=== PATIENT | female | born 1960 | race Caucasian/White ===

== ENCOUNTER 2019-08-05 08:55 | Inpatient (IN) ==
[2019-08-05] MEDS ORDERED: FAMOTIDINE 20MG IV PUSH 20 MG/5 ML SYR IV STA (09:14)
[2019-08-05] MEDS ORDERED: PIPERACILL/TAZOBAC CONSULT ACTIVE PRN (09:14)
[2019-08-05] MEDS ORDERED: PIPERACILLIN/TAZOBACTAM 4.5 GM/120 ML BAG IV ONE (09:14)
[2019-08-05] MEDS ORDERED: DiphenhydrAMINE HCL 50 MG/ML VIAL IV STA (09:14)
[2019-08-05] MEDS ORDERED: ONDANSETRON INJ 2 MG/ML 2 ML VIAL IV STA (09:14)
[2019-08-05] MEDS ORDERED: VANCOMYCIN CONSULT ACTIVE PRN (09:14)
[2019-08-05] MEDS ORDERED: methylPREDNISolone 125 MG/2 ML VIAL IV STA (09:14)
[2019-08-05] MEDS ORDERED: VANCOMYCIN HCL 2,000 MG in SODIUM CHLORIDE 0.9% 500 ML IV ONE (09:14)
[2019-08-05] MEDS ORDERED: SODIUM CHLORIDE 0.9% 1000ML 1,000 ML IV ONE ×2 (09:14→09:50)
[2019-08-05] MEDS: fentaNYL citrate 100 MCG/2 ML VIAL IV PRN ×2 (09:30→11:54)
[2019-08-05 09:54] LABS: Hematocrit (blood only) 31.5 % (37-47); Hemoglobin 10.6 g/dL (12.0-16.0); Mean Corpuscular Hemoglobin 31.5 pg (25-34); Mean Corpuscular Hgb Conc 33.7 g/dL (32-36); Mean Corpuscular Volume 93.5 fL (80-100); RDW Coefficient of Variation 15.5 % (11.5-14.5); RDW Standard Deviation 52.6 fL (36.4-46.3); Red Blood Count 3.37 M/uL (4.2-5.4); White Blood Count 59.69 K/uL (4.8-10.8)
--- NOTE | 2019-08-05 09:58 | Emergency Department Note ---
Impression & Plan Sepsis, Colitis, Abdominal pain, Metabolic acidosis, Ascending cholangitis ED Provider Note NAME: GLEN CRENSHAW AGE: 58 SEX: F : 1960 ARRIVES VIA: Ambulance INFORMANT: Patient, the patient's prehospital personnel, the patient's doc arely from [facility]. ED PROVIDER(S): Bradley Shah DO CHIEF COMPLAINT: Abdominal pain HPI: The patient is a 58-year-old female who presented to the emergency department for abdominal pain. The patient was at [facility] on July 26 for a left hip replacement. The patient has a history of peripheral vascular disease and continues to use tobacco products. She was transferred to [facility] on July 28 for sepsis. At that time it was unclear of the source but she was treated for diverticulitis. The patient did have radiographic studies which confirmed this. The patient was started on oral antibiotics after she was discharged from [facility]. She is currently taking Augmentin. She was admitted to [facility] last evening for inpatient rehab. She was sent to the emergency department this morning because of ongoing abdominal pain. She did have outpatient laboratory studies which did reveal a very high white blood cell count. The patient also complains of right- sided chest pain. She states her pain is moderate to severe and worsened with any movement. She has had nausea and vomiting. She denies any diarrhea or rectal bleeding. The patient has a history of multiple surgeries in the past. She states that she still has her gallbladder. She has had a history of venous thromboembolic disease and does take oral anticoagulation. The patient denies any recent fevers. She was tested for COVID-19 on July 30 which was reported as negative. This paperwork accompanied the patient. ROS: See above HPI for pertinent positives & negatives. A total of 10 systems reviewed and were otherwise negative. PAST MEDICAL HISTORY: See Below PAST SURGICAL HISTORY: See Below FAMILY HISTORY: See Below SOCIAL HISTORY: See Below HOME MEDICATIONS: See Below ALLERGIES: See Below VITALS: See Below PHYSICAL EXAMINATION: GENERAL: The patient is awake and alert. She is very anxious appearing and appears to be in significant pain. EYES: The conjunctivae are clear. The pupils are round and reactive. EARS, NOSE, MOUTH AND THROAT: The nose is without any evidence of any deformity. Mucous membranes are dry. NECK: The neck is nontender and supple. RESPIRATORY: Shallow respirations were noted. Diminished breath sounds are noted at both bases. There is no rales rhonchi or wheezing. There is no tachypnea but splinting respirations were noted. CARDIOVASCULAR: Tachycardic rate with regular rhythm was noted. There was no definite murmur. GASTROINTESTINAL: The abdomen was moderately distended and diffusely tender. There is right upper quadrant guarding to palpation. MUSCULOSKELETAL/EXTREMITIES: Postoperative site was noted on the lateral left hip. There was no dehiscence or erythema. There is no pain with range of motion testing. SKIN: Skin was warm and dry. Trace pedal edema was noted bilaterally. Pulses were symmetric in both feet. NEUROLOGIC: Patient is awake alert and oriented x3. MEDICAL DECISION MAKING: The patient is a 58-year-old female who is status post left hip surgery who initially was admitted to [facility] postoperatively. She has a history of tobacco use. She has a history of peripheral vascular disease. The patient was then transferred to [facility] for diverticulitis. At that time she was apparently very ill. She was recently transferred to [facility] for inpatient rehab. She started to decompensate over the last 24 hours and was sent to our emergency department with abdominal pain. The patient also complained of diarrhea and was found to have a very high white blood cell count. History and physical exam appear to be consistent with an abdominal process but given her overall appearance other laboratory and radiographic studies were obtained to ensure there was no signs of pulmonary embolism. The patient was treated with IV fluids and IV antibiotics. She was also reevaluated multiple times. The patient improved somewhat but appeared to still be very ill. I discussed her condition with the on-call general surgical group as well as the on-call hospitalist as well as the on-call dobie worker. They have agreed to evaluate the patient for further management disposition. The patient was reevaluated and feeling somewhat improved. She was agreeable to staying at our facility if it were possible. Triage Nursing notes reviewed. Prior medical records reviewed Vital Signs: reviewed and remarkable for hypotension and tachycardia Differential diagnosis: Etiologies such as appendicitis, diverticulitis, obstruction, inflammatory bowel disease, renal colic, PUD, biliary pathology, pancreatitis, mesenteric ischemia, aortic pathology, infections, genitourinary, UTI, perforated viscus, as well as others were entertained. ER treatment provided: See below Diagnostics interpreted by me: ECG: EKG was obtained in the emergency department. My interpretation is sinus tachycardia at 107 bpm. There is diffuse ST depressions noted. There was no ectopy. This was compared to a tracing from September 08, 2010. The ischemia as well as the tachycardia were both noted to be new. Cardiac Monitoring: An order was placed for continuous cardiac monitoring. The monitor shows a rate of 115 with sinus tachycardia rhythm. Laboratory studies: As stated above and show below. Imaging studies: See below Consultation(s): 1120: I discussed this case with Micheal Rodriguez. He was on-call for the surgical group. They will evaluate the patient for further management but likely medical management and resuscitation will be required first. 1125: I discussed this case with Dr. Kurtz who is on-call for the dobie worker group. 1140: I discussed this case with Dr. Fairchild. He was on-call for the [facility] hospitalist group. He is agreed to evaluate the patient in the emergency department for further management and disposition. ED COURSE: Procedures: none PDMP:reviewed and no issues Critical Care: I have personally spent greater than 65 minutes of critical care time in the direct management of this patient. This includes bedside care, interpretation of diagnostic studies, and testing, discussion with consultants, patient, and family members, and other required patient management activities. This 65 minutes is in excess of all separately billable procedures. 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 Beliefs That Will Affect Care: None marital status: Current Living Situation: Spouse current occupational status: unemployed and disabled Feels Safe at Home: Yes Smoking Status: Unknown if ever smoked Hx Alcohol Use: Yes Alcohol Intake Frequency: Weekly Alcohol Intake Frequency Comment: SOCIALLY;2-4PER WEEK Hx Substance Use: No Childhood Exposure to Second-Hand Smoke: Yes caffeine: Yes (coffee) during the past year weight has: remained stable Dental Care, Regularly: No Physical Activity Frequency Comment: LIMITED BY PHYSICAL CONDITION Seatbelt Use: sometimes Sunscreen Use: No Allergies Allergies Allergy/AdvReac Type Severity Reaction Status Date / Time Iodinated Contrast Media Allergy Unknown HIVES Verified 08/05/19 09:25 methocarbamol [From Robaxin] AdvReac Severe Verified 08/05/19 09:25 Contrast Media Ready-Box MISC Allergy Unknown Uncoded 08/05/19 09:25 Home Meds Home Medications Medication Instructions Recorded Confirmed cholecalciferol (vitamin D3) 25 1,000 units PO BID cap 09/22/18 08/05/19 mcg (1,000 unit) capsule oxycodone-acetaminophen 5 mg-325 1 tab PO .COMPLEX PRN 01/08/19 08/05/19 mg tablet buprenorphine 7.5 mcg TRANSDERMAL WK 08/05/19 08/05/19 trazodone 200 mg PO HS 08/05/19 08/05/19 Previous Rx's Medication Instructions Recorded fluticasone 250 mcg-salmeterol 50 1 puffs INH BID #60 ea 09/22/18 mcg/dose blistr powdr for inhalation fluoxetine 40 mg capsule 40 mg PO BID #180 cap 10/17/18 bupropion HCl 300 mg 24 hr tablet, 300 mg PO QAM #30 tab 11/19/18 extended release ferrous sulfate 325 mg (65 mg 325 mg PO BID #60 tab 01/08/19 iron) tablet diltiazem HCl 120 mg 120 mg PO DAILY #90 cap 05/20/19 capsule,extended release 24 hr gabapentin 300 mg capsule 300 mg PO TID #270 cap 05/20/19 atorvastatin 10 mg tablet 10 mg PO DAILY #90 tab 06/09/19 lisinopril 5 mg tablet 5 mg PO DAILY #90 tab 06/09/19 omeprazole 20 mg capsule,delayed 20 mg PO DAILY #90 cap 07/07/19 release Results & Data (ED) Vital Signs Vital Signs - 24 hr 08/05/19 09:05 08/05/19 09:12 08/05/19 09:42 Temperature 36.9 C Temperature Source Oral Pulse Rate 110 H 112 H 101 H Pulse Rate from SpO2 Sensor 110 H 101 H Respiratory Rate 28 H 26 H 25 H Blood Pressure 101/74 101/74 141/82 H Blood Pressure Mean 78 83 101 Blood Pressure Position Lying Pulse Oximetry 98 95 97 Oxygen Delivery Method Room Air Sepsis Recent Fever Within 48 Hours No Sepsis New/Unexplained Change in Mental Status No Sepsis Action Taken by Nursing Physician Notified 08/05/19 10:01 08/05/19 10:25 08/05/19 10:26 Temperature Temperature Source Pulse Rate 97 H 97 H Pulse Rate from SpO2 Sensor 101 H 98 H Respiratory Rate 20 23 Blood Pressure 147/78 H 107/67 Blood Pressure Mean 81 86 Blood Pressure Position Pulse Oximetry 99 98 95 Oxygen Delivery Method Room Air Sepsis Recent Fever Within 48 Hours Sepsis New/Unexplained Change in Mental Status Sepsis Action Taken by Nursing 08/05/19 11:00 08/05/19 11:22 08/05/19 11:31 Temperature Temperature Source Pulse Rate 96 H 98 H 96 H Pulse Rate from SpO2 Sensor 95 H 98 H Respiratory Rate 19 20 22 Blood Pressure 112/99 94/66 L 93/64 L Blood Pressure Mean 107 80 71 Blood Pressure Position Pulse Oximetry 100 100 Oxygen Delivery Method Sepsis Recent Fever Within 48 Hours Sepsis New/Unexplained Change in Mental Status Sepsis Action Taken by Nursing 08/05/19 11:53 08/05/19 12:00 08/05/19 12:31 Temperature Temperature Source Pulse Rate 102 H 95 H 94 H Pulse Rate from SpO2 Sensor 102 H 96 H 95 H Respiratory Rate 26 H 21 18 Blood Pressure 131/86 105/72 109/41 L Blood Pressure Mean 123 84 56 Blood Pressure Position Pulse Oximetry 99 96 98 Oxygen Delivery Method Sepsis Recent Fever Within 48 Hours Sepsis New/Unexplained Change in Mental Status Sepsis Action Taken by Care Home Medications Current Medication List: was personally reviewed by me Laboratory Data Attestation: I reviewed the patient's lab results. Result diagrams: 08/05/19 09:27 08/05/19 09:27 Lab Results 08/05/19 08/05/19 08/05/19 Range/Units 09:27 09:27 09:27 WBC (4.8-10.8) K/uL RBC (4.2-5.4) M/uL Hgb (12.0-16.0) g/dL POC Hgb (12.0-16.0) g/dl Hct (37-47) % POC Hct (37-47) % MCV (80-100) fL MCH (25-34) pg MCHC (32-36) g/dL RDW Std Deviation (36.4-46.3) fL RDW Coeff of Ashley (11.5-14.5) % Plt Count (130-400) K/uL MPV (7.4-10.4) fL Immature Gran % (Auto) % Neut % (Auto) % Lymph % (Auto) % [place] % (Auto) % Eos % (Auto) % Baso % (Auto) % Immature Gran # (Auto) (0.00-0.02) K/uL Neut # (Auto) (1.4-6.5) K/uL Lymph # (Auto) (1.2-3.4) K/uL [place] # (Auto) (0.11-0.59) K/uL Eos # (Auto) (0-0.5) K/uL Baso # (Auto) (0-0.2) K/uL Absolute Nucleated RBC (0-0) K/uL Nucleated RBC % (auto) % Platelet Estimate (Normal) ESR 79 H (0-21) mm/hr PT (9.0-12.0) Seconds INR (0.9-1.1) APTT (21.0-31.0) Seconds PTT Ratio VBG pH (7.36-7.41) VBG pCO2 (38-50) mmHg VBG pO2 mmHg VBG HCO3 mmol/L VBG O2 Saturation % VBG Base Excess mEq/L Barometric Pressure mm/Hg POC Sodium (135-144) mmol/L Sodium 132 L (136-145) mmol/L POC Potassium (3.3-5.0) mmol/L Potassium 4.1 (3.5-5.1) mmol/L POC Chloride (101-112) mmol/L Chloride 98 (98-107) mmol/L Carbon Dioxide 18 L (21-32) mmol/L POC Total CO2 (24-31) mmol/L Anion Gap 15.0 H (3-11) POC Anion Gap (16-25) mmol/L POC BUN (7-18) mg/dl BUN 23 H (7-18) mg/dl Creatinine 1.74 H (0.6-1.2) mg/dl POC Creatinine (0.6-1.3) mg/dl Est Cr Clr Drug Dosing 43.5 ml/min Est GFR ( Amer) 36.6 Est GFR (Non-Af Amer) 31.5 BUN/Creatinine Ratio 13.2 (10-20) Glucose 105 H (70-99) mg/dl POC Glucose (other) (70-99) mg/dl Lactate (0.4-2.0) mmol/L Calcium 7.9 L (8.5-10.1) mg/dl POC Ioniz Calcium Mariya (1.12-1.32) mmol/l Magnesium 1.8 (1.8-2.4) mg/dl Total Bilirubin 1.0 (0.2-1) mg/dl AST 21 (15-37) U/L ALT 16 (12-78) U/L Alkaline Phosphatase 138 H (45-117) U/L Troponin I < 0.015 (0-0.045) ng/ml C-Reactive Protein 27.50 H (0-0.29) mg/dl Total Protein 6.4 (6.4-8.2) gm/dl Albumin 1.6 L (3.4-5.0) gm/dl Globulin 4.8 H (2.5-4.0) gm/dl Albumin/Globulin Ratio 0.3 L (0.9-2) Procalcitonin 6.61 H (0-0.5) ng/ml 08/05/19 08/05/19 08/05/19 Range/Units 09:27 09:27 09:27 WBC 59.69 H* (4.8-10.8) K/uL RBC 3.37 L (4.2-5.4) M/uL Hgb 10.6 L (12.0-16.0) g/dL POC Hgb (12.0-16.0) g/dl Hct 31.5 L (37-47) % POC Hct (37-47) % MCV 93.5 (80-100) fL MCH 31.5 (25-34) pg MCHC 33.7 (32-36) g/dL RDW Std Deviation 52.6 H (36.4-46.3) fL RDW Coeff of Ashley 15.5 H (11.5-14.5) % Plt Count 453 H (130-400) K/uL MPV 10.6 H (7.4-10.4) fL Immature Gran % (Auto) 5.8 % Neut % (Auto) 86.5 % Lymph % (Auto) 3.7 % [place] % (Auto) 3.6 % Eos % (Auto) 0.0 % Baso % (Auto) 0.4 % Immature Gran # (Auto) 3.49 H (0.00-0.02) K/uL Neut # (Auto) 51.54 H (1.4-6.5) K/uL Lymph # (Auto) 2.23 (1.2-3.4) K/uL [place] # (Auto) 2.16 H (0.11-0.59) K/uL Eos # (Auto) 0.01 (0-0.5) K/uL Baso # (Auto) 0.26 H (0-0.2) K/uL Absolute Nucleated RBC 0.07 H (0-0) K/uL Nucleated RBC % (auto) 0.1 % Platelet Estimate Increased H (Normal) ESR (0-21) mm/hr PT 13.5 H (9.0-12.0) Seconds INR 1.3 H (0.9-1.1) APTT 28.0 (21.0-31.0) Seconds PTT Ratio 1.0 VBG pH (7.36-7.41) VBG pCO2 (38-50) mmHg VBG pO2 mmHg VBG HCO3 mmol/L VBG O2 Saturation % VBG Base Excess mEq/L Barometric Pressure mm/Hg POC Sodium (135-144) mmol/L Sodium (136-145) mmol/L POC Potassium (3.3-5.0) mmol/L Potassium (3.5-5.1) mmol/L POC Chloride (101-112) mmol/L Chloride (98-107) mmol/L Carbon Dioxide (21-32) mmol/L POC Total CO2 (24-31) mmol/L Anion Gap (3-11) POC Anion Gap (16-25) mmol/L POC BUN (7-18) mg/dl BUN (7-18) mg/dl Creatinine (0.6-1.2) mg/dl POC Creatinine (0.6-1.3) mg/dl Est Cr Clr Drug Dosing ml/min Est GFR ( Amer) Est GFR (Non-Af Amer) BUN/Creatinine Ratio (10-20) Glucose (70-99) mg/dl POC Glucose (other) (70-99) mg/dl Lactate 1.8 (0.4-2.0) mmol/L Calcium (8.5-10.1) mg/dl POC Ioniz Calcium Mariya (1.12-1.32) mmol/l Magnesium (1.8-2.4) mg/dl Total Bilirubin (0.2-1) mg/dl AST (15-37) U/L ALT (12-78) U/L Alkaline Phosphatase (45-117) U/L Troponin I (0-0.045) ng/ml C-Reactive Protein (0-0.29) mg/dl Total Protein (6.4-8.2) gm/dl Albumin (3.4-5.0) gm/dl Globulin (2.5-4.0) gm/dl Albumin/Globulin Ratio (0.9-2) Procalcitonin (0-0.5) ng/ml 08/05/19 08/05/19 Range/Units 09:39 11:19 WBC (4.8-10.8) K/uL RBC (4.2-5.4) M/uL Hgb (12.0-16.0) g/dL POC Hgb 13.9 (12.0-16.0) g/dl Hct (37-47) % POC Hct 41 (37-47) % MCV (80-100) fL MCH (25-34) pg MCHC (32-36) g/dL RDW Std Deviation (36.4-46.3) fL RDW Coeff of Ashley (11.5-14.5) % Plt Count (130-400) K/uL MPV (7.4-10.4) fL Immature Gran % (Auto) % Neut % (Auto) % Lymph % (Auto) % [place] % (Auto) % Eos % (Auto) % Baso % (Auto) % Immature Gran # (Auto) (0.00-0.02) K/uL Neut # (Auto) (1.4-6.5) K/uL Lymph # (Auto) (1.2-3.4) K/uL [place] # (Auto) (0.11-0.59) K/uL Eos # (Auto) (0-0.5) K/uL Baso # (Auto) (0-0.2) K/uL Absolute Nucleated RBC (0-0) K/uL Nucleated RBC % (auto) % Platelet Estimate (Normal) ESR (0-21) mm/hr PT (9.0-12.0) Seconds INR (0.9-1.1) APTT (21.0-31.0) Seconds PTT Ratio VBG pH 7.28 L (7.36-7.41) VBG pCO2 40 (38-50) mmHg VBG pO2 39 mmHg VBG HCO3 18 mmol/L VBG O2 Saturation 66.1 % VBG Base Excess -7.9 mEq/L Barometric Pressure 741.3 mm/Hg POC Sodium 131 L (135-144) mmol/L Sodium (136-145) mmol/L POC Potassium 4.0 (3.3-5.0) mmol/L Potassium (3.5-5.1) mmol/L POC Chloride 97 L (101-112) mmol/L Chloride (98-107) mmol/L Carbon Dioxide (21-32) mmol/L POC Total CO2 17 L (24-31) mmol/L Anion Gap (3-11) POC Anion Gap 22.0 (16-25) mmol/L POC BUN 21 H (7-18) mg/dl BUN (7-18) mg/dl Creatinine (0.6-1.2) mg/dl POC Creatinine 1.8 H (0.6-1.3) mg/dl Est Cr Clr Drug Dosing ml/min Est GFR ( Amer) Est GFR (Non-Af Amer) BUN/Creatinine Ratio (10-20) Glucose (70-99) mg/dl POC Glucose (other) 109 H (70-99) mg/dl Lactate (0.4-2.0) mmol/L Calcium (8.5-10.1) mg/dl POC Ioniz Calcium Mariya 1.00 L (1.12-1.32) mmol/l Magnesium (1.8-2.4) mg/dl Total Bilirubin (0.2-1) mg/dl AST (15-37) U/L ALT (12-78) U/L Alkaline Phosphatase (45-117) U/L Troponin I (0-0.045) ng/ml C-Reactive Protein (0-0.29) mg/dl Total Protein (6.4-8.2) gm/dl Albumin (3.4-5.0) gm/dl Globulin (2.5-4.0) gm/dl Albumin/Globulin Ratio (0.9-2) Procalcitonin (0-0.5) ng/ml Administered Medications Fentanyl Citrate (Fentanyl Citrate) 50 mcg IV Q15M PRN PRN Reason: Pain Stop: 08/19/19 09:13 Last Admin: 08/05/19 11:54 Dose: 50 mcg Documented by: [id number] Admin: 08/05/19 09:30 Dose: 50 mcg Documented by: [id number] Ioversol (Optiray 320 125ml) 119 ml IV ONCE PRN PRN Reason: Interaction Checking Stop: 08/09/19 10:20 Last Admin: 08/05/19 10:22 Dose: 119 ml Documented by: [id number] Discontinued Medications Diphenhydramine HCl (Benadryl) 25 mg IV NOW STA Stop: 08/05/19 09:15 Last Admin: 08/05/19 09:35 Dose: 25 mg Documented by: [id number] Piperacillin Sod/Tazobactam Sod (Zosyn) 4.5 gm in 120 mls @ 240 mls/hr IV NOW ONE Stop: 08/05/19 09:43 Last Infusion: 08/05/19 09:59 Dose: 0 mls/hr Documented by: [id number] Admin: 08/05/19 09:29 Dose: 240 mls/hr Documented by: [id number] Vancomycin HCl 2,000 mg/ (Sodium Chloride) 540 mls @ 200 mls/hr IV NOW ONE Stop: 08/05/19 11:43 Last Infusion: 08/05/19 12:30 Dose: 0 mls/hr Documented by: [id number] Admin: 08/05/19 09:48 Dose: 200 mls/hr Documented by: [id number] Sodium Chloride (Nss 1000ml) 1,000 mls @ 999 mls/hr IV .Q1H1M ONE Stop: 08/05/19 10:14 Last Infusion: 08/05/19 10:30 Dose: 0 mls/hr Documented by: [id number] Admin: 08/05/19 09:29 Dose: 999 mls/hr Documented by: [id number] Famotidine (Pepcid 20mg Iv Push) 20 mg in 5 mls @ 2.5 mls/min IV NOW STA Stop: 08/05/19 09:15 Last Admin: 08/05/19 09:34 Dose: 2.5 mls/min Documented by: [id number] Sodium Chloride (Nss 1000ml) 1,000 mls @ 999 mls/hr IV .Q1H1M ONE Stop: 08/05/19 10:50 Last Infusion: 08/05/19 11:27 Dose: 0 mls/hr Documented by: [id number] Admin: 08/05/19 10:25 Dose: 999 mls/hr Documented by: [id number] Methylprednisolone (Solumedrol) 125 mg IV NOW STA Stop: 08/05/19 09:15 Last Admin: 08/05/19 09:34 Dose: 125 mg Documented by: [id number] Ondansetron HCl (Zofran) 4 mg IV NOW STA Stop: 08/05/19 09:15 Last Admin: 08/05/19 09:30 Dose: 4 mg Documented by: [id number] Imaging Data Radiologist's Impression: XR chest 1V portable CLINICAL HISTORY: 58 years-old Female presenting with SEPSIS. TECHNIQUE: Portable upright AP view of the chest was obtained. COMPARISON: 11/30/2010. FINDINGS: Atherosclerosis of the aortic arch. Cardiac silhouette top normal in size. Mild pulmonary vascular and interstitial prominence. Reticular perihilar lung markings. Mildly low lung volumes. Bronchial wall thickening may be present. No large effusion or pneumothorax. Advanced degenerative changes of the right g lenohumeral joint. Reverse total left shoulder arthroplasty. Upper abdomen normal. IMPRESSION: 1. Bronchial wall thickening with perihilar added density and interstitial prominence could reflect congestive change, reactive airways disease, or bronchitis/bronchiolitis. No focal infiltrate to suggest pneumonia. ACT 112: Negative or not required by law. Electronically signed by: Michael Ace M.D. 08/05/2019 10:02 AM Dictated: 08/05/19 1001 Transcribed: 08/05/19 1001 CHEST CTA for PULMONARY ARTERIES CT DOSE: 1583.01 mGycm HISTORY: Shortness of breath. TECHNIQUE: Multiaxial CT images of the chest were performed following the intravenous administration of contrast to evaluate the pulmonary arteries. Maximal intensity projection images were also obtained. A dose lowering techn ique was utilized adhering to the principles of ALARA. COMPARISON STUDY: None. FINDINGS: Normal caliber thoracic aorta with no evidence for dissection. No pleural or pericardial effusions. The heart is normal in size. The main, lobar, and upper lobe pulmonary arteries are patent. The segmental and subsegmental pulmonary arteries of the bilateral lower lobes and right middle lobe are essentially nondiagnostic due to the poor opacification from the timing of contrast. Please refer to the same day abdomen and pelvis CT for further evaluation of the abdominal structures. Small amount of ascites is noted. Small hiatus hernia. No mediastinal or hilar lymphadenopathy. There is left shoulder arthroplasty. Advanced degenerative changes within the right glenohumeral joint. No suspicious lytic are blastic osseous lesions. No pneumothorax. The central airways are patent. Mild bronchial wall thickening is noted. There are scattered groundglass airspace opacities with mild interstitial thickening demonstrating an upper lobe predominance. No pneumothorax. Small fat-containing left-sided Bochdalek hernia. IMPRESSION: 1. No evidence for pulmonary embolus with limitations as described above. 2. Scattered groundglass airspace opacities and interstitial thickening demonstrating an upper lobe predominance. This is nonspecific but can be seen in the setting of an atypical pneumonitis (viral), chronic interstitial lung disease, sarcoidosis, or less likely pulmonary edema. Clinical correlation recommended. ACT 112: Negative or not required by law. Electronically signed by: Jona Vazquez M.D. 08/05/2019 10:43 AM Dictated: 08/05/19 1024 Transcribed: 08/05/[address] abd pelvis IV con only CLINICAL HISTORY: 58 years-old Female presenting with RUQ pain. TECHNIQUE: Multidetector CT of the abdomen and pelvis was performed after the administration of intravenous contrast. IV contrast: 119 mL of Optiray 320. One or more dose lowering techniques were used consistent with the principles of ALARA (as low as reasonably achievable), including automatic exposure control, mA or kV adjustment to individual patient size, and/or use of iterative reconstruction. COMPARISON: 02/02/2015. CT DOSE (mGy.cm): The estimated cumulative dose is 1583.01. FINDINGS: Cigar Head Stringer topogram: Orthopedic hardware. Lung bases: Normal heart size. Aortic valve calcification. No pericardial or pleural effusion. Patchy groundglass infiltrates in the right middle lobe and lingula. Liver: Normal morphology. No liver lesion. Patent hepatic vasculature. Biliary: No intrahepatic or extrahepatic biliary ductal dilatation. Trace biliary ductal wall thickening may be present. Normal gallbladder apart from mild mucosal hyperemia. Trace pericholecystic fluid. Pancreas: Mild parenchymal atrophy. Spleen: Vague hypodensity in the spleen, possibly hemangioma. Adrenal glands: Normal. Kidneys and ureters: Normal. No hydronephrosis. Bladder: Contains a focus of gas likely related to catheterization. Pelvic organs: Uterus surgically absent. Bowel: Wall thickening of the colon diffusely with mucosal hyperemia. Pericolonic edema diffusely though greatest along the ascending colon. Fluid noted throughout the colon consistent with a diarrheal illness. The appendix is normal. No bowel obstruction. Peritoneal cavity: Small volume fluid throughout the abdomen and pelvis. No free intraperitoneal air. Lymph nodes: No enlarged lymph nodes in the abdomen or pelvis. Vasculature: Atherosclerosis of the normal caliber abdominal aorta. IVC patent. Abdominal wall: Mild body wall edema. Musculoskeletal: Degenerative changes of the spine. Posterior lumbar fusion hardware and laminectomy defects. IMPRESSION: 1. Patchy infiltrates in the right middle lobe and lingula. Inflammatory or infectious infiltrates to be considered. 2. Small volume ascites may be reactive or related to volume overload. 3. Findings concerning for diffuse moderate colitis most severe in the ascending colon, likely infectious or inflammatory. Colonoscopy could be considered after treatment. 4. Trace biliary ductal wall thickening, pericholecystic fluid, and mild mucosal hyperemia of the gallbladder raises concern for ascending cholangitis. ACT 112: Negative or not required by law. Electronically signed by: Michael Ace M.D. 08/05/2019 10:57 AM Dictated: 08/05/19 1028 Transcribed: 08/05/19 1028 Blood Pressure Blood Pressure Findings: Low blood pressure Discharge Plan Visit Data Chief Complaint: Abdominal Pain Stated Complaint: abd pain / [facility] ED Provider: Bradley Shah Discharge Problem: Sepsis, Colitis, Abdominal pain, Metabolic acidosis, Ascending cholangitis Patient Disposition: Admitted As Inpatient Condition: Good Forms Stand Alone Forms: My [facility] Prescriptions Prescriptions: No Action fluoxetine 40 mg capsule 40 mg PO BID Qty: 180 RF: 3 bupropion HCl 300 mg tablet extended release 24 hr 300 mg PO QAM Qty: 30 RF: 2 diltiazem HCl 120 mg capsule,extended release 24hr 120 mg PO DAILY Qty: 90 RF: 3 atorvastatin 10 mg tablet 10 mg PO DAILY Qty: 90 RF: 3 lisinopril 5 mg tablet 5 mg PO DAILY Qty: 90 RF: 3 omeprazole 20 mg capsule,delayed release(DR/EC) 20 mg PO DAILY Qty: 90 RF: 3 fluticasone propion-salmeterol [Advair Diskus] 250-50 mcg/dose blister with device 1 puffs INH BID Qty: 60 RF: 3 cholecalciferol (vitamin D3) 1,000 unit capsule 1,000 units PO BID RF: 0 oxycodone-acetaminophen 5-325 mg tablet 1 tab PO .COMPLEX PRN (Reason: pain) RF: 0 ferrous sulfate [FeroSul] 325 mg (65 mg iron) tablet 325 mg PO BID Qty: 60 RF: 0 gabapentin 300 mg capsule 300 mg PO TID Qty: 270 RF: 3 buprenorphine 7.5 mcg/hour patch weekly 7.5 mcg transdermal WK RF: 0 trazodone 100 mg tablet 200 mg PO HS RF: 0 Referrals Referrals: [facility] [Primary Care Provider] -
[2019-08-05 10:01] LABS: iSTAT Creatinine 1.8 mg/dl (0.6-1.3); iSTAT Hemoglobin 13.9 g/dl (12.0-16.0)
[2019-08-05 10:01] LABS: Alanine Aminotransferase 16 U/L (12-78); Albumin Level 1.6 gm/dl (3.4-5.0); Aspartate Aminotransferase 21 U/L (15-37); BUN Creatinine Ratio 13.2 (10-20); Blood Urea Nitrogen 23 mg/dl (7-18); Calcium 7.9 mg/dl (8.5-10.1); Carbon Dioxide 18 mmol/L (21-32); Chloride 98 mmol/L (98-107); Creatinine Clr Calc Pharmacy 43.5 ml/min; Est GFR (African American) 36.6; Est GFR (Non-African American) 31.5; Glucose 105 mg/dl (70-99); Magnesium 1.8 mg/dl (1.8-2.4); Potassium 4.1 mmol/L (3.5-5.1); Sodium 132 mmol/L (136-145)
[2019-08-05 10:03] LABS: INR 1.3 (0.9-1.1); Prothrombin Time 13.5 Seconds (9.0-12.0)
--- NOTE | 2019-08-05 10:03 | XRay Report ---
XR chest 1V portable CLINICAL HISTORY: 58 years-old Female presenting with SEPSIS. TECHNIQUE: Portable upright AP view of the chest was obtained. COMPARISON: 11/30/2010. FINDINGS: Atherosclerosis of the aortic arch. Cardiac silhouette top normal in size. Mild pulmonary vascular an d interstitial prominence. Reticular perihilar lung markings. Mildly low lung volumes. Bronchial wall thickening may be present. No large effusion or pneumothorax. Advanced degenerative changes of the r ight glenohumeral joint. Reverse total left shoulder arthroplasty. Upper abdomen normal. IMPRESSION: 1. Bronchial wall thickening with perihilar added density and interstitial prominence could reflect congestive change, reactive airways disease, or bronchitis/bronchiolitis. No focal infiltrate to sugg est pneumonia. ACT 112: Negative or not required by law. Electronically signed by: Michael Ace M.D. 08/05/2019 10:02 AM
[2019-08-05 10:08] LABS: Albumin Globulin Ratio 0.3 (0.9-2); Alkaline Phosphatase 138 U/L (45-117); Globulin 4.8 gm/dl (2.5-4.0); Total Protein 6.4 gm/dl (6.4-8.2); Troponin I < 0.015 ng/ml (0-0.045)
[2019-08-05] MEDS ORDERED: OPTIRAY 320 125ml IV PRN (10:21)
[2019-08-05 10:24] LABS: Basophils # (auto) 0.26 K/uL (0-0.2); Basophils % (auto) 0.4 %; Eosinophils # (auto) 0.01 K/uL (0-0.5); Immature Granulocytes # (auto) 3.49 K/uL (0.00-0.02); Immature Granulocytes % (auto) 5.8 %; Lymphocytes # (auto) 2.23 K/uL (1.2-3.4); Lymphocytes % (auto) 3.7 %; Mean Platelet Volume 10.6 fL (7.4-10.4); Monocytes # (auto) 2.16 K/uL (0.11-0.59); Monocytes % (auto) 3.6 %; Neutrophils # (auto) 51.54 K/uL (1.4-6.5); Neutrophils % (auto) 86.5 %; Nucleated RBC # (auto) 0.07 K/uL (0-0); Nucleated RBC % (auto) 0.1 %; Platelet Count 453 K/uL (130-400); Platelet Estimate Increased (Normal)
--- NOTE | 2019-08-05 10:44 | CT Scan Report ---
CHEST CTA for PULMONARY ARTERIES CT DOSE: 1583.01 mGycm HISTORY: Shortness of breath. TECHNIQUE: Multiaxial CT images of the chest were performed following the intravenous administration of contrast to evaluate the pulmonary arteries. Maximal intensity projection images were also obtaine d. A dose lowering technique was utilized adhering to the principles of ALARA. COMPARISON STUDY: None. FINDINGS: Normal caliber thoracic aorta with no evidence for dissection. No pleural or pericardial ef fusions. The heart is normal in size. The main, lobar, and upper lobe pulmonary arteries are patent. The segmental and subsegmental pulmonary arteries of the bilateral lower lobes and right middle lobe are essentially nondiagnostic due to the poor opacification from the timing of contrast. Please refer to the same day abdomen and pelvis CT for further evaluation of the abdominal structures. Small amou nt of ascites is noted. Small hiatus hernia. No mediastinal or hilar lymphadenopathy. There is left s houlder arthroplasty. Advanced degenerative changes within the right glenohumeral joint. No suspiciou s lytic are blastic osseous lesions. No pneumothorax. The central airways are patent. Mild bronchial wall thickening is noted. There are scattered groundglass airspace opacities with mild interstitial t hickening demonstrating an upper lobe predominance. No pneumothorax. Small fat-containing left-sided Bochdalek hernia. IMPRESSION: 1. No evidence for pulmonary embolus with limitations as described above. 2. Scattered groundglass airspace opacities and interstitial thickening demonstrating an upper lobe p redominance. This is nonspecific but can be seen in the setting of an atypical pneumonitis (viral), c hronic interstitial lung disease, sarcoidosis, or less likely pulmonary edema. Clinical correlation r ecommended. ACT 112: Negative or not required by law. Electronically signed by: Jona Vazquez M.D. 08/05/2019 10:43 AM
--- NOTE | 2019-08-05 10:59 | CT Scan Report ---
CT abd pelvis IV con only CLINICAL HISTORY: 58 years-old Female presenting with RUQ pain. TECHNIQUE: Multidetector CT of the abdomen and pelvis was performed after the administration of intra venous contrast. IV contrast: 119 mL of Optiray 320. One or more dose lowering techniques were used c onsistent with the principles of ALARA (as low as reasonably achievable), including automatic exposur e control, mA or kV adjustment to individual patient size, and/or use of iterative reconstruction. COMPARISON: 02/02/2015. CT DOSE (mGy.cm): The estimated cumulative dose is 1583.01. FINDINGS: Tubing Tester topogram: Orthopedic hardware. Lung bases: Normal heart size. Aortic valve calcification. No pericardial or pleural effusion. Patchy groundglass infiltrates in the right middle lobe and lingula. Liver: Normal morphology. No liver lesion. Patent hepatic vasculature. Biliary: No intrahepatic or extrahepatic biliary ductal dilatation. Trace biliary ductal wall thicken ing may be present. Normal gallbladder apart from mild mucosal hyperemia. Trace pericholecystic fluid . Pancreas: Mild parenchymal atrophy. Spleen: Vague hypodensity in the spleen, possibly hemangioma. Adrenal glands: Normal. Kidneys and ureters: Normal. No hydronephrosis. Bladder: Contains a focus of gas likely related to catheterization. Pelvic organs: Uterus surgically absent. Bowel: Wall thickening of the colon diffusely with mucosal hyperemia. Pericolonic edema diffusely tho ugh greatest along the ascending colon. Fluid noted throughout the colon consistent with a diarrheal illness. The appendix is normal. No bowel obstruction. Peritoneal cavity: Small volume fluid throughout the abdomen and pelvis. No free intraperitoneal air. Lymph nodes: No enlarged lymph nodes in the abdomen or pelvis. Vasculature: Atherosclerosis of the normal caliber abdominal aorta. IVC patent. Abdominal wall: Mild body wall edema. Musculoskeletal: Degenerative changes of the spine. Posterior lumbar fusion hardware and laminectomy defects. IMPRESSION: 1. Patchy infiltrates in the right middle lobe and lingula. Inflammatory or infectious infiltrates t o be considered. 2. Small volume ascites may be reactive or related to volume overload. 3. Findings concerning for diffuse moderate colitis most severe in the ascending colon, likely infec tious or inflammatory. Colonoscopy could be considered after treatment. 4. Trace biliary ductal wall thickening, pericholecystic fluid, and mild mucosal hyperemia of the ga llbladder raises concern for ascending cholangitis. ACT 112: Negative or not required by law. Electronically signed by: Michael Ace M.D. 08/05/2019 10:57 AM
[2019-08-05 11:33] LABS: Base Excess VBG -7.9 mEq/L; Oxygen Saturation VBG 66.1 %; pH VBG 7.28 (7.36-7.41)
--- NOTE | 2019-08-05 12:38 | History & Physical Report ---
Date of Service August 05, 2019 Assessment & Plan (1) Colitis: Possible sepsis from gastrointestinal source continue Vancomycin and Zosyn blood cultures, C. difficile is sent General surgery consult initial lactate is not elevated, volume resuscitated, continue ivf and follow lactic acid (2) Arterial graft thrombosis: There is some discussion in the ER physician's note about chronic anticoagulation due to this history I do not see this on her home med rec at this time Will use heparin subcutaneous for DVT prevention (3) Benign essential hypertension: Patient typically takes diltiazem lisinopril for blood pressure control due to her low blood pressure with possible sepsis the patient will have these held (4) Diabetes mellitus: Patient has a history of diabetes in her chart we will check an A1c use insulin sliding scale she is currently n.p.o. but when resumes diet will be a carbohydrate sensitive diet (5) Status post aortobifemoral bypass surgery: (6) COPD (chronic obstructive pulmonary disease): Patient states she is got some mild breathlessness but her breathing has been stable for her she continues on Advair but will have PRN albuterol as needed if she becomes short of breath (7) Depression: Patient maintained on Wellbutrin and Prozac (8) Methicillin resistant Staphylococcus aureus infection: Due to this history patient is given vancomycin initially History of Present Illness Primary Care Provider: [facility] 58-year-old female who presented to the emergency department for abdominal pain. The patient was at [facility] on July 26 for a left hip replacement. She was transferred to [facility] on July 28 for sepsis. At that time radiographic studies suggested diverticulitis as the source of sepsis.. The patient was discharged on oral antibiotics, Augmentin, and sent to [facility] 08/04/2019 She was transferred to the emergency department in the morning of 08/05/2023 worsening abdominal pain. She did have outpatient laboratory studies which did reveal a very high white blood cell count. Patient states she has had profuse bowel movements which have been loose has had no cough or cold symptoms no chest pain pressure shortness of breath only because she feels deconditioned and she has had nausea and vomiting. Patient is a history of aortobifemoral by bypass and continues to smoke. She has had a history of venous thromboembolic disease and does take oral anticoagulation. She was tested for COVID-19 on July 30 which was reported as negative. This paperwork accompanied the patient. In the emergency department she is very tender in her abdomen she has guarding no specific rigidity or definite rebound tenderness but she is very uncomfortable to examination. She is a negative psoas sign also Allergies Allergy/AdvReac Type Severity Reaction Status Date / Time Iodinated Contrast Media Allergy Unknown HIVES Verified 08/05/19 09:25 methocarbamol [From Robaxin] AdvReac Severe Verified 08/05/19 09:25 Contrast Media Ready-Box MISC Allergy Unknown Uncoded 08/05/19 09:25 Home Medications Home Medications Medication Instructions Recorded Confirmed Type cholecalciferol (vitamin D3) 25 1,000 units PO BID cap 09/22/18 08/05/19 History mcg (1,000 unit) capsule fluticasone 250 mcg-salmeterol 50 1 puffs INH BID #60 ea 09/22/18 08/05/19 Rx mcg/dose blistr powdr for inhalation fluoxetine 40 mg capsule 40 mg PO BID #180 cap 10/17/18 08/05/19 Rx bupropion HCl 300 mg 24 hr tablet, 300 mg PO QAM #30 tab 11/19/18 08/05/19 Rx extended release ferrous sulfate 325 mg (65 mg 325 mg PO BID #60 tab 01/08/19 08/05/19 Rx iron) tablet oxycodone-acetaminophen 5 mg-325 1 tab PO .COMPLEX PRN 01/08/19 08/05/19 History mg tablet diltiazem HCl 120 mg 120 mg PO DAILY #90 cap 05/20/19 08/05/19 Rx capsule,extended release 24 hr gabapentin 300 mg capsule 300 mg PO TID #270 cap 05/20/19 08/05/19 Rx atorvastatin 10 mg tablet 10 mg PO DAILY #90 tab 06/09/19 08/05/19 Rx lisinopril 5 mg tablet 5 mg PO DAILY #90 tab 06/09/19 08/05/19 Rx omeprazole 20 mg capsule,delayed 20 mg PO DAILY #90 cap 07/07/19 08/05/19 Rx release buprenorphine 7.5 mcg TRANSDERMAL WK 08/05/19 08/05/19 History trazodone 200 mg PO HS 08/05/19 08/05/19 History Past Med/Surg History Family History Sister Alcohol abuse Anxiety Father Cardiac disorder Myocardial infarction 1983 Mother Depression Thyroid cancer Aunt Breast cancer Other Prostate cancer Denies family history of Ovarian cancer Colorectal cancer Social History Preferred Language: Qatari Communication Ability: Effective Visual Impairment: No Limitations Hearing Ability: Normal Motion Picture Set Worker Required: No Beliefs That Will Affect Care: None marital status: Current Living Situation: Spouse current occupational status: unemployed and disabled Feels Safe at Home: Yes Smoking Status: Unknown if ever smoked Hx Alcohol Use: Yes Alcohol Intake Frequency: Weekly Alcohol Intake Frequency Comment: SOCIALLY;2-4PER WEEK Hx Substance Use: No Childhood Exposure to Second-Hand Smoke: Yes caffeine: Yes (coffee) during the past year weight has: remained stable Dental Care, Regularly: No Physical Activity Frequency Comment: LIMITED BY PHYSICAL CONDITION Seatbelt Use: sometimes Sunscreen Use: No Review of Systems Review of Systems: Moderate distress and fatigue no headache, blurry or double vision no speech or swallowing issues no chest pain, pressure or palpitations Complains of mild feelings of shortness of breath, but no cough or wheezes Diffuse but mostly right-sided abdominal pain worse with movement and exam, complains of mild nausea or vomiting plus loose bowel movements/diarrhea no dysuria, hematuria or frequency Left hip focal joint pain or swelling Chronic low back pain likely relating to her morbid obesity, CVA tenderness or radicular pain no bruising, bleeding or rashes left hip wound site looks clean dry and intact no focal signs of weakness or numbness or altered sensation no complaints or anxiety or depression Physical Exam Physical Exam: The patient appeared well nourished and normally developed. She is morbidly obese Vital signs as documented. She has low blood pressure after crystalloid volume resuscitation in the ER Head exam is normocephalic atraumatic no scleral icterus Neck is without JVD, thyromegaly, or carotid bruits. Lungs are clear to auscultation, diminished at bases, no focal loss of breath sounds Cardiac exam, Rhythm is regular.. No murmurs, rubs or gallops. Abdominal exam reveals hypoactive bowel sounds, voluntary guarding diffusely tender more so on the right side negative psoas sign Extremities are nonedematous and both pedal pulses are normal. Left hip wound is clean dry and intact Neurologic exam is alert and oriented, no focal loss of strength or sensation Skin is without bruises or rashes with exception of the hip wound Psychologically is without concerns for anxiety or depression Results & Data Results & Data ([facility]) Vital Signs (Past 12 Hours) Vital Signs CT abd/pelvis 08/05/19 IMPRESSION: 1. Patchy infiltrates in the right middle lobe and lingula. Inflammatory or infectious infiltrates to be considered. 2. Small volume ascites may be reactive or related to volume overload. 3. Findings concerning for diffuse moderate colitis most severe in the ascending colon, likely infectious or inflammatory. Colonoscopy could be c onsidered after treatment. 4. Trace biliary ductal wall thickening, pericholecystic fluid, and mild mucosal hyperemia of the gallbladder raises concern for ascending cholangitis. CT Chest IMPRESSION: 1. No evidence for pulmonary embolus with limitations as described above. 2. Scattered groundglass airspace opacities and interstitial thickening demonstrating an upper lobe predominance. This is nonspecific but can be seen in the setting of an atypical pneumonitis (viral), chronic interstitial lung disease, sarcoidosis, or less likely pulmonary edema. Clinical correlation recommended. Temp Pulse Resp BP Pulse Ox 08/05/19 12:00 95 H 21 105/72 96 08/05/19 11:53 102 H 26 H 131/86 99 08/05/19 11:31 96 H 22 93/64 L 08/05/19 11:22 98 H 20 94/66 L 100 08/05/19 11:00 96 H 19 112/99 100 08/05/19 10:26 95 08/05/19 10:25 97 H 23 107/67 98 08/05/19 10:01 97 H 20 147/78 H 99 08/05/19 09:42 101 H 25 H 141/82 H 97 08/05/19 09:12 98.4 F 112 H 26 H 101/74 95 08/05/19 09:05 110 H 28 H 101/74 98 PG Care Time/CCT Total # of Minutes Spent Total Time Spent with Patient: Total time spent is greater than 50% in coordination of care (as documented) at patient's floor/unit and/or counseling patient: Coding Level of Care Code 23353 Initial Inpt Care Lvl 3 Diagnoses Colitis K52.9 Arterial graft thrombosis T82.868A Benign essential hypertension I10 Diabetes mellitus E11.9 Status post aortobifemoral bypass surgery Z95.828 COPD (chronic obstructive pulmonary disease) J44.9 Depression F32.9 Methicillin resistant Staphylococcus aureus infection A49.02
--- NOTE | 2019-08-05 13:54 | Surgery Consultation ---
Date of Consultation August 05, 2019 Assessment & Plan (1) Colitis: suspect C. diff no evidence of toxic megacolon at this point no emergent/urgent indication for surgical intervention ICU/resuscitate/antibiotics will follow along closely. stat repeat of CT scan if deteriorates clinically. History of Present Illness History of Present Illness 58 y/o with recent hip surgery in [place] ( july 26) and subsequently treated for sepsis/diverticulitis ( july 28) at [facility]...transferred to rehab and subsequently brought here for worsening abdominal pain. Pt having diffuse abdominal pain and watery diarrhea. wbc 59,[address] c/w colitis and possibly cholangitis. Allergies Allergy/AdvReac Type Severity Reaction Status Date / Time Iodinated Contrast Media Allergy Unknown HIVES Verified 08/05/19 09:25 methocarbamol [From Robaxin] AdvReac Severe Verified 08/05/19 09:25 Contrast Media Ready-Box MISC Allergy Unknown Uncoded 08/05/19 09:25 Home Medications Home Medications Medication Instructions Recorded Confirmed Type cholecalciferol (vitamin D3) 25 1,000 units PO BID cap 09/22/18 08/05/19 History mcg (1,000 unit) capsule fluticasone 250 mcg-salmeterol 50 1 puffs INH BID #60 ea 09/22/18 08/05/19 Rx mcg/dose blistr powdr for inhalation fluoxetine 40 mg capsule 40 mg PO BID #180 cap 10/17/18 08/05/19 Rx bupropion HCl 300 mg 24 hr tablet, 300 mg PO QAM #30 tab 11/19/18 08/05/19 Rx extended release ferrous sulfate 325 mg (65 mg 325 mg PO BID #60 tab 01/08/19 08/05/19 Rx iron) tablet oxycodone-acetaminophen 5 mg-325 1 tab PO .COMPLEX PRN 01/08/19 08/05/19 History mg tablet diltiazem HCl 120 mg 120 mg PO DAILY #90 cap 05/20/19 08/05/19 Rx capsule,extended release 24 hr gabapentin 300 mg capsule 300 mg PO TID #270 cap 05/20/19 08/05/19 Rx atorvastatin 10 mg tablet 10 mg PO DAILY #90 tab 06/09/19 08/05/19 Rx lisinopril 5 mg tablet 5 mg PO DAILY #90 tab 06/09/19 08/05/19 Rx omeprazole 20 mg capsule,delayed 20 mg PO DAILY #90 cap 07/07/19 08/05/19 Rx release buprenorphine 7.5 mcg TRANSDERMAL WK 08/05/19 08/05/19 History trazodone 200 mg PO HS 08/05/19 08/05/19 History Patient History Family History Sister Alcohol abuse Anxiety Father Cardiac disorder Myocardial infarction 1982 Mother Depression Thyroid cancer Aunt Breast cancer Other Prostate cancer Denies family history of Ovarian cancer Colorectal cancer Social History Preferred Language: Spanish Communication Ability: Effective Visual Impairment: No Limitations Hearing Ability: Normal Hitch Technician Required: No Beliefs That Will Affect Care: None marital status: Current Living Situation: Spouse current occupational status: unemployed and disabled Feels Safe at Home: Yes Smoking Status: Unknown if ever smoked Hx Alcohol Use: Yes Alcohol Intake Frequency: Weekly Alcohol Intake Frequency Comment: SOCIALLY;2-4PER WEEK Hx Substance Use: No Childhood Exposure to Second-Hand Smoke: Yes caffeine: Yes (coffee) during the past year weight has: remained stable Dental Care, Regularly: No Physical Activity Frequency Comment: LIMITED BY PHYSICAL CONDITION Seatbelt Use: sometimes Sunscreen Use: No Review of Systems Review of Systems: All systems reviewed & are unremarkable except as noted in HPI & below Physical Exam Physical Exam: alert. mild distress secondary to pain. oriented x 3. Heent: EOMI. PEARLA Heart: tachy/regular Lungs: clear abd: obese. soft. +diffuse tenderness. no guarding or peritoneal signs. ext: no edema. Results & Data Vital Signs (Past 12 Hours) Vital Signs Temp Pulse Resp BP Pulse Ox 08/05/19 12:31 94 H 18 109/41 L 98 08/05/19 12:00 95 H 21 105/72 96 08/05/19 11:53 102 H 26 H 131/86 99 08/05/19 11:31 96 H 22 93/64 L 08/05/19 11:22 98 H 20 94/66 L 100 08/05/19 11:00 96 H 19 112/99 100 08/05/19 10:26 95 08/05/19 10:25 97 H 23 107/67 98 08/05/19 10:01 97 H 20 147/78 H 99 08/05/19 09:42 101 H 25 H 141/82 H 97 08/05/19 09:12 36.9 C 112 H 26 H 101/74 95 08/05/19 09:05 110 H 28 H 101/74 98 PG Care Time/CCT Total # of Minutes Spent Total Time Spent with Patient: Total time spent is greater than 50% in coordination of care (as documented) at patient's floor/unit and/or counseling patient: Coding Level of Care Code 29684 Inpt Consult Level 4 Diagnoses Colitis K52.9
--- NOTE | 2019-08-05 14:32 | Critical Care Consultation ---
Date of Consultation August 05, 2019 History of Present Illness Allergies Allergy/AdvReac Type Severity Reaction Status Date / Time Iodinated Contrast Media Allergy Unknown HIVES Verified 08/05/19 09:25 methocarbamol [From Robaxin] AdvReac Severe Verified 08/05/19 09:25 Contrast Media Ready-Box MISC Allergy Unknown Uncoded 08/05/19 09:25 Home Medications Home Medications Medication Instructions Recorded Confirmed Type cholecalciferol (vitamin D3) 25 1,000 units PO BID cap 09/22/18 08/05/19 History mcg (1,000 unit) capsule fluticasone 250 mcg-salmeterol 50 1 puffs INH BID #60 ea 09/22/18 08/05/19 Rx mcg/dose blistr powdr for inhalation fluoxetine 40 mg capsule 40 mg PO BID #180 cap 10/17/18 08/05/19 Rx bupropion HCl 300 mg 24 hr tablet, 300 mg PO QAM #30 tab 11/19/18 08/05/19 Rx extended release ferrous sulfate 325 mg (65 mg 325 mg PO BID #60 tab 01/08/19 08/05/19 Rx iron) tablet oxycodone-acetaminophen 5 mg-325 1 tab PO .COMPLEX PRN 01/08/19 08/05/19 History mg tablet diltiazem HCl 120 mg 120 mg PO DAILY #90 cap 05/20/19 08/05/19 Rx capsule,extended release 24 hr gabapentin 300 mg capsule 300 mg PO TID #270 cap 05/20/19 08/05/19 Rx atorvastatin 10 mg tablet 10 mg PO DAILY #90 tab 06/09/19 08/05/19 Rx lisinopril 5 mg tablet 5 mg PO DAILY #90 tab 06/09/19 08/05/19 Rx omeprazole 20 mg capsule,delayed 20 mg PO DAILY #90 cap 07/07/19 08/05/19 Rx release buprenorphine 7.5 mcg TRANSDERMAL WK 08/05/19 08/05/19 History trazodone 200 mg PO HS 08/05/19 08/05/19 History Patient History Family History Sister Alcohol abuse Anxiety Father Cardiac disorder Myocardial infarction 1982 Mother Depression Thyroid cancer Aunt Breast cancer Other Prostate cancer Denies family history of Ovarian cancer Colorectal cancer Social History Preferred Language: Thai Communication Ability: Effective Visual Impairment: No Limitations Hearing Ability: Normal Private Client Advisor Required: No Beliefs That Will Affect Care: None marital status: Current Living Situation: Spouse current occupational status: unemployed and disabled Feels Safe at Home: Yes Smoking Status: Unknown if ever smoked Hx Alcohol Use: Yes Alcohol Intake Frequency: Weekly Alcohol Intake Frequency Comment: SOCIALLY;2-4PER WEEK Hx Substance Use: No Childhood Exposure to Second-Hand Smoke: Yes caffeine: Yes (coffee) during the past year weight has: remained stable Dental Care, Regularly: No Physical Activity Frequency Comment: LIMITED BY PHYSICAL CONDITION Seatbelt Use: sometimes Sunscreen Use: No Results & Data Results & Data ([facility]) Vital Signs (Past 12 Hours) Vital Signs Temp Pulse Resp BP Pulse Ox 08/05/19 12:31 94 H 18 109/41 L 98 08/05/19 12:00 95 H 21 105/72 96 08/05/19 11:53 102 H 26 H 131/86 99 08/05/19 11:31 96 H 22 93/64 L 08/05/19 11:22 98 H 20 94/66 L 100 08/05/19 11:00 96 H 19 112/99 100 08/05/19 10:26 95 08/05/19 10:25 97 H 23 107/67 98 08/05/19 10:01 97 H 20 147/78 H 99 08/05/19 09:42 101 H 25 H 141/82 H 97 08/05/19 09:12 36.9 C 112 H 26 H 101/74 95 08/05/19 09:05 110 H 28 H 101/74 98 Coding
--- NOTE | 2019-08-05 16:17 | Electrocardiogram Report ---
Test Reason : Blood Pressure : / mmHG Vent. Rate : 107 BPM Atrial Rate : 107 BPM P-R Int : 134 ms QRS Dur : 076 ms QT Int : 364 ms P-R-T Axes : 047 054 045 degrees QTc Int : 485 ms Sinus tachycardia Low voltage QRS Borderline ECG When compared with ECG of 08-SEP-2010 11:09, No significant change was found Confirmed by Celestino Mills ([id number]) on 08/05/2019 4:17:10 PM Referred By: [facility] Confirmed By:Erwin Mills
[2019-08-05] MEDS ORDERED: ACETAMINOPHEN 325 MG TAB PO PRN (16:55)
[2019-08-05] MEDS ORDERED: ONDANSETRON INJ 2 MG/ML 2 ML VIAL IV PRN (16:55)
[2019-08-05] MEDS ORDERED: LORazepam 0.5 MG/1 ML VIAL IV PRN (16:55)
[2019-08-05] MEDS ORDERED: HydrALAZINE HCL 20 MG/ML VIAL IV PRN (16:55)
[2019-08-05] MEDS ORDERED: MoRPHine SULFATE 4 MG/ML 1 ML CARP\\VIAL IV PRN (16:55)
[2019-08-05] MEDS ORDERED: ALUMINUM/MAGNESIUM SUSP 30 ML UDC PO PRN (16:55)
[2019-08-05] MEDS ORDERED: GLUCOSE 10 TABS/TUBE PO PRN (16:55)
[2019-08-05] MEDS ORDERED: GLUCAGON FOR INJ 1 MG VIAL SQ PRN (16:55)
[2019-08-05] MEDS ORDERED: GLUCOSE 40% GEL 15 GM TUBE PO PRN (16:55)
[2019-08-05] MEDS ORDERED: MoRPHine SULFATE 2 MG/ML CARP IV PRN (16:55)
[2019-08-05] MEDS ORDERED: CARBOHYDRATES FOR HYPOGLYCEMIA PO PRN (16:55)
[2019-08-05] MEDS ORDERED: NITROGLYCERIN SL 0.4 MG/TAB TAB SL PRN (16:55)
[2019-08-05] MEDS ORDERED: OXYCODONE/ACETAMINOPHEN 5mg/325mg TAB PO PRN (16:55)
[2019-08-05] MEDS ORDERED: DEXTROSE 50% 50 ML SYRINGE IV PRN (16:55)
[2019-08-05] MEDS ORDERED: PHARMACY GLYCEMIC MGMT CONSULT PRN (16:58)
[2019-08-05 17:54] LABS: BUN Creatinine Ratio 16.3 (10-20); Calcium 7.3 mg/dl (8.5-10.1); Creatinine Clr Calc Pharmacy 50.1 ml/min; Est GFR (African American) 43.4; Est GFR (Non-African American) 37.4; Potassium 4.8 mmol/L (3.5-5.1)
[2019-08-05] MEDS: SODIUM CHLORIDE 0.9% 1000ML 1,000 ML IV SCH (18:02)
[2019-08-05] MEDS: GABAPENTIN 300 MG CAP PO SCH ×2 (18:03→21:02)
[2019-08-05] MEDS: PIPERACILLIN/TAZOBACTAM 4.5 GM in DEXTROSE 5% 100 ML IV SCH (18:15)
[2019-08-05] MEDS: INSULIN ASPART 100 UNITS/ML 3 ML PEN SC SCH (18:21)
[2019-08-05 20:34] LABS: Cdiff Antigen Positive
[2019-08-05 20:35] LABS: Cdiff Toxin A+B Positive Cdiff Toxin (Negative)
[2019-08-05] MEDS ORDERED: TRAZODONE HCL 100 MG TAB PO SCH (21:00)
[2019-08-05] MEDS: HEPARIN SOD 5,000 UNIT/0.5 ML VIAL SQ SCH (21:03)
[2019-08-06] MEDS ORDERED: VANCOMYCIN HCL 1,250 MG in SODIUM CHLORIDE 0.9% 250 ML IV SCH
[2019-08-06] MEDS ORDERED: fentaNYL 50 MCG/HR TDSY TD ONE (00:55)
[2019-08-06] MEDS: INSULIN ASPART 100 UNITS/ML 3 ML PEN SC SCH ×5 (01:17→23:40)
[2019-08-06] MEDS ORDERED: fentaNYL 50 MCG/HR TDSY TD SCH (02:30)
[2019-08-06] MEDS: SODIUM CHLORIDE 0.9% 1000ML 1,000 ML IV SCH ×3 (03:33→20:37)
[2019-08-06] MEDS: PIPERACILLIN/TAZOBACTAM 4.5 GM in DEXTROSE 5% 100 ML IV SCH ×2 (03:33→10:13)
[2019-08-06] MEDS: HEPARIN SOD 5,000 UNIT/0.5 ML VIAL SQ SCH ×3 (05:56→20:59)
[2019-08-06 07:37] LABS: Hematocrit (blood only) 31.5 % (37-47); Hemoglobin 10.7 g/dL (12.0-16.0); Mean Corpuscular Volume 94.3 fL (80-100); Mean Platelet Volume 10.9 fL (7.4-10.4); Nucleated RBC # (auto) 0.09 K/uL (0-0); Nucleated RBC % (auto) 0.1 %; Platelet Count 354 K/uL (130-400); RDW Standard Deviation 55.2 fL (36.4-46.3); Red Blood Count 3.34 M/uL (4.2-5.4); White Blood Count 62.95 K/uL (4.8-10.8)
[2019-08-06 08:00] LABS: BUN Creatinine Ratio 16.8 (10-20); Calcium 7.4 mg/dl (8.5-10.1); Creatinine Clr Calc Pharmacy 34.1 ml/min; Est GFR (African American) 27.1; Est GFR (Non-African American) 23.4
--- NOTE | 2019-08-06 08:31 | Surgery Progress Note ---
Date of Service August 06, 2019 Assessment & Plan (1) Colitis: Patient here with colitis, cdiff returned + WBC 62 today Continues with abdominal pain, but somewhat improved since admission Diarrhea slowing down per patient Recommend keeping pt NPO with IVF and continue abx to treat c.diff Patient hypotensive this AM, will discuss with hospitalists about possible transfer to the ICU Will likely require repeat CT scan in near future, possibly tomorrow We will continue to follow closely Pt seen with Dr. Flowers as above. pt in no distress but appears tired. abd: distended with diffuse tenderness. about the same as yesterday. no peritoneal signs. states she is feeling better than yesterday with less pain and diarrhea. BP low and HR up some. Would consider transfer to ICU for more supportive care. will give fluid bolus now and increase IVF. If she deteriorates more will need to repeat CT scan. will continue to follow closely. Subjective Patient feels "wiped out". Patient continues with abdominal pain, but says it's improved since yesterday. She believes her diarrhea is improving. Physical Exam Physical Exam: awake/alert Gastrointestinal (Abdomen): Inspection/Auscultation: + abdomen distended Percussion/Palpation: + abdomen tender (diffuse ttp) Results & Data Vital Signs (Past 12 Hours) Vital Signs Temp Pulse Pulse Pulse Resp BP BP 08/06/19 07:49 36.5 C 103 H 20 84/60 L 08/06/19 04:39 36.7 C 102 H 18 84/57 L 08/06/19 02:31 90/61 L 08/06/19 01:33 107/62 08/06/19 01:10 96/53 L 08/06/19 00:09 36.7 C 65 20 83/57 L 08/05/19 23:59 106 H Pulse Ox 08/06/19 07:49 96 08/06/19 04:39 95 08/06/19 02:31 08/06/19 01:33 08/06/19 01:10 08/06/19 00:09 95 08/05/19 23:59 PG Care Time/CCT Total # of Minutes Spent Total Time Spent with Patient: Total time spent is greater than 50% in coordination of care (as documented) at patient's floor/unit and/or counseling patient: Coding Level of Care Code 71574 Subseq Hosp Care Lvl 3 Diagnoses Colitis K52.9
[2019-08-06] MEDS ORDERED: SODIUM CHLORIDE 0.9% 1000ML 1,000 ML IV ONE (08:39)
[2019-08-06] MEDS: FLUOXETINE HCL 20 MG CAP PO SCH ×2 (08:39→12:25)
[2019-08-06] MEDS: FLUTICASONE/VILANTEROL 100/25MCG 14 PUFFS/INHALER INH SCH (08:40)
[2019-08-06] MEDS: BuPROPion XL 300 MG TABCR PO SCH (08:40)
[2019-08-06] MEDS: GABAPENTIN 300 MG CAP PO SCH ×3 (08:40→20:59)
[2019-08-06] MEDS: PANTOprazole 40 MG TAB PO SCH (08:40)
[2019-08-06] MEDS: CHECK FENTANYL PATCH PLACEMENT SCH ×3 (08:53→23:37)
[2019-08-06] MEDS ORDERED: lisinopriL 5 MG TAB PO SCH (09:00)
[2019-08-06 09:11] LABS: Albumin Level 1.3 gm/dl (3.4-5.0); Bilirubin Direct 0.2 mg/dl (0-0.2); Bilirubin,Total 0.6 mg/dl (0.2-1); Total Protein 5.8 gm/dl (6.4-8.2)
[2019-08-06] MEDS ORDERED: SODIUM CHLORIDE 0.9% 1000ML 1,000 ML IV SCH (09:15)
[2019-08-06] MEDS ORDERED: VANCOMYCIN HCL 125 MG/2.5ML SOLN PO ONE (10:30)
[2019-08-06] MEDS ORDERED: RASPBERRY SYRUP 5 ML UDP PO ONE (10:30)
[2019-08-06 11:46] LABS: Estimated Average Glucose 117 mg/dl; Hemoglobin A1C 5.7 % (4.5-5.6)
--- NOTE | 2019-08-06 11:47 | Pharmacy Report ---
Glycemic Control Consultation - Date of Service August 06, 2019 - Scope Scope: Glycemic Pharmacist consulted for glycemic control and to write orders per [facility] inpatient glycemic control protocol. - Objective Weight: 109.9 kg Accuchecks BSG (last 24hrs): 08/05/19 08/05/19 08/05/19 17:27 18:20 23:53 Glucose 116 H POC Glucose 117 H 122 H 08/06/19 08/06/19 05:54 07:00 Glucose 110 H POC Glucose 107 H Laboratory Data (last 24hrs): 08/05/19 08/06/19 17:27 07:00 Potassium 4.8 D 5.0 Carbon Dioxide 20 L 11 L Anion Gap 9.0 18.0 H Creatinine 1.51 H 2.23 H D Est Cr Clr Drug Dosing 50.1 34.1 - Recent Pertinent Medications Outpatient Anti-diabetic Regimen: * n/a * A1c = 5.4 % 12/2018, updated A1c currently pending Inpatient Insulin Regimen and Causes of Insulin Resistance: - Assessment & Plan Assessment & Plan: ASSESSMENT: * 58 y/o female admitted from [facility] for abdominal pain, found to have C diff colitis. Noted to have pre-diabetes, current A1c is pending. Patient received a one time dose of Solu-medrol yesterday and BSGs have remained stable. Patient has also been NPO since admission so will need to follow closely once diet resumes. PLAN FOR INPATIENT GLYCEMIC CONTROL: * Basal insulin - none needed at this time * Bolus insulin - loosen CF/CR. If BSGs remain stable, patient may not even require carb ratio. * NovoLog per scale ACHS or Q6hrs while NPO * Goal Range: Low 110 mg/dL - High 140 mg/dL * Correction Factor: 40 mg/dL/unit * Nutritional / Prandial insulin per carb ratio of 1 unit per 13 grams CHO consumed * Please note that the plan above was derived based on current level of insulin resistance and hospital stress. These recommendations are appropriate for inpatient admission only. Plan of care upon discharge will need to be reassessed to avoid potential outpatient hypo/hyperglycemia. Thank you.
[2019-08-06] MEDS: VANCOMYCIN HCL 125 MG/2.5ML SOLN PO SCH ×3 (15:34→23:37)
[2019-08-06] MEDS: RASPBERRY SYRUP 5 ML UDP PO SCH ×3 (15:35→23:37)
[2019-08-06] MEDS ORDERED: STAT IV Infusion **Titration per Protocol STA ×2 (16:24→20:06)
[2019-08-06] MEDS: NOREPINEPHRINE BIT INJ 8 MG in DEXTROSE 5% 500 ML IV SCH (16:59)
--- NOTE | 2019-08-06 17:31 | Hospitalist Progress Note ---
Date of Service August 06, 2019 Assessment & Plan (1) Colitis: sepsis from gastrointestinal source Pt not with anion gap and septic shock, will transfer to icu for pressors, ICU notified and will oversee transitioned to cipro and flagyl iv since was previously on zosyn pre admission blood cultures, C. difficile is positive, on po vancomycin General surgery consult is following initial volume resuscitated, continue ivf (2) Benign essential hypertension: Patient typically takes diltiazem lisinopril for blood pressure control due to her low blood pressure with possible sepsis the patient will have these held (3) Diabetes mellitus: Patient has a history of diabetes in her chart we will check an A1c use insulin sliding scale she is currently n.p.o. (4) Status post aortobifemoral bypass surgery: (5) COPD (chronic obstructive pulmonary disease): Patient typically takes Advair but will transition to duo nebs (6) Depression: Patient maintained on Wellbutrin and Prozac (7) Methicillin resistant Staphylococcus aureus infection: Due to this history patient is given vancomycin initially Admission and Anticipated Discharge Date Admission Date: August 05, 2019 Subjective pt has had progressive poor response to crystaloid volume, declined with increased sob, low blood pressure, will move to ICU for iv levaphed Review of Systems Review of Systems: moderate distress and fatigue no chest pain, pressure or palpitations no shortness of breath, cough or wheezes diffuse abdominal pain, mild nausea no vomiting, loose bowel movements no dysuria, hematuria or frequency left hip pain no back pain, CVA tenderness or radicular pain left hip post op wound no focal signs of weakness or numbness or altered sensation no complaints or anxiety or depression Physical Exam Physical Exam: The patient appeared significantly ill in mild distress tachypneic Vital signs as documented. Lower blood pressure increased respiration rate Head exam is normocephalic atraumatic no scleral icterus Neck is without JVD, thyromegaly, or carotid bruits. Lungs are diminished at the bases with tachypnea Cardiac exam, Rhythm is regular.. No murmurs, rubs or gallops. Abdominal exam reveals hypoactive bowel sounds slightly distended markedly tender no defined rebound Extremities are nonedematous left leg hip incision looks to be clean dry and intact Neurologic exam is alert and oriented, no focal loss of strength or sensation globally weak and decreased movement of her left leg due to some pain Skin is without bruises or rashes with exception of her leg wound from her surgery Results & Data Results & Data ([facility]) Vital Signs (Past 12 Hours) Vital Signs Temp Pulse Pulse Resp BP BP Pulse Ox 08/06/19 17:05 96 H 20 101/68 97 08/06/19 16:45 96 H 20 68/45 L 95 08/06/19 15:48 98.2 F 102 H 24 77/46 L 95 08/06/19 11:44 93.2 F L 103 H 20 122/95 95 08/06/19 10:20 24 107/75 94 08/06/19 08:00 111 H 08/06/19 07:49 97.7 F 103 H 20 84/60 L 96 PG Care Time/CCT Total # of Minutes Spent Total Time Spent with Patient: Total time spent is greater than 50% in coordination of care (as documented) at patient's floor/unit and/or counseling patient: Coding Level of Care Code 43772 Subseq Hosp Care Lvl 3 Diagnoses Colitis K52.9 Benign essential hypertension I10 Diabetes mellitus E11.9 Status post aortobifemoral bypass surgery Z95.828 COPD (chronic obstructive pulmonary disease) J44.9 Depression F32.9 Methicillin resistant Staphylococcus aureus infection A49.02
[2019-08-06] MEDS ORDERED: ICU PROTOCOL FOR HYPERGLYCEMIA PRN (17:43)
--- NOTE | 2019-08-06 18:13 | XRay Report ---
XR chest 1V portable HISTORY: 58 years-old Female shortness of breath acute shortness of breath COMPARISON: Chest radiograph and CTA chest 08/05/2019 TECHNIQUE: Portable AP view of the chest FINDINGS: Cardiac silhouette is normal in size. Mild bilateral interstitial coarsening. No pneumothorax, large pleural effusion, or overt pulmonary edema. No lobar airspace consolidation. Degenerative changes of the spine and right shoulder. Healed remote fracture of the posterior right fifth rib. Reverse left s houlder total joint arthroplasty. IMPRESSION: Unchanged bilateral reticular opacities are suggestive of a nonspecific infectious or inf lammatory pneumonitis. Pulmonary edema considered less likely. ACT 112: Negative or not required by law. The above report was generated using voice recognition software. It may contain grammatical, syntax o r spelling errors. Electronically signed by: Olman Neumann M.D. 08/06/2019 6:11 PM
[2019-08-06 18:27] LABS: Base Excess ABG -12.7 mEq/L (-9-1.8); HCO3 ABG 13 mmol/L (19-24); Oxygen Saturation ABG 97.1 % (90-95); PCO2 ABG 28 mmHg (35-46); PO2 ABG 97 mmHg (80-95); pH ABG 7.28 (7.35-7.45)
[2019-08-06 18:28] LABS: Allen Test POS (Pos)
[2019-08-06] MEDS: metroNIDAZOLE 500 MG/100 ML BAG IV SCH (18:41)
[2019-08-06] MEDS: CIPROFLOXACIN / D5W 400 MG/200 ML BAG IV SCH (18:45)
[2019-08-06 18:53] LABS: Appearance Urine Cloudy (Clear); Bacteria Urine Automated Negative (Negative); Blood Urine Negative (Negative); Color Urine Dark Yellow; Glucose Urine UA Negative (Negative); Ketones Urine Negative (Negative); Leukocyte Esterase Urine Trace (Negative); Nitrite Urine Negative (Negative); Protein Urine Negative (Negative); Specific Gravity Urine 1.027 (1.000-1.030); Urobilinogen Urine Negative (Negative)
[2019-08-06 19:06] LABS: Bilirubin Urine Negative (Negative); Ictotest Urine Negative (Negative)
[2019-08-06 19:08] LABS: RBC Urine Automated 0-4 /hpf (0-4)
--- NOTE | 2019-08-06 19:19 | Critical Care Consultation ---
Date of Consultation August 06, 2019 Assessment & Plan (1) Shock, septic: Reason Critically Ill: 58-year-old female being treated for C. difficile colitis and transferred to ICU for worsening of septic shock now requiring vasopressors Neuro - CAM ICU: Negative Cardiac - Shocklikely septic from GI source of C. difficile colitis, see management below -Echo from 07/29/2019 showed EF 55 to 60% -Random cortisol pending -Maintaining maps greater than 65 with levo drip, CVC and A-line inserted -Was unresponsive to IV fluid resuscitation on floor, will monitor CVP and bolus if indicated -Continuous monitoring on telemetry Respiratory - History of COPDcontinue fluticasone salmeterol Tachypneacompensatory for metabolic acidosis. Currently mild with rate in the 20s. Patient would be low threshold candidate for intubation if tachypnea and metabolic acidosis worsens as she would likely fail to compensate given comorbidities GI - C. difficile colitisCT abdomen showed moderate colitis, patient with severe diarrhea and C. difficile test positive - surgery following and currently no indication for surgical intervention/signs for toxic megacolon -Currently treating with oral Vanco and Flagyl -We will likely repeat CT abdomen tomorrow per surgery recommendations Ascending cholangitis?Questionable on CT imaging, however likely non-culprit as LFTs are unremarkable, will continue to trend and monitor RENAL/LYTES - AKIcreatinine 2.3 with baseline 0.9, likely ATN due to hypotensive -We will continue to maintain maps greater than 65 with vasopressor support -Continue IV fluid resuscitation -Avoid nephrotoxins -Monitor creatinine and electrolytes with BMP Anion gap metabolic acidosismild with pH 7.23 partially respiratory compensated, gap 18 -We will place on bicarb drip for those patient is high risk film respiratory compensation which would then require intubation -Unsure of source at this time as lactate is 1.7, mild uremia?, Patient was taking iron for anemia? denies substance ingestion - Foleystrict I's and O's ENDO - Last hemoglobin A1c 5.7, continue ICU hyperglycemic protocol TSH with a.m. labs HEME - Anemiawe will hold iron sulfate for metabolic acidosis -Monitor H&H, consented for transfusion if indicated ID - Sepsislikely secondary to C. difficile colitis, initial W BC 60 and pro Alli of 6 -Blood cultures negative to date, UA unremarkable -Vancomycin switched to oral, continuing Flagyl, Cipro LINES/IV ACCESS - CVC, A-line, PIV's, NGT DVT PROPHYLAXIS - Subcu heparin, SCDs I have personally spent 40 minutes of critical care time in the direct management of this patient. This is a life/limb threatening event. This includes time spent evaluating patient, direct bedside care, chart review, placing orders, interpretation of diagnostic studies, discussion with consultants, patient, and family members, as well as other required patient management activities. This time is exclusive of all separately billable procedures, and teaching time and separate from and in addition to any other critical care service time. Thank you for allowing us to participate in the care of this patient. Please refer to my attending physician's documentation for any further recommendations. (2) Ascending cholangitis: (3) Metabolic acidosis: (4) Colitis: (5) Benign essential hypertension: (6) Diabetes mellitus: Supervising Physician Co-Signing Physician Notes I saw the patient initially at 1815 until 1900. I had previously seen the patient yesterday after discussion with the emergency medicine provider. Patient is transferred to the ICU for worsening blood pressure. She unfortunately has significant C. difficile colitis after presumptive antibiotic administration for orthopedic surgeries. I have consented the patient for central venous access, arterial line, blood product administration, intubation and mechanical ventilation, and arterial line. She was very clear describing her wishes she desires to remain a full code but does not want any life prolonging measures should she be in an end-stage terminal condition or permanent vegetative state, she only wants one attempt at resuscitation should she suffer cardiac arrest. She states she would want her to be a medical decision maker if she is unable to make decisions for herself. I also discussed the care of the patient with Dr. Morales of general surgery who was covering this evening. Our hope is to continue aggressive resuscitative measures, monitoring her lactate and administer oral vancomycin. The patient has significant obesity with a BMI of 49 and operative management will certainly prolonged her recovery especially as she is still continuing recover from her orthopedic injuries. If she has increasing vasoactive medication requirement and/or lactic acidosis I will proceed with intubation mechanical ventilation to support her cardiopulmonary function. I have personally spent 45 minutes of critical care time in the direct management of this patient. This is a life/limb threatening event. This includes time spent evaluating patient, direct bedside care, chart review, placing orders, interpretation of diagnostic studies, discussion with consultants, patient, and/or family members regarding treatment decisions, as well as other required patient management activities. This time is exclusive of all separately billable procedures, and teaching time and separate from and in addition to any other critical care service time. History of Present Illness Attending Physician: Neil Fairchild MD History of Present Illness Ms. Younger is a 58-year-old female who initially presented to the emergency department for abdominal pain and with recent history of left hip replacement and sepsis with presumed diverticulitis of source. WBC was 60,[address] abdomen showed moderate colitis, C. difficile sample was positive. She has been treated with antibiotics, currently being followed with surgery but not candidate at this time. She was transferred to the ICU this afternoon for development of septic shock and need for vasopressors despite fluid resuscitation. Central line and A-line were inserted and she is currently on Levophed drip. Currently patient is alert and oriented and is mildly tachypneic. She complains of generalized abdominal pain which is more pronounced in the left lower quadrant, and abdomen is tender to palpation all over and mildly distended. Patient states that she is still having frequent ep isodes of diarrhea, but has improved some since prior to admission. Patient denies headache, syncope, sore throat, productive cough, fevers, chest pain, palpitations. She does report mild shortness of breath. Patient to remain in ICU for further treatment at this time and use of vasopressors. Allergies Allergy/AdvReac Type Severity Reaction Status Date / Time Iodinated Contrast Media Allergy Unknown HIVES Verified 08/05/19 09:25 methocarbamol [From Robaxin] AdvReac Severe Verified 08/05/19 09:25 Contrast Media Ready-Box MISC Allergy Unknown Uncoded 08/05/19 09:25 Home Medications Home Medications Medication Instructions Recorded Confirmed Type cholecalciferol (vitamin D3) 25 1,000 units PO BID cap 09/22/18 08/05/19 History mcg (1,000 unit) capsule fluticasone 250 mcg-salmeterol 50 1 puffs INH BID #60 ea 09/22/18 08/05/19 Rx mcg/dose blistr powdr for inhalation fluoxetine 40 mg capsule 40 mg PO BID #180 cap 10/17/18 08/05/19 Rx bupropion HCl 300 mg 24 hr tablet, 300 mg PO QAM #30 tab 11/19/18 08/05/19 Rx extended release ferrous sulfate 325 mg (65 mg 325 mg PO BID #60 tab 01/08/19 08/05/19 Rx iron) tablet oxycodone-acetaminophen 5 mg-325 1 tab PO .COMPLEX PRN 01/08/19 08/05/19 History mg tablet diltiazem HCl 120 mg 120 mg PO DAILY #90 cap 05/20/19 08/05/19 Rx capsule,extended release 24 hr gabapentin 300 mg capsule 300 mg PO TID #270 cap 05/20/19 08/05/19 Rx atorvastatin 10 mg tablet 10 mg PO DAILY #90 tab 06/09/19 08/05/19 Rx lisinopril 5 mg tablet 5 mg PO DAILY #90 tab 06/09/19 08/05/19 Rx omeprazole 20 mg capsule,delayed 20 mg PO DAILY #90 cap 07/07/19 08/05/19 Rx release buprenorphine 7.5 mcg TRANSDERMAL WK 08/05/19 08/05/19 History trazodone 200 mg PO HS 08/05/19 08/05/19 History Patient History Family History Sister Alcohol abuse Anxiety Father Cardiac disorder Myocardial infarction 1982 Mother Depression Thyroid cancer Aunt Breast cancer Other Prostate cancer Denies family history of Ovarian cancer Colorectal cancer Social History Preferred Language: [place] Communication Ability: Effective Visual Impairment: No Limitations Hearing Ability: Normal Machine Baster Required: No Beliefs That Will Affect Care: None marital status: Current Living Situation: Spouse current occupational status: unemployed and disabled Feels Safe at Home: Yes Smoking Status: Former smoker Age Started Using Tobacco: 12 ; packs per day: 1 ; Hx Alcohol Use: Yes Alcohol type: beer Alcohol Intake Frequency: Weekly Alcohol Intake Frequency Comment: SOCIALLY;2-4PER WEEK Hx Substance Use: No Childhood Exposure to Second-Hand Smoke: Yes caffeine: Yes (coffee) during the past year weight has: remained stable Dental Care, Regularly: No Physical Activity Frequency Comment: LIMITED BY PHYSICAL CONDITION Seatbelt Use: sometimes Sunscreen Use: No Review of Systems Review of Systems: All systems reviewed & are unremarkable except as noted in HPI & below Physical Exam Constitutional: Obese, mild distress, ill-appearing Eyes: PERRL, conjunctivae normal, anicteric sclerae ENMT: external ear and nose normal, oropharynx normal Neck: trachea midline, no thyromegaly Respiratory: normal respiratory effort, lungs clear to auscultation able to speak in complete sentences, + tachypneic and symmetric chest movement Cardiovascular: RRR, no murmur, no edema Heart Sounds: normal S1 and normal S2 Vessels: no JVD Extremities: no edema Gastrointestinal (Abdomen): Abdomen obese, tender in all quadrants, mildly distended nonrigid, bowel sounds hyperactive Skin: no rashes, warm and dry Neurologic: PERRL, EOMI, accommodation nl, no face palsy, no dysarthria Psychiatric: A+Ox3, euthymic affect Results & Data Results & Data ([facility]) Vital Signs (Past 12 Hours) Vital Signs Temp Pulse Pulse Resp BP BP Pulse Ox 08/06/19 17:05 96 H 20 101/68 97 08/06/19 16:45 96 H 20 68/45 L 95 08/06/19 16:00 96 H 08/06/19 15:48 36.8 C 102 H 24 77/46 L 95 08/06/19 11:44 34.0 C L 103 H 20 122/95 95 08/06/19 10:20 24 107/75 94 08/06/19 08:00 111 H 08/06/19 07:49 36.5 C 103 H 20 84/60 L 96 Coding Level of Care Code Critical Care 1st 30-74 mins Diagnoses Shock, septic A41.9; R65.21 Ascending cholangitis K83.09 Metabolic acidosis E87.2 Colitis K52.9 Benign essential hypertension I10 Diabetes mellitus E11.9 Comment Initial critical care time by Dr. Kurtz: 45 minutes
--- NOTE | 2019-08-06 20:09 | Procedure Note ---
Procedure Note Date of Service August 06, 2019 Note ARTERIAL LINE PROCEDURE NOTE: Procedure: Arterial Line Placement Attending: Dr. Carlos Kurtz Provider: JENNY Mobley Indication: Monitoring on Pressors Anesthesia: Lidocaine 1% Consent was signed and placed on the chart prior to procedure. Indication, risks, and benefits were explained at length. A time-out was completed verifying correct patient, procedure, site, positioning, and implant(s) or special equipment if applicable. Allens test was performed to ensure adequate perfusion. Patients right wrist was prepped and draped in the usual sterile fashion. Ultrasound guidance was used to aid needle placement. A 20g Arrow arterial line was introduced into the right radial artery. Catheter was threaded, and the needle was removed with appropriate blood return. Good waveform was observed. The patient tolerated the procedure well. Confirmation of placement with ultrasound. Blood Loss: Minimal Complications: None Procedural Ultrasound Guidance: Procedure Date: 08/06/2019 Indication: Arterial line insertion Attending: Dr. Carlos Kurtz Provider: JENNY Mobley Artery Identified: YES Line confirmed in Artery with ultrasound: Yes Complications: NONE Patient tolerated procedure: WELL Coding CPT Codes Tubes, Drains, and Vasc Access - Tubes, Drains, and Vasc Access: [id number] Place Catheter In Artery ([id number]) Tubes, Drains, and Vasc Access - Tubes, Drains, and Vasc Access: [id number] Ultrasound Guidance For Vascular ([id number]) [facility] Procedure Codes (Charges) Tubes, Drains, and Vasc Access Procedure 1: Tubes, Drains, and Vasc Access: [id number] Place Catheter In Artery Procedure 2: Tubes, Drains, and Vasc Access: [id number] Ultrasound Guidance For Vascular
[2019-08-06] MEDS ORDERED: STAT IV STA (20:14)
[2019-08-06 20:26] LABS: iSTAT Arterial Blood Gas HCO3 12 meg/L (19-24); iSTAT Arterial Blood Gas pCO2 28 mmHg (35-46); iSTAT Arterial Blood Gas pH 7.23 (7.35-7.45); iSTAT Arterial Blood Gas pO2 79 mmHg (80-95); iSTAT Carbon Dioxide 13 mmol/L (24-31); iSTAT Site Art Line
[2019-08-06] MEDS ORDERED: Nursing to Pharmacy Communication ONE (20:33)
[2019-08-06] MEDS ORDERED: fentaNYL citrate 100 MCG/2 ML VIAL ONE (20:40)
[2019-08-06] MEDS ORDERED: fentaNYL citrate 100 MCG/2 ML VIAL IV ONE (20:54)
--- NOTE | 2019-08-06 20:54 | Procedure Note ---
Procedure Note Date of Service August 06, 2019 Note INTERNAL JUGULAR CENTRAL LINE PROCEDURE NOTE: Procedure: Internal Jugular Central Line Placement Attending: Dr. Carlos Kurtz Provider: JENNY Mobley Indication: Central Drug Administration Anesthesia: Lidocaine 1% Consent was signed and placed on the chart prior to procedure. Indication, risks, and benefits were explained at length. A time-out was completed verifying correct patient, procedure, site, positioning, and implants(s) or special equipment if applicable. Patients right neck was cleansed and draped in the typical sterile fashion using Chloraprep. The Internal Jugular Vein and Carotid Artery were identified using ultrasound. The superficial tissue was anesthetized using 5 mL of 1% lidocaine without epinephrine under direct visualization with the ultrasound. After adequate anesthetization was achieved, the Internal Jugular vein was cannulated under direct ultrasound guidance using an introducer needle on a syringe. Good venous blood return was maintained prior to removal of syringe from introducer needle. Using Seldinger Technique, a guide wire was advanced through the introducer needle without resistance. The introducer needle was removed and ultrasound images were obtained of the guide wire within the Internal Jugular Vein and saved to the patients medical record. A small incision was made in penetrating fashion at the guide wire insertion site utilizing an 11 blade scalpel. The dilator was advanced to the vessel without resistance. The dilator was exchanged for the triple lumen catheter which was advanced into the vessel without resistance. The guide wire was removed intact from the catheter without issue. Claves were placed on each catheter tip with confirmation of good blood flow from each lumen. Each port was easily flushed with sterile saline. The catheter was placed at 16 cm and sutured in place. BioPatch was applied to the catheter and a sterile Tegaderm dressing was applied over the catheter with careful attention to sterility. Patient tolerated procedure well. No immediate complications were met. Post procedure x-ray was completed, placement was appropriate and no pneumothorax was noted. Images obtained are saved for permanent record Procedural Ultrasound Guidance: Procedure Date: 08/06/2019 Indication: Central line insertion Attending: Dr. Carlos Kurtz Provider: JENNY Mobley Artery AND Vein visualized: Yes Compressible Vein: Yes Guidewire or Short Catheter seen in vein prior to dilation: Yes Line confirmed in Vein with ultrasound: Yes Images obtained are saved for permanent record. Coding CPT Codes Tubes, Drains, and Vasc Access - Tubes, Drains, and Vasc Access: [id number] Place catheter in vein superior or inferior vena cava ([id number]) Tubes, Drains, and Vasc Access - Tubes, Drains, and Vasc Access: [id number] Ultrasound Guidance For Vascular ([id number]) [facility] Procedure Codes (Charges) Tubes, Drains, and Vasc Access Procedure 1: Tubes, Drains, and Vasc Access: [id number] Place catheter in vein superior or inferior vena cava Procedure 2: Tubes, Drains, and Vasc Access: [id number] Ultrasound Guidance For Vascular
[2019-08-06] MEDS: SODIUM BICARBONATE 8.4% 150 MEQ in DEXTROSE 5% 1,000 ML IV SCH (20:58)
[2019-08-06] MEDS: VASOPRESSIN 20 UNITS in 0.9 % SODIUM CHLORIDE 100 ML IV SCH (20:59)
--- NOTE | 2019-08-06 21:19 | XRay Report ---
XR chest 1V portable HISTORY: 58 years-old Female CVC insertion status post placement of a right IJ central venous cathet er COMPARISON: Chest radiograph 08/06/2019 5:51 PM TECHNIQUE: Portable AP view of the chest FINDINGS: Cardiomediastinal and hilar silhouettes are within normal limits. Unchanged reticular opacities. No p ostprocedural pneumothorax. No pleural effusion or new airspace consolidation. Status post placement of a right IJ central venous catheter, distal tip terminating in the expected location of the superio r right atrium. Severe right glenohumeral osteoarthritis. 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 Status post placement of an enteric tube, distal tip terminating in the expected location of the gastric fundus. IMPRESSION: 1. Status post placement of a right IJ central venous catheter, distal tip terminating in the expecte d location of the superior right atrium. No postprocedural pneumothorax. 2. Status post placement of an enteric tube, distal tip projected over the expected location of the g astric fundus. ACT 112: Negative or not required by law. The above report was generated using voice recognition software. It may contain grammatical, syntax o r spelling errors. Electronically signed by: Olman Neumann M.D. 08/06/2019 9:17 PM
[2019-08-07] MEDS ORDERED: NORMOSOL-R 1,000 ML IV ONE ×2 (00:07→02:58)
[2019-08-07] MEDS: metroNIDAZOLE 500 MG/100 ML BAG IV SCH ×3 (00:22→18:00)
[2019-08-07] MEDS: SODIUM BICARBONATE 8.4% 150 MEQ in DEXTROSE 5% 1,000 ML IV SCH ×2 (02:00→10:27)
[2019-08-07 03:25] LABS: Hematocrit (blood only) 26.3 % (37-47); Hemoglobin 8.9 g/dL (12.0-16.0); Mean Corpuscular Hemoglobin 31.8 pg (25-34); Mean Corpuscular Hgb Conc 33.8 g/dL (32-36); Mean Corpuscular Volume 93.9 fL (80-100); Mean Platelet Volume 11.6 fL (7.4-10.4); Nucleated RBC # (auto) 0.43 K/uL (0-0); Nucleated RBC % (auto) 0.6 %; Platelet Count 199 K/uL (130-400); RDW Coefficient of Variation 16.3 % (11.5-14.5); RDW Standard Deviation 56.4 fL (36.4-46.3)
[2019-08-07 03:34] LABS: Base Excess ABG -13.2 mEq/L (-9-1.8); HCO3 ABG 13 mmol/L (19-24); Oxygen Saturation ABG 95.3 % (90-95); PCO2 ABG 29 mmHg (35-46); PO2 ABG 85 mmHg (80-95); pH ABG 7.26 (7.35-7.45)
[2019-08-07 03:36] LABS: Allen Test POS (Pos)
[2019-08-07 04:13] LABS: Albumin Level 0.8 gm/dl (3.4-5.0); BUN Creatinine Ratio 17.7 (10-20); Bilirubin,Total 0.4 mg/dl (0.2-1); Calcium 5.1 mg/dl (8.5-10.1); Creatinine Clr Calc Pharmacy 35.5 ml/min; Est GFR (African American) 28.5; Est GFR (Non-African American) 24.6; Phosphorus 5.6 mg/dl (2.5-4.9); Thyroid Stimulating Hormone 2.14 uIu/ml (0.300-4.500); Total Protein 4.1 gm/dl (6.4-8.2)
[2019-08-07] MEDS: VANCOMYCIN HCL 125 MG/2.5ML SOLN PO SCH (04:36)
[2019-08-07] MEDS: CIPROFLOXACIN / D5W 400 MG/200 ML BAG IV SCH (04:36)
[2019-08-07] MEDS: RASPBERRY SYRUP 5 ML UDP PO SCH ×4 (04:36→23:18)
[2019-08-07] MEDS: HEPARIN SOD 5,000 UNIT/0.5 ML VIAL SQ SCH ×3 (04:37→23:50)
[2019-08-07] MEDS: VASOPRESSIN 20 UNITS in 0.9 % SODIUM CHLORIDE 100 ML IV SCH ×3 (04:47→21:06)
[2019-08-07] MEDS: INSULIN ASPART 100 UNITS/ML 3 ML PEN SC SCH (05:00)
[2019-08-07 05:07] LABS: Potassium 5.2 mmol/L (3.5-5.1)
[2019-08-07] MEDS: NOREPINEPHRINE BIT INJ 8 MG in DEXTROSE 5% 500 ML IV SCH ×3 (05:07→15:48)
[2019-08-07 05:12] LABS: Bilirubin Direct 0.2 mg/dl (0-0.2)
[2019-08-07] MEDS ORDERED: CALCIUM CHLORIDE 10% 1,000 MG in SODIUM CHLORIDE 0.9% 50 ML IV STA (05:28)
[2019-08-07] MEDS ORDERED: fentaNYL citrate 100 MCG/2 ML VIAL IV STA (06:04)
--- NOTE | 2019-08-07 06:06 | Critical Care Progress Note ---
Date of Service August 07, 2019 Assessment & Plan Admission and Anticipated Discharge Date Admission Date: August 05, 2019 Results & Data Results & Data ([facility]) Vital Signs (Past 12 Hours) Vital Signs Temp Pulse Pulse Pulse Resp BP BP 08/07/19 05:00 97 H 25 H 08/07/19 04:30 95 H 24 08/07/19 04:00 36.7 C 91 H 24 123/60 08/07/19 03:34 101 H 20 102/71 08/07/19 03:31 96 H 17 08/07/19 03:13 101 H 19 84/56 L 08/07/19 03:00 116 H 28 H 08/07/19 02:01 99 H 17 113/82 08/07/19 02:00 100 H 18 08/07/19 01:31 99 H 17 131/52 L 08/07/19 01:00 98 H 20 08/07/19 00:30 95 H 18 08/07/19 00:00 36.6 C 99 H 94 H 94 H 26 H 113/62 113/62 08/06/19 23:55 97 H 25 H 158/97 H 08/06/19 23:30 92 H 20 08/06/19 23:00 93 H 22 08/06/19 22:16 101 H 26 H 158/97 H 08/06/19 22:00 94 H 17 123/82 08/06/19 21:46 97 H 21 127/82 08/06/19 21:31 97 H 23 78/59 L 08/06/19 21:30 98 H 20 08/06/19 21:16 101 H 18 97/60 L 08/06/19 21:01 102 H 22 102/73 08/06/19 21:00 103 H 22 08/06/19 20:46 103 H 23 69/31 L 08/06/19 20:32 101 H 19 71/61 L 08/06/19 20:30 102 H 25 H 08/06/19 20:16 98 H 18 56/36 L 08/06/19 20:02 100 H 19 106/56 L 08/06/19 20:00 101 H 20 08/06/19 19:47 99 H 21 142/70 H 08/06/19 19:31 95 H 20 88/54 L 08/06/19 19:30 93 H 20 08/06/19 19:15 102 H 23 101/73 08/06/19 19:00 100 H 25 H 81/63 L 08/06/19 18:45 100 H 26 H 96/52 L 08/06/19 18:40 106 H 28 H 99/57 L 08/06/19 18:30 112 H 28 H 08/06/19 18:25 105 H 34 H 96/62 L Pulse Ox Pulse Ox 08/07/19 05:00 96 08/07/19 04:30 98 08/07/19 04:00 98 08/07/19 03:34 99 08/07/19 03:31 100 08/07/19 03:13 100 08/07/19 03:00 84 L 08/07/19 02:01 94 08/07/19 02:00 93 08/07/19 01:31 94 08/07/19 01:00 96 08/07/19 00:30 94 08/07/19 00:00 95 98 08/06/19 23:55 95 08/06/19 23:30 94 08/06/19 23:00 94 08/06/19 22:16 89 L 08/06/19 22:00 94 08/06/19 21:46 94 08/06/19 21:31 94 08/06/19 21:30 94 08/06/19 21:16 94 08/06/19 21:01 96 08/06/19 21:00 93 08/06/19 20:46 98 08/06/19 20:32 95 08/06/19 20:30 96 08/06/19 20:16 88 L 08/06/19 20:02 94 08/06/19 20:00 93 08/06/19 19:47 94 08/06/19 19:31 99 08/06/19 19:30 97 08/06/19 19:15 94 08/06/19 19:00 96 08/06/19 18:45 95 08/06/19 18:40 94 08/06/19 18:30 87 L 08/06/19 18:25 94 Coding
--- NOTE | 2019-08-07 06:11 | Communication Note ---
Date of Service: August 07, 2019 Due to the patient's continued elevated WBC and ongoing metabolic acidosis a repeat CT abdomen with oral contrast was ordered and scheduled for 615 this mor vipin. Lactate remains negative and patient remains afebrile. However at approximately 5 AM I was contacted by the bedside nurse regarding the patient's condition. Patient is now developed significantly worsened abdominal pain with guarding and abdomen is significantly more distended. CT abdomen ordered stat and general surgery was immediately paged. I spoke with the PA for general surgery regarding the patient's condition and concern for surgical abdomen. Dr. Morales presented to the bedside and evaluated the patient. There is concern for megacolon on CT abdomen and patient now scheduled for emergent colectomy this a.m. I have personally spent 45 minutes of critical care time in the direct management of this patient. This is a life/limb threatening event. This includes time spent evaluating patient, direct bedside care, chart review, placing orders, interpretation of diagnostic studies, discussion with consultants, patient, and family members, as well as other required patient management activities. This time is exclusive of all separately billable procedures, and teaching time and separate from and in addition to any other critical care service time. Thank you for allowing us to participate in the care of this patient. Please refer to my attending physician's documentation for any further recommendations. Coding Level of Care Code Critical Care elle coxt'l 30 min
--- NOTE | 2019-08-07 06:52 | Surgery Progress Note ---
Date of Service August 07, 2019 Assessment & Plan (1) Colitis: Patient with C. difficile colitis Appears she is developing toxic megacolon at the present time I am also concerned she could have an element of compartment syndrome increased abdominal pressure I do feel she requires an emergent operation likely subtotal colectomy with end ileostomy She may require abdomen to be left open however we may be able to close the fascia and place a wound VAC postoperatively Have discussed this with her and he is in agreement We will proceed as soon as possible Subjective Patient with worsening abdominal pain this morning and more distention Her CAT scan shows creased ascites and dilated colon, no evidence of free air Her white blood cell count has increased Physical Exam Physical Exam: Her abdomen is significantly more distended tender to palpation diffusely Results & Data Vital Signs (Past 12 Hours) Vital Signs Temp Pulse Pulse Pulse Resp BP BP 08/07/19 06:00 101 H 28 H 08/07/19 05:53 102 H 25 H 144/121 H 08/07/19 05:00 97 H 25 H 08/07/19 04:30 95 H 24 08/07/19 04:00 36.7 C 91 H 24 123/60 08/07/19 03:34 101 H 20 102/71 08/07/19 03:31 96 H 17 08/07/19 03:13 101 H 19 84/56 L 08/07/19 03:00 116 H 28 H 08/07/19 02:01 99 H 17 113/82 08/07/19 02:00 100 H 18 08/07/19 01:31 99 H 17 131/52 L 08/07/19 01:00 98 H 20 08/07/19 00:30 95 H 18 08/07/19 00:00 36.6 C 99 H 94 H 94 H 26 H 113/62 113/62 08/06/19 23:55 97 H 25 H 158/97 H 08/06/19 23:30 92 H 20 08/06/19 23:00 93 H 22 08/06/19 22:16 101 H 26 H 158/97 H 08/06/19 22:00 94 H 17 123/82 08/06/19 21:46 97 H 21 127/82 08/06/19 21:31 97 H 23 78/59 L 08/06/19 21:30 98 H 20 08/06/19 21:16 101 H 18 97/60 L 08/06/19 21:01 102 H 22 102/73 08/06/19 21:00 103 H 22 08/06/19 20:46 103 H 23 69/31 L 08/06/19 20:32 101 H 19 71/61 L 08/06/19 20:30 102 H 25 H 08/06/19 20:16 98 H 18 56/36 L 08/06/19 20:02 100 H 19 106/56 L 08/06/19 20:00 101 H 20 08/06/19 19:47 99 H 21 142/70 H 08/06/19 19:31 95 H 20 88/54 L 08/06/19 19:30 93 H 20 08/06/19 19:15 102 H 23 101/73 08/06/19 19:00 100 H 25 H 81/63 L Pulse Ox Pulse Ox 08/07/19 06:00 94 08/07/19 05:53 97 08/07/19 05:00 96 08/07/19 04:30 98 08/07/19 04:00 98 08/07/19 03:34 99 08/07/19 03:31 100 08/07/19 03:13 100 08/07/19 03:00 84 L 08/07/19 02:01 94 08/07/19 02:00 93 08/07/19 01:31 94 08/07/19 01:00 96 08/07/19 00:30 94 08/07/19 00:00 95 98 08/06/19 23:55 95 08/06/19 23:30 94 08/06/19 23:00 94 08/06/19 22:16 89 L 08/06/19 22:00 94 08/06/19 21:46 94 08/06/19 21:31 94 08/06/19 21:30 94 08/06/19 21:16 94 08/06/19 21:01 96 08/06/19 21:00 93 08/06/19 20:46 98 08/06/19 20:32 95 08/06/19 20:30 96 08/06/19 20:16 88 L 08/06/19 20:02 94 08/06/19 20:00 93 08/06/19 19:47 94 05/21/20 19:31 99 08/06/19 19:30 97 08/06/19 19:15 94 08/06/19 19:00 96 PG Care Time/CCT Total # of Minutes Spent Total Time Spent with Patient: Total time spent is greater than 50% in coordination of care (as documented) at patient's floor/unit and/or counseling patient: Coding Level of Care Code 63494 Subseq Hosp Care Lvl 3 Diagnoses Colitis K52.9
[2019-08-07] MEDS ORDERED: ATROPINE SULFATE 0.1 MG/ML 10ML SYR IV PRN (07:01)
[2019-08-07] MEDS ORDERED: ePHEDrine sulfate 50 MG/ML AMP IV PRN (07:01)
[2019-08-07] MEDS ORDERED: HYDROmorphone INJ 2 MG/ML SYR/VIAL IV PRN (07:01)
--- NOTE | 2019-08-07 07:01 | Anesthesiology Consultation ---
Date of Service August 07, 2019 Assessment & Plan ASA [id number] Proposed Anesthesia Anesthesia Type: General Risk / Benefits Reviewed With: PT / POA / Parent / Guardian, Accepts Plan and Informed Consent Obtained History Surgery Operation Date: 08/07/19 11:30 Proposed Procedures p Open Bowel Resection - Noel Morales MD, FACS Height/Weight Height: 5 ft 6 in Weight: 117.4 kg Allergies Allergy/AdvReac Type Severity Reaction Status Date / Time Iodinated Contrast Media Allergy Unknown HIVES Verified 08/05/19 09:25 methocarbamol [From Robaxin] AdvReac Severe Verified 08/05/19 09:25 Contrast Media Ready-Box MISC Allergy Unknown Uncoded 08/05/19 09:25 Medications Home Medications Medication Instructions Recorded Confirmed Last Taken cholecalciferol (vitamin D3) 25 1,000 units PO BID cap 09/22/18 08/05/19 Unk nown mcg (1,000 unit) capsule fluticasone 250 mcg-salmeterol 50 1 puffs INH BID #60 ea 09/22/18 08/05/19 Unknown mcg/dose blistr powdr for inhalation fluoxetine 40 mg capsule 40 mg PO BID #180 cap 10/17/18 08/05/19 Unknown bupropion HCl 300 mg 24 hr tablet, 300 mg PO QAM #30 tab 11/19/18 08/05/19 Unknown extended release ferrous sulfate 325 mg (65 mg 325 mg PO BID #60 tab 01/08/19 08/05/19 Unknown iron) tablet oxycodone-acetaminophen 5 mg-325 1 tab PO .COMPLEX PRN 01/08/19 08/05/19 Unknown mg tablet diltiazem HCl 120 mg 120 mg PO DAILY #90 cap 05/20/19 08/05/19 Unknown capsule,extended release 24 hr gabapentin 300 mg capsule 300 mg PO TID #270 cap 05/20/19 08/05/19 Unknown atorvastatin 10 mg tablet 10 mg PO DAILY #90 tab 06/09/19 08/05/19 Unknown lisinopril 5 mg tablet 5 mg PO DAILY #90 tab 06/09/19 08/05/19 Unknown omeprazole 20 mg capsule,delayed 20 mg PO DAILY #90 cap 07/07/19 08/05/19 Unknown release buprenorphine 7.5 mcg TRANSDERMAL WK 08/05/19 08/05/19 Unknown trazodone 200 mg PO HS 08/05/19 08/05/19 Unknown Active Medications Generic Name Dose Route Start Last Admin Trade Name Freq PRN Reason Stop Dose Admin Bupropion HCl 300 mg 08/06/19 09:00 08/06/19 08:40 Wellbutrin-Xl PO 09/05/19 08:59 300 mg QAM VARSHA Administration Fentanyl 50 mcg 08/06/19 02:30 08/06/19 03:21 Duragesic TD 08/20/19 02:29 Not Given Q72H VARSHA Fluoxetine HCl 40 mg 08/06/19 08:00 08/06/19 12:25 Prozac PO 09/05/19 07:59 40 mg BID@0800,1200 VARSHA Administration Fluticasone/Vilanterol 1 puffs 08/06/19 09:00 08/06/19 08:40 Breo Ellipta 100/25 Mcg Inh INH 09/05/19 08:59 Not Given DAILY VARSHA Gabapentin 300 mg 08/05/19 16:55 08/06/19 20:59 Neurontin PO 09/04/19 16:54 Not Given TID VARSHA Heparin Sodium (Porcine) 5,000 units 08/05/19 19:00 08/07/19 04:37 Heparin Sodium (Porcine) SQ 09/04/19 18:59 5,000 units Q8 VARSHA Administration Ciprofloxacin 400 mg in 200 mls @ 100 mls/hr 08/06/19 18:00 08/07/19 06:08 Cipro IV 08/16/19 17:59 Infused Q12H VARSHA Infusion Metronidazole 500 mg in 100 mls @ 100 mls/hr 08/06/19 18:00 08/07/19 01:13 Flagyl IV 08/16/19 17:59 Infused Q8H VARSHA Infusion Norepinephrine Bitartrate 8 mg 508 mls @ 41.872 mls/hr 08/06/19 16:30 08/07/19 05:07 / Dextrose IV 09/05/19 16:29 0.1 mcg/kg/min .Q12H8M VARSHA 41.9 mls/hr Administration Protocol 0.1 MCG/KG/MIN Vasopressin 20 units/ Sodium 101 mls @ 12.12 mls/hr 08/06/19 20:15 08/07/19 04:47 Chloride IV 09/05/19 20:14 0.04 unit/min .Q8H20M VARSHA 12.1 mls/hr Administration 0.04 UNIT/MIN Sodium Bicarbonate 150 meq/ 1,150 mls @ 200 mls/hr 08/06/19 20:30 08/07/19 02:00 Dextrose IV 09/05/19 20:29 200 mls/hr .Q5H45M VARSHA Administration Insulin Aspart 0 units 08/05/19 18:00 08/07/19 05:00 Novolog Flexpen SC 09/04/19 17:59 1 units Q6 VARSHA Administration Protocol Miscellaneous 1 ea 08/06/19 08:00 08/06/19 23:37 Fentanyl Patch Check Placement N/A 09/05/19 07:59 1 ea QS VARSHA Administration Morphine Sulfate 4 mg 08/05/19 16:55 08/05/19 20:58 Morphine Sulfate IV 08/19/19 16:54 4 mg Q4 PRN Administration Pain 6-10 Oxycodone/Acetaminophen 1 tab 08/05/19 16:55 08/06/19 10:13 Percocet 5mg/325mg PO 08/19/19 16:54 1 tab QID PRN Administration pain Pantoprazole Sodium 40 mg 08/06/19 09:00 08/06/19 08:40 Protonix PO 09/05/19 08:59 40 mg DAILY VARSHA Administration Raspberry 5 ml 08/06/19 12:00 08/07/19 04:36 Raspberry PO 08/20/19 11:59 5 ml Q6 VARSHA Administration Vancomycin HCl 125 mg 08/06/19 12:00 08/07/19 04:36 Vancomycin Hcl PO 08/16/19 11:59 125 mg Q6 VARSHA Administration Past Medical History Medical History Anemia (Chronic) Arthritis (Chronic) Atherosclerosis (Chronic) Benign essential hypertension (Chronic) Bronchopneumonia Right lower lobe diagnosed 12/13/2018 COPD (chronic obstructive pulmonary disease) (Chronic) Depression (Chronic) GERD (gastroesophageal reflux disease) (Chronic) History of benign essential tremor (Chronic) History of glaucoma (Chronic) History of pneumonia (Resolved) Hypercholesterolemia (Chronic) Hypertension (Chronic) Incontinence in female (Chronic) Lumbar disc disease (Chronic) Lumbar stenosis with neurogenic claudication (Chronic) Methicillin resistant Staphylococcus aureus infection (Resolved) Negative swab 01/07/2019 Migraine headache (Chronic) Prediabetes (Chronic) Thrombotic disorder (Chronic) TIA (transient ischemic attack) (~07/2019) Vitamin D deficiency (Chronic) Exercise / Class Metabolic Activity II 4-5 Yardwork/Stairs/Walk up hill Past Family History Family History Sister Alcohol abuse Anxiety Father Cardiac disorder Myocardial infarction 1983 Mother Depression Thyroid cancer Aunt Breast cancer Other Prostate cancer Denies family history of Ovarian cancer Colorectal cancer Past Surgical History Surgical History History of back surgery History of knee replacement History of shoulder surgery Past Anesthesia History No Hx of Anesthesia Complications and No Family Hx of Anesthesia Complications History of PONV No Hx of PONV and No Hx of Motion Sickness Social History Smoking Status: Former smoker Smoking End Date: Recent Hx Alcohol Use: Yes Alcohol type: beer alcohol intake frequency: a few times a month Hx Substance Use: No substance use type: opiates Last Used Substance: Just Prior to Arrival Review of Systems unabl e to assess Physical Exam Vital Signs Last Vital Signs Temp 36.7 C 08/07/19 04:00 Pulse 101 H 08/07/19 06:00 Resp 28 H 08/07/19 06:00 BP 144/121 H 08/07/19 05:53 Pulse Ox 94 08/07/19 06:00 Constitutional + acute distress ENMT Mouth: no TMJ abnormality and no dentition abnormality Thyromental Distance: > or= 3.5 Finger Breadths Mallampati Class: II Neck neck extension not limited Respiratory normal respiratory effort; no respiratory distress Auscultation: lungs clear to auscultation bilaterally Cardiovascular Rate/Rhythm: regular rhythm and + tachycardic Neurologic moves all extremities Psychiatric Orientation: alert and oriented x 3 Testing Laboratory Results 08/07/19 03:09 08/07/19 04:38 PT 13.5 Seconds (9.0-12.0) H 08/05/19 09:27 INR 1.3 (0.9-1.1) H 08/05/19 09:27 APTT 28.0 Seconds (21.0-31.0) 08/05/19 09:27 Hemoglobin A1c 5.7 % (4.5-5.6) H 08/06/19 07:00 Urine Color Dark Yellow 08/06/19 18:35 Urine Appearance Cloudy (Clear) A 08/06/19 18:35 Urine pH 5.0 (4.5-7.5) 08/06/19 18:35 Ur Specific [place] 1.027 (1.000-1.030) 08/06/19 18:35 Urine Protein Negative (Negative) 08/06/19 18:35 Urine Glucose (UA) Negative (Negative) 08/06/19 18:35 Urine Ketones Negative (Negative) 08/06/19 18:35 Urine Nitrite Negative (Negative) 08/06/19 18:35 Ur Leukocyte Esterase Trace (Negative) H 08/06/19 18:35 Urine WBC (Auto) 1-5 /hpf (0-5) 08/06/19 18:35 Urine RBC (Auto) 0-4 /hpf (0-4) 08/06/19 18:35 U Hyaline Cast (Auto) 1-5 /lpf (0-5) 08/06/19 18:35 U Epithel Cells (Auto) 5-10 /lpf (0-5) H 08/06/19 18:35 Urine Bacteria (Auto) Negative (Negative) 08/06/19 18:35 08/05/19 09:27 Aerobic Blood Culture - Preliminary Blood No growth in Aerobic bottle after 24 hours. Anaerobic Blood Culture - Preliminary No growth in Anaerobic bottle after 24 hours. 08/05/19 09:27 Aerobic Blood Culture - Preliminary Blood No growth in Aerobic bottle after 24 hours. Anaerobic Blood Culture - Preliminary No growth in Anaerobic bottle after 24 hours. 08/07/19 08/07/19 08/06/19 04:56 04:47 23:39 POC Glucose 210 H POC Glucose (other) 176 H 44 L*
--- NOTE | 2019-08-07 07:28 | CT Scan Report ---
CT OF THE ABDOMEN AND PELVIS WITH ORAL CONTRAST CLINICAL HISTORY: Colitis. Septic shock. COMPARISON STUDY: CT of the abdomen and pelvis August 05, 2019. TECHNIQUE: Axial images of the abdomen and pelvis were obtained without IV contrast. Oral contrast wa s administered. Automated exposure control was utilized for the study. A dose lowering technique was utilized adhering to the principles of ALARA. FINDINGS: Imaged portions of the lower chest demonstrate a small left pleural effusion. Moderate grou ndglass opacities within the lungs increased since exam of August 05, 2019. Tip of nasogastric tube is w ithin the distal body of the stomach. Evaluation of the abdomen and pelvis is suboptimal on this unen hanced examination. No pneumatosis, free air or portal venous gas is present. Mild gallbladder disten tion is unchanged. Moderate ascites has increased since exam of August 05, 2019. The fluid measures grea ter than water attenuation. Excreted contrast within the collecting systems and bladder is noted from recent contrast-enhanced CT. There is no hydronephrosis. The spleen is diminutive. The adrenal gland s and pancreas are unremarkable. There is no biliary or pancreatic ductal dilatation. Anasarca is not ed. Note is made of moderate diffuse colonic wall thickening. This is similar to exam of August 05, 2019 . Moderate colonic dilatation has slightly increased since prior exam. Transverse colon and cecum adalgisa sure up to approximately 8.5 cm in caliber. No lymphadenopathy is present. A Archer balloon is present within the bladder. Left hip arthroplasty is noted. No suspicious osseous lesions are noted. Severe osteoarthritis of the right hip. IMPRESSION: 1. Diffuse colonic wall thickening with slight interval increase in moderate colonic dilatation since exam of August 05, 2019. The findings suggest severe colitis. Developing toxic megacolon cannot be excl uded. No pneumatosis, free air or portal venous gas. 2. Increase in moderate abdominal and pelvic ascites. Increased attenuation of the fluid could be due to blood products or vicarious excretion of contrast from prior CT. 3. Increase in groundglass opacities within the lower lungs which favors an infectious process. 4. Mild gallbladder distention, unchanged. ACT 112: Negative or not required by law. Electronically signed by: Chris Abbott M.D. 08/07/2019 7:27 AM
[2019-08-07] MEDS ORDERED: PROPOFOL IV EMULSION 10 MG/ML 20 ML VIAL IV ONE (07:44)
[2019-08-07] MEDS ORDERED: ROCURONIUM BROMIDE 10 MG/ML 5 ML VIAL ONE (07:44)
[2019-08-07] MEDS ORDERED: ePHEDrine sulfate 50 MG/ML AMP ONE (07:44)
[2019-08-07] MEDS ORDERED: ONDANSETRON INJ 2 MG/ML 2 ML VIAL ONE (07:44)
[2019-08-07] MEDS ORDERED: SUCCINYLCHOLINE CHLORIDE 20 MG/ML 10 ML VIAL ONE (07:44)
[2019-08-07] MEDS ORDERED: VASOPRESSIN 20 UNIT/ML VIAL ONE (07:44)
[2019-08-07] MEDS ORDERED: fentaNYL citrate 100 MCG/2 ML VIAL ONE (07:45)
[2019-08-07] MEDS ORDERED: MIDAZOLAM HCL 1 MG/ML 2ML VIAL ONE ×2 (07:46)
--- NOTE | 2019-08-07 09:43 | Post Operative Brief Note ---
PG Immediate Post Op with CF Date of Surgery August 07, 2019 Pre & Post Diagnosis Operation Date: 08/07/19 11:30 Pre-Op Diagnosis: C. difficile colitis with toxic megacolon Post-Op Diagnosis: C. difficile colitis with toxic megacolon I identified the patient and participated in the time-out.: Yes Procedure Operation Date: 08/07/19 11:30 Actual Procedures p Open Subtotal Colectomy with End Ileostomy; abdominal washout - Akash Flowers DO Surgeon DO Dr. Noel Cervantes ( co-surgeons) Speech Language Pathologist Assistant namrata Sarmiento Estimated Blood Loss 50 Findings Consistent with Post-Op Diagnosis Specimens Specimen Description: Culture: 1. Abdominal Fluid for routine culture for C&S, Anaerobic and Gram Stain Permnant: A. Subtotal Colectomy Drains Archer Catheter (Archer catheter in place prior to entering OR room and draining cloudy yellow urine) and Luis-Rosario Drain (19fr x2)
[2019-08-07] MEDS ORDERED: CALCIUM GLUCONATE 10% 1,000 MG in SODIUM CHLORIDE 0.9% 50 ML IV STA ×2 (10:02→23:44)
[2019-08-07 10:20] LABS: Allen Test Pos (Pos); Base Excess ABG -10.4 mEq/L (-9-1.8); HCO3 ABG 17 mmol/L (19-24); Oxygen Saturation ABG 95.1 % (90-95); PCO2 ABG 45 mmHg (35-46); PO2 ABG 84 mmHg (80-95)
[2019-08-07 10:21] LABS: Hematocrit (blood only) 31.5 % (37-47); Hemoglobin 10.4 g/dL (12.0-16.0); Mean Corpuscular Hemoglobin 31.3 pg (25-34); Mean Corpuscular Volume 94.9 fL (80-100); Mean Platelet Volume 10.6 fL (7.4-10.4); Nucleated RBC # (auto) 1.09 K/uL (0-0); Nucleated RBC % (auto) 1.5 %; Platelet Count 139 K/uL (130-400); RDW Coefficient of Variation 16.2 % (11.5-14.5); Red Blood Count 3.32 M/uL (4.2-5.4); White Blood Count 72.07 K/uL (4.8-10.8)
[2019-08-07] MEDS: FLUOXETINE HCL 20 MG CAP PO SCH (10:26)
[2019-08-07] MEDS: BuPROPion XL 300 MG TABCR PO SCH (10:27)
[2019-08-07] MEDS: FLUTICASONE/VILANTEROL 100/25MCG 14 PUFFS/INHALER INH SCH (10:27)
[2019-08-07] MEDS: PANTOprazole 40 MG TAB PO SCH (10:27)
[2019-08-07] MEDS: GABAPENTIN 300 MG CAP PO SCH (10:27)
--- NOTE | 2019-08-07 10:28 | Anesthesiology Progress Note ---
Date of Service August 07, 2019 Anesthesia Post Procedure Vital Signs Vital Signs: Temp Pulse Pulse Pulse Resp BP BP 08/07/19 10:03 85 16 08/07/19 06:50 37 C 94 H 100 H 28 H 08/07/19 06:00 101 H 28 H 08/07/19 05:53 102 H 25 H 144/121 H 08/07/19 05:00 97 H 25 H 08/07/19 04:30 95 H 24 08/07/19 04:00 36.7 C 91 H 24 123/60 08/07/19 03:34 101 H 20 102/71 08/07/19 03:31 96 H 17 08/07/19 03:13 101 H 19 84/56 L 08/07/19 03:00 116 H 28 H 08/07/19 02:01 99 H 17 113/82 08/07/19 02:00 100 H 18 08/07/19 01:31 99 H 17 131/52 L 08/07/19 01:00 98 H 20 08/07/19 00:30 95 H 18 08/07/19 00:00 36.6 C 99 H 94 H 94 H 26 H 113/62 08/06/19 23:55 97 H 25 H 158/97 H 08/06/19 23:30 92 H 20 08/06/19 23:00 93 H 22 08/06/19 22:16 101 H 26 H 158/97 H 08/06/19 22:00 94 H 17 123/82 08/06/19 21:46 97 H 21 127/82 08/06/19 21:31 97 H 23 78/59 L 08/06/19 21:30 98 H 20 08/06/19 21:16 101 H 18 97/60 L 08/06/19 21:01 102 H 22 102/73 08/06/19 21:00 103 H 22 08/06/19 20:46 103 H 23 69/31 L 08/06/19 20:32 101 H 19 71/61 L 08/06/19 20:30 102 H 25 H 08/06/19 20:16 98 H 18 56/36 L 08/06/19 20:02 100 H 19 106/56 L 08/06/19 20:00 101 H 20 08/06/19 19:47 99 H 21 142/70 H 08/06/19 19:31 95 H 20 88/54 L 08/06/19 19:30 93 H 20 08/06/19 19:15 102 H 23 101/73 08/06/19 19:00 100 H 25 H 81/63 L 08/06/19 18:45 100 H 26 H 96/52 L 08/06/19 18:40 106 H 28 H 99/57 L 08/06/19 18:30 112 H 28 H 08/06/19 18:25 105 H 34 H 96/62 L 08/06/19 18:00 97 H 22 08/06/19 17:40 36.3 C L 99 H 23 08/06/19 17:05 96 H 20 101/68 08/06/19 16:45 96 H 20 68/45 L 08/06/19 16:00 96 H 08/06/19 15:48 36.8 C 102 H 24 77/46 L 08/06/19 11:44 34.0 C L 103 H 20 BP Pulse Ox Pulse Ox 08/07/19 10:03 100 08/07/19 06:50 135/82 94 08/07/19 06:00 94 08/07/19 05:53 97 08/07/19 05:00 96 08/07/19 04:30 98 08/07/19 04:00 98 08/07/19 03:34 99 08/07/19 03:31 100 08/07/19 03:13 100 08/07/19 03:00 84 L 08/07/19 02:01 94 08/07/19 02:00 93 08/07/19 01:31 94 08/07/19 01:00 96 08/07/19 00:30 94 08/07/19 00:00 113/62 95 98 08/06/19 23:55 95 08/06/19 23:30 94 08/06/19 23:00 94 08/06/19 22:16 89 L 08/06/19 22:00 94 08/06/19 21:46 94 08/06/19 21:31 94 08/06/19 21:30 94 08/06/19 21:16 94 08/06/19 21:01 96 08/06/19 21:00 93 08/06/19 20:46 98 08/06/19 20:32 95 08/06/19 20:30 96 08/06/19 20:16 88 L 08/06/19 20:02 94 08/06/19 20:00 93 08/06/19 19:47 94 08/06/19 19:31 99 08/06/19 19:30 97 08/06/19 19:15 94 08/06/19 19:00 96 08/06/19 18:45 95 08/06/19 18:40 94 08/06/19 18:30 87 L 08/06/19 18:25 94 08/06/19 18:00 96 08/06/19 17:40 94 08/06/19 17:05 97 08/06/19 16:45 95 08/06/19 16:00 08/06/19 15:48 95 08/06/19 11:44 122/95 95 Pain Intensity Abdomen: Pain Intensity: 8 Left Hip: Pain Intensity: 5 Transfer of Care Handoff Completed per policy Notes Mental Status: alert / awake / arousable and participated in evaluation Patient Amnestic to Procedure: Yes Nausea / Vomiting: adequately controlled Pain: adequately controlled Airway Patency, RR, SpO2: stable & adequate BP & HR: stable & adequate Hydration State: stable & adequate Anesthetic Complications: no major complications apparent and Pt Satisfied with anesthetic care
[2019-08-07 10:42] LABS: BUN Creatinine Ratio 16.5 (10-20); Bilirubin Direct 0.2 mg/dl (0-0.2); Bilirubin,Total 0.4 mg/dl (0.2-1); Calcium 5.8 mg/dl (8.5-10.1); Est GFR (African American) 21.3; Est GFR (Non-African American) 18.4; Phosphorus 8.2 mg/dl (2.5-4.9); Potassium 5.6 mmol/L (3.5-5.1); Total Protein 3.9 gm/dl (6.4-8.2)
[2019-08-07 10:50] LABS: Fibrinogen 506 mg/dl (184-400); INR 1.5 (0.9-1.1); Partial Thromboplastin Ratio 1.6; Partial Thromboplastin Time 44.6 Seconds (21.0-31.0); Prothrombin Time 15.1 Seconds (9.0-12.0)
[2019-08-07] MEDS: PANTOprazole 40 MG in SYRINGE 0 ML IV SCH (10:52)
[2019-08-07 11:12] LABS: ALC (manual) 3.75 K/uL (1.2-3.4); ANC (manual) 55.13 K/uL (1.4-6.5); Basophils # (manual) 0.65 K/uL (0-0.2); Basophils % (manual) 0.9 %; Lymphocytes # (manual) 3.75 K/uL (1.2-3.4); Lymphocytes % (manual) 5.2 %; Metamyelocytes # (manual) 6.27 K/uL (0-0); Metamyelocytes % (manual) 8.7 %; Monocytes # (manual) 0.65 K/uL (0.11-0.59); Monocytes % (manual) 0.9 %; Myelocytes # (manual) 5.62 K/uL (0-0); Myelocytes % (manual) 7.8 %; Neutrophils # (manual) 55.13 K/uL (1.4-6.5); Neutrophils % (manual) 76.5 %; RBC Morphology Unremarkable
[2019-08-07] MEDS: MIDAZOLAM HCL 1 MG/ML 2ML VIAL IV PRN ×3 (11:27→19:34)
--- NOTE | 2019-08-07 11:40 | Operative Report ---
PG Post Operative Report Pre & Post Diagnosis Operation Date: 08/07/19 11:30 Pre-Op Diagnosis: C. difficile colitis with toxic megacolon Post-Op Diagnosis: C. difficile colitis with toxic megacolon I identified the patient and participated in the time-out.: Yes Procedure Operation Date: 08/07/19 11:30 Actual Procedures p Open Subtotal Colectomy with End Ileostomy - Akash Flowers DO Surgeon Akash Flowers DO Glass Melt Operator namrata Sarmiento Estimated Blood Loss 50 Findings Consistent with Post-Op Diagnosis Specimens terminal ileum, cecum, right, transverse , left and sigmoid colon abdominal fluid for culture Drains 19 SHRUTI times 2 Description of Procedure I was notified by my partner Dr. Morales early this morning about the patient's deterioration overnight. He had already spoken to the patient's family had the OR team ready and consent signed. He and I performed this procedure together. After informed consent was obtained the patient was taken to the operating room placed in supine position and intubated by anesthesia. The abdomen was sterilely prepped and draped in usual fashion. We made a large midline incision from below the xiphoid process down around the umbilicus to the suprapubic region. Cautery was used to carry this down through the soft tissue. Anterior fascia was opened using cautery as well. We extended this to both poles of the incision using cautery. Blunt finger penetration was used to enter the peritoneal cavity which was also opened to both poles using cautery. We immediately encountered a large amount of thin ascites. We did take a sample for culture and sensitivity. There was a general foul smell but no fecal material initially. After we suctioned out the ascites we then began examining the entire abdomen. The entire colon was severely inflamed however there were 2 areas one on the transverse colon and one in the left colon with a very thin, infarcted appearing serosa with impending rupture. In fact the minute we manipulated the bowel there were 2 areas of perforation. We suctioned these out and then closed them using 0 chromic sutures so that there would not be continued spillage throughout the procedure. We began by mobilizing the rectosigmoid colon and the left colon along the white line of Toldt. We did this using blunt finger fractionation as well as small amounts of cautery. We continued this up and around the splenic flexure. Because of this shear size of the colon as well as the generalized edema we took the colon out in 2 pieces. We are able to create a small window in the rectosigmoid mesentery and then used a 90 mm green TA stapling device to transect the rectum from the sigmoid colon. We did oversew the rectal stump first with 2-0 chromic catgut followed by 3-0 Prolene. We left long Prolene tails so that the stump could be found in the future if need be. We then used a LigaSure device to come up the mesentery of the sigmoid and left colon. We continued to use blunt finger dissection small amounts of cautery and the LigaSure device to continue to do this. Once we got to the splenic flexure we then found a spot on the transverse colon and again made a small window in the mesentery. A KIMMIE purple cartridge stapler was used to transect the transverse colon. Again we used primarily the LigaSure to take down the mesentery towards the spleen. Eventually we were able to come around the splenic flexure to our previous point of dissection. Were then able to handle off the distal transverse colon, splenic flexure, left colon and sigmoid colon as a specimen. Next we mobilized the right colon in a similar fashion by taking down the white line of Toldt with finger fractionation blunt dissection and small amounts of cautery. We were able to identify the duodenum during this process to prevent injury. We picked a point proximal to the ileocecal valve and transect the small bowel using a KIMMIE purple cartridge stapler. We continued to take down the mesentery until we were up to our previous dissection on the transverse colon. This allowed us to pass off the terminal ileum, cecum, right colon and proximal transverse colon. We performed an irrigation of the entire abdomen and then changed our gloves. Other than the large bowel/toxic megacolon there did not appear to be any other intra-abdominal pathology. We made a circular skin incision in the right midabdomen for ostomy placement. We used cautery to open the fascia and used a Quinn clamp to easily deliver the terminal ileum out through this opening. This was able to be done without any tension on the mesentery. The small bowel itself was nice and pink with no evidence of injury or ischemia. About 6 L of warm irrigant were then used to thoroughly irrigate all the surfaces of the abdomen. After removing all the debris there did not appear to be an issue regarding closing her fascia with r egards to tension or pressure. We placed 2 #19 [place]ic SHRUTI drains one in the right upper quadrant one in the left upper quadrant. They were ran down both paracolic gutters and into the pelvis. They were both secured to the skin using 2-0 nylon. After a final irrigation we closed the fascia using #1 looped PDS starting at either pole and running them and securing them in the midline. Soft tissue was irrigated. Betadine soaked Kerlix gauze was used to pack the wound covered by sterile gauze dressings and tape. I then matured the ileostomy in Sonal fashion using 3-0 Monocryl. An ostomy appliance was placed. The patient remained intubated and was transferred to the intensive care unit in critical condition. I will reiterate that Dr. Morales and I were co-surgeons on the case and Micheal Sarmiento, our PA was present throughout the entire case to assist us as well. I attest to the content of the Intraoperative Record and any orders documented therein. Any exceptions are noted below.
[2019-08-07] MEDS ORDERED: INSULIN ASPART 100 UNITS/ML 3 ML PEN SC SCH (12:00)
[2019-08-07] MEDS ORDERED: INSULIN GLARGINE SOLOSTAR 100 UNITS/ML 3 ML PEN SC STA (12:49)
[2019-08-07] MEDS: VANCOMYCIN HCL 500 MG/10 ML SOLN PO SCH ×3 (13:09→23:18)
[2019-08-07] MEDS ORDERED: NovoLIN-R BOLUS FROM BAG IV ONE (13:15)
[2019-08-07] MEDS: INSULIN REGULAR 250 UNITS in SODIUM CHLORIDE 0.9% 247.5 ML IV SCH (13:40)
--- NOTE | 2019-08-07 13:54 | Pharmacy Report ---
Pharmacy Glycemic Short Note 2 - Date of Service August 07, 2019 - Glycemic Short BSG Results (Last 24 hours): 08/06/19 08/06/19 08/07/19 17:42 23:39 03:09 Glucose 184 H POC Glucose 129 H 210 H POC Glucose (other) 08/07/19 08/07/19 08/07/19 04:47 04:56 10:03 Glucose 247 H POC Glucose POC Glucose (other) 44 L* 176 H 08/07/19 12:36 Glucose POC Glucose POC Glucose (other) 242 H Outpatient Anti-diabetic Regimen: * n/a * A1c = 5.7% on 08/05 ASSESSMENT: * 58 y/o female admitted from [facility] on 08/04 for abdominal pain, found to have C diff colitis. * Noted to have pre-diabetes, which is consistent with HbA1c. * Significant changes to stressors - admitted to ICU, requiring vasoactive support x2 agents, POD 0 s/p subtotal colectomy 2nd toxic megacolon, initially on D5W containing bicarb drip which has now stopped * BSG >220 mg/dL x1 - initiated insulin drip per ICU hyperglycemic policy. This is reasonable at this time given significant stressors (above). Discussed w Dr. Kurtz who is aware of initiation of drip, and also agrees with the following transition criteria at this time: BSG < 180 mg/dL x2 checks, drip < 1 unit/hr. OK with initiating Lantus simultaneously to hopefully have the drip be short-term until better control can be achieved with basal/bolus PLAN FOR INPATIENT GLYCEMIC CONTROL: * Basal insulin - Lantus 18 units SC x1. Additional 0-18 units tonight based on BSG (see MAR for details) * Insulin drip, severe stress, goal 120-180 mg/dL
--- NOTE | 2019-08-07 14:08 | Critical Care Progress Note ---
Date of Service August 07, 2019 Assessment & Plan (1) Shock, septic: Reason Critically Ill: 58-year-old female being treated for C. difficile colitis and transferred to ICU for worsening of septic shock now requiring vasopressors Neuro - [facility] ICU: Negative Cardiac - Shocklikely septic from GI source of C. difficile colitis -Echo from 07/29/2019 showed EF 55 to 60% -Random cortisol: Adequate -Maintaining maps greater than 65 with levo drip, CVC and A-line inserted -Was unresponsive to IV fluid resuscitation on floor, will monitor CVP and bolus if indicated -Anticipate significant third spacing given required colectomy for source control Respiratory - Respiratory failure -Continue current ventilator management contraindication to extubation is vasoactive medication requirements and systemic inflammatory response syndrome/sepsis GI - C. difficile colitisfulminant -Status post total colectomy for source control -Currently treating with oral Vanco: Ileostomy okay to give -IV Flagyl -Blind pouch of rectum no CO vancomycin Transaminitis -Secondary to septic shock RENAL/LYTES - Acute renal failure with increasing creatinine and potassium -Nephrology consult -Insulin infusion for hyperglycemia will help manage increasing potassium -Avoid nephrotoxins -Rechecking frequent BMPs Anion gap metabolic acidosismild with pH 7.23 partially respiratory compensated, gap 18 -We will place on bicarb drip for those patient is high risk film respiratory compensation which would then require intubation -Unsure of source at this time as lactate is 1.7, mild uremia?, Patient was taking iron for anemia? denies substance ingestion - Foleystrict I's and O's ENDO - Last hemoglobin A1c 5.7, continue ICU hyperglycemic protocol TSH with a.m. labs HEME - Anemiawe will hold iron sulfate for metabolic acidosis Elevated INR -IV vitamin K 2.5 mg Leukemoid reaction secondary to sepsis DVT prophylaxis: Heparin 5000 3 times daily ID - Septic shock with multisystem organ dysfunction -Vitamin C and thiamine for additional volume repletion given significant ongoing losses LINES/IV ACCESS - CVC, A-line, PIV's, NGT DVT PROPHYLAXIS - Subcu heparin, SCDs (2) Ascending cholangitis: (3) Metabolic acidosis: (4) Colitis: (5) Benign essential hypertension: (6) Diabetes mellitus: Admission and Anticipated Discharge Date Admission Date: August 05, 2019 Supervising Physician Co-Signing Physician Notes I have attempted to contact the patient's twice I have left messages on the answering machine for him to contact the ICU. Patient has worsening vasoactive medication requirement, I am concerned she is going to need some form of renal replacement therapy. I discussed this with Dr. Kirk, we can attempt to do low clearance here at this facility, other considerations include transfer to tertiary care center for formal continuous hemofiltration. Subjective Overnight the patient had worsening distention and clinical picture prompting operative management and total colectomy. Review of Systems Review of Systems: Unobtainable due to endotracheal tube and Unobtainable due to reduced consciousness Results & Data Results & Data ([facility]) Vital Signs (Past 12 Hours) Vital Signs Temp Pulse Pulse Pulse Resp BP BP 08/07/19 11:42 36.2 C L 89 08/07/19 11:30 91 H 08/07/19 11:20 85 16 08/07/19 11:00 92 H 08/07/19 10:30 90 08/07/19 10:03 85 16 08/07/19 10:00 34.9 C L 87 08/07/19 06:50 37 C 94 H 100 H 28 H 135/82 08/07/19 06:31 99 H 16 135/82 08/07/19 06:30 99 H 16 08/07/19 06:01 101 H 24 122/91 08/07/19 06:00 101 H 28 H 08/07/19 05:53 102 H 25 H 144/121 H 08/07/19 05:00 97 H 25 H 08/07/19 04:30 95 H 24 08/07/19 04:00 36.7 C 91 H 24 123/60 08/07/19 03:34 101 H 20 102/71 08/07/19 03:31 96 H 17 08/07/19 03:13 101 H 19 84/56 L 08/07/19 03:00 116 H 28 H Pulse Ox 08/07/19 11:42 100 08/07/19 11:30 100 08/07/19 11:20 99 08/07/19 11:00 99 08/07/19 10:30 100 08/07/19 10:03 100 08/07/19 10:00 99 08/07/19 06:50 94 08/07/19 06:31 08/07/19 06:30 05/22/20 06:01 92 08/07/19 06:00 94 08/07/19 05:53 97 08/07/19 05:00 96 08/07/19 04:30 98 08/07/19 04:00 98 08/07/19 03:34 99 08/07/19 03:31 100 08/07/19 03:13 100 08/07/19 03:00 84 L Coding Level of Care Code Critical Care ea addt'l 30 min Diagnoses Shock, septic A41.9; R65.21 Ascending cholangitis K83.09 Metabolic acidosis E87.2 Colitis K52.9 Benign essential hypertension I10 Diabetes mellitus E11.9 Time Spent (min) 130 Comment I have personally spent 130 minutes of critical care time in the direct management of this patient. This is a life/limb threatening event. This includes time spent evaluating patient, direct bedside care, chart review, placing orders, interpretation of diagnostic studies, discussion with consultants, patient, and/or family members regarding treatment decisions, as we ll as other required patient management activities. This time is exclusive of all separately billable procedures, and teaching time and separate from and in addition to any other critical care service time.
[2019-08-07] MEDS ORDERED: PHYTONADIONE 2.5 MG in SODIUM CHLORIDE 0.9% 50 ML IV ONE (14:30)
[2019-08-07] MEDS ORDERED: NOREPINEPHRINE BIT INJ 16 MG in DEXTROSE 5% 500 ML IV SCH (15:00)
[2019-08-07] MEDS: ASCORBIC ACID 1,500 MG, THIAMINE HCL 100 MG in 0.9 % SODIUM CHLORIDE 100 ML IV SCH ×2 (15:03→21:00)
[2019-08-07 15:22] LABS: BUN Creatinine Ratio 14.7 (10-20); Creatinine Clr Calc Pharmacy 25.6 ml/min; Est GFR (African American) 18.3; Est GFR (Non-African American) 15.8; Phosphorus 8.2 mg/dl (2.5-4.9); Potassium 5.7 mmol/L (3.5-5.1)
[2019-08-07] MEDS: CHECK FENTANYL PATCH PLACEMENT SCH (15:48)
--- NOTE | 2019-08-07 15:54 | Hospitalist Progress Note ---
Date of Service August 07, 2019 Assessment & Plan (1) Colitis: sepsis from gastrointestinal source progression of disease required surgery to perform an urgent subtotal colectomy on 08/06 transitioned to cipro and flagyl iv since was previously on zosyn pre admission blood cultures, C. difficile is positive, on po vancomycin General surgery consult performed open subtotal colectomy with end ileostomy 08/06 Pt was on levaphed for low blood pressure (2) Benign essential hypertension: Patient typically takes diltiazem lisinopril for blood pressure control due to her low blood pressure with possible sepsis the patient will have these held (3) Diabetes mellitus: Patient has a history of diabetes in use insulin sliding scale she is currently n.p.o. (4) Status post aortobifemoral bypass surgery: (5) COPD (chronic obstructive pulmonary disease): Patient typically takes Advair but will transition to duo nebs (6) Depression: Patient maintained on Wellbutrin and Prozac, but as with npo status these are held (7) Methicillin resistant Staphylococcus aureus infection: Due to this history patient is given vancomycin initially Admission and Anticipated Discharge Date Admission Date: August 05, 2019 Subjective Patient is sedated on the ventilator she appears to be comfortable she is a large bandage on her abdomen and ostomy in her right abdomen and SHRUTI drains draining serosanguineous liquids Review of Systems Review of Systems: Unobtainable due to cognitive status Physical Exam Physical Exam: The patient appeared in mild to moderate distress she is sedated and ventilated Vital signs as documented. Lungs are clear but diminished Cardiac exam, Rhythm is regular.. No murmurs, rubs or gallops. Abdominal exam reveals hypoactive bowel sounds ostomy in the right quadrant large bandage in the mid abdomen Extremities are nonedematous and both pedal pulses are normal. Neurologic exam is sedated and ventilated Results & Data Results & Data ([facility]) Vital Signs (Past 12 Hours) Vital Signs Temp Pulse Pulse Pulse Resp BP BP 08/07/19 11:42 97.1 F L 89 08/07/19 11:30 91 H 08/07/19 11:20 85 16 08/07/19 11:00 92 H 08/07/19 10:30 90 08/07/19 10:03 85 16 08/07/19 10:00 94.8 F L 87 08/07/19 06:50 98.6 F 94 H 100 H 28 H 135/82 08/07/19 06:31 99 H 16 135/82 08/07/19 06:30 99 H 16 08/07/19 06:01 101 H 24 122/91 08/07/19 06:00 101 H 28 H 08/07/19 05:53 102 H 25 H 144/121 H 08/07/19 05:00 97 H 25 H 08/07/19 04:30 95 H 24 08/07/19 04:00 98.1 F 91 H 24 123/60 Pulse Ox 08/07/19 11:42 100 08/07/19 11:30 100 08/07/19 11:20 99 08/07/19 11:00 99 08/07/19 10:30 100 08/07/19 10:03 100 08/07/19 10:00 99 08/07/19 06:50 94 08/07/19 06:31 08/07/19 06:30 08/07/19 06:01 92 08/07/19 06:00 94 08/07/19 05:53 97 08/07/19 05:00 96 08/07/19 04:30 98 08/07/19 04:00 98 PG Care Time/CCT Total # of Minutes Spent Total Time Spent with Patient: Total time spent is greater than 50% in coordination of care (as documented) at patient's floor/unit and/or counseling patient: Coding Level of Care Code 50789 Subseq Hosp Care Lvl 3 Diagnoses Colitis K52.9 Benign essential hypertension I10 Diabetes mellitus E11.9 Status post aortobifemoral bypass surgery Z95.828 COPD (chronic obstructive pulmonary disease) J44.9 Depression F32.9 Methicillin resistant Staphylococcus aureus infection A49.02
[2019-08-07] MEDS ORDERED: CALCIUM CHLORIDE 10% 1,000 MG in SODIUM CHLORIDE 0.9% 50 ML IV ONE (17:05)
[2019-08-07] MEDS ORDERED: STAT IV Infusion **Titration per Protocol STA (17:07)
--- NOTE | 2019-08-07 17:10 | Nephrology Consultation ---
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 CT abdomen demonstrated possible cholecystitis. There was no hydronephrosis. Overall, kidneys normal in appearance. Baseline creatinine is normal, <1 mg/dL. Oligoanuric. Associated metabolic acidosis and hyperkalemia noted. Overall, clinical condition guarded. Patient's has been contacted. Unfortunately, I was not able to reach him. For electrolyte abnormalities and oliguria, emergent dialysis will be necessary. Unfortunately, hemodynamics are tenuous. Patient is unstable. Transfer to a tertiary care facility under consideration. I discussed the plan of care with the math instructor and HD nurse. Dr. Kurtz is agreeable to place dialysis catheter. Orders for urgent HD at a low blood flow have been entered into the EMR. Approximately 40 minutes of critical care time were provided today in coordinating emergent hemodialysis. History of Present Illness Attending Physician: Neil Fairchild MD Allergies Allergy/AdvReac Type Severity Reaction Status Date / Time Iodinated Contrast Media Allergy Unknown HIVES Verified 08/05/19 09:25 methocarbamol [From Robaxin] AdvReac Severe Verified 08/05/19 09:25 Contrast Media Ready-Box MISC Allergy Unknown Uncoded 08/05/19 09:25 Home Medications Home Medications Medication Instructions Recorded Confirmed Type cholecalciferol (vitamin D3) 25 1,000 units PO BID cap 09/22/18 08/05/19 History mcg (1,000 unit) capsule fluticasone 250 mcg-salmeterol 50 1 puffs INH BID #60 ea 09/22/18 08/05/19 Rx mcg/dose blistr powdr for inhalation fluoxetine 40 mg capsule 40 mg PO BID #180 cap 10/17/18 08/05/19 Rx bupropion HCl 300 mg 24 hr tablet, 300 mg PO QAM #30 tab 11/19/18 08/05/19 Rx extended release ferrous sulfate 325 mg (65 mg 325 mg PO BID #60 tab 01/08/19 08/05/19 Rx iron) tablet oxycodone-acetaminophen 5 mg-325 1 tab PO .COMPLEX PRN 01/08/19 08/05/19 History mg tablet diltiazem HCl 120 mg 120 mg PO DAILY #90 cap 05/20/19 08/05/19 Rx capsule,extended release 24 hr gabapentin 300 mg capsule 300 mg PO TID #270 cap 05/20/19 08/05/19 Rx atorvastatin 10 mg tablet 10 mg PO DAILY #90 tab 06/09/19 08/05/19 Rx lisinopril 5 mg tablet 5 mg PO DAILY #90 tab 06/09/19 08/05/19 Rx omeprazole 20 mg capsule,delayed 20 mg PO DAILY #90 cap 07/07/19 08/05/19 Rx release buprenorphine 7.5 mcg TRANSDERMAL WK 08/05/19 08/05/19 History trazodone 200 mg PO HS 08/05/19 08/05/19 History Patient History Medical History Anemia (Chronic) Arthritis (Chronic) Atherosclerosis (Chronic) Benign essential hypertension (Chronic) Bronchopneumonia Right lower lobe diagnosed 12/13/2018 COPD (chronic obstructive pulmonary disease) (Chronic) Depression (Chronic) GERD (gastroesophageal reflux disease) (Chronic) History of benign essential tremor (Chronic) History of glaucoma (Chronic) History of pneumonia (Resolved) Hypercholesterolemia (Chronic) Hypertension (Chronic) Incontinence in female (Chronic) Lumbar disc disease (Chronic) Lumbar stenosis with neurogenic claudication (Chronic) Methicillin resistant Staphylococcus aureus infection (Resolved) Negative swab 01/07/2019 Migraine headache (Chronic) Prediabetes (Chronic) Thrombotic disorder (Chronic) TIA (transient ischemic attack) (~07/2019) Vitamin D deficiency (Chronic) Surgical History H/O ileostomy (08/07/19) Open Subtotal Colectomy with End Ileostomy - Akash Flowers DO History of back surgery History of knee replacement History of shoulder surgery S/P colectomy (08/07/19) Open Subtotal Colectomy with End Ileostomy - Akash Flowers DO Family History Sister Alcohol abuse Anxiety Father Cardiac disorder Myocardial infarction 1983 Mother Depression Thyroid cancer Aunt Breast cancer Other Prostate cancer Denies family history of Ovarian cancer Colorectal cancer Social History Preferred Language: Setswana Communication Ability: Effective Visual Impairment: No Limitations Hearing Ability: Normal Application Packaging Specialist Required: No Beliefs That Will Affect Care: None marital status: Current Living Situation: Spouse current occupational status: unemployed and disabled Feels Safe at Home: Yes Smoking Status: Former smoker Age Started Using Tobacco: 12 ; packs per day: 1 ; Hx Alcohol Use: Yes Alcohol type: beer Alcohol Intake Frequency: Weekly Alcohol Intake Frequency Comment: SOCIALLY;2-4PER WEEK Hx Substance Use: No Childhood Exposure to Second-Hand Smoke: Yes caffeine: Yes (coffee) during the past year weight has: remained stable Dental Care, Regularly: No Physical Activity Frequency Comment: LIMITED BY PHYSICAL CONDITION Seatbelt Use: sometimes Sunscreen Use: No Review of Systems Review of Systems: Unobtainable due to endotracheal tube and Unobtainable due to reduced consciousness Physical Exam Physical Exam: Exam limited due to COVID 19 pandemic Constitutional: + ill appearing and + altered mental status Eyes: + anicteric sclerae ENMT: ETT Neck: normal visual inspection and trachea midline Gastrointestinal (Abdomen): Inspection/Auscultation: + abdomen distended Percussion/Palpation: + abdomen firm post operative with ileostomy; abdominal incision packed with overlying clean dressing; 2 x SHRUTI drains intact Musculoskeletal: Extremities: + cyanosis Genitourinary: Archer draining scant concentrated urine Results & Data Vital Signs (Past 12 Hours) Vital Signs Temp Pulse Pulse Pulse Resp BP BP 08/07/19 14:12 107 H 21 08/07/19 11:42 36.2 C L 89 08/07/19 11:30 91 H 08/07/19 11:20 85 16 08/07/19 11:00 92 H 08/07/19 10:30 90 08/07/19 10:03 85 16 08/07/19 10:00 34.9 C L 87 08/07/19 06:50 37 C 94 H 100 H 28 H 135/82 08/07/19 06:31 99 H 16 135/82 08/07/19 06:30 99 H 16 08/07/19 06:01 101 H 24 122/91 08/07/19 06:00 101 H 28 H 08/07/19 05:53 102 H 25 H 144/121 H Pulse Ox 08/07/19 14:12 98 08/07/19 11:42 100 08/07/19 11:30 100 08/07/19 11:20 99 08/07/19 11:00 99 08/07/19 10:30 100 08/07/19 10:03 100 08/07/19 10:00 99 08/07/19 06:50 94 08/07/19 06:31 08/07/19 06:30 08/07/19 06:01 92 08/07/19 06:00 94 08/07/19 05:53 97 Laboratory Results Laboratory Results - last 24 hr 08/06/19 08/06/19 08/06/19 17:42 18:17 18:35 WBC RBC Hgb Hct MCV MCH MCHC RDW Std Deviation RDW Coeff of Ashley Plt Count MPV Absolute Nucleated RBC Nucleated RBC % (auto) Neutrophils % (Manual) Lymphocytes % (Manual) Monocytes % (Manual) Basophils % (Manual) Metamyelocytes % (Man) Myelocytes % (Man) Neutrophils # (Manual) Total Absolute Neuts Lymphocytes # (Manual) Total Abs Lymphocytes Monocytes # (Manual) Basophils # (Manual) Metamyelocytes # (Man) Myelocytes # (Manual) RBC Morphology PT INR APTT PTT Ratio Fibrinogen Sample Site POC pH POC pCO2 POC pO2 POC HCO3 POC Total CO2 POC Base Excess ABG pH 7.28 L ABG pCO2 28 L ABG pO2 97 H ABG HCO3 13 L POC ABG O2 Sat ABG O2 Saturation 97.1 H ABG Base Excess -12.7 L Pj Test POS Barometric Pressure 737.5 Oxygen Given 4L O2 O2 Delivery Device Sodium Potassium Chloride Carbon Dioxide Anion Gap BUN Creatinine Est Cr Clr Drug Dosing Est GFR ( Amer) Est GFR (Non-Af Amer) BUN/Creatinine Ratio Glucose POC Glucose 129 H POC Glucose (other) Lactate Calcium Ionized Calcium Phosphorus Magnesium Total Bilirubin Direct Bilirubin AST ALT Alkaline Phosphatase Total Protein Albumin Lipase TSH Random Cortisol Urine Color Dark Yellow Urine Appearance Cloudy A Urine pH 5.0 Ur Specific [place] 1.027 Urine Protein Negative Urine Glucose (UA) Negative Urine Ketones Negative Urine Blood Negative Urine Nitrite Negative Urine Bilirubin Negative Urine Urobilinogen Negative Ur Leukocyte Esterase Trace H Urine WBC (Auto) 1-5 Urine RBC (Auto) 0-4 U Hyaline Cast (Auto) 1-5 U Epithel Cells (Auto) 5-10 H Urine Bacteria (Auto) Negative Urine Yeast Budding A Blood Type Antibody Screen 05/08/06/19 08/06/19 20:11 20:13 23:19 WBC RBC Hgb Hct MCV MCH MCHC RDW Std Deviation RDW Coeff of Ashley Plt Count MPV Absolute Nucleated RBC Nucleated RBC % (auto) Neutrophils % (Manual) Lymphocytes % (Manual) Monocytes % (Manual) Basophils % (Manual) Metamyelocytes % (Man) Myelocytes % (Man) Neutrophils # (Manual) Total Absolute Neuts Lymphocytes # (Manual) Total Abs Lymphocytes Monocytes # (Manual) Basophils # (Manual) Metamyelocytes # (Man) Myelocytes # (Manual) RBC Morphology PT INR APTT PTT Ratio Fibrinogen Sample Site Art Line POC pH 7.23 L POC pCO2 28 L POC pO2 79 L POC HCO3 12 L POC Total CO2 13 L POC Base Excess -16.0 L ABG pH ABG pCO2 ABG pO2 ABG HCO3 POC ABG O2 Sat 93.0 ABG O2 Saturation ABG Base Excess Pj Test NA Barometric Pressure Oxygen Given O2 Delivery Device SimpleMask Sodium Potassium Chloride Carbon Dioxide Anion Gap BUN Creatinine Est Cr Clr Drug Dosing Est GFR ( Amer) Est GFR (Non-Af Amer) BUN/Creatinine Ratio Glucose POC Glucose POC Glucose (other) Lactate 1.7 Calcium Ionized Calcium Phosphorus Magnesium Total Bilirubin Direct Bilirubin AST ALT Alkaline Phosphatase Total Protein Albumin Lipase TSH Random Cortisol 42.51 Urine Color Urine Appearance Urine pH Ur Specific [place] Urine Protein Urine Glucose (UA) Urine Ketones Urine Blood Urine Nitrite Urine Bilirubin Urine Urobilinogen Ur Leukocyte Esterase Urine WBC (Auto) Urine RBC (Auto) U Hyaline Cast (Auto) U Epithel Cells (Auto) Urine Bacteria (Auto) Urine Yeast Blood Type Antibody Screen 08/06/19 08/07/19 08/07/19 23:39 03:09 03:09 WBC 70.70 H* RBC 2.80 L Hgb 8.9 L Hct 26.3 L MCV 93.9 MCH 31.8 MCHC 33.8 RDW Std Deviation 56.4 H RDW Coeff of Ashley 16.3 H Plt Count 199 MPV 11.6 H Absolute Nucleated RBC 0.43 H Nucleated RBC % (auto) 0.6 Neutrophils % (Manual) Lymphocytes % (Manual) Monocytes % (Manual) Basophils % (Manual) Metamyelocytes % (Man) Myelocytes % (Man) Neutrophils # (Manual) Total Absolute Neuts Lymphocytes # (Manual) Total Abs Lymphocytes Monocytes # (Manual) Basophils # (Manual) Metamyelocytes # (Man) Myelocytes # (Manual) RBC Morphology PT INR APTT PTT Ratio Fibrinogen Sample Site POC pH POC pCO2 POC pO2 POC HCO3 POC Total CO2 POC Base Excess ABG pH ABG pCO2 ABG pO2 ABG HCO3 POC ABG O2 Sat ABG O2 Saturation ABG Base Excess Pj Test Barometric Pressure Oxygen Given O2 Delivery Device Sodium 135 L Potassium Chloride 110 H Carbon Dioxide 13 L Anion Gap 12.0 H BUN 38 H Creatinine 2.14 H Est Cr Clr Drug Dosing 35.5 Est GFR ( Amer) 28.5 Est GFR (Non-Af Amer) 24.6 BUN/Creatinine Ratio 17.7 Glucose 184 H POC Glucose 210 H POC Glucose (other) Lactate Calcium 5.1 L* D Ionized Calcium Phosphorus 5.6 H Magnesium Total Bilirubin 0.4 Direct Bilirubin AST ALT 29 Alkaline Phosphatase 137 H Total Protein 4.1 L D Albumin 0.8 L Lipase 52 L TSH 2.140 Random Cortisol Urine Color Urine Appearance Urine pH Ur Specific [place] Urine Protein Urine Glucose (UA) Urine Ketones Urine Blood Urine Nitrite Urine Bilirubin Urine Urobilinogen Ur Leukocyte Esterase Urine WBC (Auto) Urine RBC (Auto) U Hyaline Cast (Auto) U Epithel Cells (Auto) Urine Bacteria (Auto) Urine Yeast Blood Type Antibody Screen 08/07/19 08/07/19 08/07/19 03:09 03:16 04:38 WBC RBC Hgb Hct MCV MCH MCHC RDW Std Deviation RDW Coeff of Ashley Plt Count MPV Absolute Nucleated RBC Nucleated RBC % (auto) Neutrophils % (Manual) Lymphocytes % (Manual) Monocytes % (Manual) Basophils % (Manual) Metamyelocytes % (Man) Myelocytes % (Man) Neutrophils # (Manual) Total Absolute Neuts Lymphocytes # (Manual) Total Abs Lymphocytes Monocytes # (Manual) Basophils # (Manual) Metamyelocytes # (Man) Myelocytes # (Manual) RBC Morphology PT INR APTT PTT Ratio Fibrinogen Sample Site POC pH POC pCO2 POC pO2 POC HCO3 POC Total CO2 POC Base Excess ABG pH 7.26 L ABG pCO2 29 L ABG pO2 85 ABG HCO3 13 L POC ABG O2 Sat ABG O2 Saturation 95.3 H ABG Base Excess -13.2 L Pj Test POS Barometric Pressure 736.5 Oxygen Given 4L O2 O2 Delivery Device Sodium Potassium 5.2 H Chloride Carbon Dioxide Anion Gap BUN Creatinine Est Cr Clr Drug Dosing Est GFR ( Amer) Est GFR (Non-Af Amer) BUN/Creatinine Ratio Glucose POC Glucose POC Glucose (other) Lactate 1.7 Calcium Ionized Calcium Phosphorus Magnesium 2.0 Total Bilirubin Direct Bilirubin 0.2 AST 109 H ALT Alkaline Phosphatase Total Protein Albumin Lipase TSH Random Cortisol Urine Color Urine Appearance Urine pH Ur Specific [place] Urine Protein Urine Glucose (UA) Urine Ketones Urine Blood Urine Nitrite Urine Bilirubin Urine Urobilinogen Ur Leukocyte Esterase Urine WBC (Auto) Urine RBC (Auto) U Hyaline Cast (Auto) U Epithel Cells (Auto) Urine Bacteria (Auto) Urine Yeast Blood Type Antibody Screen 08/07/19 08/07/19 08/07/19 04:38 04:47 04:56 WBC RBC Hgb Hct MCV MCH MCHC RDW Std Deviation RDW Coeff of Ashley Plt Count MPV Absolute Nucleated RBC Nucleated RBC % (auto) Neutrophils % (Manual) Lymphocytes % (Manual) Monocytes % (Manual) Basophils % (Manual) Metamyelocytes % (Man) Myelocytes % (Man) Neutrophils # (Manual) Total Absolute Neuts Lymphocytes # (Manual) Total Abs Lymphocytes Monocytes # (Manual) Basophils # (Manual) Metamyelocytes # (Man) Myelocytes # (Manual) RBC Morphology PT INR APTT PTT Ratio Fibrinogen Sample Site POC pH POC pCO2 POC pO2 POC HCO3 POC Total CO2 POC Base Excess ABG pH ABG pCO2 ABG pO2 ABG HCO3 POC ABG O2 Sat ABG O2 Saturation ABG Base Excess Pj Test Barometric Pressure Oxygen Given O2 Delivery Device Sodium Potassium Chloride Carbon Dioxide Anion Gap BUN Creatinine Est Cr Clr Drug Dosing Est GFR ( Amer) Est GFR (Non-Af Amer) BUN/Creatinine Ratio Glucose POC Glucose POC Glucose (other) 44 L* 176 H Lactate Calcium Ionized Calcium 0.76 L* Phosphorus Magnesium Total Bilirubin Direct Bilirubin AST ALT Alkaline Phosphatase Total Protein Albumin Lipase TSH Random Cortisol Urine Color Urine Appearance Urine pH Ur Specific [place] Urine Protein Urine Glucose (UA) Urine Ketones Urine Blood Urine Nitrite Urine Bilirubin Urine Urobilinogen Ur Leukocyte Esterase Urine WBC (Auto) Urine RBC (Auto) U Hyaline Cast (Auto) U Epithel Cells (Auto) Urine Bacteria (Auto) Urine Yeast Blood Type Antibody Screen 08/07/19 08/07/19 08/07/19 09:59 10:03 10:03 WBC 72.07 H* RBC 3.32 L Hgb 10.4 L Hct 31.5 L MCV 94.9 MCH 31.3 MCHC 33.0 RDW Std Deviation 56.0 H RDW Coeff of Ashley 16.2 H Plt Count 139 MPV 10.6 H Absolute Nucleated RBC 1.09 H Nucleated RBC % (auto) 1.5 Neutrophils % (Manual) 76.5 Lymphocytes % (Manual) 5.2 Monocytes % (Manual) 0.9 Basophils % (Manual) 0.9 Metamyelocytes % (Man) 8.7 Myelocytes % (Man) 7.8 Neutrophils # (Manual) 55.13 H Total Absolute Neuts 55.13 H Lymphocytes # (Manual) 3.75 H Total Abs Lymphocytes 3.75 H Monocytes # (Manual) 0.65 H Basophils # (Manual) 0.65 H Metamyelocytes # (Man) 6.27 H Myelocytes # (Manual) 5.62 H RBC Morphology Unremarkable PT 15.1 H INR 1.5 H APTT 44.6 H PTT Ratio 1.6 Fibrinogen 506 H Sample Site POC pH POC pCO2 POC pO2 POC HCO3 POC Total CO2 POC Base Excess ABG pH ABG pCO2 ABG pO2 ABG HCO3 POC ABG O2 Sat ABG O2 Saturation ABG Base Excess Pj Test Barometric Pressure Oxygen Given O2 Delivery Device Sodium Potassium Chloride Carbon Dioxide Anion Gap BUN Creatinine Est Cr Clr Drug Dosing Est GFR ( Amer) Est GFR (Non-Af Amer) BUN/Creatinine Ratio Glucose POC Glucose POC Glucose (other) Lactate Calcium Ionized Calcium Phosphorus Magnesium Total Bilirubin Direct Bilirubin AST ALT Alkaline Phosphatase Total Protein Albumin Lipase TSH Random Cortisol Urine Color Urine Appearance Urine pH Ur Specific [place] Urine Protein Urine Glucose (UA) Urine Ketones Urine Blood Urine Nitrite Urine Bilirubin Urine Urobilinogen Ur Leukocyte Esterase Urine WBC (Auto) Urine RBC (Auto) U Hyaline Cast (Auto) U Epithel Cells (Auto) Urine Bacteria (Auto) Urine Yeast Blood Type A Positive Antibody Screen NEGATIVE 08/07/19 08/07/19 08/07/19 10:03 10:03 10:03 WBC RBC Hgb Hct MCV MCH MCHC RDW Std Deviation RDW Coeff of Ashley Plt Count MPV Absolute Nucleated RBC Nucleated RBC % (auto) Neutrophils % (Manual) Lymphocytes % (Manual) Monocytes % (Manual) Basophils % (Manual) Metamyelocytes % (Man) Myelocytes % (Man) Neutrophils # (Manual) Total Absolute Neuts Lymphocytes # (Manual) Total Abs Lymphocytes Monocytes # (Manual) Basophils # (Manual) Metamyelocytes # (Man) Myelocytes # (Manual) RBC Morphology PT INR APTT PTT Ratio Fibrinogen Sample Site POC pH POC pCO2 POC pO2 POC HCO3 POC Total CO2 POC Base Excess ABG pH 7.20 L ABG pCO2 45 ABG pO2 84 ABG HCO3 17 L POC ABG O2 Sat ABG O2 Saturation 95.1 H ABG Base Excess -10.4 L Pj Test Pos Barometric Pressure 734.9 Oxygen Given 4 L O2 Delivery Device Sodium 129 L Potassium 5.6 H Chloride 97 L Carbon Dioxide 16 L Anion Gap 16.0 H BUN 45 H Creatinine 2.72 H D Est Cr Clr Drug Dosing 29.0 Est GFR ( Amer) 21.3 Est GFR (Non-Af Amer) 18.4 BUN/Creatinine Ratio 16.5 Glucose 247 H POC Glucose POC Glucose (other) Lactate 2.0 Calcium 5.8 L* Ionized Calcium Phosphorus 8.2 H D Magnesium 2.0 Total Bilirubin 0.4 Direct Bilirubin 0.2 AST 104 H ALT 33 Alkaline Phosphatase 180 H Total Protein 3.9 L Albumin 1.0 L Lipase TSH Random Cortisol Urine Color Urine Appearance Urine pH Ur Specific [place] Urine Protein Urine Glucose (UA) Urine Ketones Urine Blood Urine Nitrite Urine Bilirubin Urine Urobilinogen Ur Leukocyte Esterase Urine WBC (Auto) Urine RBC (Auto) U Hyaline Cast (Auto) U Epithel Cells (Auto) Urine Bacteria (Auto) Urine Yeast Blood Type Antibody Screen 08/07/19 08/07/19 08/07/19 10:03 12:36 14:42 WBC RBC Hgb Hct MCV MCH MCHC RDW Std Deviation RDW Coeff of Ashley Plt Count MPV Absolute Nucleated RBC Nucleated RBC % (auto) Neutrophils % (Manual) Lymphocytes % (Manual) Monocytes % (Manual) Basophils % (Manual) Metamyelocytes % (Man) Myelocytes % (Man) Neutrophils # (Manual) Total Absolute Neuts Lymphocytes # (Manual) Total Abs Lymphocytes Monocytes # (Manual) Basophils # (Manual) Metamyelocytes # (Man) Myelocytes # (Manual) RBC Morphology PT INR APTT PTT Ratio Fibrinogen Sample Site POC pH POC pCO2 POC pO2 POC HCO3 POC Total CO2 POC Base Excess ABG pH ABG pCO2 ABG pO2 ABG HCO3 POC ABG O2 Sat ABG O2 Saturation ABG Base Excess Pj Test Barometric Pressure Oxygen Given O2 Delivery Device Sodium Potassium Chloride Carbon Dioxide Anion Gap BUN Creatinine Est Cr Clr Drug Dosing Est GFR ( Amer) Est GFR (Non-Af Amer) BUN/Creatinine Ratio Glucose POC Glucose POC Glucose (other) 242 H 225 H Lactate Calcium Ionized Calcium 0.83 L Phosphorus Magnesium Total Bilirubin Direct Bilirubin AST ALT Alkaline Phosphatase Total Protein Albumin Lipase TSH Random Cortisol Urine Color Urine Appearance Urine pH Ur Specific [place] Urine Protein Urine Glucose (UA) Urine Ketones Urine Blood Urine Nitrite Urine Bilirubin Urine Urobilinogen Ur Leukocyte Esterase Urine WBC (Auto) Urine RBC (Auto) U Hyaline Cast (Auto) U Epithel Cells (Auto) Urine Bacteria (Auto) Urine Yeast Blood Type Antibody Screen 08/07/19 08/07/19 08/07/19 14:49 14:49 14:49 WBC RBC Hgb Hct MCV MCH MCHC RDW Std Deviation RDW Coeff of Ashley Plt Count MPV Absolute Nucleated RBC Nucleated RBC % (auto) Neutrophils % (Manual) Lymphocytes % (Manual) Monocytes % (Manual) Basophils % (Manual) Metamyelocytes % (Man) Myelocytes % (Man) Neutrophils # (Manual) Total Absolute Neuts Lymphocytes # (Manual) Total Abs Lymphocytes Monocytes # (Manual) Basophils # (Manual) Metamyelocytes # (Man) Myelocytes # (Manual) RBC Morphology PT INR APTT PTT Ratio Fibrinogen Sample Site POC pH POC pCO2 POC pO2 POC HCO3 POC Total CO2 POC Base Excess ABG pH ABG pCO2 ABG pO2 ABG HCO3 POC ABG O2 Sat ABG O2 Saturation ABG Base Excess Pj Test Barometric Pressure Oxygen Given O2 Delivery Device Sodium 127 L Potassium 5.7 H Chloride 97 L Carbon Dioxide 16 L Anion Gap 14.0 H BUN 45 H Creatinine 3.08 H D Est Cr Clr Drug Dosing 25.6 Est GFR ( Amer) 18.3 Est GFR (Non-Af Amer) 15.8 BUN/Creatinine Ratio 14.7 Glucose 241 H POC Glucose POC Glucose (other) Lactate 3.5 H* Calcium 6.0 L Ionized Calcium 0.81 L Phosphorus 8.2 H Magnesium 2.0 Total Bilirubin Direct Bilirubin AST ALT Alkaline Phosphatase Total Protein Albumin Lipase TSH Random Cortisol Urine Color Urine Appearance Urine pH Ur Specific [place] Urine Protein Urine Glucose (UA) Urine Ketones Urine Blood Urine Nitrite Urine Bilirubin Urine Urobilinogen Ur Leukocyte Esterase Urine WBC (Auto) Urine RBC (Auto) U Hyaline Cast (Auto) U Epithel Cells (Auto) Urine Bacteria (Auto) Urine Yeast Blood Type Antibody Screen 08/07/19 16:17 WBC RBC Hgb Hct MCV MCH MCHC RDW Std Deviation RDW Coeff of Ashley Plt Count MPV Absolute Nucleated RBC Nucleated RBC % (auto) Neutrophils % (Manual) Lymphocytes % (Manual) Monocytes % (Manual) Basophils % (Manual) Metamyelocytes % (Man) Myelocytes % (Man) Neutrophils # (Manual) Total Absolute Neuts Lymphocytes # (Manual) Total Abs Lymphocytes Monocytes # (Manual) Basophils # (Manual) Metamyelocytes # (Man) Myelocytes # (Manual) RBC Morphology PT INR APTT PTT Ratio Fibrinogen Sample Site POC pH POC pCO2 POC pO2 POC HCO3 POC Total CO2 POC Base Excess ABG pH ABG pCO2 ABG pO2 ABG HCO3 POC ABG O2 Sat ABG O2 Saturation ABG Base Excess Pj Test Barometric Pressure Oxygen Given O2 Delivery Device Sodium Potassium Chloride Carbon Dioxide Anion Gap BUN Creatinine Est Cr Clr Drug Dosing Est GFR ( Amer) Est GFR (Non-Af Amer) BUN/Creatinine Ratio Glucose POC Glucose POC Glucose (other) 211 H Lactate Calcium Ionized Calcium Phosphorus Magnesium Total Bilirubin Direct Bilirubin AST ALT Alkaline Phosphatase Total Protein Albumin Lipase TSH Random Cortisol Urine Color Urine Appearance Urine pH Ur Specific [place] Urine Protein Urine Glucose (UA) Urine Ketones Urine Blood Urine Nitrite Urine Bilirubin Urine Urobilinogen Ur Leukocyte Esterase Urine WBC (Auto) Urine RBC (Auto) U Hyaline Cast (Auto) U Epithel Cells (Auto) Urine Bacteria (Auto) Urine Yeast Blood Type Antibody Screen PG Care Time/CCT Total # of Minutes Spent Total Time Spent with Patient: Total time spent is greater than 50% in coordination of care (as documented) at patient's floor/unit and/or counseling patient: Coding Level of Care Code 47496 Inpt Consult Level 5 Diagnoses Acute kidney injury N17.9
[2019-08-07] MEDS: NOREPINEPHRINE BIT INJ 32 MG in DEXTROSE 5% 500 ML IV SCH ×2 (17:11→20:09)
[2019-08-07] MEDS ORDERED: PHENYLEPHRINE HCL 20 MG in DEXTROSE 5% 500 ML IV SCH (17:15)
--- NOTE | 2019-08-07 18:55 | Procedure Note ---
Procedure Note Date of Service August 07, 2019 Procedure date: Noted above Procedure: Temporary hemodialysis catheter Pre-procedure indication: Need for temporary hemodialysis Post-procedure Diagnosis: same as above Prior to Procedure: Informed Consent: The risks, benefits, indications, potential complications, and alternatives were explained to the patient's and informed consent obtained. Attending Staff: Beata Kurtz DO Resident/APC: Not applicable Skin Prep: Chlorhexidine Anesthesia: 4 mL 1% lidocaine without epinephrine The identity of the patient was confirmed and a bedside time out was performed. Description of Procedure: After sterile prep and sterile drape utilizing standard sterile technique the superficial skin of the left internal jugular area was anesthetized. The target vessel was identified and entered with an 18- gauge needle. Dark venous blood return was noted. A guidewire was inserted through the needle and into the vessel. The needle was withdrawn and a skin jayce was made. A tissue dilator was advanced via Seldinger technique and removed. A double lumen catheter was inserted via Seldinger technique and the guidewire removed. All ports kunal and flushed easily. A Biopatch was placed, and the catheter was secured via nylon suture. A sterile dressing was then applied. Complications: None Estimated blood loss: Trace Patient tolerated the procedure well. Procedure Date: Noted Above Procedure: Procedural Ultrasound Indication: Temporary hemodialysis catheter placement Attending: Beata Kurtz DO Resident/Physician Electrical Line Mechanic: Not applicable Artery visualized: Yes Vein visualized: Yes Compressible Vein: Yes Vein patent: Yes Guidewire or Short Catheter seen in vein prior to dilation: Yes Line confirmed in Vein with ultrasound: Yes Lung Sliding on side of attempt (if applicable): NA If no lung sliding or not obtained has CXR been ordered: Yes Impression: Successful central venous access placement Images obtained are saved for permanent record Coding
--- NOTE | 2019-08-07 19:00 | Communication Note ---
Date of Service: August 07, 2019 I was able to contact patient's , given additional number of [phone]. We discussed risks benefits of transfer for CVVH versus attempting dialysis here versus no dialysis. He emphasized she has been through a lot in the last several weeks and she was shying way towards highly heroic efforts. It was felt she would desire treatment at this facility and not transfer to tertiary care. I discussed both ineffectiveness of treatment here as well as effectiveness and ineffectiveness of treatment at a tertiary care facility given her vasoactive m edication requirements. He will be coming to the bedside today as she continues to decompensate I feel this is a possible mortality and would allow visitation despite COVID-19 pandemic additional screening. Coding Level of Care Code None
[2019-08-07 19:05] LABS: Hepatitis B Surface Ab Quant < 3.10 mIU/mL (>or=10mIU/mL Immune); Hepatitis B Surface Antibody Non-Immune
[2019-08-07 19:16] LABS: Hepatitis B Surface Antigen Neg (Neg)
--- NOTE | 2019-08-07 19:17 | XRay Report ---
SINGLE VIEW CHEST CLINICAL HISTORY: Central venous catheter placement. FINDINGS: An AP, portable, upright chest radiograph is compared to study dated 08/06/2019. The examina tion is degraded by portable technique and patient rotation. A right internal jugular central venou s catheter and an enteric tube are unchanged in position. A left internal jugular central venous cath eter has been placed. The tip projects over the confluence of the innominate veins. An endotracheal t ube has been placed. The tip projects approximate 6 cm above the gerber. Heart is enlarged. There is pulmonary vascular congestion with evidence of interstitial edema. This appears modestly worsened fro m yesterday. Trace pleural effusions are suspected. No pneumothorax is seen. The skeletal structures are osteopenic. There are healed right-sided rib fractures. A left shoulder arthroplasty is in place. Advanced arthritic change is seen in the right shoulder. Fusion hardware is partially imaged in the lumbar spine. IMPRESSION: 1. A left internal jugular central venous catheter and an tracheal tube have been placed as above. 2. Additional lines and tubes are unchanged. 3. Cardiomegaly with evidence of congestive failure and interstitial edema. This appears modestly wor sened from yesterday. Correlate clinically for evidence of a superimposed infectious/inflammatory pne umonitis. 4. Suspect small pleural effusions. ACT 112: Negative or not required by law. Electronically signed by: Cleveland Peralta M.D. 08/07/2019 7:15 PM
[2019-08-07] MEDS ORDERED: SODIUM BICARB 8.4% INJ 50 MEQ/50 ML SYR ONE (19:48)
[2019-08-07] MEDS ORDERED: PHENYLEPHRINE HCL 40 MG in DEXTROSE 5% 500 ML IV SCH (20:00)
[2019-08-07] MEDS: HYDROCORTISONE SOD 100 MG in SYRINGE 0 ML IV SCH (20:00)
[2019-08-07 20:05] LABS: iSTAT Allen Test Pass; iSTAT Arterial Blood Gas HCO3 18 meg/L (19-24); iSTAT Arterial Blood Gas pCO2 44 mmHg (35-46); iSTAT Arterial Blood Gas pH 7.21 (7.35-7.45); iSTAT Arterial Blood Gas pO2 55 mmHg (80-95); iSTAT Carbon Dioxide 19 mmol/L (24-31); iSTAT FiO2 50 %; iSTAT Site R Radial
[2019-08-07] MEDS ORDERED: SODIUM BICARB 8.4% INJ 50 MEQ/50 ML SYR IV STA (20:14)
[2019-08-07] MEDS: fentaNYL citrate 100 MCG/2 ML VIAL IV PRN (20:45)
[2019-08-07] MEDS: SODIUM BICARBONATE 8.4% 150 MEQ in WATER, STERILE 1,000 ML IV SCH (20:52)
[2019-08-07] MEDS ORDERED: INSULIN GLARGINE SOLOSTAR 100 UNITS/ML 3 ML PEN SC ONE (21:00)
[2019-08-07 21:33] LABS: iSTAT Allen Test Pass; iSTAT Arterial Blood Gas HCO3 22 meg/L (19-24); iSTAT Arterial Blood Gas pCO2 39 mmHg (35-46); iSTAT Arterial Blood Gas pH 7.35 (7.35-7.45); iSTAT Arterial Blood Gas pO2 64 mmHg (80-95); iSTAT Carbon Dioxide 23 mmol/L (24-31); iSTAT FiO2 40 %; iSTAT Site Art Line
[2019-08-07 23:14] LABS: BUN Creatinine Ratio 13.1 (10-20); Blood Urea Nitrogen 30 mg/dl (7-18); Calcium 5.9 mg/dl (8.5-10.1); Carbon Dioxide 19 mmol/L (21-32); Chloride 95 mmol/L (98-107); Creatinine Clr Calc Pharmacy 35.1 ml/min; Est GFR (African American) 26.8; Est GFR (Non-African American) 23.1; Glucose 216 mg/dl (70-99); Phosphorus 5.3 mg/dl (2.5-4.9); Sodium 127 mmol/L (136-145)
[2019-08-08] MEDS: SODIUM BICARBONATE 8.4% 150 MEQ in WATER, STERILE 1,000 ML IV SCH (01:15)
[2019-08-08] MEDS: metroNIDAZOLE 500 MG/100 ML BAG IV SCH ×4 (01:24→17:32)
[2019-08-08] MEDS: fentaNYL citrate 100 MCG/2 ML VIAL IV PRN ×5 (01:37→10:47)
[2019-08-08] MEDS: HYDROCORTISONE SOD 100 MG in SYRINGE 0 ML IV SCH ×3 (01:44→19:08)
[2019-08-08] MEDS ORDERED: SODIUM CHLORIDE 0.9% 1000ML 1,000 ML IV ONE (01:55)
[2019-08-08] MEDS: ASCORBIC ACID 1,500 MG, THIAMINE HCL 100 MG in 0.9 % SODIUM CHLORIDE 100 ML IV SCH ×4 (02:29→20:39)
[2019-08-08] MEDS: MIDAZOLAM HCL 1 MG/ML 2ML VIAL IV PRN ×4 (03:40→17:31)
[2019-08-08] MEDS: VANCOMYCIN HCL 500 MG/10 ML SOLN PO SCH ×4 (04:58→23:41)
[2019-08-08] MEDS: RASPBERRY SYRUP 5 ML UDP PO SCH ×4 (04:58→23:41)
[2019-08-08 05:29] LABS: BUN Creatinine Ratio 12.5 (10-20); Calcium 5.7 mg/dl (8.5-10.1); Creatinine Clr Calc Pharmacy 31.7 ml/min; Est GFR (African American) 23.7; Est GFR (Non-African American) 20.5; Phosphorus 5.7 mg/dl (2.5-4.9)
[2019-08-08] MEDS: HEPARIN SOD 5,000 UNIT/0.5 ML VIAL SQ SCH ×3 (05:44→20:39)
[2019-08-08] MEDS: VASOPRESSIN 20 UNITS in 0.9 % SODIUM CHLORIDE 100 ML IV SCH ×3 (05:44→22:14)
[2019-08-08 05:54] LABS: Hematocrit (blood only) 29.4 % (37-47); Hemoglobin 10.1 g/dL (12.0-16.0); Mean Corpuscular Hemoglobin 31.8 pg (25-34); Mean Corpuscular Hgb Conc 34.4 g/dL (32-36); Mean Corpuscular Volume 92.5 fL (80-100); Mean Platelet Volume 12.2 fL (7.4-10.4); Nucleated RBC # (auto) 5.82 K/uL (0-0); Platelet Count 97 K/uL (130-400); Platelet Estimate Decreased (Normal); RDW Coefficient of Variation 16.2 % (11.5-14.5); RDW Standard Deviation 54.6 fL (36.4-46.3); Red Blood Count 3.18 M/uL (4.2-5.4); White Blood Count 64.82 K/uL (4.8-10.8)
[2019-08-08 06:11] LABS: Magnesium 1.9 mg/dl (1.8-2.4)
[2019-08-08] MEDS ORDERED: NORMOSOL-R 1,000 ML IV ONE (06:13)
[2019-08-08] MEDS ORDERED: NORMOSOL-R 500 ML IV ONE (06:17)
[2019-08-08 06:29] LABS: iSTAT Arterial Blood Gas HCO3 20 meg/L (19-24); iSTAT Arterial Blood Gas pCO2 31 mmHg (35-46); iSTAT Arterial Blood Gas pH 7.43 (7.35-7.45); iSTAT Arterial Blood Gas pO2 59 mmHg (80-95); iSTAT Carbon Dioxide 21 mmol/L (24-31); iSTAT FiO2 30 %; iSTAT Site Art Line
[2019-08-08] MEDS: NORMOSOL-R 1,000 ML IV SCH ×2 (06:51→08:46)
[2019-08-08] MEDS: NOREPINEPHRINE BIT INJ 32 MG in DEXTROSE 5% 500 ML IV SCH (07:08)
[2019-08-08] MEDS ORDERED: INSULIN GLARGINE SOLOSTAR 100 UNITS/ML 3 ML PEN SC ONE (07:45)
[2019-08-08] MEDS ORDERED: SODIUM CHLORIDE 0.9% 1000ML 1,000 ML IV PRN (08:58)
--- NOTE | 2019-08-08 09:34 | Pharmacy Report ---
Pharmacy Glycemic Short Note 2 - Date of Service August 08, 2019 - Glycemic Short BSG Results (Last 24 hours): 08/07/19 08/07/19 08/07/19 10:03 12:36 14:42 Glucose 247 H POC Glucose (other) 242 H 225 H 08/07/19 08/07/19 08/07/19 14:49 16:17 21:25 Glucose 241 H POC Glucose (other) 211 H 220 H 08/07/19 08/07/19 08/07/19 22:33 22:38 23:47 Glucose 216 H POC Glucose (other) 229 H 206 H 08/08/19 08/08/19 08/08/19 01:37 03:32 04:36 Glucose 128 H POC Glucose (other) 185 H 139 H 08/08/19 08/08/19 08/08/19 04:45 05:51 07:10 Glucose POC Glucose (other) 128 H 110 H 83 08/08/19 08:00 Glucose POC Glucose (other) 91 Outpatient Anti-diabetic Regimen: * n/a * A1c = 5.7% on 08/05 ASSESSMENT: 08/08/19: * Patient with septic shock secondary to C. difficile colitis, POD #1 s/p urgent subtotal colectomy * Glycemic control significantly improved with use of IV insulin infusion overlapped with SQ basal insulin (she received 36 units of Lantus yesterday) * Patient remains on mechanical ventilation, pressor support, and IV steroids. Also on flagyl IV and oral vancomycin for CDI. * Patient dialyzed yesterday and plan for HD session today Scr 2.49 mg/dL this am * IV Insulin infusion rate was around 1.3-1.6 units/hr overnight, infusion held this morning for BSG of 83 and 91 mg/dL. * Will continue to titrate SQ insulin doses and discontinue IV insulin infusion if BSG remains < 140 mg/dL at 1200 BSG check. 08/07/19: * 58 y/o female admitted from [facility] on 08/04 for abdominal pain, found to have C diff colitis. * Noted to have pre-diabetes, which is consistent with HbA1c. * Significant changes to stressors - admitted to ICU, requiring vasoactive support x2 agents, POD 0 s/p subtotal colectomy 2nd toxic megacolon, initially on D5W containing bicarb drip which has now stopped * BSG >220 mg/dL x1 - initiated insulin drip per ICU hyperglycemic policy. This is reasonable at this time given significant stressors (above). Discussed w Dr. Kurtz who is aware of initiation of drip, and also agrees with the following transition criteria at this time: BSG < 180 mg/dL x2 checks, drip < 1 unit/hr. OK with initiating Lantus simultaneously to hopefully have the drip be short-term until better control can be achieved with basal/bolus PLAN FOR INPATIENT GLYCEMIC CONTROL: * Discontinue IV insulin infusion * Basal insulin * Lantus 18 units SQ this morning, then Lantus per scale BID: * 0 units for BSG < 110 * 8 units for BSG 110-180 * 15 units for BSG > 180 * Bolus insulin * Novolog q4h * Goal range: 120 -150 mg/dL * Correction factor: 20 mg/dL/unit * Carb ratio: 1 unit for every 8 grams CHO
[2019-08-08] MEDS: PANTOprazole 40 MG in SYRINGE 0 ML IV SCH (10:02)
--- NOTE | 2019-08-08 10:16 | Nephrology Progress Note ---
Date of Service August 08, 2019 Assessment & Plan (1) Acute kidney injury: -- Oliguric GIA due to septic shock from C. Difficile/toxic megacolon -- Baseline Cr ~ 1.0. No renal obstruction on imaging -- Dialyzed yesterday without complication. Will schedule HD today for correction of metabolic acidosis and mild hyponatremia -- HD RN notified and orders entered into EMR -- Will stop IVF once current liter of IV LR has completed infusing -- Monitor serial PRP Admission and Anticipated Discharge Date Admission Date: August 05, 2019 Subjective Mrs. Younger was seen & examined in the ICU this morning. She remains sedated, mechanically ventilated and requires pressor support. FiO2 is 40%. UO only 200 cc last 24 hours. IJ THC is in place. Plan of care discussed w/ ICU and staff writer. Review of Systems Review of Systems: Unobtainable due to endotracheal tube Physical Exam Eyes: PERRL Respiratory: coarse BS bilaterally Cardiovascular: Rate/Rhythm: regular rhythm and + tachycardic Extremities: no edema Gastrointestinal (Abdomen): surgical dressing in place. No BS Results & Data ([facility]) Vital Signs (Past 12 Hours) Vital Signs Temp Pulse Pulse Resp BP BP Pulse Ox 08/08/19 07:31 104 H 24 92 08/08/19 06:00 104 H 92 08/08/19 05:30 108 H 92 08/08/19 05:00 110 H 25 H 92 08/08/19 04:30 92 H 94 08/08/19 04:02 37.1 C 88 90/74 L 96 08/08/19 03:30 90 91 08/08/19 03:01 84 100/78 93 08/08/19 02:37 86 111/58 L 96 08/08/19 02:33 89 22 100 08/08/19 02:00 97 H 22 102/77 99 08/08/19 01:00 97 H 97 08/08/19 00:30 98 H 96 08/08/19 00:02 37.4 C 98 H 123/64 99 08/07/19 23:30 109 H 93 08/07/19 23:11 114 H 105/63 92 08/07/19 22:31 103 H 126/81 95 08/07/19 22:17 102 H 144/71 H 94 Pulse Ox 08/08/19 07:31 08/08/19 06:00 05/23/20 05:30 08/08/19 05:00 08/08/19 04:30 08/08/19 04:02 08/08/19 03:30 08/08/19 03:01 08/08/19 02:37 08/08/19 02:33 08/08/19 02:00 99 08/08/19 01:00 08/08/19 00:30 08/08/19 00:02 08/07/19 23:30 08/07/19 23:11 08/07/19 22:31 08/07/19 22:17 Laboratory Results Laboratory Tests 08/08/19 08/08/19 08/08/19 04:36 04:36 05:40 WBC 64.82 H* Hgb 10.1 L Hct 29.4 L Plt Count 97 L Sodium 128 L Potassium 5.0 Chloride 97 L Carbon Dioxide 19 L BUN 31 H Creatinine 2.49 H PG Care Time/CCT Total # of Minutes Spent Total Time Spent with Patient: Total time spent is greater than 50% in coordination of care (as documented) at patient's floor/unit and/or counseling patient: 30 min critical care time provided Coding Level of Care Code 91223 Subseq Hosp Care Lvl 3 Diagnoses Acute kidney injury N17.9 Time Spent (min) 30 Comment 30 min critical care time
--- NOTE | 2019-08-08 10:53 | Anesthesiology Progress Note ---
Date of Service August 08, 2019 Anesthesia Post Procedure Vital Signs Vital Signs: Temp Pulse Pulse Resp BP BP Pulse Ox 08/08/19 07:31 104 H 24 92 08/08/19 06:00 104 H 92 08/08/19 05:30 108 H 92 08/08/19 05:00 110 H 25 H 92 08/08/19 04:30 92 H 94 08/08/19 04:02 37.1 C 88 90/74 L 96 08/08/19 03:30 90 91 08/08/19 03:01 84 100/78 93 08/08/19 02:37 86 111/58 L 96 08/08/19 02:33 89 22 100 08/08/19 02:00 97 H 22 102/77 99 08/08/19 01:00 97 H 97 08/08/19 00:30 98 H 96 08/08/19 00:02 37.4 C 98 H 123/64 99 08/07/19 23:30 109 H 93 08/07/19 23:11 114 H 105/63 92 08/07/19 22:31 103 H 126/81 95 08/07/19 22:17 102 H 144/71 H 94 08/07/19 22:03 104 H 23 94 08/07/19 22:00 105 H 103/86 97 08/07/19 21:30 107 H 100 08/07/19 21:25 106 H 154/77 H 08/07/19 21:00 110 H 117/66 08/07/19 20:45 110 H 119/67 08/07/19 20:30 110 H 130/57 L 08/07/19 20:20 108 H 94 08/07/19 20:16 108 H 141/86 H 97 08/07/19 20:15 107 H 160/78 H 95 08/07/19 20:10 105 H 22 96 08/07/19 20:05 108 H 96 08/07/19 20:01 108 H 189/37 H 96 08/07/19 20:00 109 H 167/78 H 97 08/07/19 19:55 102 H 95 08/07/19 19:50 109 H 95 08/07/19 19:46 113 H 180/60 H 93 08/07/19 19:45 114 H 156/77 H 93 08/07/19 19:40 119 H 91 08/07/19 19:35 129 H 91 08/07/19 19:30 129 H 90/57 L 88 L 08/07/19 19:25 122 H 97 08/07/19 19:20 121 H 99 08/07/19 19:16 119 H 99 08/07/19 19:15 118 H 100 08/07/19 19:12 118 H 20 98 08/07/19 19:10 118 H 131/73 98 08/07/19 19:05 123 H 100 08/07/19 19:03 125 H 08/07/19 19:00 126 H 94 08/07/19 18:55 116 H 97 08/07/19 18:51 118 H 158/66 H 98 08/07/19 18:50 118 H 98 08/07/19 18:45 119 H 98 08/07/19 18:41 119 H 97 08/07/19 18:40 120 H 97 08/07/19 18:35 121 H 97 08/07/19 18:30 124 H 98 08/07/19 18:25 123 H 99 08/07/19 18:20 124 H 98 08/07/19 18:16 125 H 98 08/07/19 18:15 126 H 98 08/07/19 18:10 126 H 98 08/07/19 18:05 125 H 98 08/07/19 18:00 124 H 121/103 H 98 08/07/19 17:55 123 H 97 08/07/19 17:51 123 H 97 08/07/19 17:50 123 H 17 97 08/07/19 17:45 123 H 97 08/07/19 17:41 123 H 59/38 L 98 08/07/19 17:40 123 H 98 08/07/19 17:35 123 H 98 08/07/19 17:32 123 H 121/52 L 98 08/07/19 17:30 122 H 95 08/07/19 17:25 123 H 94 08/07/19 17:22 126 H 66/36 L 91 08/07/19 17:20 36.6 C 127 H 92 08/07/19 17:15 126 H 93 08/07/19 17:12 126 H 99/77 L 93 08/07/19 14:12 107 H 21 98 08/07/19 11:42 36.2 C L 89 100 05/22/20 11:30 91 H 100 08/07/19 11:20 85 16 99 08/07/19 11:00 92 H 99 Pulse Ox 08/08/19 07:31 08/08/19 06:00 08/08/19 05:30 08/08/19 05:00 08/08/19 04:30 08/08/19 04:02 08/08/19 03:30 08/08/19 03:01 08/08/19 02:37 08/08/19 02:33 08/08/19 02:00 99 08/08/19 01:00 08/08/19 00:30 08/08/19 00:02 08/07/19 23:30 08/07/19 23:11 08/07/19 22:31 08/07/19 22:17 08/07/19 22:03 08/07/19 22:00 08/07/19 21:30 08/07/19 21:25 08/07/19 21:00 08/07/19 20:45 08/07/19 20:30 08/07/19 20:20 08/07/19 20:16 08/07/19 20:15 08/07/19 20:10 08/07/19 20:05 08/07/19 20:01 08/07/19 20:00 08/07/19 19:55 08/07/19 19:50 08/07/19 19:46 08/07/19 19:45 08/07/19 19:40 08/07/19 19:35 08/07/19 19:30 08/07/19 19:25 08/07/19 19:20 08/07/19 19:16 08/07/19 19:15 08/07/19 19:12 08/07/19 19:10 08/07/19 19:05 08/07/19 19:03 08/07/19 19:00 08/07/19 18:55 08/07/19 18:51 08/07/19 18:50 08/07/19 18:45 08/07/19 18:41 08/07/19 18:40 08/07/19 18:35 08/07/19 18:30 08/07/19 18:25 08/07/19 18:20 08/07/19 18:16 08/07/19 18:15 08/07/19 18:10 08/07/19 18:05 08/07/19 18:00 08/07/19 17:55 08/07/19 17:51 08/07/19 17:50 08/07/19 17:45 08/07/19 17:41 08/07/19 17:40 08/07/19 17:35 08/07/19 17:32 08/07/19 17:30 08/07/19 17:25 08/07/19 17:22 08/07/19 17:20 08/07/19 17:15 08/07/19 17:12 08/07/19 14:12 08/07/19 11:42 08/07/19 11:30 08/07/19 11:20 08/07/19 11:00 Pain Intensity Abdomen: Pain Intensity: 8 Left Hip: Pain Intensity: 5 Notes Mental Status: see notes below (sedated on a venilator) Nausea / Vomiting: adequately controlled Pain: adequately controlled Airway Patency, RR, SpO2: see Notes below (intubated) BP & HR: see Notes below (on pressors) Hydration State: stable & adequate Anesthetic Complications: no major complications apparent
--- NOTE | 2019-08-08 11:10 | Critical Care Progress Note ---
Date of Service August 08, 2019 Assessment & Plan (1) Shock, septic: Reason Critically Ill: 58-year-old female being treated for C. difficile colitis status post colectomy for toxic megacolon Neuro - [facility] ICU: Negative Cardiac - Shocklikely septic from GI source of C. difficile colitis -Echo from 07/29/2019 showed EF 55 to 60% -Random cortisol: Adequate -Maintaining maps greater than 65 with levo drip, CVC and A-line inserted -Able to tolerate dialysis yesterday Respiratory - Respiratory failure -Continue current ventilator management contraindication to extubation is vasoactive medication requirements and systemic inflammatory response syndrome/sepsis GI - C. difficile colitisfulminant -Status post total colectomy for source control -Currently treating with oral Vanco: Ileostomy okay to give -IV Flagyl -Blind pouch of rectum no CA vancomycin Transaminitis -Secondary to septic shock RENAL/LYTES - Acute renal failure with increasing creatinine and potassium -Nephrology consult -Anticipate hemofiltration today -Avoid nephrotoxins - Foleyminimal urine production ENDO - Last hemoglobin A1c 5.7, continue ICU hyperglycemic protocol HEME - Anemiawe will hold iron sulfate for metabolic acidosis Leukemoid reaction: Improving DVT prophylaxis: Heparin 5000 3 times daily ID - Septic shock with multisystem organ dysfunction -Vitamin C and thiamine for additional volume repletion given si gnificant ongoing losses -Vancomycin p.o., IV Flagyl LINES/IV ACCESS - CVC, A-line, PIV's, NGT DVT PROPHYLAXIS - Subcu heparin, SCDs (2) Ascending cholangitis: (3) Metabolic acidosis: (4) Colitis: (5) Benign essential hypertension: (6) Diabetes mellitus: Admission and Anticipated Discharge Date Admission Date: August 05, 2019 Subjective Overnight patient was able to tolerate dialysis/ultrafiltration. She has decreasing pressor requirements. More fluid responsiveness. This morning she is able to follow commands. I have updated the patient's Review of Systems Review of Systems: Unobtainable due to endotracheal tube Physical Exam Physical Exam: General: Alert. Follows simple commands. Skin: Warm, edematous Head: Atraumatic Ears, nose, mouth and throat: Obscured by endotracheal tube Cardiovascular: Sluggish capillary refill mildly increased Respiratory: Breathes over ventilator Gastrointestinal: Wound clean dry intact Musculoskeletal: No deformity, diffuse anasarca Results & Data Results & Data ([facility]) Vital Signs (Past 12 Hours) Vital Signs Temp Pulse Pulse Resp BP BP Pulse Ox 08/08/19 07:31 104 H 24 92 08/08/19 06:00 104 H 92 08/08/19 05:30 108 H 92 08/08/19 05:00 110 H 25 H 92 08/08/19 04:30 92 H 94 08/08/19 04:02 37.1 C 88 90/74 L 96 08/08/19 03:30 90 91 08/08/19 03:01 84 100/78 93 08/08/19 02:37 86 111/58 L 96 08/08/19 02:33 89 22 100 08/08/19 02:00 97 H 22 102/77 99 08/08/19 01:00 97 H 97 08/08/19 00:30 98 H 96 08/08/19 00:02 37.4 C 98 H 123/64 99 08/07/19 23:30 109 H 93 08/07/19 23:11 114 H 105/63 92 Pulse Ox 08/08/19 07:31 08/08/19 06:00 08/08/19 05:30 08/08/19 05:00 08/08/19 04:30 08/08/19 04:02 08/08/19 03:30 08/08/19 03:01 08/08/19 02:37 08/08/19 02:33 08/08/19 02:00 99 08/08/19 01:00 08/08/19 00:30 08/08/19 00:02 08/07/19 23:30 08/07/19 23:11 Coding Level of Care Code Critical Care 1st 30-74 mins Diagnoses Shock, septic A41.9; R65.21 Ascending cholangitis K83.09 Metabolic acidosis E87.2 Colitis K52.9 Benign essential hypertension I10 Diabetes mellitus E11.9 Time Spent (min) 50 Comment I have personally spent 50 minutes of critical care time in the direct management of this patient. This is a life/limb threatening event. This inc ludes time spent evaluating patient, direct bedside care, chart review, placing orders, interpretation of diagnostic studies, discussion with consultants, patient, and/or family members regarding treatment decisions, as well as other required patient management activities. This time is exclusive of all separately billable procedures, and teaching time and separate from and in addition to any other critical care service time.
--- NOTE | 2019-08-08 12:04 | Surgery Progress Note ---
Date of Service August 08, 2019 Assessment & Plan (1) Sepsis: Overall slight improvement with decreasing pressor requirements. (2) Colitis: s/p subtotal colectomy. POD#1, continue npo/ bowel rest, SHRUTI drainage, wound vac. No new recommendations. Subjective Intubated, decreasing pressor requirements. On dialysis currently. POD#1 subtotal colectomy/ end ileostomy for severe C. dificile colitis. Review of Systems Review of Systems: Unobtainable due to endotracheal tube Physical Exam Gastrointestinal (Abdomen): Inspection/Auscultation: + abdomen distended wound vac in place, SHRUTI's with serosanguinous drainage, hypoactive bowel tones Results & Data Vital Signs (Past 12 Hours) Vital Signs Temp Pulse Pulse Resp BP BP Pulse Ox 08/08/19 11:23 92 H 22 92 08/08/19 11:00 96 H 86 L 08/08/19 10:30 82 97 08/08/19 10:00 85 94 08/08/19 09:30 86 94 08/08/19 09:00 82 94 08/08/19 08:30 82 97 08/08/19 08:00 36.6 C 83 98 08/08/19 07:31 104 H 24 92 08/08/19 07:30 91 H 96 08/08/19 07:00 93 H 97 08/08/19 06:30 100 H 92 08/08/19 06:00 104 H 92 08/08/19 05:30 108 H 92 08/08/19 05:00 110 H 25 H 92 08/08/19 04:30 92 H 94 08/08/19 04:02 37.1 C 88 90/74 L 96 08/08/19 03:30 90 91 08/08/19 03:01 84 100/78 93 08/08/19 02:37 86 111/58 L 96 08/08/19 02:33 89 22 100 08/08/19 02:00 97 H 22 102/77 99 08/08/19 01:00 97 H 97 08/08/19 00:30 98 H 96 08/08/19 00:02 37.4 C 98 H 123/64 99 Pulse Ox 08/08/19 11:23 08/08/19 11:00 08/08/19 10:30 08/08/19 10:00 08/08/19 09:30 08/08/19 09:00 08/08/19 08:30 08/08/19 08:00 08/08/19 07:31 08/08/19 07:30 08/08/19 07:00 08/08/19 06:30 08/08/19 06:00 08/08/19 05:30 08/08/19 05:00 08/08/19 04:30 08/08/19 04:02 08/08/19 03:30 08/08/19 03:01 08/08/19 02:37 08/08/19 02:33 08/08/19 02:00 99 08/08/19 01:00 08/08/19 00:30 08/08/19 00:02 Laboratory Results Abnormal lab results 08/07/19 08/07/19 08/07/19 Range/Units 12:36 14:42 14:49 WBC (4.8-10.8) K/uL RBC (4.2-5.4) M/uL Hgb (12.0-16.0) g/dL Hct (37-47) % RDW Std Deviation (36.4-46.3) fL RDW Coeff of Ashley (11.5-14.5) % Plt Count (130-400) K/uL MPV (7.4-10.4) fL Absolute Nucleated RBC (0-0) K/uL Platelet Estimate (Normal) POC pH (7.35-7.45) POC pCO2 (35-46) mmHg POC pO2 (80-95) mmHg POC HCO3 (19-24) terrie/L POC Total CO2 (24-31) mmol/L POC Base Excess (-9-1.8) terrie/L POC ABG O2 Sat (90-95) % Sodium 127 L (136-145) mmol/L Potassium 5.7 H (3.5-5.1) mmol/L Chloride 97 L (98-107) mmol/L Carbon Dioxide 16 L (21-32) mmol/L Anion Gap 14.0 H (3-11) BUN 45 H (7-18) mg/dl Creatinine 3.08 H D (0.6-1.2) mg/dl Glucose 241 H (70-99) mg/dl POC Glucose (other) 242 H 225 H (70-99) mg/dl Lactate (0.4-2.0) mmol/L Calcium 6.0 L (8.5-10.1) mg/dl Ionized Calcium (1.12-1.32) mmol/L Phosphorus 8.2 H (2.5-4.9) mg/dl Hep Bs Antibody, Quant (>or=10mIU/mL Immune) mIU/mL 08/07/19 08/07/19 08/07/19 Range/Units 14:49 14:49 16:17 WBC (4.8-10.8) K/uL RBC (4.2-5.4) M/uL Hgb (12.0-16.0) g/dL Hct (37-47) % RDW Std Deviation (36.4-46.3) fL RDW Coeff of Ashley (11.5-14.5) % Plt Count (130-400) K/uL MPV (7.4-10.4) fL Absolute Nucleated RBC (0-0) K/uL Platelet Estimate (Normal) POC pH (7.35-7.45) POC pCO2 (35-46) mmHg POC pO2 (80-95) mmHg POC HCO3 (19-24) terrie/L POC Total CO2 (24-31) mmol/L POC Base Excess (-9-1.8) terrie/L POC ABG O2 Sat (90-95) % Sodium (136-145) mmol/L Potassium (3.5-5.1) mmol/L Chloride (98-107) mmol/L Carbon Dioxide (21-32) mmol/L Anion Gap (3-11) BUN (7-18) mg/dl Creatinine (0.6-1.2) mg/dl Glucose (70-99) mg/dl POC Glucose (other) 211 H (70-99) mg/dl Lactate 3.5 H* (0.4-2.0) mmol/L Calcium (8.5-10.1) mg/dl Ionized Calcium 0.81 L (1.12-1.32) mmol/L Phosphorus (2.5-4.9) mg/dl Hep Bs Antibody, Quant (>or=10mIU/mL Immune) mIU/mL 08/07/19 08/07/19 08/07/19 Range/Units 18:19 19:45 21:19 WBC (4.8-10.8) K/uL RBC (4.2-5.4) M/uL Hgb (12.0-16.0) g/dL Hct (37-47) % RDW Std Deviation (36.4-46.3) fL RDW Coeff of Ashley (11.5-14.5) % Plt Count (130-400) K/uL MPV (7.4-10.4) fL Absolute Nucleated RBC (0-0) K/uL Platelet Estimate (Normal) POC pH 7.21 L (7.35-7.45) POC pCO2 (35-46) mmHg POC pO2 55 L 64 L (80-95) mmHg POC HCO3 18 L (19-24) terrei/L POC Total CO2 19 L 23 L (24-31) mmol/L POC Base Excess -10.0 L (-9-1.8) terrie/L POC ABG O2 Sat 81.0 L (90-95) % Sodium (136-145) mmol/L Potassium (3.5-5.1) mmol/L Chloride (98-107) mmol/L Carbon Dioxide (21-32) mmol/L Anion Gap (3-11) BUN (7-18) mg/dl Creatinine (0.6-1.2) mg/dl Glucose (70-99) mg/dl POC Glucose (other) (70-99) mg/dl Lactate (0.4-2.0) mmol/L Calcium (8.5-10.1) mg/dl Ionized Calcium (1.12-1.32) mmol/L Phosphorus (2.5-4.9) mg/dl Hep Bs Antibody, Quant < 3.10 L (>or=10mIU/mL Immune) mIU/mL 08/07/19 08/07/19 08/07/19 Range/Units 21:25 22:33 22:38 WBC (4.8-10.8) K/uL RBC (4.2-5.4) M/uL Hgb (12.0-16.0) g/dL Hct (37-47) % RDW Std Deviation (36.4-46.3) fL RDW Coeff of Ashley (11.5-14.5) % Plt Count (130-400) K/uL MPV (7.4-10.4) fL Absolute Nucleated RBC (0-0) K/uL Platelet Estimate (Normal) POC pH (7.35-7.45) POC pCO2 (35-46) mmHg POC pO2 (80-95) mmHg POC HCO3 (19-24) terrie/L POC Total CO2 (24-31) mmol/L POC Base Excess (-9-1.8) terrie/L POC ABG O2 Sat (90-95) % Sodium 127 L (136-145) mmol/L Potassium (3.5-5.1) mmol/L Chloride 95 L (98-107) mmol/L Carbon Dioxide 19 L (21-32) mmol/L Anion Gap 13.0 H (3-11) BUN 30 H (7-18) mg/dl Creatinine 2.25 H D (0.6-1.2) mg/dl Glucose 216 H (70-99) mg/dl POC Glucose (other) 220 H 229 H (70-99) mg/dl Lactate (0.4-2.0) mmol/L Calcium 5.9 L* (8.5-10.1) mg/dl Ionized Calcium (1.12-1.32) mmol/L Phosphorus 5.3 H D (2.5-4.9) mg/dl Hep Bs Antibody, Quant (>or=10mIU/mL Immune) mIU/mL 08/07/19 08/08/19 08/08/19 Range/Units 23:47 01:37 03:32 WBC (4.8-10.8) K/uL RBC (4.2-5.4) M/uL Hgb (12.0-16.0) g/dL Hct (37-47) % RDW Std Deviation (36.4-46.3) fL RDW Coeff of Ashley (11.5-14.5) % Plt Count (130-400) K/uL MPV (7.4-10.4) fL Absolute Nucleated RBC (0-0) K/uL Platelet Estimate (Normal) POC pH (7.35-7.45) POC pCO2 (35-46) mmHg POC pO2 (80-95) mmHg POC HCO3 (19-24) terrie/L POC Total CO2 (24-31) mmol/L POC Base Excess (-9-1.8) terrie/L POC ABG O2 Sat (90-95) % Sodium (136-145) mmol/L Potassium (3.5-5.1) mmol/L Chloride (98-107) mmol/L Carbon Dioxide (21-32) mmol/L Anion Gap (3-11) BUN (7-18) mg/dl Creatinine (0.6-1.2) mg/dl Glucose (70-99) mg/dl POC Glucose (other) 206 H 185 H 139 H (70-99) mg/dl Lactate (0.4-2.0) mmol/L Calcium (8.5-10.1) mg/dl Ionized Calcium (1.12-1.32) mmol/L Phosphorus (2.5-4.9) mg/dl Hep Bs Antibody, Quant (>or=10mIU/mL Immune) mIU/mL 08/08/19 08/08/19 08/08/19 Range/Units 04:36 04:36 04:45 WBC 64.82 H* (4.8-10.8) K/uL RBC 3.18 L (4.2-5.4) M/uL Hgb 10.1 L (12.0-16.0) g/dL Hct 29.4 L (37-47) % RDW Std Deviation 54.6 H (36.4-46.3) fL RDW Coeff of Ashley 16.2 H (11.5-14.5) % Plt Count 97 L (130-400) K/uL MPV 12.2 H (7.4-10.4) fL Absolute Nucleated RBC 5.82 H (0-0) K/uL Platelet Estimate Decreased L (Normal) POC pH (7.35-7.45) POC pCO2 (35-46) mmHg POC pO2 (80-95) mmHg POC HCO3 (19-24) terrie/L POC Total CO2 (24-31) mmol/L POC Base Excess (-9-1.8) terrie/L POC ABG O2 Sat (90-95) % Sodium 128 L (136-145) mmol/L Potassium (3.5-5.1) mmol/L Chloride 97 L (98-107) mmol/L Carbon Dioxide 19 L (21-32) mmol/L Anion Gap 12.0 H (3-11) BUN 31 H (7-18) mg/dl Creatinine 2.49 H (0.6-1.2) mg/dl Glucose 128 H (70-99) mg/dl POC Glucose (other) 128 H (70-99) mg/dl Lactate (0.4-2.0) mmol/L Calcium 5.7 L* (8.5-10.1) mg/dl Ionized Calcium (1.12-1.32) mmol/L Phosphorus 5.7 H (2.5-4.9) mg/dl Hep Bs Antibody, Quant (>or=10mIU/mL Immune) mIU/mL 08/08/19 08/08/19 08/08/19 Range/Units 05:51 06:16 06:29 WBC (4.8-10.8) K/uL RBC (4.2-5.4) M/uL Hgb (12.0-16.0) g/dL Hct (37-47) % RDW Std Deviation (36.4-46.3) fL RDW Coeff of Ashley (11.5-14.5) % Plt Count (130-400) K/uL MPV (7.4-10.4) fL Absolute Nucleated RBC (0-0) K/uL Platelet Estimate (Normal) POC pH (7.35-7.45) POC pCO2 31 L (35-46) mmHg POC pO2 59 L (80-95) mmHg POC HCO3 (19-24) terrie/L POC Total CO2 21 L (24-31) mmol/L POC Base Excess (-9-1.8) terrie/L POC ABG O2 Sat (90-95) % Sodium (136-145) mmol/L Potassium (3.5-5.1) mmol/L Chloride (98-107) mmol/L Carbon Dioxide (21-32) mmol/L Anion Gap (3-11) BUN (7-18) mg/dl Creatinine (0.6-1.2) mg/dl Glucose (70-99) mg/dl POC Glucose (other) 110 H (70-99) mg/dl Lactate (0.4-2.0) mmol/L Calcium (8.5-10.1) mg/dl Ionized Calcium 0.78 L (1.12-1.32) mmol/L Phosphorus (2.5-4.9) mg/dl Hep Bs Antibody, Quant (>or=10mIU/mL Immune) mIU/mL (1) Sepsis Sepsis acute organ dysfunction status: unspecified Sepsis type: sepsis due to unspecified organism Qualified Code(s): A41.9 - Sepsis, unspecified organism
[2019-08-08] MEDS ORDERED: FENTANYL BOLUS FROM BAG IV PRN (12:06)
[2019-08-08] MEDS ORDERED: STAT IV Infusion **Titration per Protocol STA (12:06)
[2019-08-08] MEDS ORDERED: MIDAZOLAM HCL 1 MG/ML 2ML VIAL IV STA (12:06)
[2019-08-08] MEDS: fentaNYL DRIP 1,250 MCG/250 ML BAG IV SCH (12:15)
[2019-08-08] MEDS: INSULIN ASPART 100 UNITS/ML 3 ML PEN SC SCH ×4 (14:07→23:42)
--- NOTE | 2019-08-08 16:57 | Hospitalist Progress Note ---
Date of Service August 08, 2019 Assessment & Plan (1) Colitis: sepsis from gastrointestinal source progression of disease required surgery to perform an urgent subtotal colectomy on 08/06 possible toxic storm colon plus ischemic colitis, C. difficile is positive, on po vancomycin iv flagyl General surgery consult performed open subtotal colectomy with end ileostomy 08/06 Pt was on levaphed for low blood pressure (2) Benign essential hypertension: Patient typically takes diltiazem lisinopril for blood pressure control due to her low blood pressure and pressor support for sepsis these continue to be held (3) Diabetes mellitus: Patient has a history of diabetes in use insulin sliding scale she is currently n.p.o. (4) Status post aortobifemoral bypass surgery: likely arterial vascular disease may have had an influence in her colons chanllenge to perfuse with the low blood pressures of sepsis (5) COPD (chronic obstructive pulmonary disease): Patient typically takes Advair but will transition to medication via ventilator (6) Depression: Patient maintained on Wellbutrin and Prozac, but as with npo status these are held, will discuss with icu if we can give via og (7) Methicillin resistant Staphylococcus aureus infection: Due to this history patient is given vancomycin initially (8) Acute kidney injury: pt had oliguric renal failure and hyperkalemia, with ultrafiltration 08/06 and additional LEGAL ADMINISTRATIVE ASSISTANT on 08/07, appreciate nephrology following Admission and Anticipated Discharge Date Admission Date: August 05, 2019 Subjective Mrs. Younger was seen & examined in the ICU this morning. She remains sedated, mechanically ventilated and requires pressor support. Pt is with renal replacement therapy, for electrolytes and oliguria, treatment 08/06 and 08/07 Review of Systems Review of Systems: Unobtainable due to endotracheal tube Physical Exam Physical Exam: The patient appeared critically ill Vital signs as documented. still requiring pressor support Lungs are clear but diminished Cardiac exam, Rhythm is regular.. No murmurs, rubs or gallops. Abdominal exam hypoactive bowel sounds Extremities are edematous Neurologic exam is sedated and non responsive Results & Data Results & Data ([facility]) Vital Signs (Past 12 Hours) Vital Signs Temp Pulse Pulse Resp BP BP Pulse Ox 08/08/19 16:30 85 97 08/08/19 16:00 98.4 F 86 98 08/08/19 15:30 86 97 08/08/19 15:00 85 99 08/08/19 14:30 89 98 08/08/19 14:00 92 H 96 08/08/19 13:48 98.4 F 93 H 155/77 H 08/08/19 13:30 98 H 97 08/08/19 13:24 99 H 22 97 08/08/19 13:15 99 H 129/74 08/08/19 13:00 95 H 139/74 94 08/08/19 12:45 96 H 132/70 08/08/19 12:30 94 H 134/68 98 08/08/19 12:15 95 H 133/68 08/08/19 12:00 99.0 F 87 148/69 H 98 08/08/19 11:45 93 H 142/72 H 08/08/19 11:30 97 H 137/7 L 96 08/08/19 11:23 92 H 22 92 08/08/19 11:15 99 H 124/67 08/08/19 11:00 97 H 107/60 86 L 08/08/19 10:45 96 H 100/58 L 08/08/19 10:30 82 97 08/08/19 10:21 98.4 F 85 08/08/19 10:00 85 94 08/08/19 09:30 86 94 08/08/19 09:00 82 94 08/08/19 08:30 82 97 08/08/19 08:00 98 F 83 98 08/08/19 07:31 104 H 24 92 08/08/19 07:30 91 H 96 08/08/19 07:00 93 H 97 08/08/19 06:30 100 H 92 08/08/19 06:00 104 H 92 08/08/19 05:30 108 H 92 08/08/19 05:00 110 H 25 H 92 PG Care Time/CCT Total # of Minutes Spent Total Time Spent with Patient: Total time spent is greater than 50% in coordination of care (as documented) at patient's floor/unit and/or counseling patient: Coding Level of Care Code 89823 Subseq Hosp Care Lvl 3 Diagnoses Colitis K52.9 Benign essential hypertension I10 Diabetes mellitus E11.9 Status post aortobifemoral bypass surgery Z95.828 COPD (chronic obstructive pulmonary disease) J44.9 Depression F32.9 Methicillin resistant Staphylococcus aureus infection A49.02 Acute kidney injury N17.9
[2019-08-08] MEDS: INSULIN GLARGINE SOLOSTAR 100 UNITS/ML 3 ML PEN SC SCH (20:38)
[2019-08-09] MEDS: fentaNYL DRIP 1,250 MCG/250 ML BAG IV SCH ×2 (01:21→14:59)
[2019-08-09] MEDS: NOREPINEPHRINE BIT INJ 32 MG in DEXTROSE 5% 500 ML IV SCH (01:21)
[2019-08-09] MEDS: metroNIDAZOLE 500 MG/100 ML BAG IV SCH ×3 (01:41→17:19)
[2019-08-09] MEDS: HYDROCORTISONE SOD 100 MG in SYRINGE 0 ML IV SCH ×2 (01:42→11:46)
[2019-08-09] MEDS: ASCORBIC ACID 1,500 MG, THIAMINE HCL 100 MG in 0.9 % SODIUM CHLORIDE 100 ML IV SCH ×4 (02:38→20:35)
[2019-08-09 04:50] LABS: Creatinine Clr Calc Pharmacy 36.8 ml/min; Est GFR (African American) 27.8; Magnesium 1.9 mg/dl (1.8-2.4); Potassium 4.7 mmol/L (3.5-5.1)
[2019-08-09 04:55] LABS: Phosphorus 4.9 mg/dl (2.5-4.9)
[2019-08-09 04:59] LABS: Hematocrit (blood only) 22.2 % (37-47); Hemoglobin 7.6 g/dL (12.0-16.0); Mean Corpuscular Hemoglobin 31.3 pg (25-34); Mean Corpuscular Hgb Conc 34.2 g/dL (32-36); Mean Corpuscular Volume 91.4 fL (80-100); Mean Platelet Volume 10.6 fL (7.4-10.4); Nucleated RBC # (auto) 3.92 K/uL (0-0); Nucleated RBC % (auto) 11.8 %; Platelet Count 20 K/uL (130-400); Platelet Estimate SIGNIFIC DECREASED (Normal); RDW Coefficient of Variation 15.8 % (11.5-14.5); RDW Standard Deviation 52.5 fL (36.4-46.3); Red Blood Count 2.43 M/uL (4.2-5.4); White Blood Count 33.25 K/uL (4.8-10.8)
[2019-08-09] MEDS ORDERED: MAGNESIUM SULFATE / D5W 1 GM/100 ML BAG IV ONE (05:01)
[2019-08-09 05:07] LABS: iSTAT Arterial Blood Gas HCO3 24 meg/L (19-24); iSTAT Arterial Blood Gas pCO2 32 mmHg (35-46); iSTAT Arterial Blood Gas pH 7.48 (7.35-7.45); iSTAT Arterial Blood Gas pO2 69 mmHg (80-95); iSTAT Carbon Dioxide 25 mmol/L (24-31); iSTAT FiO2 45 %; iSTAT Site Art Line
[2019-08-09] MEDS ORDERED: CALCIUM GLUCONATE 10% 1,000 MG in SODIUM CHLORIDE 0.9% 50 ML IV STA (05:12)
[2019-08-09] MEDS: VANCOMYCIN HCL 500 MG/10 ML SOLN PO SCH ×4 (05:25→23:26)
[2019-08-09] MEDS: INSULIN ASPART 100 UNITS/ML 3 ML PEN SC SCH ×4 (05:25→23:43)
[2019-08-09] MEDS: RASPBERRY SYRUP 5 ML UDP PO SCH ×4 (05:25→23:26)
[2019-08-09] MEDS: HEPARIN SOD 5,000 UNIT/0.5 ML VIAL SQ SCH (05:25)
[2019-08-09] MEDS: VASOPRESSIN 20 UNITS in 0.9 % SODIUM CHLORIDE 100 ML IV SCH (06:19)
[2019-08-09 06:33] LABS: Fibrinogen 463 mg/dl (184-400); INR 1.1 (0.9-1.1); Partial Thromboplastin Ratio 2.2; Prothrombin Time 11.3 Seconds (9.0-12.0)
[2019-08-09 06:34] LABS: Partial Thromboplastin Time 61.2 Seconds (21.0-31.0)
[2019-08-09] MEDS: MIDAZOLAM HCL 1 MG/ML 2ML VIAL IV PRN ×4 (06:59→13:01)
--- NOTE | 2019-08-09 07:31 | XRay Report ---
XR chest 1V portable CLINICAL HISTORY: Respiratory failure. COMPARISON STUDY: Chest CT August 05, 2019. Chest radiograph August 07, 2019. FINDINGS: Tip of endotracheal tube is 5.7 cm above the gerber. Tip of left internal jugular introduce r projects over the distal left brachiocephalic vein. Right internal jugular central line is in place . Left shoulder arthroplasty is noted. There is no pneumothorax. Cardiomediastinal silhouette is stab le. Bibasilar opacities have slightly increased. Interstitial thickening has slightly improved. IMPRESSION: 1. Tip of endotracheal tube 5.7 cm above the gerber. 2. No pneumothorax. 3. Increase in extensive bibasilar opacities which may reflect pneumonia or atelectasis. 4. Pulmonary edema, slightly improved since prior exam. ACT 112: Negative or not required by law. Electronically signed by: Chris Abbott M.D. 08/09/2019 7:29 AM
[2019-08-09] MEDS ORDERED: SODIUM CHLORIDE 0.9% 1000ML 1,000 ML IV PRN (09:39)
[2019-08-09] MEDS ORDERED: SODIUM CHLORIDE 0.9% 250 ML IV PRN (10:28)
[2019-08-09 10:58] LABS: Hematocrit (blood only) 20.9 % (37-47); Hemoglobin 7.2 g/dL (12.0-16.0); Mean Corpuscular Hemoglobin 31.9 pg (25-34); Mean Corpuscular Hgb Conc 34.4 g/dL (32-36); Mean Corpuscular Volume 92.5 fL (80-100); Mean Platelet Volume 10.1 fL (7.4-10.4); Nucleated RBC # (auto) 3.21 K/uL (0-0); Nucleated RBC % (auto) 10.3 %; Platelet Count 39 K/uL (130-400); RDW Coefficient of Variation 15.8 % (11.5-14.5); RDW Standard Deviation 51.8 fL (36.4-46.3); Red Blood Count 2.26 M/uL (4.2-5.4); White Blood Count 31.23 K/uL (4.8-10.8)
[2019-08-09] MEDS: INSULIN GLARGINE SOLOSTAR 100 UNITS/ML 3 ML PEN SC SCH ×2 (11:07→20:37)
--- NOTE | 2019-08-09 11:07 | Nephrology Progress Note ---
Date of Service August 09, 2019 Assessment & Plan (1) Acute kidney injury: -- Oliguric GIA due to septic shock from C. Difficile/toxic megacolon -- Baseline Cr ~ 1.0. No renal obstruction on imaging -- Dialyzed yesterday without complication -- Remains oliguric. Will dialyze today and attempt 2 L UF. No heparin due to thrombocytopenia -- HD RN notified and orders entered into EMR -- Monitor serial PRP (2) Anemia: -- Progressive anemia and thrombocytopenia -- Plan of care discussed w/ ICU team. They will provide blood and platelet transfusion -- HD today without heparin due to low platelet count Admission and Anticipated Discharge Date Admission Date: August 05, 2019 Subjective Mrs. Younger was seen & examined in the ICU this morning. She remains sedated, mechanically ventilated and requires pressor support. FiO2 is 45%. CXR film shows mild pulmonary edema. UO only 320 cc last 24 hours. IJ THC is in place. Plan of care discussed w/ ICU and staffing branch manager. Review of Systems Review of Systems: Unobtainable due to endotracheal tube Physical Exam Eyes: PERRL Cardiovascular: Rate/Rhythm: regular rhythm and + tachycardic Extremities: no edema Results & Data ([facility]) Vital Signs (Past 12 Hours) Vital Signs Temp Pulse Pulse Resp BP BP BP 08/09/19 07:48 95 H 18 08/09/19 06:58 37.2 C 74 18 112/55 L 08/09/19 06:49 68 18 134/58 L 08/09/19 06:34 37.2 C 69 18 114/52 L 08/09/19 06:13 36.7 C 72 22 125/54 L 08/09/19 06:00 69 114/47 L 08/09/19 05:31 72 100/45 L 08/09/19 05:30 74 100/45 L 08/09/19 05:05 74 19 08/09/19 05:00 74 119/46 L 08/09/19 04:02 37.2 C 75 96/36 L 08/09/19 03:45 69 23 08/09/19 03:30 68 99/47 L 08/09/19 03:01 71 106/47 L 08/09/19 02:30 71 101/73 08/09/19 02:00 72 22 106/58 L 118/54 L 08/09/19 01:02 78 23 08/09/19 01:00 74 104/45 L 08/09/19 00:31 80 85/44 L 08/09/19 00:00 36.7 C 82 118/39 L 08/08/19 23:30 76 Pulse Ox Pulse Ox 08/09/19 07:48 94 08/09/19 06:58 96 08/09/19 06:49 97 08/09/19 06:34 96 08/09/19 06:13 96 08/09/19 06:00 96 08/09/19 05:31 95 08/09/19 05:30 96 08/09/19 05:05 95 08/09/19 05:00 94 08/09/19 04:02 97 08/09/19 03:45 97 08/09/19 03:30 97 08/09/19 03:01 97 08/09/19 02:30 96 08/09/19 02:00 97 97 08/09/19 01:02 96 08/09/19 01:00 97 08/09/19 00:31 96 08/09/19 00:00 95 08/08/19 23:30 96 Laboratory Results Laboratory Tests 08/09/19 08/09/19 04:05 04:05 WBC 33.25 H* D Hgb 7.6 L Hct 22.2 L Plt Count 20 L* D Sodium 136 D Potassium 4.7 Chloride 101 Carbon Dioxide 26 BUN 24 H Creatinine 2.18 H D Calcium 6.0 L PG Care Time/CCT Total # of Minutes Spent Total Time Spent with Patient: Total time spent is greater than 50% in coordination of care (as documented) at patient's floor/unit and/or counseling patient: Coding Level of Care Code 36425 Subseq Hosp Care Lvl 3 Diagnoses Acute kidney injury N17.9 Anemia D64.9
[2019-08-09 11:14] LABS: Fibrinogen 444 mg/dl (184-400); Partial Thromboplastin Ratio 1.8; Prothrombin Time 10.8 Seconds (9.0-12.0)
[2019-08-09 11:28] LABS: Partial Thromboplastin Time 50.5 Seconds (21.0-31.0)
[2019-08-09 11:30] LABS: iSTAT Allen Test Pass; iSTAT Arterial Blood Gas HCO3 26 meg/L (19-24); iSTAT Arterial Blood Gas pCO2 36 mmHg (35-46); iSTAT Arterial Blood Gas pH 7.46 (7.35-7.45); iSTAT Arterial Blood Gas pO2 51 mmHg (80-95); iSTAT Carbon Dioxide 27 mmol/L (24-31); iSTAT FiO2 45 %; iSTAT Site Art Line
--- NOTE | 2019-08-09 11:39 | Critical Care Progress Note ---
Date of Service August 09, 2019 Assessment & Plan (1) Shock, septic: Reason Critically Ill: 58-year-old female being treated for C. difficile colitis status post colectomy for toxic megacolon Neuro - [facility] ICU: Negative Cardiac - Shockimproving -Down to single agent Levophed -Able to tolerate dialysis yesterday Respiratory - Respiratory failure with hypoxemia -Increasing oxygen requirement likely secondary to third space/total lung water -Decrease ventilation, PRVC respiratory rate 12 GI - C. difficile colitisfulminant -Status post total colectomy for source control -Currently treating with oral Vanco: Ileostomy okay to give -IV Flagyl -Blind pouch of rectum no KS vancomycin Transaminitis -Secondary to septic shock RENAL/LYTES - Acute renal failure with increasing creatinine and potassium -Nephrology consult -Anticipate hemofiltration today -Avoid nephrotoxins Dialysis today with possible removal of fluid - Foleyminimal urine production ENDO - TSH adequate -Steroids given for lack of responsiveness after surgery -Decrease hydrocortisone to 50 today then consider discontinuation HEME - Anemia1 unit packed red blood cells to be given during dialysis Leukemoid reaction: Improving Thrombocytopenia: Given 1 unit of platelets overnight -Obvious source of bleeding DVT prophylaxis: Heparin 5000 3 times daily -On hold secondary for anemia ID - Septic shock with multisystem organ dysfunction -Vitamin C and thiamine for additional volume repletion given significant ongoing losses -Vancomycin p.o., IV Flagyl, IV Diflucan secondary to spillage -Treatment duration: Few studies indicate 7 days treatment: I would continue this while the patient is hemodynamically unstable if this extend beyond 7 days LINES/IV ACCESS - CVC, A-line, PIV's, NGT DVT PROPHYLAXIS - Subcu heparin, SCDs (2) Ascending cholangitis: (3) Metabolic acidosis: (4) Colitis: (5) Benign essential hypertension: (6) Diabetes mellitus: Admission and Anticipated Discharge Date Admission Date: August 05, 2019 Subjective Tolerated dialysis yesterday. No overnight events. Able to follow commands. Review of Systems Review of Systems: Unobtainable due to endotracheal tube Physical Exam Physical Exam: General: Alert. Follows simple commands. Skin: Warm, edematous Head: Atraumatic Ears, nose, mouth and throat: Obscured by endotracheal tube Cardiovascular: Sluggish capillary refill mildly increased Respiratory: Breathes over ventilator Gastrointestinal: Wound clean dry intact Musculoskeletal: No deformity, diffuse anasarca Results & Data Results & Data ([facility]) Vital Signs (Past 12 Hours) Vital Signs Temp Pulse Pulse Resp BP BP BP 08/09/19 11:28 96 H 19 08/09/19 11:20 98 H 101/40 L 08/09/19 10:57 36.6 C 81 81 175/70 H 08/09/19 07:48 95 H 18 08/09/19 06:58 37.2 C 74 18 112/55 L 08/09/19 06:49 68 18 134/58 L 08/09/19 06:34 37.2 C 69 18 114/52 L 08/09/19 06:13 36.7 C 72 22 125/54 L 08/09/19 06:00 69 114/47 L 08/09/19 05:31 72 100/45 L 08/09/19 05:30 74 100/45 L 08/09/19 05:05 74 19 08/09/19 05:00 74 119/46 L 08/09/19 04:02 37.2 C 75 96/36 L 08/09/19 03:45 69 23 08/09/19 03:30 68 99/47 L 08/09/19 03:01 71 106/47 L 08/09/19 02:30 71 101/73 08/09/19 02:00 72 22 106/58 L 118/54 L 08/09/19 01:02 78 23 08/09/19 01:00 74 104/45 L 08/09/19 00:31 80 85/44 L 08/09/19 00:00 36.7 C 82 118/39 L Pulse Ox Pulse Ox 08/09/19 11:28 89 L 08/09/19 11:20 08/09/19 10:57 08/09/19 07:48 94 08/09/19 06:58 96 08/09/19 06:49 97 08/09/19 06:34 96 08/09/19 06:13 96 08/09/19 06:00 96 08/09/19 05:31 95 08/09/19 05:30 96 08/09/19 05:05 95 08/09/19 05:00 94 08/09/19 04:02 97 08/09/19 03:45 97 08/09/19 03:30 97 08/09/19 03:01 97 05/24/20 02:30 96 08/09/19 02:00 97 97 08/09/19 01:02 96 08/09/19 01:00 97 08/09/19 00:31 96 08/09/19 00:00 95 Laboratory Results 08/09/19 08/09/19 08/09/19 Range/Units 11:15 10:42 10:42 WBC (4.8-10.8) K/uL RBC (4.2-5.4) M/uL Hgb Cancelled (12.0-16.0) g/dL Hct Cancelled (37-47) % MCV (80-100) fL MCH (25-34) pg MCHC (32-36) g/dL RDW Std Deviation (36.4-46.3) fL RDW Coeff of Ashley (11.5-14.5) % Plt Count (130-400) K/uL MPV (7.4-10.4) fL Absolute Nucleated RBC (0-0) K/uL Nucleated RBC % (auto) % Platelet Estimate (Normal) PT 10.8 (9.0-12.0) Seconds INR 1.0 (0.9-1.1) APTT 50.5 H* (21.0-31.0) Seconds PTT Ratio 1.8 Fibrinogen 444 H (184-400) mg/dl Sample Site Art Line POC pH 7.46 H (7.35-7.45) POC pCO2 36 (35-46) mmHg POC pO2 51 L (80-95) mmHg POC HCO3 26 H (19-24) terrie/L POC Total CO2 27 (24-31) mmol/L POC Base Excess 2.0 H (-9-1.8) terrie/L POC ABG O2 Sat 88.0 L (90-95) % Pj Test Pass O2 Delivery Device Ventilator POC O2 Rate Minute Ventilation POC FiO2 45 % Tidal Volume PEEP 5 Sodium (136-145) mmol/L Potassium (3.5-5.1) mmol/L Chloride (98-107) mmol/L Carbon Dioxide (21-32) mmol/L Anion Gap (3-11) BUN (7-18) mg/dl Creatinine (0.6-1.2) mg/dl Est Cr Clr Drug Dosing ml/min Est GFR ( Amer) Est GFR (Non-Af Amer) BUN/Creatinine Ratio (10-20) Glucose (70-99) mg/dl POC Glucose (other) (70-99) mg/dl Calcium (8.5-10.1) mg/dl Ionized Calcium (1.12-1.32) mmol/L Phosphorus (2.5-4.9) mg/dl Magnesium (1.8-2.4) mg/dl Hep B Core IgM Ab (NON-REACTIVE) Blood Type Antibody Screen Crossmatch 08/09/19 08/09/19 08/09/19 Range/Units 10:42 09:05 05:21 WBC 31.23 H* (4.8-10.8) K/uL RBC 2.26 L (4.2-5.4) M/uL Hgb 7.2 L (12.0-16.0) g/dL Hct 20.9 L* (37-47) % MCV 92.5 (80-100) fL MCH 31.9 (25-34) pg MCHC 34.4 (32-36) g/dL RDW Std Deviation 51.8 H (36.4-46.3) fL RDW Coeff of Ashley 15.8 H (11.5-14.5) % Plt Count 39 L D (130-400) K/uL MPV 10.1 (7.4-10.4) fL Absolute Nucleated RBC 3.21 H (0-0) K/uL Nucleated RBC % (auto) 10.3 % Platelet Estimate (Normal) PT 11.3 (9.0-12.0) Seconds INR 1.1 (0.9-1.1) APTT 61.2 H* (21.0-31.0) Seconds PTT Ratio 2.2 Fibrinogen 463 H (184-400) mg/dl Sample Site POC pH (7.35-7.45) POC pCO2 (35-46) mmHg POC pO2 (80-95) mmHg POC HCO3 (19-24) terrie/L POC Total CO2 (24-31) mmol/L POC Base Excess (-9-1.8) terrie/L POC ABG O2 Sat (90-95) % Pj Test O2 Delivery Device POC O2 Rate Minute Ventilation POC FiO2 % Tidal Volume PEEP Sodium (136-145) mmol/L Potassium (3.5-5.1) mmol/L Chloride (98-107) mmol/L Carbon Dioxide (21-32) mmol/L Anion Gap (3-11) BUN (7-18) mg/dl Creatinine (0.6-1.2) mg/dl Est Cr Clr Drug Dosing ml/min Est GFR ( Amer) Est GFR (Non-Af Amer) BUN/Creatinine Ratio (10-20) Glucose (70-99) mg/dl POC Glucose (other) 101 H (70-99) mg/dl Calcium (8.5-10.1) mg/dl Ionized Calcium (1.12-1.32) mmol/L Phosphorus (2.5-4.9) mg/dl Magnesium (1.8-2.4) mg/dl Hep B Core IgM Ab (NON-REACTIVE) Blood Type Antibody Screen Crossmatch 08/09/19 08/09/19 08/09/19 Range/Units 04:53 04:10 04:05 WBC (4.8-10.8) K/uL RBC (4.2-5.4) M/uL Hgb (12.0-16.0) g/dL Hct (37-47) % MCV (80-100) fL MCH (25-34) pg MCHC (32-36) g/dL RDW Std Deviation (36.4-46.3) fL RDW Coeff of Ashley (11.5-14.5) % Plt Count (130-400) K/uL MPV (7.4-10.4) fL Absolute Nucleated RBC (0-0) K/uL Nucleated RBC % (auto) % Platelet Estimate (Normal) PT (9.0-12.0) Seconds INR (0.9-1.1) APTT (21.0-31.0) Seconds PTT Ratio Fibrinogen (184-400) mg/dl Sample Site Art Line POC pH 7.48 H (7.35-7.45) POC pCO2 32 L (35-46) mmHg POC pO2 69 L (80-95) mmHg POC HCO3 24 (19-24) terrie/L POC Total CO2 25 (24-31) mmol/L POC Base Excess 0.0 (-9-1.8) terrie/L POC ABG O2 Sat 95.0 (90-95) % Pj Test NA O2 Delivery Device Ventilator POC O2 Rate 22 Minute Ventilation 10 POC FiO2 45 % Tidal Volume 450 PEEP 5 Sodium (136-145) mmol/L Potassium (3.5-5.1) mmol/L Chloride (98-107) mmol/L Carbon Dioxide (21-32) mmol/L Anion Gap (3-11) BUN (7-18) mg/dl Creatinine (0.6-1.2) mg/dl Est Cr Clr Drug Dosing ml/min Est GFR ( Amer) Est GFR (Non-Af Amer) BUN/Creatinine Ratio (10-20) Glucose (70-99) mg/dl POC Glucose (other) 91 (70-99) mg/dl Calcium (8.5-10.1) mg/dl Ionized Calcium 0.83 L (1.12-1.32) mmol/L Phosphorus (2.5-4.9) mg/dl Magnesium (1.8-2.4) mg/dl Hep B Core IgM Ab (NON-REACTIVE) Blood Type Antibody Screen Crossmatch 08/09/19 08/09/19 08/08/19 Range/Units 04:05 04:05 23:39 WBC 33.25 H* D (4.8-10.8) K/uL RBC 2.43 L (4.2-5.4) M/uL Hgb 7.6 L (12.0-16.0) g/dL Hct 22.2 L (37-47) % MCV 91.4 (80-100) fL MCH 31.3 (25-34) pg MCHC 34.2 (32-36) g/dL RDW Std Deviation 52.5 H (36.4-46.3) fL RDW Coeff of Ashley 15.8 H (11.5-14.5) % Plt Count 20 L* D (130-400) K/uL MPV 10.6 H (7.4-10.4) fL Absolute Nucleated RBC 3.92 H (0-0) K/uL Nucleated RBC % (auto) 11.8 % Platelet Estimate SIGNIFIC DECREASED (Normal) PT (9.0-12.0) Seconds INR (0.9-1.1) APTT (21.0-31.0) Seconds PTT Ratio Fibrinogen (184-400) mg/dl Sample Site POC pH (7.35-7.45) POC pCO2 (35-46) mmHg POC pO2 (80-95) mmHg POC HCO3 (19-24) terrie/L POC Total CO2 (24-31) mmol/L POC Base Excess (-9-1.8) terrie/L POC ABG O2 Sat (90-95) % Pj Test O2 Delivery Device POC O2 Rate Minute Ventilation POC FiO2 % Tidal Volume PEEP Sodium 136 D (136-145) mmol/L Potassium 4.7 (3.5-5.1) mmol/L Chloride 101 (98-107) mmol/L Carbon Dioxide 26 (21-32) mmol/L Anion Gap 9.0 (3-11) BUN 24 H (7-18) mg/dl Creatinine 2.18 H D (0.6-1.2) mg/dl Est Cr Clr Drug Dosing 36.8 ml/min Est GFR ( Amer) 27.8 Est GFR (Non-Af Amer) 24.0 BUN/Creatinine Ratio 11.0 (10-20) Glucose 92 (70-99) mg/dl POC Glucose (other) 95 (70-99) mg/dl Calcium 6.0 L (8.5-10.1) mg/dl Ionized Calcium (1.12-1.32) mmol/L Phosphorus 4.9 (2.5-4.9) mg/dl Magnesium 1.9 (1.8-2.4) mg/dl Hep B Core IgM Ab (NON-REACTIVE) Blood Type Antibody Screen Crossmatch 08/08/19 08/08/19 08/07/19 Range/Units 20:29 16:19 18:19 WBC (4.8-10.8) K/uL RBC (4.2-5.4) M/uL Hgb (12.0-16.0) g/dL Hct (37-47) % MCV (80-100) fL MCH (25-34) pg MCHC (32-36) g/dL RDW Std Deviation (36.4-46.3) fL RDW Coeff of Ashley (11.5-14.5) % Plt Count (130-400) K/uL MPV (7.4-10.4) fL Absolute Nucleated RBC (0-0) K/uL Nucleated RBC % (auto) % Platelet Estimate (Normal) PT (9.0-12.0) Seconds INR (0.9-1.1) APTT (21.0-31.0) Seconds PTT Ratio Fibrinogen (184-400) mg/dl Sample Site POC pH (7.35-7.45) POC pCO2 (35-46) mmHg POC pO2 (80-95) mmHg POC HCO3 (19-24) terrie/L POC Total CO2 (24-31) mmol/L POC Base Excess (-9-1.8) terrie/L POC ABG O2 Sat (90-95) % Pj Test O2 Delivery Device POC O2 Rate Minute Ventilation POC FiO2 % Tidal Volume PEEP Sodium (136-145) mmol/L Potassium (3.5-5.1) mmol/L Chloride (98-107) mmol/L Carbon Dioxide (21-32) mmol/L Anion Gap (3-11) BUN (7-18) mg/dl Creatinine (0.6-1.2) mg/dl Est Cr Clr Drug Dosing ml/min Est GFR ( Amer) Est GFR (Non-Af Amer) BUN/Creatinine Ratio (10-20) Glucose (70-99) mg/dl POC Glucose (other) 92 101 H (70-99) mg/dl Calcium (8.5-10.1) mg/dl Ionized Calcium (1.12-1.32) mmol/L Phosphorus (2.5-4.9) mg/dl Magnesium (1.8-2.4) mg/dl Hep B Core IgM Ab NON-REACTIVE (NON-REACTIVE) Blood Type Antibody Screen Crossmatch 08/07/19 Range/Units 09:59 WBC (4.8-10.8) K/uL RBC (4.2-5.4) M/uL Hgb (12.0-16.0) g/dL Hct (37-47) % MCV (80-100) fL MCH (25-34) pg MCHC (32-36) g/dL RDW Std Deviation (36.4-46.3) fL RDW Coeff of Ashley (11.5-14.5) % Plt Count (130-400) K/uL MPV (7.4-10.4) fL Absolute Nucleated RBC (0-0) K/uL Nucleated RBC % (auto) % Platelet Estimate (Normal) PT (9.0-12.0) Seconds INR (0.9-1.1) APTT (21.0-31.0) Seconds PTT Ratio Fibrinogen (184-400) mg/dl Sample Site POC pH (7.35-7.45) POC pCO2 (35-46) mmHg POC pO2 (80-95) mmHg POC HCO3 (19-24) terrie/L POC Total CO2 (24-31) mmol/L POC Base Excess (-9-1.8) terrie/L POC ABG O2 Sat (90-95) % Pj Test O2 Delivery Device POC O2 Rate Minute Ventilation POC FiO2 % Tidal Volume PEEP Sodium (136-145) mmol/L Potassium (3.5-5.1) mmol/L Chloride (98-107) mmol/L Carbon Dioxide (21-32) mmol/L Anion Gap (3-11) BUN (7-18) mg/dl Creatinine (0.6-1.2) mg/dl Est Cr Clr Drug Dosing ml/min Est GFR ( Amer) Est GFR (Non-Af Amer) BUN/Creatinine Ratio (10-20) Glucose (70-99) mg/dl POC Glucose (other) (70-99) mg/dl Calcium (8.5-10.1) mg/dl Ionized Calcium (1.12-1.32) mmol/L Phosphorus (2.5-4.9) mg/dl Magnesium (1.8-2.4) mg/dl Hep B Core IgM Ab (NON-REACTIVE) Blood Type A Positive Antibody Screen NEGATIVE Crossmatch See Detail Coding Level of Care Code Critical Care 1st 30-74 mins Diagnoses Shock, septic A41.9; R65.21 Ascending cholangitis K83.09 Metabolic acidosis E87.2 Colitis K52.9 Benign essential hypertension I10 Diabetes mellitus E11.9 Time Spent (min) 60 Comment I have personally spent 60 minutes of critical care time in the direct management of this patient. This is a life/limb threatening event. This includes time spent evaluating patient, direct bedside care, chart review, placing orders, interpretation of diagnostic studies, discussion with consultants, patient, and/or family members regarding treatment decisions, as well as other required patient management activities. This time is exclusive of all separately billable procedures, and teaching time and separate from and in addition to any other critical care service time.
[2019-08-09] MEDS: PANTOprazole 40 MG in SYRINGE 0 ML IV SCH (11:46)
[2019-08-09] MEDS ORDERED: STAT IV Infusion **Titration per Protocol STA (11:51)
[2019-08-09] MEDS ORDERED: FLUCONAZOLE 100 MG/50 ML BAG IV SCH (12:00)
--- NOTE | 2019-08-09 12:32 | Surgery Progress Note ---
Date of Service August 09, 2019 Assessment & Plan (1) Sepsis: Overall slight improvement with decreasing pressor requirements. On dialysis, getting blood transfusion today (2) Colitis: s/p subtotal colectomy. POD#2, continue npo/ bowel rest, SHRUTI drainage, wound vac. No new recommendations. Subjective Getting blood on dialysis today. Was able to wean off vasopressin, less levophed requirement. Still intubated/ on mech vent. Review of Systems Review of Systems: Unobtainable due to endotracheal tube Physical Exam Constitutional: + ill appearing; no acute distress Gastrointestinal (Abdomen): Inspection/Auscultation: + abdomen distended and + hypoactive bowel sounds Percussion/Palpation: abdomen soft wound vac in place, SHRUTI's serosanguinous - left 1585, right 720 175 cc ng Musculoskeletal: gross edema Results & Data Vital Signs (Past 12 Hours) Vital Signs Temp Pulse Pulse Resp BP BP BP 08/09/19 12:20 94 H 156/65 H 08/09/19 12:00 96 H 139/61 08/09/19 11:56 36.6 C 101 H 22 147/62 H 08/09/19 11:40 92 H 120/55 L 08/09/19 11:28 96 H 19 08/09/19 11:20 98 H 101/40 L 08/09/19 10:57 36.6 C 81 81 175/70 H 08/09/19 07:48 95 H 18 08/09/19 06:58 37.2 C 74 18 112/55 L 08/09/19 06:49 68 18 134/58 L 08/09/19 06:34 37.2 C 69 18 114/52 L 08/09/19 06:13 36.7 C 72 22 125/54 L 08/09/19 06:00 69 114/47 L 08/09/19 05:31 72 100/45 L 08/09/19 05:30 74 100/45 L 08/09/19 05:05 74 19 08/09/19 05:00 74 119/46 L 08/09/19 04:02 37.2 C 75 96/36 L 08/09/19 03:45 69 23 08/09/19 03:30 68 99/47 L 08/09/19 03:01 71 106/47 L 05/24/20 02:30 71 101/73 05/24/20 02:00 72 22 106/58 L 118/54 L 08/09/19 01:02 78 23 08/09/19 01:00 74 104/45 L 08/09/19 00:31 80 85/44 L Pulse Ox Pulse Ox 08/09/19 12:20 08/09/19 12:00 08/09/19 11:56 94 08/09/19 11:40 08/09/19 11:28 89 L 08/09/19 11:20 08/09/19 10:57 08/09/19 07:48 94 08/09/19 06:58 96 08/09/19 06:49 97 08/09/19 06:34 96 08/09/19 06:13 96 08/09/19 06:00 96 08/09/19 05:31 95 08/09/19 05:30 96 08/09/19 05:05 95 08/09/19 05:00 94 08/09/19 04:02 97 08/09/19 03:45 97 08/09/19 03:30 97 08/09/19 03:01 97 08/09/19 02:30 96 08/09/19 02:00 97 97 08/09/19 01:02 96 08/09/19 01:00 97 08/09/19 00:31 96 (1) Sepsis Sepsis acute organ dysfunction status: unspecified Sepsis type: sepsis due to unspecified organism Qualified Code(s): A41.9 - Sepsis, unspecified organism
[2019-08-09] MEDS: DEXMEDETOMIDINE HCL 200 MCG in SODIUM CHLORIDE 0.9% 48 ML IV SCH ×3 (13:01→21:34)
--- NOTE | 2019-08-09 13:16 | Pharmacy Report ---
Pharmacy Glycemic Short Note 2 - Date of Service August 09, 2019 - Glycemic Short BSG Results (Last 24 hours): 08/08/19 08/08/19 08/08/19 16:19 20:29 23:39 Glucose POC Glucose (other) 101 H 92 95 08/09/19 08/09/19 08/09/19 04:05 04:10 09:05 Glucose 92 POC Glucose (other) 91 101 H Outpatient Anti-diabetic Regimen: * n/a * A1c = 5.7% on 08/05 ASSESSMENT: 08/09/19: * POD #2 s/p urgent colectomy. Pt remains NPO on mechanical ventilation. Pressor requirements are decreasing. * Excellent glycemic control over the past 24 hours: 18 units of Lantus yesterday and 1 unit of Novolog * BSGs are below goal. Will hold further Lantus administration until BSG is > 140 mg/dL. * Pt scheduled for HD today 08/08/19: * Patient with septic shock secondary to C. difficile colitis, POD #1 s/p urgent subtotal colectomy * Glycemic control significantly improved with use of IV insulin infusion overlapped with SQ basal insulin (she received 36 units of Lantus yesterday) * Patient remains on mechanical ventilation, pressor support, and IV steroids. Also on flagyl IV and oral vancomycin for CDI. * Patient dialyzed yesterday and plan for HD session today Scr 2.49 mg/dL this am * IV Insulin infusion rate was around 1.3-1.6 units/hr overnight, infusion held this morning for BSG of 83 and 91 mg/dL. * Will continue to titrate SQ insulin doses and discontinue IV insulin infusion if BSG remains < 140 mg/dL at 1200 BSG check. 08/07/19: * 58 y/o female admitted from [facility] on 08/04 for abdominal pain, found to have C diff colitis. * Noted to have pre-diabetes, which is consistent with HbA1c. * Significant changes to stressors - admitted to ICU, requiring vasoactive support x2 agents, POD 0 s/p subtotal colectomy 2nd toxic megacolon, initially on D5W containing bicarb drip which has now stopped * BSG >220 mg/dL x1 - initiated insulin drip per ICU hyperglycemic policy. This is reasonable at this time given significant stressors (above). Discussed w Dr. Kurtz who is aware of initiation of drip, and also agrees with the following transition criteria at this time: BSG < 180 mg/dL x2 checks, drip < 1 unit/hr. OK with initiating Lantus simultaneously to hopefully have the drip be short-term until better control can be achieved with basal/bolus PLAN FOR INPATIENT GLYCEMIC CONTROL: * Basal insulin - decrease * Lantus per scale BID: * 0 units for BSG 140 mg/dL or less * 8 units for BSG > 140 mg/dL * Bolus insulin - loosen carb ratio * Novolog q6h * Goal range: 120 -150 mg/dL * Correction factor: 20 mg/dL/unit * Carb ratio: 1 unit for every 10 grams CHO
[2019-08-09] MEDS: INSULIN REGULAR 250 UNITS in SODIUM CHLORIDE 0.9% 247.5 ML IV SCH (13:19)
--- NOTE | 2019-08-09 14:00 | Hospitalist Progress Note ---
Date of Service August 09, 2019 Assessment & Plan (1) Colitis: sepsis from gastrointestinal source progression of disease required surgery to perform an urgent subtotal colectomy on 08/06 possible toxic storm colon plus ischemic colitis, C. difficile is positive, on po vancomycin iv flagyl General surgery consult performed open subtotal colectomy with end ileostomy 08/06 discussion on duration of treatment now that colon is removed, icu team feels reasonalbe to complete typical course as reports of terminal ileum infetions Pt was on levaphed for low blood pressure (2) Benign essential hypertension: Patient typically takes diltiazem lisinopril for blood pressure control due to her low blood pressure and pressor support for sepsis these continue to be held (3) Diabetes mellitus: Patient has a history of diabetes in use insulin sliding scale she is currently n.p.o. (4) Status post aortobifemoral bypass surgery: likely arterial vascular disease may have had an influence in her colons challenge to perfuse with the low blood pressures of sepsis (5) COPD (chronic obstructive pulmonary disease): Patient typically takes Advair but will transition to medication via ventilator (6) Depression: Patient maintained on Wellbutrin and Prozac, but as with npo status these are held, will discuss with icu if we can give via og (7) Methicillin resistant Staphylococcus aureus infection: Due to this history patient is given vancomycin initially iv but changed to po ( via og) (8) Acute kidney injury: pt had oliguric renal failure and hyperkalemia, with ultrafiltration 08/06 and additional [employer]IE[employer] THERAPIST on 08/07,08/08, appreciate nephrology following (9) Thrombocytopenia: Pt to recieve platelets 08/08, initially concern for DIC with low platelets and elevated PTT but not low fibrinogen, follow likley consumption at this point (10) Acute blood loss anemia: secondary to surgical loss, transfused 1 unit prbc Admission and Anticipated Discharge Date Admission Date: August 05, 2019 Subjective Getting plasma on dialysis now 3rd treatment (f,sa,colon). Was able to wean off vasopressin, less levophed requirement. Still intubated/ on mech vent. weaning trial today Review of Systems Review of Systems: Unobtainable due to endotracheal tube Physical Exam Physical Exam: The patient appeared critically ill Vital signs as documented. Head exam is normocephalic atraumatic no scleral icterus OG tube and Ett in place Neck is without JVD, thyromegaly, or carotid bruits. Lungs are clear coarse and diminished Cardiac exam, Rhythm is regular.. No murmurs, rubs or gallops. Abdominal exam reveals occasional bowel sounds, wound vac in place Extremities are mildly edematous and left hip wound is in place Neurologic exam sedate and ventilated Results & Data Results & Data ([facility]) Vital Signs (Past 12 Hours) Vital Signs Temp Pulse Pulse Resp BP BP BP 08/09/19 13:00 101 H 158/71 H 08/09/19 12:40 98 H 144/69 H 08/09/19 12:20 94 H 156/65 H 08/09/19 12:00 96 H 139/61 08/09/19 11:56 97.9 F 101 H 22 147/62 H 08/09/19 11:40 92 H 120/55 L 08/09/19 11:28 96 H 19 08/09/19 11:20 98 H 101/40 L 08/09/19 10:57 97.9 F 81 81 175/70 H 08/09/19 07:48 95 H 18 08/09/19 06:58 99.0 F 74 18 112/55 L 08/09/19 06:49 68 18 134/58 L 08/09/19 06:34 99.0 F 69 18 114/52 L 08/09/19 06:13 98.1 F 72 22 125/54 L 08/09/19 06:00 69 114/47 L 08/09/19 05:31 72 100/45 L 08/09/19 05:30 74 100/45 L 08/09/19 05:05 74 19 08/09/19 05:00 74 119/46 L 08/09/19 04:02 99.0 F 75 96/36 L 08/09/19 03:45 69 23 08/09/19 03:30 68 99/47 L 08/09/19 03:01 71 106/47 L 08/09/19 02:30 71 101/73 08/09/19 02:00 72 22 106/58 L 118/54 L Pulse Ox Pulse Ox 08/09/19 13:00 08/09/19 12:40 08/09/19 12:20 08/09/19 12:00 08/09/19 11:56 94 08/09/19 11:40 08/09/19 11:28 89 L 08/09/19 11:20 08/09/19 10:57 08/09/19 07:48 94 08/09/19 06:58 96 08/09/19 06:49 97 08/09/19 06:34 96 08/09/19 06:13 96 08/09/19 06:00 96 08/09/19 05:31 95 08/09/19 05:30 96 08/09/19 05:05 95 08/09/19 05:00 94 08/09/19 04:02 97 08/09/19 03:45 97 08/09/19 03:30 97 08/09/19 03:01 97 08/09/19 02:30 96 08/09/19 02:00 97 97 PG Care Time/CCT Total # of Minutes Spent Total Time Spent with Patient: Total time spent is greater than 50% in coordination of care (as documented) at patient's floor/unit and/or counseling patient: Coding Level of Care Code 53923 Subseq Hosp Care Lvl 3 Diagnoses Colitis K52.9 Benign essential hypertension I10 Diabetes mellitus E11.9 Status post aortobifemoral bypass surgery Z95.828 COPD (chronic obstructive pulmonary disease) J44.9 Depression F32.9 Methicillin resistant Staphylococcus aureus infection A49.02 Acute kidney injury N17.9 Thrombocytopenia D69.6 Acute blood loss anemia D62
[2019-08-09 19:40] LABS: Hematocrit (blood only) 23.9 % (37-47); Hemoglobin 8.4 g/dL (12.0-16.0)
[2019-08-09] MEDS: HYDROCORTISONE SOD 50 MG in SYRINGE 0 ML IV SCH (20:35)
[2019-08-10] MEDS: metroNIDAZOLE 500 MG/100 ML BAG IV SCH ×3 (01:26→18:04)
[2019-08-10] MEDS: ASCORBIC ACID 1,500 MG, THIAMINE HCL 100 MG in 0.9 % SODIUM CHLORIDE 100 ML IV SCH ×4 (02:35→20:07)
[2019-08-10] MEDS: DEXMEDETOMIDINE HCL 200 MCG in SODIUM CHLORIDE 0.9% 48 ML IV SCH ×2 (03:12→11:20)
[2019-08-10] MEDS: HYDROCORTISONE SOD 50 MG in SYRINGE 0 ML IV SCH ×3 (04:14→20:07)
[2019-08-10 05:17] LABS: Albumin Level 0.9 gm/dl (3.4-5.0); BUN Creatinine Ratio 12.4 (10-20); Bilirubin Direct 0.2 mg/dl (0-0.2); Calcium 6.6 mg/dl (8.5-10.1); Creatinine Clr Calc Pharmacy 37.6 ml/min; Est GFR (African American) 28.5; Est GFR (Non-African American) 24.6; Magnesium 2.2 mg/dl (1.8-2.4); Potassium 4.5 mmol/L (3.5-5.1)
[2019-08-10 05:20] LABS: Bilirubin,Total 0.3 mg/dl (0.2-1); Phosphorus 5.7 mg/dl (2.5-4.9); Total Protein 4.3 gm/dl (6.4-8.2)
[2019-08-10] MEDS: RASPBERRY SYRUP 5 ML UDP PO SCH ×3 (05:24→18:04)
[2019-08-10] MEDS: VANCOMYCIN HCL 500 MG/10 ML SOLN PO SCH ×3 (05:24→18:04)
[2019-08-10 05:26] LABS: Partial Thromboplastin Ratio 1.7; Prothrombin Time 10.7 Seconds (9.0-12.0)
[2019-08-10 05:41] LABS: Partial Thromboplastin Time 47.6 Seconds (21.0-31.0)
[2019-08-10 05:43] LABS: Hematocrit (blood only) 21.6 % (37-47); Hemoglobin 7.3 g/dL (12.0-16.0); Mean Corpuscular Hemoglobin 30.9 pg (25-34); Mean Corpuscular Hgb Conc 33.8 g/dL (32-36); Mean Corpuscular Volume 91.5 fL (80-100); Nucleated RBC % (auto) 11.5 %; Platelet Count 20 K/uL (130-400); Platelet Estimate SIGNIFIC DECREASED (Normal); RDW Coefficient of Variation 15.8 % (11.5-14.5); RDW Standard Deviation 51.4 fL (36.4-46.3); Red Blood Count 2.36 M/uL (4.2-5.4); White Blood Count 18.29 K/uL (4.8-10.8)
[2019-08-10] MEDS ORDERED: SODIUM CHLORIDE 0.9% 250 ML IV PRN (05:47)
[2019-08-10] MEDS ORDERED: CALCIUM GLUCONATE 10% 1,000 MG in SODIUM CHLORIDE 0.9% 50 ML IV STA (05:49)
[2019-08-10] MEDS: INSULIN ASPART 100 UNITS/ML 3 ML PEN SC SCH ×3 (05:58→18:11)
[2019-08-10 06:01] LABS: iSTAT FiO2 30 %; iSTAT Site R Radial; iSTAT Venous Carbon Dioxide 24 mmol/L (24-31)
--- NOTE | 2019-08-10 07:01 | XRay Report ---
XR chest 1V portable CLINICAL HISTORY: 58 years-old Female presenting with respiratory failure. TECHNIQUE: Portable semiupright AP view of the chest was obtained. COMPARISON: 08/09/2019. FINDINGS: Endotracheal tube terminates in the midthoracic trachea approximately 4 cm from the gerber. Large bor e left internal jugular central venous catheter terminates in the left brachiocephalic vein. The righ t internal jugular central venous catheter terminates at the superior cavoatrial junction. Nasogastri c tube descends below the diaphragm with sidehole within the gastric lumen, terminus not visualized. Numerous overlying external leads and support devices degraded image quality. Cardiac silhouette mildly enlarged. Pulmonary vascular and interstitial prominence suspected. Bronchi al wall thickening. Extensive patchy bilateral opacities, left greater than right. These appear stabl e to slightly increased in density on the left though there is improved aeration at the right lung ba se. No large pleural effusion or pneumothorax. Degenerative changes of the thoracic spine. Reverse to freda left shoulder arthroplasty. Advanced degenerative changes of the right glenohumeral joint. Mild g aseous distention of the stomach. IMPRESSION: 1. Extensive patchy bilateral infiltrates overall fairly similar to prior though there may be increa sed aeration at the right lung base. Suggest multifocal pneumonia. 2. Some degree of volume overload and congestive change may be present. 3. Lines and tubes appropriately positioned. ACT 112: Negative or not required by law. Electronically signed by: Michael Ace M.D. 08/10/2019 7:00 AM
--- NOTE | 2019-08-10 09:45 | Critical Care Progress Note ---
Date of Service August 10, 2019 Assessment & Plan (1) Status post admission to intensive care unit: 58-year-old female with a past medical history of morbid obesity, atherosclerosis, peripheral vascular disease, GERD, depression, hypertension, reported COPD who is currently admitted in the ICU with acute hypoxic respiratory failure, septic shock secondary to GI source, C. difficile colitis who recently underwent a colectomy. Patient's respiratory failure appears to be improving. We currently have her on 3/5 with spontaneous breathing. And evaluations have been in the range of 5-6. Saturations have been reasonable. If she continues to do well and remains off pressors, we will extubate her. Continue oral vancomycin for her C. difficile colitis. Flagyl for colitis as well. Surgery is following. Maintain NGT to intermittent suction. SHRUTI drains in place. She is receiving stress dose steroids. Will likely start to wean those starting tomorrow. She does have a relatively new onset bicytopenia (anemia and thrombocytopenia) since yesterday. I asked for hematology to see the patient and ordered for hemolysis labs including LDH and haptoglobin. I also ordered for a HIT panel and the heparin is currently on hold. Fibrinogen from yesterday appears within normal range so this is less likely DIC. Trend CBC every 6 hours. We will continue to minimize sedation and try to only use Precedex for the time being. She does have some bradycardia related to the Precedex. She is currently off the fentanyl. She is profoundly volume overloaded and appears to be 21 L positive. She will need aggressive hemodialysis with fluid removal. Will defer to our nephrology danilo soriano. Unfortunately, unable to do this today since it is . She continues to be critically ill. CRITICAL CARE TIME - I have personally spent 40 minutes of critical care time in the direct management of this patient. This is a life/limb threatening event. This includes time spent evaluating patient, direct bedside care, chart review, placing orders, interpretation of diagnostic studies, discussion with consultants, patient, and family members, as well as other required patient management activities. This time is exclusive of all separately billable procedures, and teaching time and separate from and in addition to any other critical care service time. (2) Acute blood loss anemia: (3) Acute kidney injury: (4) Shock, septic: (5) Colitis: (6) Bronchopneumonia: Admission and Anticipated Discharge Date Admission Date: August 05, 2019 Subjective Patient is lying in bed. Endotracheal tube in place. She does follow commands intermittently. Currently on Precedex and fentanyl at 50 mcg. She is also on Levophed drip. Saturating 95% on 30% FiO2 and a PEEP of 5 with a ventilation mode of PRVC. No overnight concerns by nursing. Continues to be very edematous. Review of Systems Review of Systems: Unobtainable due to endotracheal tube Physical Exam Constitutional: Intubated and sedated. No apparent distress. Appears obese. Eyes: PERRL, conjunctivae normal, anicteric sclerae ENMT: Endotracheal tube is in place. Neck: trachea midline, no thyromegaly Right sided dialysis catheter in place. Respiratory: Coarse breath sounds on the ventilator. Cardiovascular: RRR, no murmur, no edema Heart Sounds: normal S1 and normal S2 Vessels: + JVD Extremities: + edema Significant pedal edema in the lower extremities. Gastrointestinal (Abdomen): SHRUTI drain in place. Minimal bowel sounds present. Musculoskeletal: Moving her extremities spontaneously. No cyanosis. Skin: no rashes, warm and dry Some drainage noted from the left hip site. SHRUTI drains in place. Appear clean and dry. Neurologic: Difficult to assess given that she is intubated and sedated. She does move limbs spontaneously. Psychiatric: A+Ox3, euthymic affect Unable to assess Results & Data Results & Data ([facility]) Vital Signs (Past 12 Hours) Vital Signs Temp Pulse Pulse Resp BP BP Pulse Ox 08/10/19 09:00 93.6 F L 55 L 18 131/60 95 08/10/19 08:45 93.6 F L 52 L 14 98/46 L 100 08/10/19 08:27 92.8 F L 52 L 14 98/46 L 100 08/10/19 07:48 93.4 F L 52 L 14 129/54 L 100 08/10/19 07:46 94.1 F L 53 L 15 81/35 L 100 08/10/19 07:34 94 F L 52 L 25 H 88/39 L 97 08/10/19 07:16 93.9 F L 55 L 12 102/41 L 95 08/10/19 07:10 54 L 12 99 08/10/19 06:01 54 L 110/45 L 98 08/10/19 05:53 59 L 15 94 08/10/19 05:30 55 L 08/10/19 05:00 70 112/53 L 98 08/10/19 04:30 56 L 110/51 L 99 08/10/19 04:00 98.2 F 55 L 99/47 L 100 08/10/19 03:30 45 L 155/54 H 95 08/10/19 03:00 52 L 129/60 98 08/10/19 02:30 52 L 115/53 L 99 08/10/19 02:10 52 L 12 100 08/10/19 02:00 53 L 12 119/58 L 100 08/10/19 01:30 54 L 110/54 L 100 08/10/19 01:00 52 L 110/56 L 100 08/10/19 00:30 54 L 108/56 L 100 08/10/19 00:00 98.2 F 54 L 130/60 99 08/09/19 23:30 42 L 98 08/09/19 23:00 57 L 140/63 99 08/09/19 22:57 54 L 12 100 08/09/19 22:30 55 L 144/61 H 99 08/09/19 22:00 59 L 137/63 100 I did review her prior laboratory data, chest imaging and previous notes Coding Level of Care Code Critical Care 1st 30-74 mins Diagnoses Status post admission to intensive care unit Acute blood loss anemia D62 Acute kidney injury N17.9 Shock, septic A41.9; R65.21 Colitis K52.9 Bronchopneumonia J18.0 Time Spent (min) 40
--- NOTE | 2019-08-10 09:48 | Nephrology Progress Note ---
Date of Service August 10, 2019 Assessment & Plan (1) Acute kidney injury: -- Oliguric GIA due to septic shock from C. Difficile/toxic megacolon -- Baseline Cr ~ 1.0. No renal obstruction on imaging -- Dialyzed yesterday. No acute indication for HD today. Will order PRP and reassess in am (2) Anemia: -- Progressive anemia and thrombocytopenia -- Plan of care discussed w/ ICU team. They will provide platelet transfusion Admission and Anticipated Discharge Date Admission Date: August 05, 2019 Subjective Mrs. Younger was seen & examined in the ICU this morning. She remains sedated, mechanically ventilated and requires low dose pressor support. FiO2 is 35%. HD performed yesterday. Only 2 hours completed due to patient movement and frequent alarms due to catheter malfunction. No UF obtained. Review of Systems Review of Systems: Unobtainable due to endotracheal tube Physical Exam Eyes: PERRL Neck: L IJ HD catheter w/ clean, dry dressing Cardiovascular: Rate/Rhythm: regular rhythm and + tachycardic Extremities: no edema Results & Data ([facility]) Vital Signs (Past 12 Hours) Vital Signs Temp Pulse Pulse Resp BP BP Pulse Ox 08/10/19 09:36 7 L 08/10/19 09:00 34.2 C L 55 L 18 131/60 95 08/10/19 08:45 34.2 C L 52 L 14 98/46 L 100 08/10/19 08:27 33.8 C L 52 L 14 98/46 L 100 08/10/19 07:48 34.1 C L 52 L 14 129/54 L 100 08/10/19 07:46 34.5 C L 53 L 15 81/35 L 100 08/10/19 07:34 34.4 C L 52 L 25 H 88/39 L 97 08/10/19 07:16 34.4 C L 55 L 12 102/41 L 95 08/10/19 07:10 54 L 12 99 08/10/19 06:01 54 L 110/45 L 98 08/10/19 05:53 59 L 15 94 08/10/19 05:30 55 L 08/10/19 05:00 70 112/53 L 98 08/10/19 04:30 56 L 110/51 L 99 08/10/19 04:00 36.8 C 55 L 99/47 L 100 08/10/19 03:30 45 L 155/54 H 95 08/10/19 03:00 52 L 129/60 98 08/10/19 02:30 52 L 115/53 L 99 08/10/19 02:10 52 L 12 100 08/10/19 02:00 53 L 12 119/58 L 100 08/10/19 01:30 54 L 110/54 L 100 08/10/19 01:00 52 L 110/56 L 100 08/10/19 00:30 54 L 108/56 L 100 08/10/19 00:00 36.8 C 54 L 130/60 99 08/09/19 23:30 42 L 98 08/09/19 23:00 57 L 140/63 99 08/09/19 22:57 54 L 12 100 08/09/19 22:30 55 L 144/61 H 99 08/09/19 22:00 59 L 137/63 100 Laboratory Results Laboratory Tests 08/10/19 08/10/19 08/10/19 04:40 04:40 04:40 WBC 18.29 H D Hgb 7.3 L Hct 21.6 L Plt Count 20 L* Sodium 136 Potassium 4.5 Chloride 104 Carbon Dioxide 24 BUN 26 H Creatinine 2.14 H Calcium 6.6 L Albumin 0.9 L PTH Intact 732.6 H PG Care Time/CCT Total # of Minutes Spent Total Time Spent with Patient: Total time spent is greater than 50% in coordination of care (as documented) at patient's floor/unit and/or counseling patient: Coding Level of Care Code 50816 Subseq Hosp Care Lvl 3 Diagnoses Acute kidney injury N17.9 Anemia D64.9
[2019-08-10 11:14] LABS: Hematocrit (blood only) 25.8 % (37-47); Hemoglobin 8.9 g/dL (12.0-16.0); Mean Corpuscular Hemoglobin 31.7 pg (25-34); Mean Corpuscular Hgb Conc 34.5 g/dL (32-36); Mean Corpuscular Volume 91.8 fL (80-100); Mean Platelet Volume 9.6 fL (7.4-10.4); Nucleated RBC # (auto) 2.09 K/uL (0-0); Nucleated RBC % (auto) 11.4 %; Platelet Count 26 K/uL (130-400); RDW Coefficient of Variation 15.6 % (11.5-14.5); RDW Standard Deviation 51.6 fL (36.4-46.3); Red Blood Count 2.81 M/uL (4.2-5.4); White Blood Count 18.39 K/uL (4.8-10.8)
--- NOTE | 2019-08-10 11:17 | Surgery Progress Note ---
Date of Service pt is stable, still on vent, per-nurse , pt is doing better, ileostomy started working, WBC down to 18,000 from 31,000 August 10, 2019 Assessment & Plan (1) Sepsis: Overall slight improvement with decreasing pressor requirements. On dialysis, getting blood transfusion today (2) Colitis: s/p subtotal colectomy. POD#3, continue npo/ bowel rest, SHRUTI drainage, wound vac. No new recommendations. continue IV antibiotic treatment, repeat labs in morning, will F/U Supervising Physician Co-Signing Physician Notes I have attempted to contact the patient's twice I have left messages on the answering machine for him to contact the ICU. Patient has worsening vasoactive medication requirement, I am concerned she is going to need some form of renal replacement therapy. I discussed this with Dr. Kirk, we can attempt to do low clearance here at this facility, other considerations include transfer to tertiary care center for formal continuous hemofiltration. Subjective Mrs. Younger was seen & examined in the ICU this morning. She remains sedated, mechanically ventilated and requires low dose pressor support. FiO2 is 35%. HD performed yesterday. Only 2 hours completed due to patient movement and frequent alarms due to catheter malfunction. No UF obtained. Physical Exam Constitutional: on vent Gastrointestinal (Abdomen): soft, wound vac intact, ileostomy working, some stool in bag, Results & Data Vital Signs (Past 12 Hours) Vital Signs Temp Pulse Pulse Resp BP BP Pulse Ox 08/10/19 10:48 59 L 14 94 08/10/19 09:36 7 L 08/10/19 09:00 34.2 C L 55 L 18 131/60 95 08/10/19 08:45 34.2 C L 52 L 14 98/46 L 100 08/10/19 08:27 33.8 C L 52 L 14 98/46 L 100 08/10/19 07:48 34.1 C L 52 L 14 129/54 L 100 08/10/19 07:46 34.5 C L 53 L 15 81/35 L 100 08/10/19 07:34 34.4 C L 52 L 25 H 88/39 L 97 08/10/19 07:16 34.4 C L 55 L 12 102/41 L 95 08/10/19 07:10 54 L 12 99 08/10/19 06:01 54 L 110/45 L 98 08/10/19 05:53 59 L 15 94 08/10/19 05:30 55 L 08/10/19 05:00 70 112/53 L 98 08/10/19 04:30 56 L 110/51 L 99 08/10/19 04:00 36.8 C 55 L 99/47 L 100 08/10/19 03:30 45 L 155/54 H 95 08/10/19 03:00 52 L 129/60 98 08/10/19 02:30 52 L 115/53 L 99 08/10/19 02:10 52 L 12 100 08/10/19 02:00 53 L 12 119/58 L 100 08/10/19 01:30 54 L 110/54 L 100 08/10/19 01:00 52 L 110/56 L 100 08/10/19 00:30 54 L 108/56 L 100 08/10/19 00:00 36.8 C 54 L 130/60 99 08/09/19 23:30 42 L 98 Laboratory Results Abnormal lab results 08/07/19 08/09/19 08/09/19 Range/Units 09:59 10:42 11:15 WBC (4.8-10.8) K/uL RBC (4.2-5.4) M/uL Hgb (12.0-16.0) g/dL Hct (37-47) % RDW Std Deviation (36.4-46.3) fL RDW Coeff of Ashley (11.5-14.5) % Plt Count (130-400) K/uL Absolute Nucleated RBC (0-0) K/uL APTT 50.5 H* (21.0-31.0) Seconds Fibrinogen 444 H (184-400) mg/dl POC pH 7.46 H (7.35-7.45) POC pO2 51 L (80-95) mmHg POC HCO3 26 H (19-24) terrie/L POC Base Excess 2.0 H (-9-1.8) terrie/L POC ABG O2 Sat 88.0 L (90-95) % POC Venous O2 Sat (70-80) % BUN (7-18) mg/dl Creatinine (0.6-1.2) mg/dl Glucose (70-99) mg/dl POC Glucose (other) (70-99) mg/dl Calcium (8.5-10.1) mg/dl Ionized Calcium (1.12-1.32) mmol/L Phosphorus (2.5-4.9) mg/dl AST (15-37) U/L Alkaline Phosphatase (45-117) U/L Total Protein (6.4-8.2) gm/dl Albumin (3.4-5.0) gm/dl PTH Intact (18.4-80.1) pg/ml Crossmatch See Detail 08/09/19 08/09/19 08/09/19 Range/Units 11:55 16:03 19:32 WBC (4.8-10.8) K/uL RBC (4.2-5.4) M/uL Hgb 8.4 L (12.0-16.0) g/dL Hct 23.9 L (37-47) % RDW Std Deviation (36.4-46.3) fL RDW Coeff of Ashley (11.5-14.5) % Plt Count (130-400) K/uL Absolute Nucleated RBC (0-0) K/uL APTT (21.0-31.0) Seconds Fibrinogen (184-400) mg/dl POC pH (7.35-7.45) POC pO2 (80-95) mmHg POC HCO3 (19-24) terrie/L POC Base Excess (-9-1.8) terrie/L POC ABG O2 Sat (90-95) % POC Venous O2 Sat (70-80) % BUN (7-18) mg/dl Creatinine (0.6-1.2) mg/dl Glucose (70-99) mg/dl POC Glucose (other) 101 H 103 H (70-99) mg/dl Calcium (8.5-10.1) mg/dl Ionized Calcium (1.12-1.32) mmol/L Phosphorus (2.5-4.9) mg/dl AST (15-37) U/L Alkaline Phosphatase (45-117) U/L Total Protein (6.4-8.2) gm/dl Albumin (3.4-5.0) gm/dl PTH Intact (18.4-80.1) pg/ml Crossmatch 08/09/19 08/09/19 08/10/19 Range/Units 19:36 23:33 04:40 WBC 18.29 H D (4.8-10.8) K/uL RBC 2.36 L (4.2-5.4) M/uL Hgb 7.3 L (12.0-16.0) g/dL Hct 21.6 L (37-47) % RDW Std Deviation 51.4 H (36.4-46.3) fL RDW Coeff of Ashley 15.8 H (11.5-14.5) % Plt Count 20 L* (130-400) K/uL Absolute Nucleated RBC 2.10 H (0-0) K/uL APTT (21.0-31.0) Seconds Fibrinogen (184-400) mg/dl POC pH (7.35-7.45) POC pO2 (80-95) mmHg POC HCO3 (19-24) terrie/L POC Base Excess (-9-1.8) terrie/L POC ABG O2 Sat (90-95) % POC Venous O2 Sat (70-80) % BUN (7-18) mg/dl Creatinine (0.6-1.2) mg/dl Glucose (70-99) mg/dl POC Glucose (other) 103 H 115 H (70-99) mg/dl Calcium (8.5-10.1) mg/dl Ionized Calcium (1.12-1.32) mmol/L Phosphorus (2.5-4.9) mg/dl AST (15-37) U/L Alkaline Phosphatase (45-117) U/L Total Protein (6.4-8.2) gm/dl Albumin (3.4-5.0) gm/dl PTH Intact (18.4-80.1) pg/ml Crossmatch 08/10/19 08/10/19 08/10/19 Range/Units 04:40 04:40 04:40 WBC (4.8-10.8) K/uL RBC (4.2-5.4) M/uL Hgb (12.0-16.0) g/dL Hct (37-47) % RDW Std Deviation (36.4-46.3) fL RDW Coeff of Ashley (11.5-14.5) % Plt Count (130-400) K/uL Absolute Nucleated RBC (0-0) K/uL APTT 47.6 H* (21.0-31.0) Seconds Fibrinogen (184-400) mg/dl POC pH (7.35-7.45) POC pO2 (80-95) mmHg POC HCO3 (19-24) terrie/L POC Base Excess (-9-1.8) terrie/L POC ABG O2 Sat (90-95) % POC Venous O2 Sat (70-80) % BUN 26 H (7-18) mg/dl Creatinine 2.14 H (0.6-1.2) mg/dl Glucose 116 H (70-99) mg/dl POC Glucose (other) (70-99) mg/dl Calcium 6.6 L (8.5-10.1) mg/dl Ionized Calcium (1.12-1.32) mmol/L Phosphorus 5.7 H (2.5-4.9) mg/dl AST 143 H (15-37) U/L Alkaline Phosphatase 127 H (45-117) U/L Total Protein 4.3 L (6.4-8.2) gm/dl Albumin 0.9 L (3.4-5.0) gm/dl PTH Intact 732.6 H (18.4-80.1) pg/ml Crossmatch 08/10/19 08/10/19 08/10/19 Range/Units 04:40 05:44 06:00 WBC (4.8-10.8) K/uL RBC (4.2-5.4) M/uL Hgb (12.0-16.0) g/dL Hct (37-47) % RDW Std Deviation (36.4-46.3) fL RDW Coeff of Ashley (11.5-14.5) % Plt Count (130-400) K/uL Absolute Nucleated RBC (0-0) K/uL APTT (21.0-31.0) Seconds Fibrinogen (184-400) mg/dl POC pH (7.35-7.45) POC pO2 (80-95) mmHg POC HCO3 (19-24) terrie/L POC Base Excess (-9-1.8) terrie/L POC ABG O2 Sat (90-95) % POC Venous O2 Sat 62.0 L (70-80) % BUN (7-18) mg/dl Creatinine (0.6-1.2) mg/dl Glucose (70-99) mg/dl POC Glucose (other) (70-99) mg/dl Calcium (8.5-10.1) mg/dl Ionized Calcium 0.92 L (1.12-1.32) mmol/L Phosphorus (2.5-4.9) mg/dl AST (15-37) U/L Alkaline Phosphatase (45-117) U/L Total Protein (6.4-8.2) gm/dl Albumin (3.4-5.0) gm/dl PTH Intact (18.4-80.1) pg/ml Crossmatch See Detail 08/10/19 08/10/19 Range/Units 10:40 10:47 WBC 18.39 H (4.8-10.8) K/uL RBC 2.81 L (4.2-5.4) M/uL Hgb 8.9 L (12.0-16.0) g/dL Hct 25.8 L (37-47) % RDW Std Deviation 51.6 H (36.4-46.3) fL RDW Coeff of Ashley 15.6 H (11.5-14.5) % Plt Count 26 L* (130-400) K/uL Absolute Nucleated RBC 2.09 H (0-0) K/uL APTT (21.0-31.0) Seconds Fibrinogen (184-400) mg/dl POC pH (7.35-7.45) POC pO2 (80-95) mmHg POC HCO3 (19-24) terrie/L POC Base Excess (-9-1.8) terrie/L POC ABG O2 Sat (90-95) % POC Venous O2 Sat (70-80) % BUN (7-18) mg/dl Creatinine (0.6-1.2) mg/dl Glucose (70-99) mg/dl POC Glucose (other) 103 H (70-99) mg/dl Calcium (8.5-10.1) mg/dl Ionized Calcium (1.12-1.32) mmol/L Phosphorus (2.5-4.9) mg/dl AST (15-37) U/L Alkaline Phosphatase (45-117) U/L Total Protein (6.4-8.2) gm/dl Albumin (3.4-5.0) gm/dl PTH Intact (18.4-80.1) pg/ml Crossmatch (1) Sepsis Sepsis acute organ dysfunction status: unspecified Sepsis type: sepsis due to unspecified organism Qualified Code(s): A41.9 - Sepsis, unspecified organism
[2019-08-10] MEDS: INSULIN GLARGINE SOLOSTAR 100 UNITS/ML 3 ML PEN SC SCH ×2 (11:21→21:02)
--- NOTE | 2019-08-10 11:35 | Consultation Report ---
DATE OF CONSULTATION: 08/10/2019 REASON FOR CONSULT: Increasing thrombocytopenia and anemia in a patient requiring pressor support for hypotension. HISTORY OF PRESENT ILLNESS: This unfortunate patient has multiple medical problems. She has developed thrombosis of an aortofemoral bypass. She has hypotension that has been attributed to sepsis. She has required treatment with both vancomycin and Flagyl for a C. difficile colitis. She has developed respiratory insufficiency and required a ventilator. She has renal insufficiency and has required dialysis. On 06/08/2019, she had a hemoglobin of 10.1 and a platelet count of 97,000. Today, she has a hemoglobin of 7.3, a white blood cell count of 18,290 and a platelet count of 20,000. She has recently been treated with heparin. Coagulation studies have been done. The prothrombin time has not been prolonged and the fibrinogen is elevated at 444. Examination of the peripheral blood smear has shown the presence of nucleated erythrocytes and immature white blood cells. PAST MEDICAL HISTORY: She has required treatment for diabetes and essential hypertension. She has chronic obstructive pulmonary disease that has been attributed to cigarette smoking. She has extensive peripheral vascular disease. FAMILY HISTORY: Her father has had a myocardial infarction. Her mother has required treatment for thyroid cancer and she has an aunt who has had breast cancer. There is no additional family history of neoplastic disorders or hematologic derangements. SOCIAL HISTORY: She is and unemployed. There is no history of substance abuse. REVIEW OF SYSTEMS: Only limited information is available since the patient is intubated. She is sedated, but appears comfortable. There is no evidence of chest or cardiac discomfort. Her abdomen is diffusely tender. PHYSICAL EXAMINATION: GENERAL: Well-developed thin female, unable to speak because of presence of endotracheal tube. HEAD: No evidence of trauma. EYES: No scleral icterus. Extraocular movements intact. NOSE: No mucosal inflammation, no unusual discharge. MOUTH: Mucous membranes moist. No gingival ulceration. NECK: Neck veins not distended. Thyroid not palpably enlarged. CHEST: Resonant to percussion. Expiration is slightly prolonged on auscultation. Scattered rhonchi and rales. HEART: PMI fifth intercostal space midclavicular line. Rhythm regular. No murmur, gallop or friction rub. ABDOMEN: Soft, but diffusely tender. No palpable masses. No palpable organomegaly. MUSCULOSKELETAL: Bilateral lower extremity edema. No joint effusions. No calf tenderness. NEUROLOGICAL: Cranial nerves intact. Deep tendon reflexes, no pathologic reflexes. SKIN: No dermatitis, no subcutaneous nodules PSYCHIATRIC: Appears appropriately sedated, intubated and unable to talk IMPRESSION AND PLAN: The patient's thrombocytopenia is becoming increasingly more severe and an adverse drug reaction is a possibility. Fluconazole has been discontinued. Heparin has been held. Testing for HIT will be initiated. The normal prothrombin time is against a diagnosis of DIC. A DIC panel will be obtained and has been ordered. There are no findings that suggest the presence of TTP. Additional testing for this is warranted and will be initiated. It would be reasonable to transfuse the patient with platelets if her platelet count should fall to less than 10,000 or if she should develop bleeding in association with a platelet count of less than 50,000. It would be inappropriate to resume anticoagulation until the platelet count is 50,000 or greater. The patient's anemia may be in part dilutional. There is no evidence of active bleeding, but occult bleeding is a possibility. It is most unlikely that she has hemolysis, but testing for this will be initiated. Careful followup will be planned. It is likely that her, anemia and thrombocytopenia are secondary to her underlying disease processes.. MTDD
[2019-08-10 11:48] LABS: ALC (manual) 0.55 K/uL (1.2-3.4); ANC (manual) 16.18 K/uL (1.4-6.5); Lymphocytes # (manual) 0.55 K/uL (1.2-3.4); Metamyelocytes # (manual) 0.92 K/uL (0-0); Monocytes # (manual) 0.18 K/uL (0.11-0.59); Myelocytes # (manual) 0.55 K/uL (0-0); Neutrophils # (manual) 16.18 K/uL (1.4-6.5)
[2019-08-10 11:55] LABS: Reticulocyte % 1.9 % (0.5-2.0); Reticulocytes # 0.05 10^6/uL (0.02-0.10)
--- NOTE | 2019-08-10 14:23 | Pharmacy Report ---
Pharmacy Glycemic Short Note 2 - Date of Service August 10, 2019 - Glycemic Short BSG Results (Last 24 hours): 08/09/19 08/09/19 08/09/19 16:03 19:36 23:33 Glucose POC Glucose (other) 103 H 103 H 115 H 08/10/19 08/10/19 04:40 10:40 Glucose 116 H POC Glucose (other) 103 H Outpatient Anti-diabetic Regimen: * n/a * A1c = 5.7% on 08/05 ASSESSMENT: 08/10/19: * Patient with septic shock secondary to C. difficile colitis, POD #3 s/p urgent subtotal colectomy * Mechanically vented on precedex and fentanyl drip. * Patient required zero units of insulin yesterday. * Last HD session was 08/08. No HD planned for today. * Will further loosen Novolog parameters (pt may not require carb coverage based on A1c). PLAN FOR INPATIENT GLYCEMIC CONTROL: * Basal insulin * Lantus per scale BID: * 0 units for BSG 140 mg/dL or less * 8 units for BSG > 140 mg/dL * Bolus insulin - loosen CF and CR * Novolog q6h * Goal range: 120 -150 mg/dL * Correction factor: 25 mg/dL/unit * Carb ratio: 1 unit for every 9 grams CHO
[2019-08-10] MEDS ORDERED: PEPTAMEN 1.5 CAL 1,000 ML BAG PO SCH (15:31)
[2019-08-10 16:32] LABS: Hematocrit (blood only) 24.3 % (37-47); Hemoglobin 8.4 g/dL (12.0-16.0); Mean Corpuscular Hemoglobin 31.5 pg (25-34); Mean Corpuscular Hgb Conc 34.6 g/dL (32-36); Nucleated RBC # (auto) 1.86 K/uL (0-0); Nucleated RBC % (auto) 13.2 %; Platelet Count 21 K/uL (130-400); RDW Coefficient of Variation 16.1 % (11.5-14.5); Red Blood Count 2.67 M/uL (4.2-5.4); White Blood Count 14.01 K/uL (4.8-10.8)
[2019-08-10 16:33] LABS: ALC (manual) 0.38 K/uL (1.2-3.4); ANC (manual) 12.64 K/uL (1.4-6.5); Echinocytes 1+; Howell-Jolly Bodies 1+; Lymphocytes # (manual) 0.38 K/uL (1.2-3.4); Lymphocytes % (manual) 2.7 %; Metamyelocytes # (manual) 0.62 K/uL (0-0); Metamyelocytes % (manual) 4.4 %; Monocytes # (manual) 0.25 K/uL (0.11-0.59); Monocytes % (manual) 1.8 %; Myelocytes # (manual) 0.13 K/uL (0-0); Myelocytes % (manual) 0.9 %; Neutrophils # (manual) 12.64 K/uL (1.4-6.5); Neutrophils % (manual) 90.2 %; Platelet Estimate SIGNIFIC DECREASED (Normal)
--- NOTE | 2019-08-10 17:29 | Hospitalist Progress Note ---
Date of Service August 10, 2019 Assessment & Plan (1) Colitis: sepsis from C diff colitis progression of disease required surgery to perform an urgent subtotal colectomy on 08/06 possible toxic storm colon plus ischemic colitis, C. difficile is positive, on po vancomycin iv flagyl no fever, WBC down to 14k today stop Fluconazole as there is no clear fungal infection off of pressors (2) Benign essential hypertension: Patient typically takes diltiazem lisinopril for blood pressure control due to her low blood pressure and pressor support for sepsis these continue to be held resume once she is hypertensive (3) Diabetes mellitus: Patient has a history of diabetes in use insulin sliding scale she is currently n.p.o. monitor for hypoglycemia (4) Status post aortobifemoral bypass surgery: likely arterial vascular disease may have had an influence in her colons challenge to perfuse with the low blood pressures of sepsis (5) COPD (chronic obstructive pulmonary disease): Patient typically takes Advair but will transition to medication via ventilator (6) Depression: Patient maintained on Wellbutrin and Prozac, but as with npo status these are held, will discuss with icu if we can give via og (7) Methicillin resistant Staphylococcus aureus infection: Due to this history patient is given vancomycin initially iv but changed to po ( via og) (8) Acute kidney injury: pt had oliguric renal failure and hyperkalemia, with ultrafiltration 08/06 and additional [employer] SURFACE on 08/07,08/08, appreciate nephrology following plan for HD tomorrow, no services today due to holiday remains volume overloaded overall (9) Thrombocytopenia: Pt to recieve platelets 08/08, initially concern for DIC with low platelets and elevated PTT but not low fibrinogen DIC now ruled out could be due to Fluconazole, stop this today (10) Acute blood loss anemia: secondary to surgical loss, transfused 1 unit prbc Hb stable today at 8.4 Admission and Anticipated Discharge Date Admission Date: August 05, 2019 Subjective reviewed chart discussed with ICU reviewed labs today patient is intubated, no ROS possible no acute events over night per staff remains volume overloaded, unable to get HD due to holiday today Review of Systems Review of Systems: Unobtainable due to endotracheal tube Physical Exam Constitutional: well developed, + mechanically ventilated and + edematous; no acute distress Eyes: PERRL, conjunctivae normal, anicteric sclerae ENMT: external ear and nose normal, oropharynx normal Neck: trachea midline, no thyromegaly Respiratory: normal respiratory effort, lungs clear to auscultation Cardiovascular: Rate/Rhythm: regular rhythm and + bradycardic Heart Sounds: normal S1 and normal S2; no murmur Vessels: no JVD Extremities: normal capillary refill and + edema Gastrointestinal (Abdomen): Inspection/Auscultation: normal bowel sounds, + abdominal surgical incision and + abdominal surgical drain present; + abdomen abnormal to inspection (ostomy) and abdomen not distended Percussion/Palpation: abdomen nontender Musculoskeletal: Head/Neck/Chest: normocephalic and head atraumatic Extremities: extremities normal to inspection; no cyanosis and no clubbing Skin: no rashes, warm and dry Neurologic: CN's II-XI intact bilaterally and + obtunded (sedated on Precedex); no focal motor deficits Lymphatic: no cervical or axillary lymphadenopathy Results & Data Results & Data ([facility]) Vital Signs (Past 12 Hours) Vital Signs Temp Pulse Resp BP Pulse Ox 08/10/19 16:16 56 L 12 96 08/10/19 13:24 56 L 13 96 08/10/19 12:46 55 L 135/74 96 08/10/19 12:41 54 L 129/70 96 08/10/19 12:40 54 L 08/10/19 12:36 57 L 133/71 96 08/10/19 12:31 55 L 132/68 95 08/10/19 12:30 54 L 08/10/19 12:26 56 L 132/66 96 08/10/19 12:21 56 L 127/67 94 08/10/19 12:20 56 L 08/10/19 12:16 55 L 131/72 96 08/10/19 12:11 58 L 128/73 95 08/10/19 12:10 56 L 95 08/10/19 12:06 57 L 124/70 94 08/10/19 12:01 56 L 123/69 94 08/10/19 12:00 57 L 08/10/19 11:56 56 L 127/71 94 08/10/19 11:51 56 L 127/71 93 08/10/19 11:50 56 L 93 08/10/19 11:46 56 L 122/67 92 08/10/19 11:41 57 L 121/70 92 08/10/19 11:40 56 L 08/10/19 11:35 55 L 144/121 H 93 08/10/19 11:31 56 L 124/62 95 08/10/19 11:30 56 L 08/10/19 11:26 52 L 169/79 H 93 08/10/19 11:21 54 L 154/71 H 94 08/10/19 11:20 54 L 08/10/19 11:16 55 L 145/77 H 94 08/10/19 11:11 54 L 151/80 H 93 08/10/19 11:10 53 L 93 08/10/19 11:06 51 L 158/73 H 93 08/10/19 11:01 52 L 164/76 H 94 08/10/19 11:00 50 L 94 08/10/19 10:56 52 L 164/76 H 93 08/10/19 10:50 54 L 153/82 H 95 08/10/19 10:48 59 L 14 94 08/10/19 10:46 55 L 121/59 L 95 08/10/19 10:41 55 L 166/74 H 93 08/10/19 10:40 54 L 08/10/19 10:36 54 L 163/70 H 94 08/10/19 10:32 55 L 157/75 H 93 08/10/19 10:30 60 08/10/19 10:26 56 L 160/74 H 93 08/10/19 10:21 56 L 169/70 H 95 08/10/19 10:20 53 L 90 08/10/19 10:16 51 L 164/75 H 96 08/10/19 10:10 56 L 148/75 H 95 08/10/19 10:06 57 L 117/66 96 08/10/19 10:02 54 L 96/54 L 97 08/10/19 10:00 60 78/40 L 98 08/10/19 09:55 54 L 80/44 L 96 08/10/19 09:36 7 L 08/10/19 09:00 34.2 C L 55 L 18 131/60 95 08/10/19 08:45 34.2 C L 52 L 14 98/46 L 100 08/10/19 08:27 33.8 C L 52 L 14 98/46 L 100 08/10/19 07:48 34.1 C L 52 L 14 129/54 L 100 08/10/19 07:46 34.5 C L 53 L 15 81/35 L 100 08/10/19 07:34 34.4 C L 52 L 25 H 88/39 L 97 08/10/19 07:16 34.4 C L 55 L 12 102/41 L 95 08/10/19 07:10 54 L 12 99 08/10/19 06:01 54 L 110/45 L 98 08/10/19 05:53 59 L 15 94 08/10/19 05:30 55 L Laboratory Results Laboratory Results - last 24 hr 08/07/19 08/09/19 08/09/19 09:59 19:32 19:36 WBC RBC Hgb 8.4 L Hct 23.9 L MCV MCH MCHC RDW Std Deviation RDW Coeff of Ashley Plt Count MPV Reticulocyte % (Auto) Reticulocyte # Absolute Nucleated RBC Nucleated RBC % (auto) Neutrophils % (Manual) Lymphocytes % (Manual) Monocytes % (Manual) Metamyelocytes % (Man) Myelocytes % (Man) Neutrophils # (Manual) Total Absolute Neuts Lymphocytes # (Manual) Total Abs Lymphocytes Monocytes # (Manual) Metamyelocytes # (Man) Myelocytes # (Manual) Platelet Estimate [place] Bodies Echinocytes Peripher Smr Path Cons Haptoglobin PT INR APTT PTT Ratio vWF Cleav Pro [id number] Sample Site Pj Test POC VBG pH POC VBG pCO2 POC VBG pO2 POC VBG HCO3 POC VBG Total CO2 POC Venous O2 Sat POC VBG Base Excess O2 Delivery Device POC O2 Rate Minute Ventilation POC FiO2 Tidal Volume PEEP Sodium Potassium Chloride Carbon Dioxide Anion Gap BUN Creatinine Est Cr Clr Drug Dosing Est GFR ( Amer) Est GFR (Non-Af Amer) BUN/Creatinine Ratio Glucose POC Glucose (other) 103 H Calcium Ionized Calcium Phosphorus Magnesium Total Bilirubin Direct Bilirubin AST ALT Alkaline Phosphatase Lactate Dehydrogenase Total Protein Albumin PTH Intact Heparin-PF4 Ab Screen Blood Type Antibody Screen Crossmatch See Detail 08/09/19 08/10/19 08/10/19 23:33 04:40 04:40 WBC 18.29 H D RBC 2.36 L Hgb 7.3 L Hct 21.6 L MCV 91.5 MCH 30.9 MCHC 33.8 RDW Std Deviation 51.4 H RDW Coeff of Ashley 15.8 H Plt Count 20 L* MPV 10.0 Reticulocyte % (Auto) Reticulocyte # Absolute Nucleated RBC 2.10 H Nucleated RBC % (auto) 11.5 Neutrophils % (Manual) Lymphocytes % (Manual) Monocytes % (Manual) Metamyelocytes % (Man) Myelocytes % (Man) Neutrophils # (Manual) Total Absolute Neuts Lymphocytes # (Manual) Total Abs Lymphocytes Monocytes # (Manual) Metamyelocytes # (Man) Myelocytes # (Manual) Platelet Estimate SIGNIFIC DECREASED [place] Bodies Echinocytes Peripher Smr Path Cons Haptoglobin PT INR APTT PTT Ratio vWF Cleav Pro [id number] Sample Site Pj Test POC VBG pH POC VBG pCO2 POC VBG pO2 POC VBG HCO3 POC VBG Total CO2 POC Venous O2 Sat POC VBG Base Excess O2 Delivery Device POC O2 Rate Minute Ventilation POC FiO2 Tidal Volume PEEP Sodium 136 Potassium 4.5 Chloride 104 Carbon Dioxide 24 Anion Gap 8.0 BUN 26 H Creatinine 2.14 H Est Cr Clr Drug Dosing 37.6 Est GFR ( Amer) 28.5 Est GFR (Non-Af Amer) 24.6 BUN/Creatinine Ratio 12.4 Glucose 116 H POC Glucose (other) 115 H Calcium 6.6 L Ionized Calcium Phosphorus 5.7 H Magnesium 2.2 Total Bilirubin 0.3 Direct Bilirubin 0.2 AST 143 H ALT 36 Alkaline Phosphatase 127 H Lactate Dehydrogenase Total Protein 4.3 L Albumin 0.9 L PTH Intact Heparin-PF4 Ab Screen Blood Type Antibody Screen Crossmatch 08/10/19 08/10/19 08/10/19 04:40 04:40 04:40 WBC RBC Hgb Hct MCV MCH MCHC RDW Std Deviation RDW Coeff of Ashley Plt Count MPV Reticulocyte % (Auto) Reticulocyte # Absolute Nucleated RBC Nucleated RBC % (auto) Neutrophils % (Manual) Lymphocytes % (Manual) Monocytes % (Manual) Metamyelocytes % (Man) Myelocytes % (Man) Neutrophils # (Manual) Total Absolute Neuts Lymphocytes # (Manual) Total Abs Lymphocytes Monocytes # (Manual) Metamyelocytes # (Man) Myelocytes # (Manual) Platelet Estimate [place] Bodies Echinocytes Peripher Smr Path Cons Haptoglobin PT 10.7 INR 1.0 APTT 47.6 H* PTT Ratio 1.7 vWF Cleav Pro [id number] Sample Site Pj Test POC VBG pH POC VBG pCO2 POC VBG pO2 POC VBG HCO3 POC VBG Total CO2 POC Venous O2 Sat POC VBG Base Excess O2 Delivery Device POC O2 Rate Minute Ventilation POC FiO2 Tidal Volume PEEP Sodium Potassium Chloride Carbon Dioxide Anion Gap BUN Creatinine Est Cr Clr Drug Dosing Est GFR ( Amer) Est GFR (Non-Af Amer) BUN/Creatinine Ratio Glucose POC Glucose (other) Calcium Ionized Calcium 0.92 L Phosphorus Magnesium Total Bilirubin Direct Bilirubin AST ALT Alkaline Phosphatase Lactate Dehydrogenase Total Protein Albumin PTH Intact 732.6 H Heparin-PF4 Ab Screen Blood Type Antibody Screen Crossmatch 08/10/19 08/10/19 08/10/19 05:44 06:00 10:40 WBC RBC Hgb Hct MCV MCH MCHC RDW Std Deviation RDW Coeff of Ashley Plt Count MPV Reticulocyte % (Auto) Reticulocyte # Absolute Nucleated RBC Nucleated RBC % (auto) Neutrophils % (Manual) Lymphocytes % (Manual) Monocytes % (Manual) Metamyelocytes % (Man) Myelocytes % (Man) Neutrophils # (Manual) Total Absolute Neuts Lymphocytes # (Manual) Total Abs Lymphocytes Monocytes # (Manual) Metamyelocytes # (Man) Myelocytes # (Manual) Platelet Estimate [place] Bodies Echinocytes Peripher Smr Path Cons Haptoglobin PT INR APTT PTT Ratio vWF Cleav Pro [id number] Sample Site R Radial Pj Test NA POC VBG pH 7.36 POC VBG pCO2 41 POC VBG pO2 34 POC VBG HCO3 23 POC VBG Total CO2 24 POC Venous O2 Sat 62.0 L POC VBG Base Excess -2.0 O2 Delivery Device Ventilator POC O2 Rate 12 Minute Ventilation 5.5 POC FiO2 30 Tidal Volume 450 PEEP 5 Sodium Potassium Chloride Carbon Dioxide Anion Gap BUN Creatinine Est Cr Clr Drug Dosing Est GFR ( Amer) Est GFR (Non-Af Amer) BUN/Creatinine Ratio Glucose POC Glucose (other) 103 H Calcium Ionized Calcium Phosphorus Magnesium Total Bilirubin Direct Bilirubin AST ALT Alkaline Phosphatase Lactate Dehydrogenase Total Protein Albumin PTH Intact Heparin-PF4 Ab Screen Blood Type A Positive Antibody Screen NEGATIVE Crossmatch See Detail 08/10/19 08/10/19 08/10/19 10:47 10:47 10:47 WBC 18.39 H RBC 2.81 L Hgb 8.9 L Hct 25.8 L MCV 91.8 MCH 31.7 MCHC 34.5 RDW Std Deviation 51.6 H RDW Coeff of Ashley 15.6 H Plt Count 26 L* MPV 9.6 Reticulocyte % (Auto) 1.9 Reticulocyte # 0.05 Absolute Nucleated RBC 2.09 H Nucleated RBC % (auto) 11.4 Neutrophils % (Manual) 88.0 Lymphocytes % (Manual) 3.0 Monocytes % (Manual) 1.0 Metamyelocytes % (Man) 5.0 Myelocytes % (Man) 3.0 Neutrophils # (Manual) 16.18 H Total Absolute Neuts 16.18 H Lymphocytes # (Manual) 0.55 L Total Abs Lymphocytes 0.55 L Monocytes # (Manual) 0.18 Metamyelocytes # (Man) 0.92 H Myelocytes # (Manual) 0.55 H Platelet Estimate [place] Bodies Echinocytes Peripher Smr Path Cons Pending Cancelled Haptoglobin PT INR APTT PTT Ratio vWF Cleav Pro [id number] Sample Site Jp Test POC VBG pH POC VBG pCO2 POC VBG pO2 POC VBG HCO3 POC VBG Total CO2 POC Venous O2 Sat POC VBG Base Excess O2 Delivery Device POC O2 Rate Minute Ventilation POC FiO2 Tidal Volume PEEP Sodium Potassium Chloride Carbon Dioxide Anion Gap BUN Creatinine Est Cr Clr Drug Dosing Est GFR ( Amer) Est GFR (Non-Af Amer) BUN/Creatinine Ratio Glucose POC Glucose (other) Calcium Ionized Calcium Phosphorus Magnesium Total Bilirubin Direct Bilirubin AST ALT Alkaline Phosphatase Lactate Dehydrogenase 648 H Total Protein Albumin PTH Intact Heparin-PF4 Ab Screen Blood Type Antibody Screen Crossmatch 08/10/19 08/10/19 08/10/19 10:48 10:48 11:15 WBC RBC Hgb Hct MCV MCH MCHC RDW Std Deviation RDW Coeff of [place] Plt Count MPV Reticulocyte % (Auto) Reticulocyte # Absolute Nucleated RBC Nucleated RBC % (auto) Neutrophils % (Manual) Lymphocytes % (Manual) Monocytes % (Manual) Metamyelocytes % (Man) Myelocytes % (Man) Neutrophils # (Manual) Total Absolute Neuts Lymphocytes # (Manual) Total Abs Lymphocytes Monocytes # (Manual) Metamyelocytes # (Man) Myelocytes # (Manual) Platelet Estimate [place] Bodies Echinocytes Peripher Smr Path Cons Haptoglobin Pending PT INR APTT PTT Ratio vWF Cleav Pro [id number] Pending Sample Site Pj Test POC VBG pH POC VBG pCO2 POC VBG pO2 POC VBG HCO3 POC VBG Total CO2 POC Venous O2 Sat POC VBG Base Excess O2 Delivery Device POC O2 Rate Minute Ventilation POC FiO2 Tidal Volume PEEP Sodium Potassium Chloride Carbon Dioxide Anion Gap BUN Creatinine Est Cr Clr Drug Dosing Est GFR ( Amer) Est GFR (Non-Af Amer) BUN/Creatinine Ratio Glucose POC Glucose (other) Calcium Ionized Calcium Phosphorus Magnesium Total Bilirubin Direct Bilirubin AST ALT Alkaline Phosphatase Lactate Dehydrogenase Total Protein Albumin PTH Intact Heparin-PF4 Ab Screen Negative Blood Type Antibody Screen Crossmatch 08/10/19 15:41 WBC 14.01 H RBC 2.67 L Hgb 8.4 L Hct 24.3 L MCV 91.0 MCH 31.5 MCHC 34.6 RDW Std Deviation 52.0 H RDW Coeff of Ashley 16.1 H Plt Count 21 L* MPV Reticulocyte % (Auto) Reticulocyte # Absolute Nucleated RBC 1.86 H Nucleated RBC % (auto) 13.2 Neutrophils % (Manual) 90.2 Lymphocytes % (Manual) 2.7 Monocytes % (Manual) 1.8 Metamyelocytes % (Man) 4.4 Myelocytes % (Man) 0.9 Neutrophils # (Manual) 12.64 H Total Absolute Neuts 12.64 H Lymphocytes # (Manual) 0.38 L Total Abs Lymphocytes 0.38 L Monocytes # (Manual) 0.25 Metamyelocytes # (Man) 0.62 H Myelocytes # (Manual) 0.13 H Platelet Estimate SIGNIFIC DECREASED [place] Bodies 1+ Echinocytes 1+ Peripher Smr Path Cons Haptoglobin PT INR APTT PTT Ratio vWF Cleav Pro [id number] Sample Site Pj Test POC VBG pH POC VBG pCO2 POC VBG pO2 POC VBG HCO3 POC VBG Total CO2 POC Venous O2 Sat POC VBG Base Excess O2 Delivery Device POC O2 Rate Minute Ventilation POC FiO2 Tidal Volume PEEP Sodium Potassium Chloride Carbon Dioxide Anion Gap BUN Creatinine Est Cr Clr Drug Dosing Est GFR ( Amer) Est GFR (Non-Af Amer) BUN/Creatinine Ratio Glucose POC Glucose (other) Calcium Ionized Calcium Phosphorus Magnesium Total Bilirubin Direct Bilirubin AST ALT Alkaline Phosphatase Lactate Dehydrogenase Total Protein Albumin PTH Intact Heparin-PF4 Ab Screen Blood Type Antibody Screen Crossmatch Medications Administered Current Inpatient Medications Dextrose (Dextrose 50%) 25 - 50 ml IV UD PRN; Protocol PRN Reason: Hypoglycemia Protocol Stop: 09/04/19 16:54 Enteral Nutritional Formula (Peptamen 1.5 Alli) 1,000 ml PO UD VARSHA; Protocol Stop: 09/09/19 15:30 Glucagon (Glucagen) 1 mg SQ UD PRN; Protocol PRN Reason: Hypoglycemia Protocol Stop: 09/04/19 16:54 Glucose (Dex4 Glucose) 4 - 8 tabs PO UD PRN; Protocol PRN Reason: Hypoglycemia Protocol Stop: 09/04/19 16:54 Glucose (Glucose 40%) 15 - 30 gm PO UD PRN; Protocol PRN Reason: Hypoglycemia Protocol Stop: 09/04/19 16:54 Heparin Sodium (Porcine) (Heparin Sodium (Porcine)) 5,000 units SQ Q8 VARSHA Stop: 09/04/19 18:59 Last Admin: 08/09/19 05:25 Dose: Not Given Documented by: Metronidazole (Flagyl) 500 mg in 100 mls @ 100 mls/hr IV Q8H VARSHA Stop: 08/16/19 17:59 Last Infusion: 08/10/19 12:50 Dose: Infused Documented by: Ascorbic Acid 1,500 mg/Thiamine HCl 100 mg/ Sodium Chloride 104 mls @ 207 mls/hr IV Q6H VARSHA Stop: 08/11/19 09:01 Last Infusion: 08/10/19 15:51 Dose: Infused Documented by: Norepinephrine Bitartrate 32 (mg/ Dextrose) 532 mls @ 2.741 mls/hr IV .Q24H VARSHA; Protocol Stop: 09/06/19 16:59 Last Titration: 08/10/19 12:50 Dose: 0.05 mcg/kg/min, 5.5 mls/hr Documented by: Dexmedetomidine HCl 200 mcg/ (Sodium Chloride) 50 mls @ 9.113 mls/hr IV .Q5H30M VARSHA; Protocol Stop: 08/13/19 11:59 Last Admin: 08/10/19 11:20 Dose: 0.3 mcg/kg/hr, 9.1 mls/hr Documented by: Hydrocortisone Sodium (Succinate 50 mg/ Syringe) 1 mls @ 4 mls/min IV Q8H VARSHA Stop: 09/08/19 19:59 Last Admin: 08/10/19 11:31 Dose: 4 mls/min Documented by: Pantoprazole Sodium 40 mg/ (Syringe) 10 mls @ 5 mls/min IV BID [facility] Stop: 09/09/19 20:59 Insulin Aspart (Novolog Flexpen) 0 units SC Q6 VARSHA Stop: 09/08/19 11:59 Last Admin: 08/10/19 12:06 Dose: Not Given Documented by: Insulin Glargine (Lantus Solostar Pen) 0 units SC BID [facility]; Protocol Stop: 09/07/19 20:59 Last Admin: 08/10/19 11:21 Dose: Not Given Documented by: Midodrine (Proamatine) 5 mg PO TID@0800,1200,1700 [facility] Stop: 09/09/19 16:59 Miscellaneous Information (Consult Glycemic Management Pharmacy) 1 ea N/A UD PRN; Protocol PRN Reason: Consult Stop: 09/04/19 16:57 Ondansetron HCl (Zofran) 4 mg IV Q6H PRN PRN Reason: Nausea Stop: 09/04/19 16:54 Raspberry (Raspberry) 5 ml PO Q6 [facility] Stop: 08/20/19 11:59 Last Admin: 08/10/19 11:36 Dose: 5 ml Documented by: Vancomycin HCl (Vancomycin Hcl) 500 mg PO Q6 [facility] Stop: 08/16/19 11:59 Last Admin: 08/10/19 11:33 Dose: 500 mg Documented by: PG Care Time/CCT Total # of Minutes Spent Total Time Spent with Patient: Total time spent is greater than 50% in coordination of care (as documented) at patient's floor/unit and/or counseling patient: Coding Level of Care Code 94010 Subseq Hosp Care Lvl 3 Diagnoses Colitis K52.9 Benign essential hypertension I10 Diabetes mellitus E11.9 Status post aortobifemoral bypass surgery Z95.828 COPD (chronic obstructive pulmonary disease) J44.9 Depression F32.9 Methicillin resistant Staphylococcus aureus infection A49.02 Acute kidney injury N17.9 Thrombocytopenia D69.6 Acute blood loss anemia D62
[2019-08-10] MEDS: MIDODRINE HCL 2.5 MG TAB PO SCH (18:05)
[2019-08-10] MEDS: DEXMEDETOMIDINE HCL 400 MCG in 0.9 % SODIUM CHLORIDE 96 ML IV SCH (18:14)
[2019-08-10] MEDS: PANTOprazole 40 MG in SYRINGE 0 ML IV SCH (20:08)
[2019-08-10 22:08] LABS: Hematocrit (blood only) 23.7 % (37-47); Hemoglobin 8.2 g/dL (12.0-16.0); Mean Corpuscular Hemoglobin 31.5 pg (25-34); Mean Corpuscular Hgb Conc 34.6 g/dL (32-36); Mean Corpuscular Volume 91.2 fL (80-100); Mean Platelet Volume 9.8 fL (7.4-10.4); Platelet Count 20 K/uL (130-400); RDW Coefficient of Variation 16.3 % (11.5-14.5); RDW Standard Deviation 53.3 fL (36.4-46.3); White Blood Count 12.92 K/uL (4.8-10.8)
[2019-08-10 22:26] LABS: Basophils # (auto) 0.06 K/uL (0-0.2); Basophils % (auto) 0.5 %; Howell-Jolly Bodies 1+; Immature Granulocytes # (auto) 0.99 K/uL (0.00-0.02); Immature Granulocytes % (auto) 7.7 %; Lymphocytes # (auto) 0.46 K/uL (1.2-3.4); Lymphocytes % (auto) 3.6 %; Monocytes % (auto) 5.4 %; Neutrophils # (auto) 10.71 K/uL (1.4-6.5); Neutrophils % (auto) 82.8 %; Polychromasia 1+
[2019-08-11] MEDS: INSULIN ASPART 100 UNITS/ML 3 ML PEN SC SCH ×4 (00:01→17:55)
[2019-08-11] MEDS: RASPBERRY SYRUP 5 ML UDP PO SCH ×4 (00:04→17:55)
[2019-08-11] MEDS: VANCOMYCIN HCL 500 MG/10 ML SOLN PO SCH ×4 (00:04→17:55)
[2019-08-11] MEDS: DEXMEDETOMIDINE HCL 400 MCG in 0.9 % SODIUM CHLORIDE 96 ML IV SCH ×3 (00:57→18:37)
[2019-08-11] MEDS: metroNIDAZOLE 500 MG/100 ML BAG IV SCH ×3 (02:14→17:55)
[2019-08-11] MEDS: ASCORBIC ACID 1,500 MG, THIAMINE HCL 100 MG in 0.9 % SODIUM CHLORIDE 100 ML IV SCH ×2 (02:15→08:57)
[2019-08-11 03:47] LABS: Partial Thromboplastin Ratio 1.3; Prothrombin Time 10.7 Seconds (9.0-12.0)
[2019-08-11 03:52] LABS: Calcium 6.6 mg/dl (8.5-10.1); Creatinine Clr Calc Pharmacy 31.5 ml/min; Est GFR (African American) 23.4; Est GFR (Non-African American) 20.2; Potassium 4.7 mmol/L (3.5-5.1)
[2019-08-11 04:01] LABS: Hematocrit (blood only) 23.9 % (37-47); Hemoglobin 8.2 g/dL (12.0-16.0); Mean Corpuscular Hemoglobin 31.4 pg (25-34); Mean Corpuscular Hgb Conc 34.3 g/dL (32-36); Mean Corpuscular Volume 91.6 fL (80-100); Mean Platelet Volume 9.5 fL (7.4-10.4); Nucleated RBC # (auto) 1.59 K/uL (0-0); Nucleated RBC % (auto) 12.6 %; Platelet Count 20 K/uL (130-400); RDW Coefficient of Variation 16.5 % (11.5-14.5); RDW Standard Deviation 53.7 fL (36.4-46.3); Red Blood Count 2.61 M/uL (4.2-5.4); White Blood Count 12.68 K/uL (4.8-10.8)
[2019-08-11 04:03] LABS: ALC (manual) 0.34 K/uL (1.2-3.4); ANC (manual) 11.65 K/uL (1.4-6.5); Basophils # (manual) 0.11 K/uL (0-0.2); Basophils % (manual) 0.9 %; Echinocytes 1+; Howell-Jolly Bodies 1+; Lymphocytes # (manual) 0.34 K/uL (1.2-3.4); Lymphocytes % (manual) 2.7 %; Metamyelocytes # (manual) 0.23 K/uL (0-0); Metamyelocytes % (manual) 1.8 %; Monocytes # (manual) 0.34 K/uL (0.11-0.59); Monocytes % (manual) 2.7 %; Neutrophils # (manual) 11.65 K/uL (1.4-6.5); Neutrophils % (manual) 91.9 %; Platelet Estimate SIGNIFIC DECREASED (Normal)
[2019-08-11] MEDS: HYDROCORTISONE SOD 50 MG in SYRINGE 0 ML IV SCH ×3 (05:47→21:12)
[2019-08-11 06:32] LABS: Magnesium 2.1 mg/dl (1.8-2.4); Phosphorus 6.6 mg/dl (2.5-4.9)
[2019-08-11] MEDS: DEXMEDETOMIDINE HCL 200 MCG in SODIUM CHLORIDE 0.9% 48 ML IV SCH ×2 (07:30→07:31)
[2019-08-11] MEDS: NOREPINEPHRINE BIT INJ 32 MG in DEXTROSE 5% 500 ML IV SCH ×2 (07:32→10:11)
--- NOTE | 2019-08-11 08:46 | Progress Notes ---
DATE: 08/11/2019 DIAGNOSES: 1. Thrombocytopenia (multifactorial). 2. Clostridium difficile colitis, status post subtotal colectomy. 3. Methicillin-resistant Staphylococcus. 4. Acute renal injury. 5. Respiratory failure. SUBJECTIVE: Morbidly obese 58-year-old female patient, currently mechanically ventilated, sedated. Seen over the weekend by my partner for a multifactorial thrombocytopenia. Medications on hold include Diflucan and heparin. The patient was transfused 2 units of packed RBCs into a single donor plateletpheresis. Platelet count remains 20,000. No acute evidence of a disseminated intravascular coagulation. The patient continues on broad-spectrum antimicrobials. PHYSICAL EXAMINATION: GENERAL: Again, mechanically ventilated, sedated 58-year-old female patient appears quiet and sedate in no acute distress. VITAL SIGNS: Temperature 34.2, pulse 61, respiratory rate 13, blood pressure 110/47. SKIN: Without rash or lesion. A couple of scattered ecchymoses. HEENT: The patient intubated. HEART: Regular rate and rhythm. LUNGS: Clear to auscultation bilaterally. ABDOMEN: Obese. Sterile dressing in place. EXTREMITIES: Trace to 1+ peripheral edema bilateral. NEUROLOGIC: Not able to be done. LABORATORY DATA: WBC 12,680, hemoglobin 8.2, platelet count 20,000, ANC 1590. PTT presently 35 seconds. Creatinine 2.52, BUN 35. Sodium 138, potassium 4.7, chloride 106, carbon dioxide 23, LDH 648. IMPRESSION: 1. Multifactorial thrombocytopenia. 2. Clostridium difficile colitis, status post subtotal colectomy. 3. Methicillin-resistant Staphylococcus aureus infection. 4. Acute renal injury. 5. Acute blood loss anemia. PLAN: The patient was seen and examined. She remains on mechanical ventilation on broad-spectrum antibiotics. She underwent subtotal colectomy on Saturday by Dr. Morales. Would not change anything at this point. Continue monitoring peripheral blood counts on a daily basis and provide transfusional support. Would give blood products, give packed RBCs first and then transfuse platelets as to avoid a dilutional effect. We will continue to follow her periodically during her hospitalization. Thank you very much for allowing us to participate in her care.
[2019-08-11] MEDS: PANTOprazole 40 MG in SYRINGE 0 ML IV SCH ×2 (08:56→21:12)
[2019-08-11] MEDS: MIDODRINE HCL 2.5 MG TAB PO SCH ×3 (08:58→17:55)
[2019-08-11] MEDS: INSULIN GLARGINE SOLOSTAR 100 UNITS/ML 3 ML PEN SC SCH ×2 (08:58→21:57)
[2019-08-11] MEDS ORDERED: SODIUM CHLORIDE 0.9% 1000ML 1,000 ML IV PRN (09:32)
--- NOTE | 2019-08-11 09:40 | Nephrology Progress Note ---
Date of Service August 11, 2019 Assessment & Plan (1) Acute kidney injury: -- Oliguric GIA due to septic shock from C. Difficile/toxic megacolon -- Baseline Cr ~ 1.0. No renal obstruction on imaging -- HD today. Heparin free due to anemia/thrombocytopenia. Will attempt 3 L UF (2) Anemia: -- Progressive anemia and thrombocytopenia -- Will hold heparin on dialysis Admission and Anticipated Discharge Date Admission Date: August 05, 2019 Subjective Mrs. Younger was seen & examined in the ICU this morning. Sedation is being tapered. ICU team plans ventilator weaning trial today. BP drops into the mid 70's off pressor support. She remains on low dose Levophed. Mrs. Younger remains oliguric w/ significant peripheral edema Review of Systems Review of Systems: Unobtainable due to endotracheal tube Physical Exam Constitutional: well developed, well nourished and healthy appearing Eyes: PERRL, conjunctivae normal, anicteric sclerae PERRL ENMT: external ear and nose normal, oropharynx normal Neck: trachea midline, no thyromegaly Respiratory: normal respiratory effort, lungs clear to auscultation Cardiovascular: Rate/Rhythm: regular rhythm and + tachycardic Extremities: + edema (3+ dependent edema) Gastrointestinal (Abdomen): normal bowel sounds, soft, nontender, no hepatosplenomegaly Musculoskeletal: Extremities: no cyanosis Skin: no rashes, warm and dry Results & Data ([facility]) Vital Signs (Past 12 Hours) Vital Signs Pulse Resp BP Pulse Ox 08/11/19 07:35 62 08/11/19 06:54 64 11 L 95 08/11/19 06:28 61 13 97 08/11/19 03:01 59 L 110/47 L 96 08/11/19 02:31 60 88/41 L 95 08/11/19 02:01 59 L 103/45 L 95 08/11/19 01:59 59 L 15 97 08/11/19 01:30 58 L 105/48 L 96 08/11/19 01:01 59 L 104/45 L 96 08/11/19 00:31 58 L 105/43 L 96 08/11/19 00:01 59 L 101/43 L 97 08/10/19 23:30 58 L 103/52 L 96 08/10/19 23:05 57 L 12 96 08/10/19 23:01 58 L 104/50 L 96 08/10/19 23:00 59 L 08/10/19 22:31 57 L 102/42 L 96 08/10/19 22:01 57 L 102/45 L 96 Laboratory Results Laboratory Tests 08/11/19 08/11/19 03:23 03:23 WBC 12.68 H Hgb 8.2 L Hct 23.9 L Plt Count 20 L* Sodium 138 Potassium 4.7 Chloride 106 Carbon Dioxide 23 BUN 35 H Creatinine 2.52 H D PG Care Time/CCT Total # of Minutes Spent Total Time Spent with Patient: Total time spent is greater than 50% in coordination of care (as documented) at patient's floor/unit and/or counseling patient: Coding Level of Care Code 63345 Subseq Hosp Care Lvl 3 Diagnoses Acute kidney injury N17.9 Anemia D64.9
[2019-08-11 09:56] LABS: Hematocrit (blood only) 23.1 % (37-47); Hemoglobin 8.1 g/dL (12.0-16.0); Mean Corpuscular Hemoglobin 32.5 pg (25-34); Mean Corpuscular Hgb Conc 35.1 g/dL (32-36); Mean Corpuscular Volume 92.8 fL (80-100); Mean Platelet Volume 10.9 fL (7.4-10.4); Nucleated RBC # (auto) 1.89 K/uL (0-0); Nucleated RBC % (auto) 13.9 %; Platelet Count 20 K/uL (130-400); RDW Coefficient of Variation 16.6 % (11.5-14.5); RDW Standard Deviation 54.4 fL (36.4-46.3); Red Blood Count 2.49 M/uL (4.2-5.4); White Blood Count 13.61 K/uL (4.8-10.8)
--- NOTE | 2019-08-11 10:10 | Critical Care Progress Note ---
Date of Service August 11, 2019 Assessment & Plan (1) Status post admission to intensive care unit: 58-year-old female with a past medical history of morbid obesity, atherosclerosis, peripheral vascular disease, GERD, depression, hypertension, reported COPD who is currently admitted in the ICU with acute hypoxic respiratory failure, septic shock secondary to GI source, C. difficile colitis who recently underwent a colectomy. Platelet count and CBC remained stable. LDH elevated. This does not appear to be DIC. Peripheral smear is pending. PF4 antibody was negative indicating very low likelihood of possible heparin-induced thrombocytopenia. We will continue to hold anticoagulation at this time. Fluconazole was discontinued as there is no significant evidence of systemic fungal infection and fluconazole is known to call us thrombocytopenia. Continue to trend labs. Andrew is pending to evaluate for TTP which she is deemed unlikely at this time. Also less likely is HLH. Appreciate hematology recommendations. Patient to undergo dialysis today. She is 21 L positive. She is very edematous. I have added midrodrine 5 mg 3 times daily given her hypertension. She is on a very low-dose of Levophed. We have room to go up on the oral midrodrine if needed. She is doing quite well on her spontaneous breathing trial today. Will extubate her today. She does have a very large open abdominal wound with a wound VAC currently in place. There does appear to be some duskiness to the wound. Colostomy is draining stool. Continue oral vancomycin and Flagyl for 2 weeks total given her C. difficile colitis. Of note, vancomycin can cause thrombocytopenia. Surgery is following the patient. Albumin continues to be very low. Overall her prognosis is very poor. We will consult palliative care CRITICAL CARE TIME - I have personally spent 31 minutes of critical care time in the direct management of this patient. This is a life/limb threatening event. This includes time spent evaluating patient, direct bedside care, chart review, placing orders, interpretation of diagnostic studies, discussion with consultants, patient, and family members, as well as other required patient management activities. This time is exclusive of all separately billable procedures, and teaching time and separate from and in addition to any other critical care service time. (2) Acute blood loss anemia: (3) Acute kidney injury: (4) Shock, septic: (5) Colitis: (6) Bronchopneumonia: Admission and Anticipated Discharge Date Admission Date: August 05, 2019 Subjective Sedation is currently off. Patient is mentating well and able to follow commands including wiggling her toes and moving her hands. She is also able to lift her head off the bed. No acute events overnight. No blood transfusions overnight. Review of Systems Review of Systems: Unobtainable due to endotracheal tube Physical Exam Constitutional: well developed, well nourished and healthy appearing Eyes: PERRL, conjunctivae normal, anicteric sclerae PERRL ENMT: external ear and nose normal, oropharynx normal Neck: trachea midline, no thyromegaly Respiratory: normal respiratory effort, lungs clear to auscultation Cardiovascular: Rate/Rhythm: regular rhythm and + tachycardic Extremities: + edema (3+ dependent edema) Gastrointestinal (Abdomen): normal bowel sounds, soft, nontender, no hepatosplenomegaly Musculoskeletal: Extremities: no cyanosis Skin: no rashes, warm and dry Neurologic: Following commands. Moving limbs spontaneously. Results & Data Results & Data ([facility]) Vital Signs (Past 12 Hours) Vital Signs Pulse Resp BP Pulse Ox 08/11/19 07:35 62 08/11/19 06:54 64 11 L 95 08/11/19 06:28 61 13 97 08/11/19 03:01 59 L 110/47 L 96 08/11/19 02:31 60 88/41 L 95 08/11/19 02:01 59 L 103/45 L 95 08/11/19 01:59 59 L 15 97 08/11/19 01:30 58 L 105/48 L 96 08/11/19 01:01 59 L 104/45 L 96 08/11/19 00:31 58 L 105/43 L 96 08/11/19 00:01 59 L 101/43 L 97 08/10/19 23:30 58 L 103/52 L 96 08/10/19 23:05 57 L 12 96 08/10/19 23:01 58 L 104/50 L 96 08/10/19 23:00 59 L 08/10/19 22:31 57 L 102/42 L 96 Coding Level of Care Code Critical Care 1st 30-74 mins Diagnoses Status post admission to intensive care unit Acute blood loss anemia D62 Acute kidney injury N17.9 Shock, septic A41.9; R65.21 Colitis K52.9 Bronchopneumonia J18.0 Time Spent (min) 31
[2019-08-11 10:11] LABS: ALC (manual) 0.68 K/uL (1.2-3.4); ANC (manual) 11.84 K/uL (1.4-6.5); Lymphocytes # (manual) 0.68 K/uL (1.2-3.4); Metamyelocytes # (manual) 0.27 K/uL (0-0); Monocytes # (manual) 0.82 K/uL (0.11-0.59); Neutrophils # (manual) 11.84 K/uL (1.4-6.5); Pappenheimer Bodies 1+; Target Cells 1+
--- NOTE | 2019-08-11 11:53 | Pharmacy Report ---
Pharmacy Glycemic Short Note 2 - Date of Service August 11, 2019 - Glycemic Short BSG Results (Last 24 hours): 08/07/19 08/10/19 08/10/19 17:59 18:09 21:00 Glucose POC Glucose POC Glucose (other) 201 H 92 96 08/10/19 08/11/19 08/11/19 23:57 03:23 05:54 Glucose 97 POC Glucose POC Glucose (other) 91 101 H 08/11/19 11:11 Glucose POC Glucose 140 H POC Glucose (other) Outpatient Anti-diabetic Regimen: * n/a * A1c = 5.7% on 08/05 ASSESSMENT: 08/10: * Patient extubated at this time * Hydrocortisone IV continues at this time as dose abx for fulminant c diff colitis * Norepinephrine continues however at low dose (0.02mcg/kg/min) * Peptamen held this AM for extubation * Over the last 24 hrs, pt has received no insulin and BSGs have ranged 92-103. Current insulin orders remain reasonable however as basal insulin will not be administered unless hyperglycemia present. Novolog carb coverage not yet required given "trickle" feeds, current CR reasonable however should BSGs begin to climb if diet advances while on steroids. 08/09: * Patient with septic shock secondary to C. difficile colitis, POD #3 s/p urgent subtotal colectomy * Mechanically vented on precedex and fentanyl drip. * Patient required zero units of insulin yesterday. * Last HD session was 08/08. No HD planned for today. * Will further loosen Novolog parameters (pt may not require carb coverage based on A1c). PLAN FOR INPATIENT GLYCEMIC CONTROL: * Basal insulin * Lantus per scale BID: * 0 units for BSG 140 mg/dL or less * 8 units for BSG > 140 mg/dL * Bolus insulin - loosen CF and CR * Novolog q6h * Goal range: 120 -150 mg/dL * Correction factor: 25 mg/dL/unit * Carb ratio: 1 unit for every 10 grams CHO
--- NOTE | 2019-08-11 12:43 | Surgery Progress Note ---
Date of Service August 11, 2019 Assessment & Plan (1) Shock, septic: pod 4 post op subtotal colectomy for toxic megacolon slowly improving extubated earlier today still on low dose pressor SHRUTI's and wound vacs look good stoma functioning. ok to feed when more awake/after swallowing eval nothing more to add surgically. Subjective pt extubated earlier today. arouses but sleeping. Physical Exam Physical Exam: extubated. arouses to stimulation abd: vac in place. draining serous fluid. stoma looks good. +stool in bag. SHRUTI's draining serous fluid Results & Data Vital Signs (Past 12 Hours) Vital Signs Pulse Resp BP Pulse Ox 08/11/19 12:01 65 16 92 08/11/19 12:00 66 15 94/49 L 92 08/11/19 11:30 67 12 91 08/11/19 11:00 81 31 H 102/51 L 92 08/11/19 10:30 65 23 92 08/11/19 10:09 77 15 93 08/11/19 10:00 61 103/54 L 94 08/11/19 09:00 60 108/56 L 96 08/11/19 08:30 60 111/56 L 95 08/11/19 08:00 62 104/55 L 94 08/11/19 07:35 62 08/11/19 07:30 61 101/53 L 95 08/11/19 07:16 63 109/50 L 94 08/11/19 07:00 62 107/49 L 95 08/11/19 06:54 64 11 L 95 08/11/19 06:28 61 13 97 08/11/19 03:01 59 L 110/47 L 96 08/11/19 02:31 60 88/41 L 95 08/11/19 02:01 59 L 103/45 L 95 08/11/19 01:59 59 L 15 97 08/11/19 01:30 58 L 105/48 L 96 08/11/19 01:01 59 L 104/45 L 96 PG Care Time/CCT Total # of Minutes Spent Total Time Spent with Patient: Total time spent is greater than 50% in coordination of care (as documented) at patient's floor/unit and/or counseling patient: Coding Level of Care Code None Diagnoses Shock, septic A41.9; R65.21
[2019-08-11] MEDS: OXYCODONE HCL IR 5 MG TAB (IMMEDIATE RELEASE) PO PRN ×2 (13:14→17:56)
--- NOTE | 2019-08-11 16:11 | Electrocardiogram Report ---
Test Reason : Blood Pressure : / mmHG Vent. Rate : 066 BPM Atrial Rate : 066 BPM P-R Int : 148 ms QRS Dur : 082 ms QT Int : 442 ms P-R-T Axes : 036 042 042 degrees QTc Int : 463 ms Normal sinus rhythm Normal ECG When compared with ECG of 05-AUG-2019 09:17, Vent. rate has decreased BY 41 BPM T wave amplitude has increased in Anterior leads Confirmed by Bradley Celeste ([id number]) on 08/11/2019 4:10:52 PM Referred By: [facility] Confirmed By:Bradley Celeste
[2019-08-11 16:52] LABS: Hematocrit (blood only) 22.4 % (37-47); Hemoglobin 7.6 g/dL (12.0-16.0); Mean Corpuscular Hemoglobin 31.4 pg (25-34); Mean Corpuscular Hgb Conc 33.9 g/dL (32-36); Mean Corpuscular Volume 92.6 fL (80-100); Mean Platelet Volume 9.7 fL (7.4-10.4); Nucleated RBC # (auto) 1.52 K/uL (0-0); Nucleated RBC % (auto) 11.4 %; Platelet Count 19 K/uL (130-400); RDW Coefficient of Variation 16.4 % (11.5-14.5); RDW Standard Deviation 54.3 fL (36.4-46.3); Red Blood Count 2.42 M/uL (4.2-5.4); White Blood Count 13.32 K/uL (4.8-10.8)
[2019-08-11 16:58] LABS: ALC (manual) 0.47 K/uL (1.2-3.4); ANC (manual) 12.73 K/uL (1.4-6.5); Lymphocytes # (manual) 0.47 K/uL (1.2-3.4); Lymphocytes % (manual) 3.5 %; Monocytes # (manual) 0.12 K/uL (0.11-0.59); Monocytes % (manual) 0.9 %; Neutrophils # (manual) 12.73 K/uL (1.4-6.5); Neutrophils % (manual) 95.6 %; Pappenheimer Bodies 1+; Platelet Estimate SIGNIFIC DECREASED (Normal); Target Cells 1+
--- NOTE | 2019-08-11 17:04 | Hospitalist Progress Note ---
Date of Service August 11, 2019 Assessment & Plan (1) Colitis: sepsis from C diff colitis progression of disease required surgery to perform an urgent subtotal colectomy on 08/06 possible toxic storm colon plus ischemic colitis, C. difficile is positive, on po vancomycin iv flagyl no fever, WBC down to 13k today stop Fluconazole as there is no clear fungal infection plan to complete a full 14 days of Vanco and Flagyl Midodrine added for blood pressure support with plans for HD today (2) Benign essential hypertension: medications on hold due to shock still requiring a minimal amount of Levophed, midodrine added TID (3) Diabetes mellitus: Patient has a history of diabetes in use insulin sliding scale she is currently n.p.o. monitor for hypoglycemia (4) Status post aortobifemoral bypass surgery: likely arterial vascular disease may have had an influence in her colons challenge to perfuse with the low blood pressures of sepsis (5) COPD (chronic obstructive pulmonary disease): Patient typically takes Advair but will transition to medication via ventilator (6) Depression: Patient maintained on Wellbutrin and Prozac, but as with npo status these are held, will discuss with icu if we can give via og (7) Methicillin resistant Staphylococcus aureus infection: Due to this history patient is given vancomycin initially iv but changed to po ( via og) (8) Acute kidney injury: pt had oliguric renal failure and hyperkalemia, with ultrafiltration 08/06 and additional [employer] on 08/07,08/08, appreciate nephrology following tolerated HD today, still volume overloaded by around 21 liters (9) Thrombocytopenia: Pt to recieve platelets 08/08, initially concern for DIC with low platelets and elevated PTT but not low fibrinogen DIC now ruled out could be due to Fluconazole, stopped 08/09 platelets 20 continue to monitor (10) Acute blood loss anemia: secondary to surgical loss, transfused 1 unit prbc Hb stable today at 8.3 (11) Acute respiratory failure with hypoxia: extubated on 08/10 she remained intubated after surgery due to septic shock from colitis Admission and Anticipated Discharge Date Admission Date: August 05, 2019 Subjective patient extubated today after spontaneous breathing trial tolerated HD today with ultrafiltration, still close to 20 liters positive reviewed labs, platelets still quite low, WBC coming down to 13k Cr is 2.5 and electrolytes stable discussed with Dr. Jarquin, he updated the patient's , will consult palliative care, prognosis is still quite poor Review of Systems Review of Systems: Unobtainable due to cognitive status Physical Exam Constitutional: well developed and + edematous; no acute distress Eyes: PERRL, conjunctivae normal, anicteric sclerae ENMT: external ear and nose normal, oropharynx normal Neck: trachea midline, no thyromegaly Respiratory: normal respiratory effort, lungs clear to auscultation Cardiovascular: Rate/Rhythm: regular rhythm and + bradycardic Heart Sounds: normal S1 and normal S2; no murmur Vessels: no JVD Extremities: normal capillary refill and + edema Gastrointestinal (Abdomen): Inspection/Auscultation: normal bowel sounds, + abdominal surgical incision and + abdominal surgical drain present; + abdomen abnormal to inspection (ostomy, tissue slightly dusky) and abdomen not distended Percussion/Palpation: abdomen nontender Musculoskeletal: Head/Neck/Chest: normocephalic and head atraumatic Extremities: extremities normal to inspection; no cyanosis and no clubbing Skin: no rashes, warm and dry Neurologic: CN's II-XI intact bilaterally and + obtunded (sedated on Precedex); no focal motor deficits Lymphatic: no cervical or axillary lymphadenopathy Results & Data Results & Data ([facility]) Vital Signs (Past 12 Hours) Vital Signs Pulse Resp BP Pulse Ox 08/11/19 16:00 75 13 112/49 L 94 08/11/19 15:00 66 15 105/42 L 96 08/11/19 14:11 80 17 101/42 L 91 08/11/19 13:30 77 17 91 08/11/19 13:00 83 17 93/54 L 96 08/11/19 12:01 65 16 92 08/11/19 12:00 66 15 94/49 L 92 08/11/19 11:30 67 12 91 08/11/19 11:00 81 31 H 102/51 L 92 08/11/19 10:30 65 23 92 08/11/19 10:09 77 15 93 08/11/19 10:00 61 103/54 L 94 08/11/19 09:00 60 108/56 L 96 08/11/19 08:30 60 111/56 L 95 08/11/19 08:00 62 104/55 L 94 08/11/19 07:35 62 08/11/19 07:30 61 101/53 L 95 08/11/19 07:16 63 109/50 L 94 08/11/19 07:00 62 107/49 L 95 08/11/19 06:54 64 11 L 95 08/11/19 06:28 61 13 97 Laboratory Results Laboratory Results - last 24 hr 08/07/19 08/10/19 08/10/19 17:59 06:00 10:47 WBC RBC Hgb Hct MCV MCH MCHC RDW Std Deviation RDW Coeff of Ashley Plt Count MPV Immature Gran % (Auto) Neut % (Auto) Lymph % (Auto) Dickey % (Auto) Eos % (Auto) Baso % (Auto) Immature Gran # (Auto) Neut # (Auto) Lymph # (Auto) Dickey # (Auto) Eos # (Auto) Baso # (Auto) Absolute Nucleated RBC Nucleated RBC % (auto) Neutrophils % (Manual) Lymphocytes % (Manual) Monocytes % (Manual) Basophils % (Manual) Metamyelocytes % (Man) Neutrophils # (Manual) Total Absolute Neuts Lymphocytes # (Manual) Total Abs Lymphocytes Monocytes # (Manual) Basophils # (Manual) Metamyelocytes # (Man) Platelet Estimate Polychromasia Pappenheimer Bodies Target Cells Saunders-Markesan Bodies Echinocytes Peripher Smr Path Cons PT INR APTT PTT Ratio Sodium Potassium Chloride Carbon Dioxide Anion Gap BUN Creatinine Est Cr Clr Drug Dosing Est GFR ( Amer) Est GFR (Non-Af Amer) BUN/Creatinine Ratio Glucose POC Glucose POC Glucose (other) 201 H Calcium Phosphorus Magnesium Crossmatch See Detail 08/10/19 08/10/19 08/10/19 18:09 21:00 21:45 WBC 12.92 H RBC 2.60 L Hgb 8.2 L Hct 23.7 L MCV 91.2 MCH 31.5 MCHC 34.6 RDW Std Deviation 53.3 H RDW Coeff of Ashley 16.3 H Plt Count 20 L* MPV 9.8 Immature Gran % (Auto) 7.7 Neut % (Auto) 82.8 Lymph % (Auto) 3.6 Dickey % (Auto) 5.4 Eos % (Auto) 0.0 Baso % (Auto) 0.5 Immature Gran # (Auto) 0.99 H Neut # (Auto) 10.71 H Lymph # (Auto) 0.46 L Dickey # (Auto) 0.70 H Eos # (Auto) 0.00 Baso # (Auto) 0.06 Absolute Nucleated RBC 1.80 H Nucleated RBC % (auto) 14.0 Neutrophils % (Manual) Lymphocytes % (Manual) Monocytes % (Manual) Basophils % (Manual) Metamyelocytes % (Man) Neutrophils # (Manual) Total Absolute Neuts Lymphocytes # (Manual) Total Abs Lymphocytes Monocytes # (Manual) Basophils # (Manual) Metamyelocytes # (Man) Platelet Estimate Polychromasia 1+ Pappenheimer Bodies Target Cells Saunders-Markesan Bodies 1+ Echinocytes Peripher Smr Path Cons PT INR APTT PTT Ratio Sodium Potassium Chloride Carbon Dioxide Anion Gap BUN Creatinine Est Cr Clr Drug Dosing Est GFR ( Amer) Est GFR (Non-Af Amer) BUN/Creatinine Ratio Glucose POC Glucose POC Glucose (other) 92 96 Calcium Phosphorus Magnesium Crossmatch 08/10/19 08/11/19 08/11/19 23:57 03:23 03:23 WBC 12.68 H RBC 2.61 L Hgb 8.2 L Hct 23.9 L MCV 91.6 MCH 31.4 MCHC 34.3 RDW Std Deviation 53.7 H RDW Coeff of Ashley 16.5 H Plt Count 20 L* MPV 9.5 Immature Gran % (Auto) Neut % (Auto) Lymph % (Auto) Dickey % (Auto) Eos % (Auto) Baso % (Auto) Immature Gran # (Auto) Neut # (Auto) Lymph # (Auto) Dickey # (Auto) Eos # (Auto) Baso # (Auto) Absolute Nucleated RBC 1.59 H Nucleated RBC % (auto) 12.6 Neutrophils % (Manual) 91.9 Lymphocytes % (Manual) 2.7 Monocytes % (Manual) 2.7 Basophils % (Manual) 0.9 Metamyelocytes % (Man) 1.8 Neutrophils # (Manual) 11.65 H Total Absolute Neuts 11.65 H Lymphocytes # (Manual) 0.34 L Total Abs Lymphocytes 0.34 L Monocytes # (Manual) 0.34 Basophils # (Manual) 0.11 Metamyelocytes # (Man) 0.23 H Platelet Estimate SIGNIFIC DECREASED Polychromasia Pappenheimer Bodies Target Cells Saunders-Markesan Bodies 1+ Echinocytes 1+ Peripher Smr Path Cons PT 10.7 INR 1.0 APTT 35.0 H PTT Ratio 1.3 Sodium Potassium Chloride Carbon Dioxide Anion Gap BUN Creatinine Est Cr Clr Drug Dosing Est GFR ( Amer) Est GFR (Non-Af Amer) BUN/Creatinine Ratio Glucose POC Glucose POC Glucose (other) 91 Calcium Phosphorus Magnesium Crossmatch 08/11/19 08/11/19 08/11/19 03:23 05:54 09:23 WBC 13.61 H RBC 2.49 L Hgb 8.1 L Hct 23.1 L MCV 92.8 MCH 32.5 MCHC 35.1 RDW Std Deviation 54.4 H RDW Coeff of Ashley 16.6 H Plt Count 20 L* MPV 10.9 H Immature Gran % (Auto) Neut % (Auto) Lymph % (Auto) Dickey % (Auto) Eos % (Auto) Baso % (Auto) Immature Gran # (Auto) Neut # (Auto) Lymph # (Auto) Dickey # (Auto) Eos # (Auto) Baso # (Auto) Absolute Nucleated RBC 1.89 H Nucleated RBC % (auto) 13.9 Neutrophils % (Manual) 87.0 Lymphocytes % (Manual) 5.0 Monocytes % (Manual) 6.0 Basophils % (Manual) Metamyelocytes % (Man) 2.0 Neutrophils # (Manual) 11.84 H Total Absolute Neuts 11.84 H Lymphocytes # (Manual) 0.68 L Total Abs Lymphocytes 0.68 L Monocytes # (Manual) 0.82 H Basophils # (Manual) Metamyelocytes # (Man) 0.27 H Platelet Estimate Polychromasia Pappenheimer Bodies 1+ Target Cells 1+ Saunders-Markesan Bodies Echinocytes Peripher Smr Path Cons PT INR APTT PTT Ratio Sodium 138 Potassium 4.7 Chloride 106 Carbon Dioxide 23 Anion Gap 9.0 BUN 35 H Creatinine 2.52 H D Est Cr Clr Drug Dosing 31.5 Est GFR ( Amer) 23.4 Est GFR (Non-Af Amer) 20.2 BUN/Creatinine Ratio 14.0 Glucose 97 POC Glucose POC Glucose (other) 101 H Calcium 6.6 L Phosphorus 6.6 H Magnesium 2.1 Crossmatch 08/11/19 08/11/19 08/11/19 11:11 16:01 16:06 WBC 13.32 H RBC 2.42 L Hgb 7.6 L Hct 22.4 L MCV 92.6 MCH 31.4 MCHC 33.9 RDW Std Deviation 54.3 H RDW Coeff of Ashley 16.4 H Plt Count 19 L* MPV 9.7 Immature Gran % (Auto) Neut % (Auto) Lymph % (Auto) Dickey % (Auto) Eos % (Auto) Baso % (Auto) Immature Gran # (Auto) Neut # (Auto) Lymph # (Auto) Dickey # (Auto) Eos # (Auto) Baso # (Auto) Absolute Nucleated RBC 1.52 H Nucleated RBC % (auto) 11.4 Neutrophils % (Manual) 95.6 Lymphocytes % (Manual) 3.5 Monocytes % (Manual) 0.9 Basophils % (Manual) Metamyelocytes % (Man) Neutrophils # (Manual) 12.73 H Total Absolute Neuts 12.73 H Lymphocytes # (Manual) 0.47 L Total Abs Lymphocytes 0.47 L Monocytes # (Manual) 0.12 Basophils # (Manual) Metamyelocytes # (Man) Platelet Estimate SIGNIFIC DECREASED Polychromasia Pappenheimer Bodies 1+ Target Cells 1+ Saunders-Markesan Bodies Echinocytes Peripher Smr Path Cons PT INR APTT PTT Ratio Sodium Potassium Chloride Carbon Dioxide Anion Gap BUN Creatinine Est Cr Clr Drug Dosing Est GFR ( Amer) Est GFR (Non-Af Amer) BUN/Creatinine Ratio Glucose POC Glucose 140 H POC Glucose (other) 99 Calcium Phosphorus Magnesium Crossmatch Medications Administered Current Inpatient Medications Dextrose (Dextrose 50%) 25 - 50 ml IV UD PRN; Protocol PRN Reason: Hypoglycemia Protocol Stop: 09/04/19 16:54 Enteral Nutritional Formula (Peptamen 1.5 Alli) 1,000 ml PO UD VARSHA; Protocol Stop: 09/09/19 15:30 Last Admin: 08/10/19 18:12 Dose: 1,000 ml Documented by: Glucagon (Glucagen) 1 mg SQ UD PRN; Protocol PRN Reason: Hypoglycemia Protocol Stop: 09/04/19 16:54 Glucose (Dex4 Glucose) 4 - 8 tabs PO UD PRN; Protocol PRN Reason: Hypoglycemia Protocol Stop: 09/04/19 16:54 Glucose (Glucose 40%) 15 - 30 gm PO UD PRN; Protocol PRN Reason: Hypoglycemia Protocol Stop: 09/04/19 16:54 Heparin Sodium (Porcine) (Heparin Sodium (Porcine)) 5,000 units SQ Q8 VARSHA Stop: 09/04/19 18:59 Last Admin: 08/09/19 05:25 Dose: Not Given Documented by: Metronidazole (Flagyl) 500 mg in 100 mls @ 100 mls/hr IV Q8H [facility] Stop: 08/16/19 17:59 Last Infusion: 08/11/19 10:32 Dose: Infused Documented by: Norepinephrine Bitartrate 32 (mg/ Dextrose) 532 mls @ 2.193 mls/hr IV .Q24H [facility]; Protocol Stop: 09/06/19 16:59 Last Admin: 08/11/19 10:11 Dose: Not Given Documented by: Hydrocortisone Sodium (Succinate 50 mg/ Syringe) 1 mls @ 4 mls/min IV Q8H [facility] Stop: 09/08/19 19:59 Last Admin: 08/11/19 11:08 Dose: 4 mls/min Documented by: Pantoprazole Sodium 40 mg/ (Syringe) 10 mls @ 5 mls/min IV BID [facility] Stop: 09/09/19 20:59 Last Admin: 08/11/19 08:56 Dose: 5 mls/min Documented by: Dexmedetomidine HCl 400 mcg/ (Sodium Chloride) 100 mls @ 9.113 mls/hr IV .[id number] [facility]; Protocol Stop: 08/14/19 18:29 Last Admin: 08/11/19 14:24 Dose: Not Given Documented by: Insulin Aspart (Novolog Flexpen) 0 units SC Q6 [facility] Stop: 09/08/19 11:59 Last Admin: 08/11/19 12:19 Dose: Not Given Documented by: Insulin Glargine (Lantus Solostar Pen) 0 units SC BID [facility]; Protocol Stop: 09/07/19 20:59 Last Admin: 08/11/19 08:58 Dose: Not Given Documented by: Midodrine (Proamatine) 5 mg PO TID@0800,1200,1700 [facility] Stop: 09/09/19 16:59 Last Admin: 08/11/19 11:08 Dose: 5 mg Documented by: Miscellaneous Information (Consult Glycemic Management Pharmacy) 1 ea N/A UD PRN; Protocol PRN Reason: Consult Stop: 09/04/19 16:57 Ondansetron HCl (Zofran) 4 mg IV Q6H PRN PRN Reason: Nausea Stop: 09/04/19 16:54 Oxycodone HCl (Roxicodone Immediate Rel) 5 mg PO Q6H PRN PRN Reason: Pain Stop: 08/25/19 11:13 Last Admin: 08/11/19 13:14 Dose: 5 mg Documented by: Raspberry (Raspberry) 5 ml PO Q6 [facility] Stop: 08/20/19 11:59 Last Admin: 08/11/19 10:13 Dose: 5 ml Documented by: Vancomycin HCl (Vancomycin Hcl) 500 mg PO Q6 [facility] Stop: 08/16/19 11:59 Last Admin: 08/11/19 10:12 Dose: 500 mg Documented by: PG Care Time/CCT Total # of Minutes Spent Total Time Spent with Patient: Total time spent is greater than 50% in coordination of care (as documented) at patient's floor/unit and/or counseling patient: Coding Level of Care Code 39101 Subseq Hosp Care Lvl 3 Diagnoses Colitis K52.9 Benign essential hypertension I10 Diabetes mellitus E11.9 Status post aortobifemoral bypass surgery Z95.828 COPD (chronic obstructive pulmonary disease) J44.9 Depression F32.9 Methicillin resistant Staphylococcus aureus infection A49.02 Acute kidney injury N17.9 Thrombocytopenia D69.6 Acute blood loss anemia D62 Acute respiratory failure with hypoxia J96.01
[2019-08-11] MEDS ORDERED: fentaNYL citrate 100 MCG/2 ML VIAL IV STA (18:38)
[2019-08-11 19:45] LABS: BUN Creatinine Ratio 15.5 (10-20); Bilirubin Direct 0.1 mg/dl (0-0.2); Calcium 6.8 mg/dl (8.5-10.1); Creatinine Clr Calc Pharmacy 29.5 ml/min; Est GFR (African American) 21.3; Est GFR (Non-African American) 18.4; Potassium 4.6 mmol/L (3.5-5.1)
[2019-08-11 19:48] LABS: Bilirubin,Total 0.3 mg/dl (0.2-1); Total Protein 4.3 gm/dl (6.4-8.2)
[2019-08-11] MEDS: fentaNYL citrate 100 MCG/2 ML VIAL IV PRN ×2 (21:08→23:40)
[2019-08-11] MEDS: OXYCODONE HCL IR 5 MG TAB (IMMEDIATE RELEASE) PO SCH (21:14)
[2019-08-12] MEDS: DEXMEDETOMIDINE HCL 400 MCG in 0.9 % SODIUM CHLORIDE 96 ML IV SCH ×6 (00:34→19:36)
[2019-08-12] MEDS: INSULIN ASPART 100 UNITS/ML 3 ML PEN SC SCH ×4 (00:34→16:20)
[2019-08-12] MEDS: VANCOMYCIN HCL 500 MG/10 ML SOLN PO SCH ×4 (00:35→16:22)
[2019-08-12] MEDS: RASPBERRY SYRUP 5 ML UDP PO SCH ×3 (00:35→11:47)
[2019-08-12] MEDS: HYDROmorphone INJ 0.5 MG/0.5 ML SYR IV PRN ×5 (00:52→22:52)
[2019-08-12] MEDS: metroNIDAZOLE 500 MG/100 ML BAG IV SCH ×2 (02:07→11:39)
[2019-08-12] MEDS ORDERED: LORazepam 0.5 MG/1 ML VIAL IV STA (03:30)
[2019-08-12] MEDS: OXYCODONE HCL IR 5 MG TAB (IMMEDIATE RELEASE) PO SCH ×3 (03:32→16:20)
[2019-08-12] MEDS: HYDROCORTISONE SOD 50 MG in SYRINGE 0 ML IV SCH ×3 (03:36→19:26)
[2019-08-12 04:53] LABS: Partial Thromboplastin Ratio 1.1; Partial Thromboplastin Time 30.1 Seconds (21.0-31.0)
[2019-08-12 05:14] LABS: BUN Creatinine Ratio 14.9 (10-20); Calcium 7.1 mg/dl (8.5-10.1); Creatinine Clr Calc Pharmacy 43.4 ml/min; Est GFR (African American) 34.4; Est GFR (Non-African American) 29.7; Magnesium 2.1 mg/dl (1.8-2.4); Phosphorus 4.7 mg/dl (2.5-4.9); Potassium 4.3 mmol/L (3.5-5.1)
[2019-08-12 05:29] LABS: Basophilic Stippling 1+; Basophils # (auto) 0.02 K/uL (0-0.2); Basophils % (auto) 0.1 %; Hematocrit (blood only) 23.7 % (37-47); Hemoglobin 7.9 g/dL (12.0-16.0); Immature Granulocytes # (auto) 0.42 K/uL (0.00-0.02); Immature Granulocytes % (auto) 2.7 %; Lymphocytes # (auto) 0.59 K/uL (1.2-3.4); Lymphocytes % (auto) 3.8 %; Mean Corpuscular Hemoglobin 31.7 pg (25-34); Mean Corpuscular Hgb Conc 33.3 g/dL (32-36); Mean Corpuscular Volume 95.2 fL (80-100); Mean Platelet Volume 10.1 fL (7.4-10.4); Monocytes # (auto) 0.64 K/uL (0.11-0.59); Monocytes % (auto) 4.1 %; Neutrophils # (auto) 14.04 K/uL (1.4-6.5); Neutrophils % (auto) 89.3 %; Nucleated RBC # (auto) 1.42 K/uL (0-0); Pappenheimer Bodies 1+; Platelet Count 14 K/uL (130-400); Polychromasia 1+; RDW Coefficient of Variation 16.3 % (11.5-14.5); RDW Standard Deviation 55.1 fL (36.4-46.3); Red Blood Count 2.49 M/uL (4.2-5.4); White Blood Count 15.71 K/uL (4.8-10.8)
[2019-08-12] MEDS: NOREPINEPHRINE BIT INJ 32 MG in DEXTROSE 5% 500 ML IV SCH (07:39)
[2019-08-12] MEDS: MIDODRINE HCL 2.5 MG TAB PO SCH ×3 (07:54→15:51)
[2019-08-12] MEDS: PANTOprazole 40 MG in SYRINGE 0 ML IV SCH ×2 (07:56→19:26)
--- NOTE | 2019-08-12 08:14 | Surgery Progress Note ---
Date of Service August 12, 2019 Assessment & Plan (1) Toxic megacolon: no surgical issues at this point hoa low rate tube feeds nothing to add from surgical perspective. d/w hematology. currently no evidence of bleeding. monitor platelets/transfuse if drop under 10,000 Subjective pt extubated but on Precedex /not oriented. Physical Exam Physical Exam: Abd: Vac in place with serous output. SHRUTI output matches Vac output--pink/serous. stoma pink/functioning. Results & Data Vital Signs (Past 12 Hours) Vital Signs Temp Pulse Pulse BP BP Pulse Ox 08/12/19 07:31 48 L 145/64 H 100 08/12/19 07:15 53 L 146/71 H 100 08/12/19 07:01 47 L 144/63 H 100 08/12/19 06:46 53 L 137/65 99 08/12/19 06:30 54 L 141/70 H 99 08/12/19 06:17 135/67 08/12/19 06:01 52 L 124/53 L 100 08/12/19 06:00 50 L 08/12/19 05:46 54 L 130/55 L 95 08/12/19 05:31 54 L 128/58 L 96 08/12/19 05:15 55 L 129/59 L 95 08/12/19 05:00 55 L 130/56 L 95 08/12/19 04:45 58 L 110/54 L 94 08/12/19 04:30 57 L 117/59 L 96 08/12/19 04:15 58 L 116/58 L 95 08/12/19 04:01 59 L 98/50 L 95 08/12/19 04:00 58 L 08/12/19 03:45 61 128/53 L 96 08/12/19 03:30 58 L 146/64 H 97 08/12/19 03:15 69 146/65 H 97 08/12/19 03:00 59 L 150/58 H 95 08/12/19 02:46 76 138/57 L 96 08/12/19 02:30 61 131/64 94 08/12/19 02:15 61 116/56 L 94 08/12/19 02:00 63 129/60 96 08/12/19 01:45 62 129/53 L 94 08/12/19 01:30 62 127/50 L 97 08/12/19 01:16 62 120/48 L 94 08/12/19 01:00 63 105/45 L 93 08/12/19 00:45 75 109/51 L 93 08/12/19 00:31 62 130/52 L 94 08/12/19 00:15 68 144/49 H 95 08/12/19 00:00 63 139/50 L 96 08/11/19 23:48 36.6 C 65 142/65 H 08/11/19 23:46 64 136/52 L 94 08/11/19 23:30 63 132/51 L 94 08/11/19 23:24 65 142/65 H 92 08/11/19 23:19 65 112/55 L 08/11/19 23:18 65 112/55 L 95 08/11/19 23:15 74 89/56 L 94 08/11/19 23:00 72 100/55 L 94 08/11/19 22:45 71 113/55 L 93 08/11/19 22:30 76 108/43 L 95 08/11/19 22:15 67 94/51 L 08/11/19 22:00 74 97/45 L 95 08/11/19 21:45 68 105/59 L 08/11/19 21:30 69 104/46 L 95 08/11/19 21:15 69 95/47 L 08/11/19 21:00 83 99/49 L 89 L 08/11/19 20:45 67 92/49 L 08/11/19 20:30 71 102/52 L 95 08/11/19 20:18 65 112/52 L 08/11/19 20:15 36.6 C 67 PG Care Time/CCT Total # of Minutes Spent Total Time Spent with Patient: Total time spent is greater than 50% in coordination of care (as documented) at patient's floor/unit and/or counseling patient: Coding Level of Care Code None Diagnoses Toxic megacolon K59.31
--- NOTE | 2019-08-12 08:34 | Progress Notes ---
DATE: 08/12/2019 CHIEF COMPLAINT: Thrombocytopenia and anemia associated with hypotension, C. difficile colitis, and recent hemicolectomy. HISTORY OF PRESENT ILLNESS: The patient continues on multiple medications that include norepinephrine for blood pressure support. She is being treated for her C. difficile colitis with intravenous Flagyl and oral vancomycin. She has been extubated. She is able to respond to commands. History remains very limited. REVIEW OF SYSTEMS: She does not indicate the presence of chest or cardiac discomfort. She has diffuse abdominal tenderness. Her bowel sounds are active. PHYSICAL EXAMINATION: CHEST: With scattered rhonchi and wheezes. HEART: PMI fifth intercostal space, midclavicular line. Rhythm regular. No murmur, gallop, or friction rub. ABDOMEN: Soft, but diffusely tender. Bowel sounds active. Colostomy appears to be functioning normally. IMPRESSION: Thrombocytopenia and anemia related to underlying disease process, no primary hematologic abnormality detected. FORMULATION: Since there is no evidence of a correctable underlying hematologic derangement, the patient's thrombocytopenia and anemia might best be treated with blood product administration as indicated. Platelet transfusion will be needed for a platelet count of less than 10,000 or for bleeding with a platelet count of less than 50,000. There is no evidence of bleeding at the present time. The patient's thrombocytopenia is probably a consequence of both bone marrow suppression and increased platelet consumption associated with her underlying disease processes. Continued careful monitoring of the blood counts will be necessary. Testing to be certain that B12 deficiency or folic acid deficiency has not developed is indicated. The nucleated erythrocytes and immature WBCs on the peripheral blood smear raise the question of a possible myeloproliferative process such as CML. Testing for this has also been ordered. [facility]
[2019-08-12] MEDS ORDERED: SODIUM CHLORIDE 0.9% 1000ML 1,000 ML IV PRN (08:41)
[2019-08-12 09:11] LABS: Folate (Folic Acid) 4.92 ng/ml (>5.38)
--- NOTE | 2019-08-12 09:19 | Nephrology Progress Note ---
Date of Service August 12, 2019 Assessment & Plan (1) Acute kidney injury: -- Oliguric GIA due to septic shock from C. Difficile/toxic megacolon -- Baseline Cr ~ 1.0. No renal obstruction on imaging -- Plan of care discussed w/ ICU team. HD requested for ongoing UF -- Will provide heparin free HD and target 3 L UF -- Will consider transition to IV loop diuretic therapy once UO > 500 cc/day (2) Anemia: -- Progressive anemia and thrombocytopenia -- Will hold heparin on dialysis Admission and Anticipated Discharge Date Admission Date: August 05, 2019 Subjective Mrs. Younger was seen & examined in the ICU this morning. She has been extubated and is oxygenating well on FM at 4 L/min. She remains on low dose Precedex for BP support and sedation. Mrs. Younger was dialyzed yesterday for 3 L UF without complication. She remains volume positive w/ dependent edema. UO only ~ 400 cc overnight Review of Systems Review of Systems: Unobtainable due to reduced consciousness Physical Exam Constitutional: sedated Eyes: PERRL ENMT: face mask in place Neck: trachea midline, no thyromegaly Respiratory: normal respiratory effort, lungs clear to auscultation Cardiovascular: Rate/Rhythm: regular rhythm Extremities: + edema (3+ dependent edema) Gastrointestinal (Abdomen): hypoactive bowel sounds. Surgical dressing in place Musculoskeletal: Extremities: no cyanosis Results & Data ([facility]) Vital Signs (Past 12 Hours) Vital Signs Temp Pulse Pulse BP BP Pulse Ox 08/12/19 07:31 48 L 145/64 H 100 08/12/19 07:15 53 L 146/71 H 100 08/12/19 07:01 47 L 144/63 H 100 08/12/19 06:46 53 L 137/65 99 08/12/19 06:30 54 L 141/70 H 99 08/12/19 06:17 135/67 08/12/19 06:01 52 L 124/53 L 100 08/12/19 06:00 50 L 08/12/19 05:46 54 L 130/55 L 95 08/12/19 05:31 54 L 128/58 L 96 08/12/19 05:15 55 L 129/59 L 95 08/12/19 05:00 55 L 130/56 L 95 08/12/19 04:45 58 L 110/54 L 94 08/12/19 04:30 57 L 117/59 L 96 08/12/19 04:15 58 L 116/58 L 95 08/12/19 04:01 59 L 98/50 L 95 08/12/19 04:00 58 L 08/12/19 03:45 61 128/53 L 96 08/12/19 03:30 58 L 146/64 H 97 08/12/19 03:15 69 146/65 H 97 08/12/19 03:00 59 L 150/58 H 95 08/12/19 02:46 76 138/57 L 96 08/12/19 02:30 61 131/64 94 08/12/19 02:15 61 116/56 L 94 08/12/19 02:00 63 129/60 96 08/12/19 01:45 62 129/53 L 94 08/12/19 01:30 62 127/50 L 97 08/12/19 01:16 62 120/48 L 94 08/12/19 01:00 63 105/45 L 93 08/12/19 00:45 75 109/51 L 93 08/12/19 00:31 62 130/52 L 94 08/12/19 00:15 68 144/49 H 95 08/12/19 00:00 63 139/50 L 96 08/11/19 23:48 36.6 C 65 142/65 H 08/11/19 23:46 64 136/52 L 94 08/11/19 23:30 63 132/51 L 94 08/11/19 23:24 65 142/65 H 92 08/11/19 23:19 65 112/55 L 08/11/19 23:18 65 112/55 L 95 08/11/19 23:15 74 89/56 L 94 08/11/19 23:00 72 100/55 L 94 08/11/19 22:45 71 113/55 L 93 08/11/19 22:30 76 108/43 L 95 08/11/19 22:15 67 94/51 L 08/11/19 22:00 74 97/45 L 95 08/11/19 21:45 68 105/59 L 08/11/19 21:30 69 104/46 L 95 08/11/19 21:15 69 95/47 L Laboratory Results Laboratory Tests 08/12/19 08/12/19 04:34 04:34 WBC 15.71 H Hgb 7.9 L Hct 23.7 L Plt Count 14 L* Sodium 140 Potassium 4.3 Chloride 108 H BUN 27 H Creatinine 1.83 H D PG Care Time/CCT Total # of Minutes Spent Total Time Spent with Patient: Total time spent is greater than 50% in coordination of care (as documented) at patient's floor/unit and/or counseling patient: Coding Level of Care Code 95688 Subseq Hosp Care Lvl 3 Diagnoses Acute kidney injury N17.9 Anemia D64.9
[2019-08-12 09:27] LABS: Ferritin 1568.7 ng/ml (8-388)
--- NOTE | 2019-08-12 10:18 | Critical Care Progress Note ---
Date of Service August 12, 2019 Assessment & Plan (1) Status post admission to intensive care unit: 58-year-old female with a past medical history of morbid obesity, atherosclerosis, peripheral vascular disease, GERD, depression, hypertension, reported COPD who is currently admitted in the ICU with acute hypoxic respiratory failure, septic shock secondary to GI source, C. difficile colitis who recently underwent a colectomy. Patient continues to do very poorly. Requiring midrodrine and intermittent pressors to maintain her blood pressure. Undergoing dialysis today. Trying to remove excess volume as much as possible. She has very poor wound healing. Albumin is very low. I had a long discussion with the patient's yesterday and he is very interested in palliative care and hospice. He stated that she very clearly indicated to him in the past that she would not want intubation or CPR. For now we are continuing tube feeds at a low rate as she is having very high residuals. Appreciate nutrition's input. Uppercase nephrology's input regarding her dialysis. Appreciate surgery's input regarding her recent colectomy. Continue vancomycin for total 14 days. We are stopping the Flagyl. Flagyl can also cause thrombocytopenia. Her platelets continued remain very low at 19,000. Largely the work-up has been negative thus far. Presumptive consumption coagulopathy from sepsis. She also has ongoing severe hypothermia likely related to her overall declining state and autonomic dysfunction. She does not have overt signs of infection outside of her GI tract at this point, thus I am not going to escalate antibiotics at this time. Continue stress dose steroids for now. Again, I suspect more palliative/hospice route would be very appropriate in this patient's case. CRITICAL CARE TIME - I have personally spent 33 minutes of critical care time in the direct management of this patient. This is a life/limb threatening event. This includes time spent evaluating patient, direct bedside care, chart review, placing orders, interpretation of diagnostic studies, discussion with consultants, patient, and family members, as well as other required patient management activities. This time is exclusive of all separately billable procedures, and teaching time and separate from and in addition to any other critical care service time. (2) Acute blood loss anemia: (3) Acute kidney injury: (4) Shock, septic: (5) Colitis: (6) Bronchopneumonia: (7) Thrombocytopenia: (8) Severe protein-energy malnutrition: (9) Goals of care, counseling/discussion: Admission and Anticipated Discharge Date Admission Date: August 05, 2019 Subjective Patient is lying in bed. She is currently on Precedex. Receiving doses of Dilaudid. She does appear more comfortable today. She is following commands intermittently. She is still altered. Underwent hemodialysis yesterday. I discussed the case with the patient's staff submarine warfare officer and we are planning for f urther hemodialysis with ultrafiltration today. Review of Systems Review of Systems: Unobtainable due to reduced consciousness Physical Exam Constitutional: Sickly appearing. Laying in bed. Nasal cannula and NG tube in place. Eyes: PERRL, conjunctivae normal, anicteric sclerae ENMT: external ear and nose normal, oropharynx normal Neck: normal visual inspection Respiratory: Diminished breath sounds bilaterally in the lower bases Cardiovascular: 2-3+ pitting edema in the lower extremities. No loud murmurs. Bradycardic. Gastrointestinal (Abdomen): Ostomy bag in place and draining. Large incisio nal scar noted with the wound VAC. Musculoskeletal: no cyanosis or clubbing, extremities motor strength 5/5 Skin: no rashes, warm and dry Neurologic: Diffuse weakness. Nonfocal. Psychiatric: Anxious. At times emotionally upset. Results & Data Results & Data ([facility]) Vital Signs (Past 12 Hours) Vital Signs Temp Pulse Pulse BP BP Pulse Ox 08/12/19 07:31 48 L 145/64 H 100 08/12/19 07:15 53 L 146/71 H 100 08/12/19 07:01 47 L 144/63 H 100 08/12/19 06:46 53 L 137/65 99 08/12/19 06:30 54 L 141/70 H 99 08/12/19 06:17 135/67 08/12/19 06:01 52 L 124/53 L 100 08/12/19 06:00 50 L 08/12/19 05:46 54 L 130/55 L 95 08/12/19 05:31 54 L 128/58 L 96 08/12/19 05:15 55 L 129/59 L 95 08/12/19 05:00 55 L 130/56 L 95 08/12/19 04:45 58 L 110/54 L 94 08/12/19 04:30 57 L 117/59 L 96 08/12/19 04:15 58 L 116/58 L 95 08/12/19 04:01 59 L 98/50 L 95 08/12/19 04:00 58 L 08/12/19 03:45 61 128/53 L 96 08/12/19 03:30 58 L 146/64 H 97 08/12/19 03:15 69 146/65 H 97 08/12/19 03:00 59 L 150/58 H 95 08/12/19 02:46 76 138/57 L 96 08/12/19 02:30 61 131/64 94 08/12/19 02:15 61 116/56 L 94 08/12/19 02:00 63 129/60 96 08/12/19 01:45 62 129/53 L 94 08/12/19 01:30 62 127/50 L 97 08/12/19 01:16 62 120/48 L 94 08/12/19 01:00 63 105/45 L 93 08/12/19 00:45 75 109/51 L 93 08/12/19 00:31 62 130/52 L 94 08/12/19 00:15 68 144/49 H 95 08/12/19 00:00 63 139/50 L 96 08/11/19 23:48 97.9 F 65 142/65 H 08/11/19 23:46 64 136/52 L 94 08/11/19 23:30 63 132/51 L 94 08/11/19 23:24 65 142/65 H 92 08/11/19 23:19 65 112/55 L 08/11/19 23:18 65 112/55 L 95 08/11/19 23:15 74 89/56 L 94 08/11/19 23:00 72 100/55 L 94 08/11/19 22:45 71 113/55 L 93 08/11/19 22:30 76 108/43 L 95 08/11/19 22:15 67 94/51 L I personally reviewed the patient's laboratory data, chest imaging and previous notes. Coding Level of Care Code Critical Care 1st 30-74 mins Diagnoses Status post admission to intensive care unit Acute blood loss anemia D62 Acute kidney injury N17.9 Shock, septic A41.9; R65.21 Colitis K52.9 Bronchopneumonia J18.0 Thrombocytopenia D69.6 Severe protein-energy malnutrition E43 Goals of care, counseling/discussion Z71.89 Time Spent (min) 33
--- NOTE | 2019-08-12 11:39 | Pharmacy Report ---
Pharmacy Glycemic Short Note 2 - Date of Service August 12, 2019 - Glycemic Short BSG Results (Last 24 hours): 08/11/19 08/11/19 08/11/19 16:06 19:14 21:50 Glucose 99 POC Glucose POC Glucose (other) 99 94 08/12/19 08/12/19 08/12/19 00:07 04:34 06:25 Glucose 119 H POC Glucose POC Glucose (other) 98 115 H 08/12/19 09:59 Glucose POC Glucose 152 H POC Glucose (other) Outpatient Anti-diabetic Regimen: * n/a * A1c = 5.7% on 08/05 ASSESSMENT: 08/11: * BSGs well controlled over last 24 hrs, again no insulin required * Peptamen "trickle" feeds continue * Fasting BSG 117 with no basal insulin on board. Will d/c basal insulin at this time * Novolog dosing parameters still appropriate 08/10: * Patient extubated at this time * Hydrocortisone IV continues at this time as dose abx for fulminant c diff colitis * Norepinephrine continues however at low dose (0.02mcg/kg/min) * Peptamen held this AM for extubation * Over the last 24 hrs, pt has received no insulin and BSGs have ranged 92-103. Current insulin orders remain reasonable however as basal insulin will not be administered unless hyperglycemia present. Novolog carb coverage not yet required given "trickle" feeds, current CR reasonable however should BSGs begin to climb if diet advances while on steroids. 08/09: * Patient with septic shock secondary to C. difficile colitis, POD #3 s/p urgent subtotal colectomy * Mechanically vented on precedex and fentanyl drip. * Patient required zero units of insulin yesterday. * Last HD session was 08/08. No HD planned for today. * Will further loosen Novolog parameters (pt may not require carb coverage based on A1c). PLAN FOR INPATIENT GLYCEMIC CONTROL: * Basal insulin * none at this time, dc Lantus * Bolus insulin - * Novolog q6h * Goal range: 120 -150 mg/dL * Correction factor: 25 mg/dL/unit * Carb ratio: 1 unit for every 10 grams CHO
--- NOTE | 2019-08-12 14:18 | Electrocardiogram Report ---
Test Reason : Blood Pressure : / mmHG Vent. Rate : 081 BPM Atrial Rate : 081 BPM P-R Int : 144 ms QRS Dur : 084 ms QT Int : 406 ms P-R-T Axes : 050 050 011 degrees QTc Int : 471 ms Poor data quality, interpretation may be adversely affected Normal sinus rhythm Low voltage QRS Borderline ECG When compared with ECG of 11-AUG-2019 11:43, Inverted T waves have replaced nonspecific T wave abnormality in Inferior leads T wave amplitude has decreased in Anterior leads Confirmed by Bradley Celeste ([id number]) on 08/12/2019 2:18:17 PM Referred By: [facility] Confirmed By:Bradley Celeste
--- NOTE | 2019-08-12 15:38 | Hospitalist Progress Note ---
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, appreciate nephrology following Cr down to 1.8 but still needs tremendous amount of diuresis plan for HD daily, tolerating this afternoon when last checked (2) Thrombocytopenia: initially concern for DIC with low platelets and elevated PTT but not low fibrinogen DIC now ruled out could be due to Fluconazole, stopped 08/09 platelets 14k today, no heparin products with HD continue to monitor (3) Acute blood loss anemia: secondary to surgical loss, transfused 1 unit prbc Hb down slightly today at 7.9 (4) Acute respiratory failure with hypoxia: extubated on 08/10 she remained intubated after surgery due to septic shock from colitis breathing well on 3L via mask today (5) Colitis: sepsis from C diff colitis progression of disease required surgery to perform an urgent subtotal colectomy on 08/06 possible toxic storm colon plus ischemic colitis, C. difficile is positive, on po vancomycin iv flagyl no fever, WBC up to 15k today stopped Fluconazole as there is no clear fungal infection plan to complete a full 14 days of Vanco and Flagyl Midodrine added for blood pressure support with plans for HD (6) Benign essential hypertension: medications on hold due to shock still requiring a minimal amount of Levophed, midodrine added TID (7) Diabetes mellitus: Patient has a history of diabetes in use insulin sliding scale she is currently n.p.o. monitor for hypoglycemia (8) Status post aortobifemoral bypass surgery: likely arterial vascular disease may have had an influence in her colons challenge to perfuse with the low blood pressures of sepsis (9) COPD (chronic obstructive pulmonary disease): Patient typically takes Advair but will transition to medication via ventilator (10) Depression: Patient maintained on Wellbutrin and Prozac, but as with npo status these are held, will discuss with icu if we can give via og (11) Methicillin resistant Staphylococcus aureus infection: Due to this history patient is given vancomycin initially iv but changed to po ( via og) Admission and Anticipated Discharge Date Admission Date: August 05, 2019 Subjective patient not responsive for me today ashen color, edematous d/w Dr. Jarquin and Dr. Batres, plan for HD today for UF reviewed labs, WBC up to 15k, Hb down to 7.9, platelets low at 14k Cr 1.8 and electrolytes stable Review of Systems Review of Systems: Unobtainable due to cognitive status (lethargic) Physical Exam Constitutional: well developed, + ill appearing and + edematous; no acute distress Eyes: PERRL, conjunctivae normal, anicteric sclerae ENMT: Nose: + dry nasal mucous membranes Mouth: + dry oral mucous membranes Neck: trachea midline, no thyromegaly Respiratory: normal respiratory effort, lungs clear to auscultation Auscultation: + diminished lung sounds (bases) Cardiovascular: Rate/Rhythm: regular rhythm and + bradycardic Heart Sounds: normal S1 and normal S2; no murmur Vessels: no JVD Extremities: normal capillary refill and + edema Gastrointestinal (Abdomen): Inspection/Auscultation: normal bowel sounds, + abdominal surgical incision and + abdominal surgical drain present; + abdomen abnormal to inspection (ostomy, tissue slightly dusky) and abdomen not distended Percussion/Palpation: abdomen nontender Musculoskeletal: Head/Neck/Chest: normocephalic and head atraumatic Extremities: extremities normal to inspection; no cyanosis and no clubbing Skin: no rashes, warm and dry Neurologic: CN's II-XI intact bilaterally and + obtunded; no focal motor deficits Psychiatric: Orientation: + not alert and + not oriented x 3 Lymphatic: no cervical or axillary lymphadenopathy Results & Data Results & Data ([facility]) Vital Signs (Past 12 Hours) Vital Signs Temp Pulse Pulse Resp BP Pulse Ox 08/12/19 14:59 37.3 C 64 64 94/42 L 08/12/19 14:00 63 15 94/42 L 94 08/12/19 13:00 57 L 13 84/49 L 94 08/12/19 12:05 67 18 98/56 L 93 08/12/19 11:00 56 L 14 121/57 L 96 08/12/19 10:00 56 L 14 123/69 96 08/12/19 09:00 48 L 12 125/62 98 08/12/19 08:00 59 L 12 127/61 92 08/12/19 07:31 48 L 145/64 H 100 08/12/19 07:15 53 L 146/71 H 100 08/12/19 07:01 47 L 144/63 H 100 08/12/19 06:46 53 L 137/65 99 08/12/19 06:30 54 L 141/70 H 99 08/12/19 06:17 135/67 08/12/19 06:01 52 L 124/53 L 100 08/12/19 06:00 50 L 08/12/19 05:46 54 L 130/55 L 95 08/12/19 05:31 54 L 128/58 L 96 08/12/19 05:15 55 L 129/59 L 95 08/12/19 05:00 55 L 130/56 L 95 08/12/19 04:45 58 L 110/54 L 94 08/12/19 04:30 57 L 117/59 L 96 08/12/19 04:15 58 L 116/58 L 95 08/12/19 04:01 59 L 98/50 L 95 08/12/19 04:00 58 L 08/12/19 03:45 61 128/53 L 96 Laboratory Results Laboratory Results - last 24 hr 08/10/19 08/11/19 08/11/19 10:48 16:01 16:06 WBC 13.32 H RBC 2.42 L Hgb 7.6 L Hct 22.4 L MCV 92.6 MCH 31.4 MCHC 33.9 RDW Std Deviation 54.3 H RDW Coeff of Ashley 16.4 H Plt Count 19 L* MPV 9.7 Immature Gran % (Auto) Neut % (Auto) Lymph % (Auto) [place] % (Auto) Eos % (Auto) Baso % (Auto) Immature Gran # (Auto) Neut # (Auto) Lymph # (Auto) [place] # (Auto) Eos # (Auto) Baso # (Auto) Absolute Nucleated RBC 1.52 H Nucleated RBC % (auto) 11.4 Neutrophils % (Manual) 95.6 Lymphocytes % (Manual) 3.5 Monocytes % (Manual) 0.9 Neutrophils # (Manual) 12.73 H Total Absolute Neuts 12.73 H Lymphocytes # (Manual) 0.47 L Total Abs Lymphocytes 0.47 L Monocytes # (Manual) 0.12 Platelet Estimate SIGNIFIC DECREASED Polychromasia Basophilic Stippling Pappenheimer Bodies 1+ Target Cells 1+ Haptoglobin 271 H PT INR APTT PTT Ratio Sodium Potassium Chloride Carbon Dioxide Anion Gap BUN Creatinine Est Cr Clr Drug Dosing Est GFR ( Amer) Est GFR (Non-Af Amer) BUN/Creatinine Ratio Glucose POC Glucose POC Glucose (other) 99 Lactate Calcium Phosphorus Magnesium Ferritin Total Bilirubin Direct Bilirubin AST ALT Alkaline Phosphatase Total Protein Albumin Triglycerides Lipase Vitamin B12 Methylmalonic Acid Folate JAK2 V617F JAK2 Exon 12 Mutation BCR/abl t(9;22) (FISH) 08/11/19 08/11/19 08/11/19 19:14 19:14 21:50 WBC RBC Hgb Hct MCV MCH MCHC RDW Std Deviation RDW Coeff of Ashley Plt Count MPV Immature Gran % (Auto) Neut % (Auto) Lymph % (Auto) [place] % (Auto) Eos % (Auto) Baso % (Auto) Immature Gran # (Auto) Neut # (Auto) Lymph # (Auto) [place] # (Auto) Eos # (Auto) Baso # (Auto) Absolute Nucleated RBC Nucleated RBC % (auto) Neutrophils % (Manual) Lymphocytes % (Manual) Monocytes % (Manual) Neutrophils # (Manual) Total Absolute Neuts Lymphocytes # (Manual) Total Abs Lymphocytes Monocytes # (Manual) Platelet Estimate Polychromasia Basophilic Stippling Pappenheimer Bodies Target Cells Haptoglobin PT INR APTT PTT Ratio Sodium 139 Potassium 4.6 Chloride 106 Carbon Dioxide 23 Anion Gap 10.0 BUN 42 H Creatinine 2.72 H Est Cr Clr Drug Dosing 29.5 Est GFR ( Amer) 21.3 Est GFR (Non-Af Amer) 18.4 BUN/Creatinine Ratio 15.5 Glucose 99 POC Glucose POC Glucose (other) 94 Lactate 1.2 Calcium 6.8 L Phosphorus Magnesium Ferritin Total Bilirubin 0.3 Direct Bilirubin 0.1 AST 98 H ALT 37 Alkaline Phosphatase 115 Total Protein 4.3 L Albumin 1.0 L Triglycerides Lipase 218 Vitamin B12 Methylmalonic Acid Folate JAK2 V617F JAK2 Exon 12 Mutation BCR/abl t(9;22) (FISH) 08/12/19 08/12/19 08/12/19 00:07 04:34 04:34 WBC RBC Hgb Hct MCV MCH MCHC RDW Std Deviation RDW Coeff of Ashley Plt Count MPV Immature Gran % (Auto) Neut % (Auto) Lymph % (Auto) [place] % (Auto) Eos % (Auto) Baso % (Auto) Immature Gran # (Auto) Neut # (Auto) Lymph # (Auto) [place] # (Auto) Eos # (Auto) Baso # (Auto) Absolute Nucleated RBC Nucleated RBC % (auto) Neutrophils % (Manual) Lymphocytes % (Manual) Monocytes % (Manual) Neutrophils # (Manual) Total Absolute Neuts Lymphocytes # (Manual) Total Abs Lymphocytes Monocytes # (Manual) Platelet Estimate Polychromasia Basophilic Stippling Pappenheimer Bodies Target Cells Haptoglobin PT 11.0 INR 1.0 APTT 30.1 PTT Ratio 1.1 Sodium 140 Potassium 4.3 Chloride 108 H Carbon Dioxide 25 Anion Gap 7.0 BUN 27 H Creatinine 1.83 H D Est Cr Clr Drug Dosing 43.4 Est GFR ( Amer) 34.4 Est GFR (Non-Af Amer) 29.7 BUN/Creatinine Ratio 14.9 Glucose 119 H POC Glucose POC Glucose (other) 98 Lactate Calcium 7.1 L Phosphorus 4.7 D Magnesium 2.1 Ferritin Total Bilirubin Direct Bilirubin AST ALT Alkaline Phosphatase Total Protein Albumin Triglycerides Lipase Vitamin B12 Methylmalonic Acid Folate JAK2 V617F JAK2 Exon 12 Mutation BCR/abl t(9;22) (FISH) 08/12/19 08/12/19 08/12/19 04:34 06:25 08:23 WBC 15.71 H RBC 2.49 L Hgb 7.9 L Hct 23.7 L MCV 95.2 MCH 31.7 MCHC 33.3 RDW Std Deviation 55.1 H RDW Coeff of Ashley 16.3 H Plt Count 14 L* MPV 10.1 Immature Gran % (Auto) 2.7 Neut % (Auto) 89.3 Lymph % (Auto) 3.8 [place] % (Auto) 4.1 Eos % (Auto) 0.0 Baso % (Auto) 0.1 Immature Gran # (Auto) 0.42 H Neut # (Auto) 14.04 H Lymph # (Auto) 0.59 L [place] # (Auto) 0.64 H Eos # (Auto) 0.00 Baso # (Auto) 0.02 Absolute Nucleated RBC 1.42 H Nucleated RBC % (auto) 9.0 Neutrophils % (Manual) Lymphocytes % (Manual) Monocytes % (Manual) Neutrophils # (Manual) Total Absolute Neuts Lymphocytes # (Manual) Total Abs Lymphocytes Monocytes # (Manual) Platelet Estimate Polychromasia 1+ Basophilic Stippling 1+ Pappenheimer Bodies 1+ Target Cells Haptoglobin PT INR APTT PTT Ratio Sodium Potassium Chloride Carbon Dioxide Anion Gap BUN Creatinine Est Cr Clr Drug Dosing Est GFR ( Amer) Est GFR (Non-Af Amer) BUN/Creatinine Ratio Glucose POC Glucose POC Glucose (other) 115 H Lactate Calcium Phosphorus Magnesium Ferritin Total Bilirubin Direct Bilirubin AST ALT Alkaline Phosphatase Total Protein Albumin Triglycerides Lipase Vitamin B12 1797 H Methylmalonic Acid Folate 4.92 L JAK2 V617F JAK2 Exon 12 Mutation BCR/abl t(9;22) (FISH) 08/12/19 08/12/19 08/12/19 08:23 08:23 09:55 WBC RBC Hgb Hct MCV MCH MCHC RDW Std Deviation RDW Coeff of Ashley Plt Count MPV Immature Gran % (Auto) Neut % (Auto) Lymph % (Auto) [place] % (Auto) Eos % (Auto) Baso % (Auto) Immature Gran # (Auto) Neut # (Auto) Lymph # (Auto) [place] # (Auto) Eos # (Auto) Baso # (Auto) Absolute Nucleated RBC Nucleated RBC % (auto) Neutrophils % (Manual) Lymphocytes % (Manual) Monocytes % (Manual) Neutrophils # (Manual) Total Absolute Neuts Lymphocytes # (Manual) Total Abs Lymphocytes Monocytes # (Manual) Platelet Estimate Polychromasia Basophilic Stippling Pappenheimer Bodies Target Cells Haptoglobin PT INR APTT PTT Ratio Sodium Potassium Chloride Carbon Dioxide Anion Gap BUN Creatinine Est Cr Clr Drug Dosing Est GFR ( Amer) Est GFR (Non-Af Amer) BUN/Creatinine Ratio Glucose POC Glucose POC Glucose (other) Lactate Calcium Phosphorus Magnesium Ferritin 1568.7 H Total Bilirubin Direct Bilirubin AST ALT Alkaline Phosphatase Total Protein Albumin Triglycerides 204 H Lipase Vitamin B12 Methylmalonic Acid Pending Folate JAK2 V617F Pending JAK2 Exon 12 Mutation Pending BCR/abl t(9;22) (FISH) Pending 08/12/19 09:59 WBC RBC Hgb Hct MCV MCH MCHC RDW Std Deviation RDW Coeff of Ashley Plt Count MPV Immature Gran % (Auto) Neut % (Auto) Lymph % (Auto) [place] % (Auto) Eos % (Auto) Baso % (Auto) Immature Gran # (Auto) Neut # (Auto) Lymph # (Auto) [place] # (Auto) Eos # (Auto) Baso # (Auto) Absolute Nucleated RBC Nucleated RBC % (auto) Neutrophils % (Manual) Lymphocytes % (Manual) Monocytes % (Manual) Neutrophils # (Manual) Total Absolute Neuts Lymphocytes # (Manual) Total Abs Lymphocytes Monocytes # (Manual) Platelet Estimate Polychromasia Basophilic Stippling Pappenheimer Bodies Target Cells Haptoglobin PT INR APTT PTT Ratio Sodium Potassium Chloride Carbon Dioxide Anion Gap BUN Creatinine Est Cr Clr Drug Dosing Est GFR ( Amer) Est GFR (Non-Af Amer) BUN/Creatinine Ratio Glucose POC Glucose 152 H POC Glucose (other) Lactate Calcium Phosphorus Magnesium Ferritin Total Bilirubin Direct Bilirubin AST ALT Alkaline Phosphatase Total Protein Albumin Triglycerides Lipase Vitamin B12 Methylmalonic Acid Folate JAK2 V617F JAK2 Exon 12 Mutation BCR/abl t(9;22) (FISH) Medications Administered Current Inpatient Medications Dextrose (Dextrose 50%) 25 - 50 ml IV UD PRN; Protocol PRN Reason: Hypoglycemia Protocol Stop: 09/04/19 16:54 Enteral Nutritional Formula (Peptamen 1.5 Alli) 1,000 ml PO UD VARSHA; Protocol Stop: 09/09/19 15:30 Last Admin: 08/10/19 18:12 Dose: 1,000 ml Documented by: Glucagon (Glucagen) 1 mg SQ UD PRN; Protocol PRN Reason: Hypoglycemia Protocol Stop: 09/04/19 16:54 Glucose (Dex4 Glucose) 4 - 8 tabs PO UD PRN; Protocol PRN Reason: Hypoglycemia Protocol Stop: 09/04/19 16:54 Glucose (Glucose 40%) 15 - 30 gm PO UD PRN; Protocol PRN Reason: Hypoglycemia Protocol Stop: 09/04/19 16:54 Hydromorphone HCl (Dilaudid) 0.5 mg IV Q4H PRN PRN Reason: Pain Stop: 08/26/19 00:23 Last Admin: 08/12/19 14:25 Dose: 0.5 mg Documented by: Norepinephrine Bitartrate 32 (mg/ Dextrose) 532 mls @ 0 mls/hr IV .Q0M VARSHA; Protocol Stop: 09/06/19 16:59 Last Admin: 08/12/19 07:39 Dose: Not Given Documented by: Hydrocortisone Sodium (Succinate 50 mg/ Syringe) 1 mls @ 4 mls/min IV Q8H VARSHA Stop: 09/08/19 19:59 Last Admin: 08/12/19 11:48 Dose: 4 mls/min Documented by: Pantoprazole Sodium 40 mg/ (Syringe) 10 mls @ 5 mls/min IV BID VARSHA Stop: 09/09/19 20:59 Last Admin: 08/12/19 07:56 Dose: 5 mls/min Documented by: Dexmedetomidine HCl 400 mcg/ (Sodium Chloride) 100 mls @ 6.075 mls/hr IV .[id number] [facility]; Protocol Stop: 08/14/19 18:29 Last Titration: 08/12/19 11:39 Dose: Infused Documented by: Insulin Aspart (Novolog Flexpen) 0 units SC Q6 [facility] Stop: 09/08/19 11:59 Last Admin: 08/12/19 11:47 Dose: 2 units Documented by: Midodrine (Proamatine) 5 mg PO TID@0800,1200,1700 [facility] Stop: 09/09/19 16:59 Last Admin: 08/12/19 11:47 Dose: 5 mg Documented by: Miscellaneous Information (Consult Glycemic Management Pharmacy) 1 ea N/A UD PRN; Protocol PRN Reason: Consult Stop: 09/04/19 16:57 Ondansetron HCl (Zofran) 4 mg IV Q6H PRN PRN Reason: Nausea Stop: 09/04/19 16:54 Oxycodone HCl (Roxicodone Immediate Rel) 5 mg PO Q6H [facility] Stop: 08/25/19 20:59 Last Admin: 08/12/19 11:47 Dose: 5 mg Documented by: Vancomycin HCl (Vancomycin Hcl) 500 mg PO Q6 [facility] Stop: 08/16/19 11:59 Last Admin: 08/12/19 11:47 Dose: 500 mg Documented by: PG Care Time/CCT Total # of Minutes Spent Total Time Spent with Patient: Total time spent is greater than 50% in coordination of care (as documented) at patient's floor/unit and/or counseling patient: Coding Level of Care Code 26085 Subseq Hosp Care Lvl 3 Diagnoses Acute kidney injury N17.9 Thrombocytopenia D69.6 Acute blood loss anemia D62 Acute respiratory failure with hypoxia J96.01 Colitis K52.9 Benign essential hypertension I10 Diabetes mellitus E11.9 Status post aortobifemoral bypass surgery Z95.828 COPD (chronic obstructive pulmonary disease) J44.9 Depression F32.9 Methicillin resistant Staphylococcus aureus infection A49.02
[2019-08-12] MEDS ORDERED: LORazepam 0.5 MG/1 ML VIAL IV PRN (19:50)
[2019-08-12] MEDS ORDERED: ONDANSETRON INJ 2 MG/ML 2 ML VIAL IV PRN (19:50)
[2019-08-12] MEDS ORDERED: STAT IV Infusion **Titration per Protocol STA ×2 (19:50→20:25)
[2019-08-12] MEDS ORDERED: ONDANSETRON 4 MG OD TAB SL PRN (19:50)
[2019-08-12] MEDS ORDERED: ATROPINE SULFATE 1% OP SOLN 2 ML BTL SL PRN (19:50)
--- NOTE | 2019-08-12 19:50 | Communication Note ---
Date of Service: August 12, 2019 It was brought to my attention by the bedside nurse that the patient's , Juan, wanted to discuss patient's status and plan of care. I spoke with Juan on the phone and updated him on patient's current status. He understands that the patient's long-term prognosis is likely poor for what they would consider to be a meaningful recovery. The stated that Ms. Younger had mentioned multiple times that she would never want to be in suffering or in pain. Based on the patient's previous expressed wishes, patient's would like to make her comfort care at this time, knowing that she will likely pass away. We discussed discontinuation of other treatments and therapies, and transition of goals of care to patient's comfort. Comfort care order set is in. Primary physician, Dr. Maximus Trejo, was updated with the highlights of my conversation and transition of the current plan. Patient's family will be in to visit tomorrow. Coding Level of Care Code None
[2019-08-12] MEDS ORDERED: GLUCAGON FOR INJ 1 MG VIAL IM PRN (20:15)
[2019-08-12] MEDS ORDERED: GLUCOSE 40% GEL 15 GM TUBE PO PRN (20:15)
[2019-08-12] MEDS ORDERED: CARBOHYDRATES FOR HYPOGLYCEMIA PO PRN (20:15)
[2019-08-12] MEDS ORDERED: GLUCOSE 10 TABS/TUBE PO PRN (20:15)
[2019-08-12] MEDS ORDERED: DEXTROSE 50% 50 ML SYRINGE IV PRN (20:15)
[2019-08-12] MEDS: MoRPHine SULF/NSS 250 MG/250 ML BTL IV SCH (20:43)
[2019-08-12] MEDS: LORAZEPAM IV SCH (21:00)
[2019-08-12] MEDS: POLYOLEFIN IV SCH (21:00)
[2019-08-12] MEDS: D5W IV SCH (21:00)
[2019-08-13] MEDS: INSULIN ASPART 100 UNITS/ML 3 ML PEN SC SCH ×2 (00:09→09:39)
--- NOTE | 2019-08-13 08:22 | Surgery Progress Note ---
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 I appreciate everyone's help. Subjective pt seen. primary service and family have apparently decided on comfort measures/palliative care. pt not responsive. Physical Exam Physical Exam: non-responsive agonal breathing abdomen: dressing taken down. wound looks ok . sutures exposed which is how we left OR. fascia probed. no dehiscence. minimal drainage. SHRUTI's both draining serous fluid stoma: intact/viable /functioning. PG Care Time/CCT Total # of Minutes Spent Total Time Spent with Patient: Total time spent is greater than 50% in coordination of care (as documented) at patient's floor/unit and/or counseling patient: Coding Level of Care Code None Diagnoses Toxic megacolon K59.31
[2019-08-13] MEDS: SODIUM CHLORIDE 0.9% 1000ML 1,000 ML IV SCH (08:34)
--- NOTE | 2019-08-13 09:47 | Nephrology Progress Note ---
Date of Service August 13, 2019 Assessment & Plan Admission and Anticipated Discharge Date Admission Date: August 05, 2019 Subjective HD attempted yesterday. Only one hour completed w/ minimal UF. Treatment discontinued due to hypotension and poorly functioning access. EMR reviewed this am. ICU attending has met with family and discussed prognosis. Family has chosen to transition Mrs. Younger to comfort measures. No further Nephrology evaluation/intervention will be taken at this time. Please call if further assistance is needed. Results & Data ([facility]) Vital Signs (Past 12 Hours) Vital Signs Pulse Resp BP Pulse Ox 08/13/19 08:32 84 5 L 106/68 92 PG Care Time/CCT Total # of Minutes Spent Total Time Spent with Patient: Total time spent is greater than 50% in coordination of care (as documented) at patient's floor/unit and/or counseling patient: Coding Level of Care Code 29908 Subseq Hosp Care Lvl 1
--- NOTE | 2019-08-13 19:51 | Hospitalist Progress Note ---
Date of Service August 13, 2019 Assessment & Plan (1) Palliative care status: on comfort measures with morphine and ativan patient is certainly comfortable, no response, RR<10 talked with over the phone today (2) Acute kidney injury: pt had oliguric renal failure and hyperkalemia, with ultrafiltration 08/06 and additional NETWORKING ADMINISTRATOR on 08/07,08/08, appreciate nephrology following Cr down to 1.8 but still needs tremendous amount of diuresis no further HD or labs, comfort care only (3) Thrombocytopenia: initially concern for DIC with low platelets and elevated PTT but not low fibrinogen DIC now ruled out could be due to Fluconazole, stopped 08/09 comfort care, no more checks (4) Acute blood loss anemia: secondary to surgical loss, transfused 1 unit prbc Hb down slightly today at 7.9 (5) Acute respiratory failure with hypoxia: extubated on 08/10 she remained intubated after surgery due to septic shock from colitis breathing well on 3L via mask today (6) Colitis: sepsis from C diff colitis progression of disease required surgery to perform an urgent subtotal colectomy on 08/06 possible toxic storm colon plus ischemic colitis, C. difficile is positive, on po vancomycin iv flagyl no fever, WBC up to 15k today stopped Fluconazole as there is no clear fungal infection plan to complete a full 14 days of Vanco and Flagyl Midodrine added for blood pressure support with plans for HD (7) Benign essential hypertension: medications on hold due to shock still requiring a minimal amount of Levophed, midodrine added TID (8) Diabetes mellitus: Patient has a history of diabetes in use insulin sliding scale she is currently n.p.o. monitor for hypoglycemia (9) Status post aortobifemoral bypass surgery: likely arterial vascular disease may have had an influence in her colons challenge to perfuse with the low blood pressures of sepsis (10) COPD (chronic obstructive pulmonary disease): Patient typically takes Advair but will transition to medication via ventilator (11) Depression: Patient maintained on Wellbutrin and Prozac, but as with npo status these are held, will discuss with icu if we can give via og (12) Methicillin resistant Staphylococcus aureus infection: Due to this history patient is given vancomycin initially iv but changed to po ( via og) Admission and Anticipated Discharge Date Admission Date: August 05, 2019 Subjective patient comfortable on morphine and ativan RR down below 10 d/w her , he will come in to see her at the bedside today Review of Systems Review of Systems: Unobtainable due to cognitive status Physical Exam Constitutional: well developed, + ill appearing and + edematous; no acute distress Eyes: PERRL, conjunctivae normal, anicteric sclerae ENMT: external ear and nose normal, oropharynx normal Nose: + dry nasal mucous membranes Mouth: + dry oral mucous membranes Neck: trachea midline, no thyromegaly Respiratory: + abnormal respiratory pattern (hypoventilating, RR< 10) Auscultation: + diminished lung sounds (bases) Cardiovascular: Rate/Rhythm: regular rhythm and + bradycardic Heart Sounds: normal S1 and normal S2; no murmur Vessels: no JVD Extremities: normal capillary refill and + edema Gastrointestinal (Abdomen): Inspection/Auscultation: normal bowel sounds, + abdominal surgical incision and + abdominal surgical drain present; + abdomen abnormal to inspection (ostomy, tissue slightly dusky) and abdomen not distended Percussion/Palpation: abdomen nontender Musculoskeletal: Head/Neck/Chest: normocephalic and head atraumatic Extremities: extremities normal to inspection; no cyanosis and no clubbing Skin: no rashes, warm and dry Neurologic: CN's II-XI intact bilaterally and + obtunded; no focal motor deficits Psychiatric: Orientation: + not alert and + not oriented x 3 Lymphatic: no cervical or axillary lymphadenopathy Results & Data Results & Data ([facility]) Vital Signs (Past 12 Hours) Vital Signs Pulse Resp BP Pulse Ox 08/13/19 14:49 3 L 08/13/19 08:32 84 5 L 106/68 92 Medications Administered Current Inpatient Medications Atropine Sulfate (Atropine Sulfate 1% Oph Soln) 4 drops SL Q1H PRN PRN Reason: Secretions or Pulm Congestion Stop: 09/11/19 19:49 Last Admin: 08/13/19 18:25 Dose: 4 drops Documented by: Dextrose (Dextrose 50%) 25 - 50 ml IV UD PRN; Protocol PRN Reason: Hypoglycemia Protocol Stop: 09/11/19 20:14 Glucagon (Glucagen) 1 mg IM UD PRN; Protocol PRN Reason: Hypoglycemia Protocol Stop: 09/11/19 20:14 Glucose (Glucose 40%) 15 - 30 gm PO UD PRN; Protocol PRN Reason: Hypoglycemia Protocol Stop: 09/11/19 20:14 Glucose (Dex4 Glucose) 4 - 8 tabs PO UD PRN; Protocol PRN Reason: Hypoglycemia Protocol Stop: 09/11/19 20:14 Hydromorphone HCl (Dilaudid) 0.5 mg IV Q4H PRN PRN Reason: Pain Stop: 08/26/19 00:23 Last Admin: 08/12/19 22:52 Dose: 0.5 mg Documented by: Morphine Sulfate (Morphine Sulf/Nss) 250 mg in 250 mls @ 8 mls/hr IV .Q24H VARSHA; Protocol Stop: 08/26/19 19:59 Last Titration: 08/13/19 19:16 Dose: 8 mg/hr, 8 mls/hr Documented by: Lorazepam 50 mg/ Dextrose 50 mls @ 2 mls/hr IV .Q24H AVRSHA; Protocol Stop: 09/11/19 20:29 Last Titration: 08/13/19 19:16 Dose: 2 mg/hr, 2 mls/hr Documented by: Sodium Chloride (Nss 1000ml) 1,000 mls @ 15 mls/hr IV .Q24H VARSHA Stop: 09/12/19 07:44 Last Admin: 08/13/19 08:34 Dose: 22 mls/hr Documented by: Miscellaneous (Carbohydrates For Hypoglycemia) 15 - 30 gm PO UD PRN PRN Reason: Hypoglycemia Treatment Stop: 09/11/19 20:14 Ondansetron HCl (Zofran) 4 mg IV Q6H PRN PRN Reason: Nausea Stop: 09/04/19 16:54 Ondansetron HCl (Zofran) 4 mg IV Q4H PRN PRN Reason: Nausea And Vomiting Stop: 09/11/19 19:49 Ondansetron HCl (Zofran Odt) 4 mg SL Q4H PRN PRN Reason: Nausea And Vomiting Stop: 09/11/19 19:49 PG Care Time/CCT Total # of Minutes Spent Total Time Spent with Patient: Total time spent is greater than 50% in coordination of care (as documented) at patient's floor/unit and/or counseling patient: Coding Level of Care Code 00918 Subseq Hosp Care Lvl 1 Diagnoses Palliative care status Z51.5 Acute kidney injury N17.9 Thrombocytopenia D69.6 Acute blood loss anemia D62 Acute respiratory failure with hypoxia J96.01 Colitis K52.9 Benign essential hypertension I10 Diabetes mellitus E11.9 Status post aortobifemoral bypass surgery Z95.828 COPD (chronic obstructive pulmonary disease) J44.9 Depression F32.9 Methicillin resistant Staphylococcus aureus infection A49.02
[2019-08-13] MEDS: LORAZEPAM IV SCH (23:36)
[2019-08-13] MEDS: POLYOLEFIN IV SCH (23:36)
[2019-08-13] MEDS: D5W IV SCH (23:36)
[2019-08-14] MEDS: MoRPHine SULF/NSS 250 MG/250 ML BTL IV SCH (08:42)
[2019-08-14] MEDS: SODIUM CHLORIDE 0.9% 1000ML 1,000 ML IV SCH (08:50)
--- NOTE | 2019-08-14 13:13 | Death Pronouncement Note ---
Date of Service August 14, 2019 Pronouncement Note Admission Date Admission Date: August 05, 2019 Date and Time of Date of : 08/14/19 Time of : 13:05 PCOD Preliminary cause of : Clostridium difficile colitis Contributing Factors (1) Palliative care status: (2) Acute kidney injury: (3) Thrombocytopenia: (4) Acute blood loss anemia: (5) Acute respiratory failure with hypoxia: (6) Colitis: (7) Benign essential hypertension: (8) Diabetes mellitus: (9) Status post aortobifemoral bypass surgery: (10) COPD (chronic obstructive pulmonary disease): (11) Depression: (12) Methicillin resistant Staphylococcus aureus infection: Hospital Course Hospital Course: see discharge summary Additional Data Confirmation of : no pulse, no respirations, no heart sounds and pupils fixed and dilated Family: at bedside Attending/PCP notified?: Yes Attending physician: Maximus Trejo, DO Was code activated?: No Autopsy requested?: No customs examiner notified?: No Organ bank notified?: No Advance directives: Yes Coding Level of Care Code None Diagnoses Palliative care status Z51.5 Acute kidney injury N17.9 Thrombocytopenia D69.6 Acute blood loss anemia D62 Acute respiratory failure with hypoxia J96.01 Colitis K52.9 Benign essential hypertension I10 Diabetes mellitus E11.9 Status post aortobifemoral bypass surgery Z95.828 COPD (chronic obstructive pulmonary disease) J44.9 Depression F32.9 Methicillin resistant Staphylococcus aureus infection A49.02
--- NOTE | 2019-08-14 13:18 | Discharge Summary ---
Date of Service August 14, 2019 Admission HPI Per Admitting Provider 58-year-old female who presented to the emergency department for abdominal pain. The patient was at [facility] on July 26 for a left hip replacement. She was transferred to [facility] on July 28 for sepsis. At that time radiographic studies suggested diverticulitis as the source of sepsis.. The patient was discharged on oral antibiotics, Augmentin, and sent to [facility] 08/04/2019 She was transferred to the emergency department in the morning of 08/05/2023 worsening abdominal pain. She did have outpatient laboratory studies which did reveal a very high white blood cell count. Patient states she has had profuse bowel movements which have been loose has had no cough or cold symptoms no chest pain pressure shortness of breath only because she feels deconditioned and she has had nausea and vomiting. Patient is a history of aortobifemoral by bypass and continues to smoke. She has had a history of venous thromboembolic disease and does take oral anticoagulation. She was tested for COVID-19 on July 30 which was reported as negative. This paperwork accompanied the patient. In the emergency department she is very tender in her abdomen she has guarding no specific rigidity or definite rebound tenderness but she is very uncomfortable to examination. She is a negative psoas sign also Principal Diagnosis C diff colitis causing toxic megacolon Discharge Exam no pulse, no heart sounds, no breath sounds, pupils fixed Discharge Data Allergies Allergy/AdvReac Type Severity Reaction Status Date / Time Iodinated Contrast Media Allergy Unknown HIVES Verified 08/05/19 09:25 methocarbamol [From Robaxin] AdvReac Severe Unknown Verified 08/11/19 18:09 Consultations 08/05/19 11:40 ED Decision to Admit Stat Procedures Performed Operation Date: 08/07/19 11:30 Actual Procedures p Open Subtotal Colectomy with End Ileostomy - Akash Flowers, Ordered Studies 08/05/19 09:14 CT abd pelvis IV con only Stat CT angio chest PE protocol Stat 08/06/19 19:21 US point of care ultrasound Routine 08/07/19 04:02 CT abd pelvis oral con only Urgent 08/07/19 18:17 US point of care ultrasound Stat Hospital Course (1) Palliative care status: on comfort measures with morphine and ativan patient is certainly comfortable, no response, RR<10 on 08/14/19 at 1305 at the bedside (2) Colitis: sepsis from C diff colitis progression of disease required surgery to perform an urgent subtotal colectomy on 08/06 possible toxic storm colon plus ischemic colitis, C. difficile is positive, on po vancomycin iv flagyl no fever, WBC elevated stopped Fluconazole as there is no clear fungal infection planned to complete a full 14 days of Vanco and Flagyl, changed to comfort care (3) Acute kidney injury: pt had oliguric renal failure and hyperkalemia, with ultrafiltration 08/06 and additional AUTOMOTIVE QUALITY ENGINEER on 08/07,08/08, appreciate nephrology following Cr down to 1.8 but still needs tremendous amount of diuresis no further HD or labs, comfort care only (4) Thrombocytopenia: initially concern for DIC with low platelets and elevated PTT but not low fibrinogen DIC now ruled out could be due to Fluconazole, stopped 08/09 comfort care, no more checks (5) Acute blood loss anemia: secondary to surgical loss, transfused 1 unit prbc Hb trending down when last checked (6) Acute respiratory failure with hypoxia: extubated on 08/10 she remained intubated after surgery due to septic shock from colitis breathing well on 3L via mask but transitioned to comfort (7) Benign essential hypertension: medications on hold due to shock still requiring a minimal amount of Levophed, midodrine added TID (8) Diabetes mellitus: Patient has a history of diabetes in use insulin sliding scale she is currently n.p.o. monitor for hypoglycemia (9) Status post aortobifemoral bypass surgery: likely arterial vascular disease may have had an influence in her colons challenge to perfuse with the low blood pressures of sepsis (10) COPD (chronic obstructive pulmonary disease): Patient typically takes Advair but will transition to medication via ventilator (11) Depression: Patient maintained on Wellbutrin and Prozac, but as with npo status these are held, will discuss with icu if we can give via og (12) Methicillin resistant Staphylococcus aureus infection: Due to this history patient is given vancomycin initially iv but changed to po ( via og) Total Time Total Time Spent Total Time Spent (In Minutes): 15 minutes Total Time Includes: Examination of the Patient Discharge Plan Discharge Items Reason For Visit: COLITIS Condition on Discharge: Good Follow-up/Referrals: [facility] [Primary Care Provider] - Medications and DC Order Prescriptions: No Action fluoxetine 40 mg capsule 40 mg PO BID Qty: 180 RF: 3 bupropion HCl 300 mg tablet extended release 24 hr 300 mg PO QAM Qty: 30 RF: 2 diltiazem HCl 120 mg capsule,extended release 24hr 120 mg PO DAILY Qty: 90 RF: 3 atorvastatin 10 mg tablet 10 mg PO DAILY Qty: 90 RF: 3 lisinopril 5 mg tablet 5 mg PO DAILY Qty: 90 RF: 3 omeprazole 20 mg capsule,delayed release(DR/EC) 20 mg PO DAILY Qty: 90 RF: 3 fluticasone propion-salmeterol [Advair Diskus] 250-50 mcg/dose blister with device 1 puffs INH BID Qty: 60 RF: 3 cholecalciferol (vitamin D3) 1,000 unit capsule 1,000 units PO BID RF: 0 oxycodone-acetaminophen 5-325 mg tablet 1 tab PO .COMPLEX PRN (Reason: pain) RF: 0 ferrous sulfate [FeroSul] 325 mg (65 mg iron) tablet 325 mg PO BID Qty: 60 RF: 0 gabapentin 300 mg capsule 300 mg PO TID Qty: 270 RF: 3 buprenorphine 7.5 mcg/hour patch weekly 7.5 mcg transdermal WK RF: 0 trazodone 100 mg tablet 200 mg PO HS RF: 0 Admission Data Admit Date/Time: 08/05/19 12:46 Attending Provider: Maximus Trejo Admit Provider: Neil Fairchild Primary Care Provider: Anita Easton [facility] Neil Fair[facility] Coding Level of Care Code D/C Day Management <30 mins Diagnoses Palliative care status Z51.5 Colitis K52.9 Acute kidney injury N17.9 Thrombocytopenia D69.6 Acute blood loss anemia D62 Acute respiratory failure with hypoxia J96.01 Benign essential hypertension I10 Diabetes mellitus E11.9 Status post aortobifemoral bypass surgery Z95.828 COPD (chronic obstructive pulmonary disease) J44.9 Depression F32.9 Methicillin resistant Staphylococcus aureus infection A49.02
== END 2019-08-14 13:05 | disposition expired | DRG 853 ==
LOC: ED 08:55 → 2S 12:46 → SUATTDRO 12:46 → 2S 16:34 → 1E 08-06 17:41 → 3N 08-13 05:39